=== PATIENT | male | born 1935 | race Caucasian/White ===

== ENCOUNTER 2017-07-29 01:56 | Emergency (ER) | payer MEDICARE, OTHER ==
[2017-07-29] MEDS ORDERED: IPRATROPIUM/ALBUTEROL 3 ML NEB INH STA (02:07)
[2017-07-29] MEDS ORDERED: ALBUTEROL NEB 2.5 MG/3 ML INH STA (02:10)
[2017-07-29] MEDS ORDERED: IPRATROPIUM/ALBUTEROL 3 ML NEB INH ONE (02:21)
--- NOTE | 2017-07-29 02:44 | ED Physician Documentation ---
PD HPI DYSPNEA - Stated complaint Stated Complaint: DIFFICULTY BREATHING - Chief complaint Chief Complaint: Resp - History obtained from History obtained from: Patient - History of Present Illness Timing - onset: How many days ago (3-4 days) Timing - duration: Days Timing - details: Gradual onset, Waxing and waning Pain level now: 0 Improved by: Rest Worsened by: Laying flat Associated symptoms: Fever, Cough. No: Chest pain / discomfort Recently seen: Clinic - Additional information Additional information: 3 days of cough and cold symptoms, dyspnea. saw PMD 2 days ago. rx prednisone and zithromax, was told to start the zithromax if worsening. took first dose of zithromax this evening Review of Systems Constitutional: reports: Fever, Chills, Sweats Cardiac: reports: Reviewed and negative Respiratory: reports: Dyspnea, Cough GI: reports: Reviewed and negative : denies: Dysuria, Frequency Skin: denies: Rash PD PAST MEDICAL HISTORY - Past Medical History Past Medical History: Yes Cardiovascular: High cholesterol, Coronary artery disease Respiratory: COPD Neuro: None Endocrine/Autoimmune: None HEENT: Glaucoma Derm: None - Past Surgical History Past Surgical History: Yes General: Appendectomy, Hiatal hernia repair Ortho: Arthroscopic surgery Cardiovascular: CABG HEENT: Cataracts, Tonsil/Adenoidectomy - Present Medications Home Medications: Ambulatory Orders Medication Instructions Recorded Confirmed Advair 1 mg INH DAILY 07/29/17 Albuterol 1 mcg INH DAILY 07/29/17 Monolukast 1 mg PO DAILY 07/29/17 Oxybutynin 1 mg PO DAILY 07/29/17 Plavix 1 mg PO DAILY 07/29/17 Prednisone 1 mg PO DAILY 07/29/17 Ranitadine 1 mg pe PO DAILY 07/29/17 Tamulosin 1 mg PO DAILY 07/29/17 Zithromax 1 mg PO DAILY 07/29/17 - Allergies Allergies/Adverse Reactions: Allergies Allergy/AdvReac Type Severity Reaction Status Date / Time aspirin Allergy Respiratory Verified 07/29/17 02:08 - Social History Does the pt smoke?: No Smoking Status: Never smoker Does the pt drink ETOH?: Yes Does the pt have substance abuse?: No - Immunizations Immunizations are current?: Yes - POLST Patient has POLST: No PD ED PE NORMAL - Vitals Vital signs reviewed: Yes - General General: Alert and oriented X 3, No acute distress, Well developed/nourished - HEENT HEENT: Moist mucous membranes - Neck Neck: Supple, no meningeal sign - Cardiac Cardiac: RRR, Other (2/6 DERECK base) - Respiratory Respiratory: No respiratory distress - Abdomen Abdomen: Soft, Non tender - Extremities Extremities: No edema PD ED PE EXPANDED - Respiratory Respiratory: Wheezing, Decreased breath sounds Results - Vitals Vitals: Vital Signs - 24 hr 07/29/17 07/29/17 07/29/17 02:05 02:15 03:31 Temperature 38.3 C H Heart Rate 95 84 111 H Respiratory 24 20 22 Rate Blood Pressure 152/83 H O2 Saturation 88 L 07/29/17 07/29/17 07/29/17 03:41 04:12 04:21 Temperature Heart Rate 95 96 87 Respiratory 24 20 20 Rate Blood Pressure 151/69 H 149/74 H 137/70 H O2 Saturation 96 94 94 07/29/17 07/29/17 04:43 05:20 Temperature 38.1 C H Heart Rate 78 Respiratory 20 Rate Blood Pressure O2 Saturation 94 Oxygen O2 Source Nasal cannula Oxygen Flow Rate 2 - EKG (time done) No standard instances Rate: Rate (enter#) (88) Rhythm: NSR [place]: Normal Intervals: Normal [place], RBBB QRS: Normal Ischemia: Normal ST segments - Labs Labs: Laboratory Tests 07/29/17 07/29/17 07/29/17 02:54 02:54 02:54 WBC 14.7 H RBC 4.18 L Hgb 13.4 L Hct 40.0 L MCV 95.7 H MCH 32.1 H MCHC 33.6 RDW 14.0 Plt Count 182 MPV 9.0 Neut # 12.6 H Lymph # 1.4 L [place] # 0.6 Eos # 0.0 Baso # 0.1 Absolute Nucleated RBC 0.00 Nucleated RBC % 0.0 Sodium 138 Potassium 4.0 Chloride 109 Carbon Dioxide 24 Anion Gap 5.0 L BUN 27 H Creatinine 1.2 Estimated GFR (MDRD) 58 L Glucose 165 H Lactic Acid 3.0 H* Calcium 8.8 Urine Color Urine Clarity Urine pH Ur Specific [place] Urine Protein Urine Glucose (UA) Urine Ketones Urine Occult Blood Urine Nitrite Urine Bilirubin Urine Urobilinogen Ur Leukocyte Esterase Ur Microscopic Review Urine Culture Comments Influenza A (Rapid) Influenza B (Rapid) Influenza Types A,B Ag 07/29/17 07/29/17 02:54 04:05 WBC RBC Hgb Hct MCV MCH MCHC RDW Plt Count MPV Neut # Lymph # [place] # Eos # Baso # Absolute Nucleated RBC Nucleated RBC % Sodium Potassium Chloride Carbon Dioxide Anion Gap BUN Creatinine Estimated GFR (MDRD) Glucose Lactic Acid Calcium Urine Color YELLOW Urine Clarity CLEAR Urine pH 5.5 Ur Specific [place] >=1.030 H Urine Protein NEGATIVE Urine Glucose (UA) NEGATIVE Urine Ketones NEGATIVE Urine Occult Blood NEGATIVE Urine Nitrite NEGATIVE Urine Bilirubin NEGATIVE Urine Urobilinogen 0.2 (NORMAL) Ur Leukocyte Esterase NEGATIVE Ur Microscopic Review NOT INDICATED Urine Culture Comments NOT INDICATED Influenza A (Rapid) Negative Influenza B (Rapid) Negative Influenza Types A,B Ag - - Rads (name of study) chest xray Radiology: Prelim report reviewed, See rad report PD MEDICAL DECISION MAKING - ED course Complexity details: reviewed results, re-evaluated patient, considered differential, d/w patient Departure - Departure Disposition: 01 Home, Self Care Clinical Impression: Pneumonia Qualifiers: Pneumonia type: due to unspecified organism Laterality: bilateral Lung location : lower lobe of lung Qualified Code(s): J18.9 - Pneumonia, unspecified organism Condition: Good Instructions: ED Pneumonia Adult Discharge Date/Time: 07/29/17 05:27
[2017-07-29] MEDS ORDERED: ALBUTEROL NEB 2.5 MG/3 ML INH ONE (02:52)
[2017-07-29 03:32] LABS: CALCIUM 8.8 mg/dL (8.5-10.3); CREATININE 1.2 mg/dL (0.6-1.2)
[2017-07-29] MEDS ORDERED: ACETAMINOPHEN 325 MG TABLET PO STA (03:34)
[2017-07-29] MEDS ORDERED: ACETAMINOPHEN 325 MG TABLET PO ONE (03:41)
[2017-07-29 03:44] LABS: BASOPHILS # (AUTO) 0.1 10^3/uL (0.0-0.1); BASOPHILS % (AUTO) 0.4 %; EOSINOPHILS % (AUTO) 0.1 %; HGB - HEMOGLOBIN 13.4 g/dL (14.0-18.0); LYMPHOCYTES # (AUTO) 1.4 10^3/uL (1.5-3.5); LYMPHOCYTES % (AUTO) 9.3 %; MEAN CORPUSCULAR HEMOGLOBIN 32.1 pg (27.0-31.0); MEAN CORPUSCULAR HGB CONC 33.6 g/dL (32.0-36.0); MEAN CORPUSCULAR VOLUME 95.7 fL (80.0-94.0); MONOCYTES # (AUTO) 0.6 10^3/uL (0.0-1.0); MONOCYTES % (AUTO) 3.8 %; NEUTROPHILS # (AUTO) 12.6 10^3/uL (1.5-6.6); NEUTROPHILS % (AUTO) 86.4 %; RED BLOOD COUNT 4.18 10^6/uL (4.70-6.10); UNCORRECTED WHITE BLOOD COUNT 14.7 x10^3/uL; WHITE BLOOD COUNT 14.7 x10^3/uL (4.8-10.8)
--- NOTE | 2017-07-29 03:53 | XRAY Preliminary Report ---
Exam: XR CHEST 2 VIEW PA/LAT IMPRESSION: 1. Mild bibasilar opacities could reflect pneumonia. Post treatment two-view chest suggested to ensur e clearance. 2. Mild cardiomegaly without overt heart failure. [facility] SITE ID: [id number]
--- NOTE | 2017-07-29 03:59 | XRAY Report ---
EXAM: CHEST RADIOGRAPHY EXAM DATE: 07/29/2017 03:32 AM. CLINICAL HISTORY: Dyspnea, cough. COMPARISON: 05/27/2016. TECHNIQUE: 2 views. FINDINGS: Lungs/Pleura: Mild bibasilar airspace opacities. No pneumothorax or large effusion. Cannot exclude tr nick effusions. Mediastinum: Mild cardiomegaly is stable. No mediastinal shift. Other: Post CABG. IMPRESSION: 1. Mild bibasilar opacities could reflect pneumonia. Post treatment to the chest suggested to ensure clearance. 2. Mild cardiomegaly without overt heart failure. [facility] Referring Provider Line: [phone] SITE ID: [id number]
[2017-07-29 04:18] LABS: BILIRUBIN,URINE NEGATIVE (NEGATIVE); PH,URINE 5.5 PH (5.0-7.5)
[2017-07-29 04:21] VITALS: BP 137/70
[2017-07-29 04:30] LABS: UA CHARGE (STRIP ONLY) YES; UR CULTURE IF IND NOT INDICATED
[2017-07-29] MEDS ORDERED: cefTRIAXone 1 GM in SODIUM CHLORIDE 0.9% MINIBAG 100 ML IV STA (04:36)
[2017-07-29] MEDS ORDERED: cefTRIAXone 1 GM VIAL ONE (04:42)
== END 2017-07-29 05:27 | disposition home or self-care (01) ==
LOC: ED 01:56
DX: J18.9 Pneumonia, unspecified organism (principal); I48.91 Unspecified atrial fibrillation; I45.10 Unspecified right bundle-branch block; E78.00 Pure hypercholesterolemia, unspecified; I25.10 Atherosclerotic heart disease of native coronary artery without angina pectoris; Z79.01 Long term (current) use of anticoagulants; Z95.1 Presence of aortocoronary bypass graft
CPT/HCPCS: 36415; 71020; 80048; 81003; 83605; 85025; 87275; 87276; 93005; 94640; 96365; 99283; 99284; A9270; J7613; 81001; 87086

== ENCOUNTER 2018-07-08 09:47 | Emergency (ER) | payer MEDICARE, OTHER ==
--- NOTE | 2018-07-08 10:56 | ED Physician Documentation ---
History of Present Illness - Stated complaint Stated Complaint: SHAKES/CHILLS - Chief complaint Chief Complaint: Resp - Additonal information Additional information: hx from pt 82 male to ED with cough and shaking chills cough started last night, productive white sputum, some SOA better with a neb which he uses for asthma no RAMON no [employer] no CP no AP no NVD no urinary sx no abrasions or rash etc no travel no sick contacts Review of Systems Constitutional: reports: Chills. denies: Fever Ears: denies: Ear pain Throat: denies: Sore throat Respiratory: reports: Dyspnea, Cough GI: denies: Abdominal Pain, Nausea, Vomiting, Diarrhea : denies: Dysuria Skin: denies: Rash, Lesions Endocrine: denies: Easy bruising / bleeding Immunocompromised: denies: Immunocompromised PD PAST MEDICAL HISTORY - Past Medical History Cardiovascular: High cholesterol, Coronary artery disease Respiratory: Asthma, COPD Endocrine/Autoimmune: None HEENT: Glaucoma Derm: None - Past Surgical History Past Surgical History: Yes General: Appendectomy, Hiatal hernia repair Ortho: Arthroscopic surgery Cardiovascular: CABG HEENT: Cataracts, Tonsil/Adenoidectomy - Present Medications Home Medications: Ambulatory Orders Medication Instructions Recorded Confirmed Advair 1 mg INH DAILY 07/29/17 Albuterol 1 mcg INH DAILY 07/29/17 Monolukast 1 mg PO DAILY 07/29/17 Oxybutynin 1 mg PO DAILY 07/29/17 Plavix 1 mg PO DAILY 07/29/17 Prednisone 1 mg PO DAILY 07/29/17 Ranitadine 1 mg pe PO DAILY 07/29/17 Tamulosin 1 mg PO DAILY 07/29/17 Azithromycin [Zithromax] 250 mg PO DAILY #4 tablet 07/08/18 Furosemide 07/08/18 Potassium Bicarbonate/Cit AC 07/08/18 07/08/18 [Potassium 25 Meq Tablet Eff] predniSONE [Deltasone] 60 mg PO DAILY 5 Days tablet 07/08/18 - Allergies Allergies/Adverse Reactions: Allergies Allergy/AdvReac Type Severity Reaction Status Date / Time aspirin Allergy Respiratory Verified 07/08/18 09:58 - Social History Does the pt smoke?: No Smoking Status: Never smoker Does the pt drink ETOH?: Yes Does the pt have substance abuse?: No - Immunizations Immunizations are current?: Yes - POLST Patient has POLST: No PD ED PE NORMAL - Vitals Vital signs reviewed: Yes - General General: Alert and oriented X 3 - HEENT HEENT: PERRL - Neck Neck: Supple, no meningeal sign - Cardiac Cardiac: RRR - Respiratory Respiratory: No respiratory distress, Clear bilaterally - Abdomen Abdomen: Soft, Non tender - Derm Derm: Normal color, Other (small abrasion R FA healing s infection) - Extremities Extremities: No tenderness to palpate, Normal ROM s pain, No edema, No calf tenderness / cord - Neuro Neuro: Alert and oriented X 3 Results - Vitals Vitals: Vital Signs - 24 hr 07/08/18 07/08/18 07/08/18 09:54 12:33 13:22 Temperature 36.8 C 36.7 C 36.7 C Heart Rate 85 70 72 Respiratory 20 20 18 Rate Blood Pressure 122/57 L 129/79 135/84 H O2 Saturation 95 97 97 Oxygen O2 Source Room air - Labs Labs: Laboratory Tests 07/08/18 11:15 Urine Color YELLOW Urine Clarity CLEAR Urine pH 6.0 Ur Specific [place] >=1.030 H Urine Protein >=300 Urine Glucose (UA) NEGATIVE Urine Ketones NEGATIVE Urine Occult Blood SMALL H Urine Nitrite NEGATIVE Urine Bilirubin NEGATIVE Urine Urobilinogen 0.2 (NORMAL) Ur Leukocyte Esterase NEGATIVE Urine RBC 0-5 Urine WBC 0-3 Ur Squamous Epith Cells NONE SEEN Urine Bacteria Rare Ur Microscopic Review INDICATED Urine Culture Comments NOT INDICATED PD MEDICAL DECISION MAKING - Sepsis Event Vital Signs: Vital Signs - 24 hr 07/08/18 07/08/18 07/08/18 09:54 12:33 13:22 Temperature 36.8 C 36.7 C 36.7 C Heart Rate 85 70 72 Respiratory 20 20 18 Rate Blood Pressure 122/57 L 129/79 135/84 H O2 Saturation 95 97 97 Oxygen O2 Source Room air Departure - Departure Disposition: Home, Self Care Clinical Impression: Pneumonia Qualifiers: Pneumonia type: due to unspecified organism Laterality: left Lung location: lower lobe of lung Qualified Code(s): J18.1 - Lobar pneumonia, unspecified organism Condition: Good Instructions: ED Pneumonia Adult Follow-Up: Jose Ames MD [Provider Admit Priv/Credential] - (call to see if accepting new patients and to establish care) Lois Grace MD [Provider Admit Priv/Credential] - (call to see if accepting new patients and to establish care) Prescriptions: Azithromycin [Zithromax] 250 mg PO DAILY #4 tablet predniSONE [Deltasone] 60 mg PO DAILY 5 Days tablet Comments: You do not have a urine infection but you do have a good sized left lung pneumonia Pneumonia can be a very serious infection especially at age 82 with other medical problems. But right now you vital signs are all fine and I think it is reasonable to try treating you at home with oral antibiotics and steroids and breathing treatments Please use albuterol in your nebulizer every 4 hr for the next three days and then as needed Take the prednisone for 5 more days But please, I would like you to see your PMD tomorrow (ir when you get home to [facility]) for a recheck and oxygen level to be sure you are doing all right And if you get worse at any time come straight back to the ER It is important that you get a repeat chest xray in 6 weeks to be sure this pneumonia has completely cleared - if it does not then you might need further testing such as bronchoscopy or a CT scan
[2018-07-08 11:24] LABS: BILIRUBIN,URINE NEGATIVE (NEGATIVE); CLARITY,URINE CLEAR (CLEAR); GLUCOSE, URINE (UA) NEGATIVE (NEGATIVE); KETONES,URINE (UA) NEGATIVE (NEGATIVE); LEUKOCYTE ESTERASE, URINE NEGATIVE (NEGATIVE); NITRITE,URINE NEGATIVE (NEGATIVE); OCCULT BLOOD,URINE SMALL (NEGATIVE); PROTEIN,URINE >=300 mg/dL (NEGATIVE); UROBILINOGEN,URINE 0.2 (NORMAL) E.U./dL (NORMAL)
--- NOTE | 2018-07-08 11:30 | XRAY Report ---
Reason: SOA Procedure Date: 07/08/2018 Accession Number: [id number] / [id number] Procedure: XR - Chest 2 View X-Ray CPT Code: 23578 FULL RESULT: EXAM: CHEST RADIOGRAPHY EXAM DATE: 07/08/2018 11:18 AM. CLINICAL HISTORY: Shortness of breath with productive cough. COMPARISON: Previous exam of 07/29/2017. TECHNIQUE: 2 views. FINDINGS: Lungs/Pleura: There is ill-defined left basilar infiltrate present. Right lung is grossly clear. Mediastinum: Heart and mediastinal contours are unremarkable. Poststernotomy changes noted. Other: None. IMPRESSION: Newly developed ill-defined left basilar infiltrate from previous exam of 07/29/2017. [facility]
[2018-07-08 11:41] LABS: BACTERIA,URINE Rare /HPF (None Seen); RBC,URINE 0-5 /HPF (0-5); SQUAMOUS EPITHELIAL CELL,UR NONE SEEN (<= Few)
[2018-07-08] MEDS ORDERED: AZITHROMYCIN 250 MG TABLET PO STA (13:05)
[2018-07-08 13:23] VITALS: BP 135/84
[2018-07-08] MEDS ORDERED: predniSONE 20 MG TABLET PO STA (14:00)
== END 2018-07-08 14:09 | disposition home or self-care (01) ==
LOC: ED 09:47
DX: J18.1 Lobar pneumonia, unspecified organism (principal); I25.10 Atherosclerotic heart disease of native coronary artery without angina pectoris; E78.00 Pure hypercholesterolemia, unspecified; Z95.1 Presence of aortocoronary bypass graft
CPT/HCPCS: 71046; 81001; 99283; A9270; J7512; 81003; 87086

== ENCOUNTER 2020-06-20 10:05 | Emergency (ER) | payer MEDICARE, OTHER ==
--- NOTE | 2020-06-20 11:07 | ED Physician Documentation ---
PD HPI LOWER EXT INJURY - Stated complaint Stated Complaint: R LEG PX - Chief complaint Chief Complaint: Ext Problem - History obtained from History obtained from: Patient - History of Present Illness PD HPI LOW EXT INJURY LOCATION: Right, Knee Type of injury: Other (has had ongoing pain right knee due to arthritis, worse the past few weeks with now some swelling of the knee and spasms of thigh at times when rested.). No: Fall, Twist Where injury occurred: Home Timing - onset: How many weeks ago (few) Timing - details: Gradual onset, Still present, Waxing and waning Improved by: Rest. No: Meds (not by Tylenol) Worsened by: Moving, Other (walking and standing too long, Using walker to help with the knee.). No: Palpating Associated symptoms: Swelling. No: Weakness, Numbness, Discolored Similar symptoms before: Has not had sx before Recently seen: Not recently seen (has appt with Dr. Espinoza 07/08 for initial exam.) Review of Systems Constitutional: denies: Fever, Chills Cardiac: denies: Chest pain / pressure (he has muscle spasm chest muscle when he took his shirt off today. Otherwise no chest pain.) Respiratory: denies: Dyspnea, Cough GI: denies: Abdominal Pain, Nausea, Vomiting, Diarrhea Skin: denies: Rash, Lesions Neurologic: denies: Focal weakness, Numbness PD PAST MEDICAL HISTORY - Past Medical History Cardiovascular: High cholesterol, Coronary artery disease Respiratory: Asthma, COPD Endocrine/Autoimmune: None HEENT: Glaucoma Derm: None - Past Surgical History Past Surgical History: Yes General: Appendectomy, Hiatal hernia repair Ortho: Arthroscopic surgery Cardiovascular: CABG HEENT: Cataracts, Tonsil/Adenoidectomy - Present Medications Home Medications: Ambulatory Orders Medication Instructions Recorded Confirmed Advair 1 mg INH DAILY 07/29/17 Albuterol 1 mcg INH DAILY 07/29/17 Monolukast 1 mg PO DAILY 07/29/17 Oxybutynin 1 mg PO DAILY 07/29/17 Plavix 1 mg PO DAILY 07/29/17 Prednisone 1 mg PO DAILY 07/29/17 Ranitadine 1 mg pe PO DAILY 07/29/17 Tamulosin 1 mg PO DAILY 07/29/17 Azithromycin [Zithromax] 250 mg PO DAILY #4 tablet 07/08/18 Furosemide 07/08/18 Potassium Bicarbonate/Cit AC 07/08/18 07/08/18 [Potassium 25 Meq Tablet Eff] predniSONE [Deltasone] 60 mg PO DAILY 5 Days tablet 07/08/18 Hydrocodone/Acetaminophen [[place] 1 each PO BID PRN #20 tablet 06/20/20 5-325 Tablet] Tizanidine HCl 4 mg PO TID PRN #25 capsule 06/20/20 dexAMETHasone [Decadron] 4 mg PO DAILY #5 tablet 06/20/20 - Allergies Allergies/Adverse Reactions: Allergies Allergy/AdvReac Type Severity Reaction Status Date / Time aspirin Allergy Respiratory Verified 07/08/18 09:58 - Social History Does the pt smoke?: No Smoking Status: Never smoker Does the pt drink ETOH?: Yes Does the pt have substance abuse?: No - Immunizations Immunizations are current?: Yes - POLST Patient has POLST: No PD ED PE NORMAL - Vitals Vital signs reviewed: Yes - General General: Alert and oriented X 3, No acute distress, Well developed/nourished - Cardiac Cardiac: RRR, No murmur - Respiratory Respiratory: Clear bilaterally - Abdomen Abdomen: Soft, Non tender - Derm Derm: Normal color, Warm and dry - Extremities Extremities: No edema, No calf tenderness / cord, Other (right knee with mild effusion. No redness nor warmth. Ligament testing without pain nor laxity. ) - Neuro Neuro: No motor deficit, No sensory deficit Results - Vitals Vitals: Vital Signs - 24 hr 06/20/20 06/20/20 10:36 12:49 Temperature 36.2 C L 36.5 C Heart Rate 60 53 L Respiratory 20 15 Rate Blood Pressure 159/86 H 156/120 H O2 Saturation 98 99 Oxygen O2 Source Room air - Labs Labs: Laboratory Tests 06/20/20 06/20/20 11:03 11:03 WBC 6.8 RBC 4.27 L Hgb 13.7 L Hct 41.9 L MCV 98.1 H MCH 32.1 H MCHC 32.7 RDW 13.1 Plt Count 170 MPV 11.2 Neut # (Auto) 4.8 Lymph # (Auto) 1.0 L [place] # (Auto) 0.7 Eos # (Auto) 0.3 Baso # (Auto) 0.1 Absolute Nucleated RBC 0.00 Nucleated RBC % 0.0 Sodium 139 Potassium 4.4 Chloride 104 Carbon Dioxide 24 Anion Gap 11.0 BUN 23 H Creatinine 1.3 H Estimated GFR (MDRD) 53 L Glucose 105 H Calcium 9.3 Magnesium 2.3 Total Bilirubin 0.7 AST 16 ALT 16 Alkaline Phosphatase 53 Total Protein 6.4 L Albumin 3.6 Globulin 2.8 Albumin/Globulin Ratio 1.3 Lipase 57 H - Rads (name of study) right knee Radiology: Prelim report reviewed (arthritic changes. ), See rad report PD MEDICAL DECISION MAKING - ED course Complexity details: reviewed results, considered differential (knee pain secondary to arthritis with mild effusion and some thigh muscle spasms. ), d/w patient Departure - Departure Disposition: Home, Self Care Clinical Impression: Muscle spasm of right leg Knee pain Qualifiers: Chronicity: acute Laterality: right Qualified Code(s): M25.561 - Pain in right knee Condition: Stable Record reviewed to determine appropriate education?: Yes Instructions: ED Degenerative Joint Disease Follow-Up: Rinku Nguyễn MD [Primary Care Provider] - Anastacio Espinoza DO [Physician No Access] - Prescriptions: dexAMETHasone [Decadron] 4 mg PO DAILY #5 tablet Hydrocodone/Acetaminophen [[place] 5-325 Tablet] 1 each PO BID PRN #20 tablet PRN Reason: Pain Tizanidine HCl 4 mg PO TID PRN #25 capsule PRN Reason: Spasms Comments: Your x-ray does show Arthritis of the knee and some calcification of the cartilage. Try the knee supporter when up and around to see if it helps reduce some of the discomfort and provide support for the joint. This will still allow range of motion so it does not stiffen up. Use your walker as needed for support. Short-term use Decadron anti-inflammatory to see if there is some improvement in the knee pain. Tizanidine muscle relaxant for spasms. Add Tylenol 500 mg 3 or 4 times a day regularly and to that add hydrocodone if needed for worse pain twice daily. Particularly use this at night before bed. Your electrolytes are good on your blood test. I presume your leg spasms are from the muscle fatigue from use of it to support the knee joint. Follow up with Dr. Espinoza as planned. Discharge Date/Time: 06/20/20 13:00
[2020-06-20] MEDS ORDERED: HYDROcod/ACETAM 5/325 MG TABLET PO STA (11:32)
[2020-06-20] MEDS ORDERED: CHERRY SYRUP 10 ML UDC PO ONE (11:32)
[2020-06-20] MEDS ORDERED: DEXAMETHASONE 10 MG/ML VIAL PO STA (11:32)
[2020-06-20] MEDS ORDERED: methocarbamoL 500 MG TABLET PO STA (11:32)
[2020-06-20] MEDS ORDERED: NAPROXEN 250 MG TABLET PO STA (11:33)
[2020-06-20 11:37] LABS: BASOPHILS # (AUTO) 0.1 10^3/uL (0.0-0.1); BASOPHILS % (AUTO) 0.9 %; EOSINOPHILS # (AUTO) 0.3 10^3/uL (0.0-0.7); EOSINOPHILS % (AUTO) 3.7 %; HGB - HEMOGLOBIN 13.7 g/dL (14.0-18.0); LYMPHOCYTES % (AUTO) 14.7 %; MEAN CORPUSCULAR HEMOGLOBIN 32.1 pg (27.0-31.0); MEAN CORPUSCULAR HGB CONC 32.7 g/dL (32.0-36.0); MEAN CORPUSCULAR VOLUME 98.1 fL (80.0-94.0); MEAN PLATELET VOLUME 11.2 fL (7.4-11.4); MONOCYTES # (AUTO) 0.7 10^3/uL (0.0-1.0); MONOCYTES % (AUTO) 9.8 %; NEUTROPHILS # (AUTO) 4.8 10^3/uL (1.5-6.6); NEUTROPHILS % (AUTO) 70.6 %; PLT - PLATELET COUNT 170 10^3/uL (130-450); RED BLOOD COUNT 4.27 10^6/uL (4.70-6.10); RED CELL DISTRIBUTION WIDTH 13.1 % (12.0-15.0); WHITE BLOOD COUNT 6.8 x10^3/uL (4.8-10.8)
--- NOTE | 2020-06-20 12:00 | XRAY Report ---
PROCEDURE: Knee 4 View RT INDICATIONS: knee pain worsening the past week TECHNIQUE: 4 views of the right knee(s) were acquired. COMPARISON: None. FINDINGS: Bones: No fractures or dislocations. No suspicious bony lesions. There is mild medial femorotibial joint space narrowing, with associated degenerative change with sub chondral sclerosis and osteophyte formation. An enthesophyte can be seen along the superior aspect of the patella. Soft tissues: There is a small joint effusion. Relatively prominent calcification can be seen along t he joint line. Atherosclerotic calcification is seen. IMPRESSION: Degenerative changes with medial joint space narrowing and likely meniscal calcification , without an acute abnormality identified by plain film. If there is strong clinical concern for internal arrangement of the knee, please consider a dedicated knee MRI for further evaluation (assuming that there is no contraindication). Reviewed by: Colin Pryor MD on 06/20/2020 10:59 AM ERICA Approved by: Colin Pryor MD on 06/20/2020 10:59 AM ERICA Station ID: [id number]
[2020-06-20 12:07] LABS: ALBUMIN 3.6 g/dL (3.2-5.5); ALBUMIN/GLOBULIN RATIO 1.3 (1.0-2.2); BILIRUBIN,TOTAL 0.7 mg/dL (0.2-1.0); CALCIUM 9.3 mg/dL (8.5-10.3); CREATININE 1.3 mg/dL (0.6-1.2); MAGNESIUM 2.3 mg/dL (1.7-2.8); TOTAL PROTEIN 6.4 g/dL (6.7-8.2)
[2020-06-20 12:50] VITALS: BP 156/120
== END 2020-06-20 13:00 | disposition home or self-care (01) ==
LOC: ED 10:05
DX: M62.838 Other muscle spasm (principal); M25.561 Pain in right knee
CPT/HCPCS: 36415; 73564; 80053; 83690; 83735; 85025; 93005; 99284; A9270

== ENCOUNTER 2020-08-20 08:00 | Outpatient (CLI) | payer MEDICARE, OTHER ==
[2020-08-20 19:19] LABS: FREE T3 2.51 pg/mL (2.5-3.9)
[2020-08-20 19:20] LABS: THYROID STIMULATING HORMONE 3.55 uIU/mL (0.34-5.60)
[2020-08-20 19:21] LABS: FREE T4 (FREE THYROXINE) 0.91 ng/dL (0.58-1.64)
== END 2020-08-20 23:59 | disposition home or self-care (01) ==
LOC: LAB.WCP 08:00
PROVIDERS: ATTEND Family Medicine
DX: M62.81 Muscle weakness (generalized) (principal)
CPT/HCPCS: 36415; 84439; 84443; 84481

== ENCOUNTER 2020-10-30 10:58 | Outpatient (CLI) | payer MEDICARE, OTHER ==
[2020-10-30 12:19] VITALS: BP 133/70
--- NOTE | 2020-10-30 12:19 | SLEEP CARE CONSULTATION ---
Information from patient questionnaire entered by Cristela Cesar. I have reviewed and concur with the information entered by Cristela Cesar. This document represents the service I personally performed and the decisions made by me, Lisa Fishman ARNP. History of Present Illness Service Date and Time: 10/30/2020 1058 Reason for Visit: New patient, Previously diagnosed sleep apnea (Severe - AHI - 42.7), sleep apnea on CPAP therapy, Other Chief Complaint: reports: Other (need new machine) Date of Onset: had machine 7 years Usual bedtime: 9-10 pm Time it takes to fall asleep: 20 minutes or less Snores at night: Yes (when not using machine) Observed to quit breathing while asleep: Yes Sleeps alone due to snoring: No Number of times waking at night: 2 Reasons for waking at night: reports: Bathroom. denies: Choking, Snoring, Gasping for air Toss, Turn, or Twitch while sleeping: Yes Recalls having dreams: Yes Usually gets out of bed at: 9 am Feels refreshed in the morning: Yes Morning headache: No Sleepy or fatigued during the day: Yes Ever fallen asleep while driving: No Takes day naps: Yes Dreams during day naps: No Prior sleep studies: Yes Year and Where: 2012 [facility] in [place], [place] Additional HPI information: KASHMIR CHAMBERS was diagnosed to have severe, AHI 42.7, obstructive sleep apnea- hypopnea syndrome and comes into the office today to establish care for CPAP therapy and is accompanied by his spouse. - Parasomnia Symptoms Ever been unable to move upon waking from sleep: No Walks in sleep: No Talks in sleep: Yes (once in a while) Ever acted out dreams in sleep: No Ever felt weak in the knees when startled or emotional: No Bothered by creepy, crawly, restless sensations in legs: Yes Problems with memory or concentration: Yes CPAP Compliance Data - Data Reviewed with Patient Average duration of nightly device use: 6 hr 11 min Compliance rate %: 75.6 (180 days) Current pressure setting (cmH2O): 8 Humidity settin Average residual AHI: 3.1 Average large leak: 3 min 59 sec Compliance data discussion: He is using a nasal Wisp type mask. He tries to change it out every 2 weeks. He gets his supplies from [facility] in [place] ([facility]), used to come automatically but since move he has not received any more. Subjective Patient concerns: reports: air blowing in eyes (when losening up after changing position in bed), mask leak noise. denies: aerophagia, mask discomfort, condensation in mask/hose, nasal congestion, dry mouth, nose, throat, epistaxis, other Observed to snore while using device: No (but his states she hear "gurgling sounds") Current pressure setting perceived as: comfortable On therapy, patient: reports: sleeping better, awakening more refreshed, being more awake and alert during the day, more rested overall, drowsiness while driving (during long distance driving) Initial [place] Sleepiness Scale score: 11 (in 2019) Past Medical History Past Medical History: reports: Arthritis, Asthma, Emphysema (COPD), GERD, Other (heart valve replacement). denies: Hypertension, Diabetes, Arrythmia, Anxiety, Depression Social History The patient's occupation is a Retired. Patient is and lives in [place]. Have you smoked in the past 12 months: No Years of smokin Quit date: 1966 Alcohol use: Yes Alcohol amount and frequency: 1 drink 5 times a week Caffeine use: No Family History Family history of sleep disordered breathing: Yes (son - sleep apnea treated) Allergies and Home Medications Drug allergies reviewed: Yes (aspirin) Home medication list reviewed: Yes (see scanned list) Review of Systems Cardiovascular: denies: high blood pressure Respiratory: reports: shortness of breath, wheeze, sputum production, chronic cough Gastrointestinal: reports: heartburn Urinary: reports: frequency, urgency, impotence Neurological: reports: gait or balance problems. denies: headaches Ear/Nose/Throat: reports: nasal congestion, sinus problems, tonsillectomy, wisdom teeth removed Endocrine: reports: increased urination. denies: thyroid disease Musculoskeletal: reports: mobility problems Immunologic: reports: sneezing, allergies to food or environment Physical Exam Blood Pressure: 133/70 Cuff size: long Heart Rate: 54 O2 Saturation: 92 Height: 6 ft 0.5 in Weight: 245 lb Body Mass Index: 32.8 BMI Classification: Obese Nostrils: patent to airflow Turbinates: normal Mouth and throat: narrow oropharynx Soft palate: long Uvula visualization: 25% Mallampati Class III Tongue: normal in size Tonsils: absent bilaterally Heart: regular rate and rhythm (bovine valvue) Lungs: clear bilaterally Impression and Plan 1. Obstructive Sleep Apnea-Hypopnea Syndrome, severe, with good treatment compliance and good apnea control. On CPAP therapy, the patient has better sleep quality and is more rested overall. He has a machine that is 7 years old and one of the buttons is broken off of it. They had someone look at it and told them the pressure may not be working well on the machine. He would like to update his machine. The patients CPAP is over 5 years old and of reasonable use with some broken components. Thus, the CPAP will be updated. A DWO prescription will be made. Compliance guidelines for new device and follow up discussed. Patient's apnea severity and rationale for treatment to reduce apnea, improve sleep quality and reduce cardiovascular and cerebrovascular events was reviewed. I also reviewed the benefit of consistent device use of CPAP for hypertension, cardiac disease, gastric reflux, depression/anxiety, and COPD. * Continue auto CPAP pressure at 8 cmH2O * Update machine * Notify me if snoring with mask or feeling that the pressure is too much or too little * Attempt to lose weight * Call this office if any problems using CPAP * Return for follow up in 1 months after obtaining new machine, or sooner if concerns arise Counseling Topics: Spare mask, Weight loss health impact Visit Type: In Office Time Spent with Patient (minutes): 37 Provider Statement: I spent 100% of the Face to Face Visit with the patient with greater than 50% spent counseling the patient and coordination of care.
== END 2020-10-30 10:59 | disposition home or self-care (01) ==
LOC: SC 10:58
PROVIDERS: ATTEND Nurse Practitioner Family
DX: G47.33 Obstructive sleep apnea (adult) (pediatric) (principal); J43.9 Emphysema, unspecified; E66.9 Obesity, unspecified; Z68.32 Body mass index [BMI] 32.0-32.9, adult; Z95.2 Presence of prosthetic heart valve
CPT/HCPCS: 99203; G0463; 99212

== ENCOUNTER 2020-12-22 11:27 | Outpatient (CLI) | payer MEDICARE, OTHER ==
--- NOTE | 2020-12-22 11:51 | SLEEP CARE CONSULTATION ---
Information from patient questionnaire entered by Cristela Cesar. I have reviewed and concur with the information entered by Cristela Cesar. This document represents the service I personally performed and the decisions made by , Lisa Fishman ARNP. History of Present Illness Service Date and Time: 12/22/2020 1127 Previous diagnosis: Severe, Obstructive Sleep Apnea-Hypopnea Syndrome AHI: 42.7 (in 2012) Reason for follow up: first compliance after device update Equipment type: CPAP Equipment obtained from: [email or web address] (getting supplies as needed) Mask style: Nasal (over the nose) Backup mask available: No (will keep old mask once replaced) Last cushion change: 1 month Prior sleep studies: Yes Year and Where: [address] [place] [address] in [facility] additional information: KASHMIR CHAMBERS was diagnosed to have severe, AHI 42.7, obstructive sleep apnea- hypopnea syndrome and returned today with spouse for CPAP therapy first compliance after updating device follow-up. CPAP Compliance Data - Data Reviewed with Patient Average duration of nightly device use: 7 hr 50 min Compliance rate %: 100 Current pressure setting (cmH2O): 8 Humidity settin Average residual AHI: 2.4 Central apnea: 1.4 Obstructive apnea: 0.5 Subjective Patient concerns: reports: condensation in mask/hose (occasional in mask, may be from overfill on tank), dry mouth, nose, throat. denies: aerophagia, mask discomfort, air blowing in eyes, mask leak noise, nasal congestion, epistaxis, other Observed to snore while using device: No (occasional gurgle) Current pressure setting perceived as: comfortable On therapy, patient: reports: sleeping better, awakening more refreshed, being more awake and alert during the day, more rested overall. denies: drowsiness while driving Initial [place] Sleepiness Scale score: 11 (in 2019) Current [place] Sleepiness Scale score: 10 Allergies and Home Medications Home medication list reviewed: Yes (no changes) Review of Systems Review of systems same as previous: Yes (no changes) Physical Exam Heart Rate: 62 O2 Saturation: 98 Height: 6 ft 0.5 in Weight: 247 lb Body Mass Index: 33.0 BMI Classification: Obese Impression and Plan 1. Obstructive Sleep Apnea-Hypopnea Syndrome, severe, with excellent treatment compliance and good apnea control. On CPAP therapy, the patient has better sleep quality and is more rested overall. He really likes the new machine. He has noted occasional (not very often) condensation in the mask. He thinks it after filling the water chamber too much. I advised him to make sure to not overfill. He has also had some mouth dryness. Oral dryness can be reduced by adjusting humidity setting higher or heated hose lower or by adjusting both settings. Verbal instructions given on how to change humidity and heated hose settings with rationale explaining why to change. Patient's apnea severity and rationale for treatment to reduce apnea, improve sleep quality and reduce cardiovascular and cerebrovascular events was reviewed. I also reviewed the benefit of consistent device use of CPAP for cardiac disease, COPD and gastric reflux. * Continue auto CPAP pressure at 8 cmH2O * Notify me if snoring with mask or feeling that the pressure is too much or too little * Attempt to lose weight * Call this office if any problems using CPAP * Return for follow up in 1 year, or sooner if concerns arise Counseling Topics: Spare mask, Weight loss health impact Visit Type: In Office Other Participants: Spouse/Significant Other Time Spent with Patient (minutes): 20 Provider Statement: I spent 100% of the Face to Face Visit with the patient with greater than 50% spent counseling the patient and coordination of care.
== END 2020-12-22 11:28 | disposition home or self-care (01) ==
LOC: SC 11:27
PROVIDERS: ATTEND Nurse Practitioner Family
DX: G47.33 Obstructive sleep apnea (adult) (pediatric) (principal); E66.9 Obesity, unspecified; Z68.33 Body mass index [BMI] 33.0-33.9, adult
CPT/HCPCS: 99213; G0463; 99212

== ENCOUNTER 2021-03-10 09:22 | Outpatient (CLI) | payer MEDICARE, OTHER ==
--- NOTE | 2021-03-10 10:02 | CT Report ---
PROCEDURE: HEAD WO INDICATIONS: MEMORY LOSS TECHNIQUE: Noncontrast 4.5 mm thick angled axial sections acquired from the foramen magnum to the vertex. For r adiation dose reduction, the following was used: automated exposure control, adjustment of mA and/or kV according to patient size. COMPARISON: None. FINDINGS: Image quality: Excellent. CSF spaces: Basal cisterns are patent. No extra-axial fluid collections. Ventricles are normal in size and shape. Brain: No midline shift. No intracranial masses or hemorrhage. Galarza-white matter interface is norm al. Skull and face: Calvarium and visualized facial bones are intact, without suspicious lesions. Sinuses: Visualized sinuses and mastoids demonstrate no significant abnormal fluid. IMPRESSION: Intracranial study within normal limits for age, with note made of brain parenchymal volume loss and chronic small vessel ischemic change. Reviewed by: Colin Pryor MD on 03/10/2021 9:01 AM ERICA Approved by: Colin Pryor MD on 03/10/2021 9:01 AM ERICA Station ID: [id number]
--- NOTE | 2021-03-10 13:41 | XRAY Report ---
PROCEDURE: Chest 2 View X-Ray INDICATIONS: DYSPNEA, AORTIC VALVE REPLACEMENT TECHNIQUE: 2 view(s) of the chest. COMPARISON: Chest x-ray 07/08/2018 FINDINGS: Surgical changes and devices: Sternal wires. Lungs and pleura: Slight appearance of left basilar/retrocardiac opacity with blunting of the left co stophrenic angle. Mediastinum: Mediastinal contours are normal. Heart size is normal. Bones and chest wall: No suspicious bony abnormalities. Soft tissues appear unremarkable. IMPRESSION: Hazy left basilar/retrocardiac opacity with blunting of the costophrenic angle suggestiv e of airspace disease such as pneumonia with minimal to mild effusion. Reviewed by: Kenia Perdue MD on 03/10/2021 1:40 PM PDT Approved by: Kenia Perdue MD on 03/10/2021 1:40 PM PDT Station ID: [id number]
== END 2021-03-10 09:23 | disposition home or self-care (01) ==
LOC: DI 09:22
PROVIDERS: ATTEND Family Medicine
DX: E66.3 Overweight (principal); G47.33 Obstructive sleep apnea (adult) (pediatric); R41.3 Other amnesia; Z95.2 Presence of prosthetic heart valve; R91.8 Other nonspecific abnormal finding of lung field; R06.09 Other forms of dyspnea; M62.81 Muscle weakness (generalized); J44.9 Chronic obstructive pulmonary disease, unspecified; I25.10 Atherosclerotic heart disease of native coronary artery without angina pectoris; R73.9 Hyperglycemia, unspecified
CPT/HCPCS: 36415; 80053; 80061; 83036; 83721; 84439; 84443; 84481; 85025

== ENCOUNTER 2021-03-10 09:35 | Outpatient (CLI) | payer MEDICARE, OTHER ==
[2021-03-10 09:58] LABS: BASOPHILS # (AUTO) 0.1 10^3/uL (0.0-0.1); BASOPHILS % (AUTO) 0.8 %; EOSINOPHILS # (AUTO) 0.2 10^3/uL (0.0-0.7); EOSINOPHILS % (AUTO) 2.8 %; HCT - HEMATOCRIT 43.7 % (42.0-52.0); HGB - HEMOGLOBIN 14.4 g/dL (14.0-18.0); LYMPHOCYTES # (AUTO) 1.2 10^3/uL (1.5-3.5); LYMPHOCYTES % (AUTO) 15.4 %; MEAN CORPUSCULAR HEMOGLOBIN 32.4 pg (27.0-31.0); MEAN CORPUSCULAR VOLUME 98.2 fL (80.0-94.0); MEAN PLATELET VOLUME 10.5 fL (7.4-11.4); MONOCYTES # (AUTO) 0.7 10^3/uL (0.0-1.0); NEUTROPHILS # (AUTO) 5.4 10^3/uL (1.5-6.6); NEUTROPHILS % (AUTO) 71.6 %; PLT - PLATELET COUNT 183 10^3/uL (130-450); RED BLOOD COUNT 4.45 10^6/uL (4.70-6.10); RED CELL DISTRIBUTION WIDTH 13.5 % (12.0-15.0); WHITE BLOOD COUNT 7.5 x10^3/uL (4.8-10.8)
[2021-03-10 10:30] LABS: ALBUMIN 4.1 g/dL (3.2-5.5); ALBUMIN/GLOBULIN RATIO 1.4 (1.0-2.2); ALKALINE PHOSPHATASE 50 IU/L (42-121); ALT ALANINE AMINOTRANSFERASE 19 IU/L (10-60); AST ASPARTATE AMINOTRANSFERASE 19 IU/L (10-42); BILIRUBIN,TOTAL 0.6 mg/dL (0.2-1.0); BUN - BLOOD UREA NITROGEN 21 mg/dL (6-20); CALCIUM 9.3 mg/dL (8.5-10.3); CARBON DIOXIDE - CO2 28 mmol/L (21-32); CHLORIDE 103 mmol/L (101-111); CHOL/HDL RATIO 4.3 (<5.0); CHOLESTEROL 180 mg/dL; CREATININE 1.3 mg/dL (0.6-1.2); GFR - MDRD 53 (>89); GLUCOSE 86 mg/dL (70-100); HDL CHOLESTEROL 42 mg/dL; LDL CHOLESTEROL,CALCULATED 95 mg/dL; LDL/HDL RATIO 2.3 (<3.6); POTASSIUM 4.2 mmol/L (3.5-5.0); SODIUM 139 mmol/L (135-145); TRIGLYCERIDES 215 mg/dL; VLDL CHOLESTEROL 43 mg/dL
[2021-03-10 10:31] LABS: THYROID STIMULATING HORMONE 2.92 uIU/mL (0.34-5.60)
[2021-03-10 10:32] LABS: FREE T3 3.41 pg/mL (2.5-3.9)
[2021-03-10 10:33] LABS: FREE T4 (FREE THYROXINE) 0.89 ng/dL (0.58-1.64)
[2021-03-10 12:38] LABS: ESTIMATED AVERAGE GLUCOSE 117 mg/dL (70-100); HEMOGLOBIN A1c% 5.7 % (4.27-6.07)
== END 2021-03-10 09:36 | disposition home or self-care (01) ==
LOC: LAB 09:35
PROVIDERS: ATTEND Family Medicine
DX: R06.09 Other forms of dyspnea (principal); G47.33 Obstructive sleep apnea (adult) (pediatric); M62.81 Muscle weakness (generalized); Z95.2 Presence of prosthetic heart valve; J44.9 Chronic obstructive pulmonary disease, unspecified; R41.3 Other amnesia; I25.10 Atherosclerotic heart disease of native coronary artery without angina pectoris; R73.9 Hyperglycemia, unspecified
CPT/HCPCS: 36415; 80053; 80061; 83036; 83721; 84439; 84443; 84481; 85025

== ENCOUNTER 2021-04-13 09:19 | Outpatient (CLI) | payer MEDICARE, OTHER | END 2021-04-13 09:20 | disposition critical access hospital (66) | LOC: EMS 09:19 | DX: R47.81 Slurred speech (principal) | CPT/HCPCS: A0425; A0429 ==

== ENCOUNTER 2021-04-13 09:23 | Observation (INO) | payer MEDICARE, OTHER ==
--- NOTE | 2021-04-13 09:37 | ED Physician Documentation ---
History of Present Illness - Stated complaint Stated Complaint: CODE STROKE - History obtained from History obtained from: Patient, EMS - Additonal information Additional information: 85-year-old man with past medical history of coronary disease status post CABG, asthma, presents as a code stroke brought in by EMS after sudden onset slurred speech this morning at 9 AM. Fingerstick in the field WNL. Upon arrival to the emergency department patient's symptoms appear to have completely resolved. He was brought to CT expeditiously given the TOO. LSN 8:45am. Further initial history limited by patient acuity. Review of Systems Unable to obtain: Other (Review of systems limited by patient acuity) PD PAST MEDICAL HISTORY - Past Medical History Cardiovascular: High cholesterol, Coronary artery disease Respiratory: Asthma, COPD Endocrine/Autoimmune: None HEENT: Glaucoma Derm: None - Past Surgical History Past Surgical History: Yes General: Appendectomy, Hiatal hernia repair Ortho: Arthroscopic surgery Cardiovascular: CABG HEENT: Cataracts, Tonsil/Adenoidectomy - Present Medications Home Medications: Ambulatory Orders Medication Instructions Recorded Confirmed Clopidogrel [Plavix] 75 mg PO DAILY 07/29/17 04/13/21 Fluticasone/Salmeterol [Advair 1 mg INH DAILY 07/29/17 04/13/21 500-50 Diskus] Montelukast [Singulair] 10 mg PO QPM 07/29/17 04/13/21 Acetaminophen [Tylenol] 650 mg PO Q6H PRN 04/13/21 04/13/21 Albuterol Sulf [Ventolin Hfa 1 - 2 puffs INH Q4HR PRN 04/13/21 04/13/21 Inhaler] Ascorbic Acid [Vitamin C] 1,000 mg PO DAILY 04/13/21 04/13/21 Cholecalciferol [Vitamin D3] 25 mcg PO DAILY 04/13/21 04/13/21 Dorzolamide 2% Ophth Drops 1 drops OP TID 04/13/21 04/13/21 [Trusopt 2% Ophth Drops] Fexofenadine HCl 180 mg PO DAILY PM 04/13/21 04/13/21 Ipratropium/Albuterol [Duoneb] 3 ml INH BID 04/13/21 04/13/21 Latanoprost/Pf [Latanoprost 0.005% 1 drops OP DAILY PM 04/13/21 04/13/21 Eye Drop] Magnesium Oxide [Mag Ox] 400 mg PO DAILY 04/13/21 04/13/21 Mometasone Furoate [Nasonex] 17 gm NS BID 04/13/21 04/13/21 Multivitamin 1 tab ORAL DAILY 04/13/21 04/13/21 Oxybutynin [Ditropan] 5 mg PO DAILY PM 04/13/21 04/13/21 Pantoprazole Sodium 20 mg PO DAILY 04/13/21 04/13/21 Tamsulosin HCl [Flomax] 0.4 mg ORAL DAILY PM 04/13/21 04/13/21 Triamcinolone 0.1% Cream [Kenalog 1 applic TOP BID PRN 04/13/21 04/13/21 0.1% Cream] Ubidecarenone [Co Q-10] 2 tab ORAL DAILY 04/13/21 04/13/21 Vitamin E 400 unit PO DAILY 04/13/21 04/13/21 predniSONE [Deltasone] 20 mg PO DAILY PRN 04/13/21 04/13/21 - Allergies Allergies/Adverse Reactions: Allergies Allergy/AdvReac Type Severity Reaction Status Date / Time aspirin Allergy Respiratory Verified 04/13/21 09:39 - Social History Does the pt smoke?: No Smoking Status: Never smoker Does the pt drink ETOH?: Yes Does the pt have substance abuse?: No - Immunizations Immunizations are current?: Yes - POLST Patient has POLST: No PD ED PE NORMAL - Vitals Vital signs reviewed: Yes - General General: Alert and oriented X 3, No acute distress, Well developed/nourished - HEENT HEENT: Atraumatic, PERRL, EOMI, Moist mucous membranes - Neck Neck: Supple, no meningeal sign - Cardiac Cardiac: RRR - Respiratory Respiratory: No respiratory distress, Clear bilaterally - Abdomen Abdomen: Non tender, Non distended - Derm Derm: Normal color, Warm and dry - Extremities Extremities: No deformity - Neuro Neuro: Alert and oriented X 3, ice guard inspector 2-12 intact, No motor deficit, No sensory deficit, Normal speech, Other (NIHSS 0) Eye Opening: Spontaneous Motor: Obeys Commands Verbal: Oriented GCS Score: 15 - Psych Psych: Normal mood, Normal affect Results - Vitals Vitals: Vital Signs - 24 hr 04/13/21 04/13/2121 09:39 10:10 10:38 Temperature 37.1 C Heart Rate 67 61 58 L Respiratory 22 18 18 Rate Blood Pressure 158/84 H 145/73 H 161/73 H O2 Saturation 94 93 98 Oxygen O2 Source Room air - EKG (time done) 0948 Rate: Rate (enter#) (63) Rhythm: NSR Intervals: Other (NV 206. QRS 112. QT/QTC 421/431. incomplete RBBB. ) - Labs Labs: Laboratory Tests 04/13/21 04/13/21 09:51 09:51 WBC 7.1 RBC 4.16 L Hgb 13.4 L Hct 40.9 L MCV 98.3 H MCH 32.2 H MCHC 32.8 RDW 13.4 Plt Count 162 MPV 10.6 Neut # (Auto) 4.8 Lymph # (Auto) 1.3 L Taliaferro # (Auto) 0.7 Eos # (Auto) 0.3 Baso # (Auto) 0.1 Absolute Nucleated RBC 0.00 Nucleated RBC % 0.0 Sodium 140 Potassium 4.0 Chloride 107 Carbon Dioxide 26 Anion Gap 7.0 BUN 19 Creatinine 1.6 H Estimated GFR (MDRD) 41 L Glucose 114 H Calcium 9.0 Total Bilirubin 0.7 AST 16 ALT 20 Alkaline Phosphatase 41 L Total Protein 6.4 L Albumin 3.8 Globulin 2.6 Albumin/Globulin Ratio 1.5 Lipase 51 PD MEDICAL DECISION MAKING - ED course ED course: On arrival the patient has NIHSS of 0. No slurring of speech noted. He was taken directly to CT and a Noncon confirmed no intracranial bleeding. Discussed with Dr. Majano, telestroke and since he appears to have had resolution of symptoms he is not a candidate for TPA. Recommends TIA work-up. 9:35 am - reviewed CT with radiologist - no acute findings. d/w who states the patient is now at baseline. She does state he had an acute episode of weakness about a week ago and was having trouble getting out of bed and it resolved on its own. Per her report, Patient was behaving normally when he woke up this morning around 5 AM. They had breakfast and he then went upstairs to brush his teeth and to take a nap, which is his usual routine. She then heard him calling for her and upon entering the room she was unable to understand his speech. She could tell that he was trying to get help to get out of bed because he gestured for her. Normally he is able to get in and out of bed himself but she was having trouble getting him up and so she called EMS. He may have had a mild L facial droop at that time as well. His speech normally is completely discernible, but she said that she could not understand any words he was saying at the time. Departure - Departure Disposition: ED Place in Observation Clinical Impression: TIA (transient ischemic attack) Condition: Good
--- NOTE | 2021-04-13 09:47 | CT Report ---
PROCEDURE: Head W/O Stroke Protocol INDICATIONS: slurred speech 9am TECHNIQUE: Noncontrast 4.5 mm thick angled axial sections acquired from the foramen magnum to the vertex, with c oronal reformats. For radiation dose reduction, the following was used: automated exposure control, adjustment of mA and/or kV according to patient size. COMPARISON: FINDINGS: Image quality: Excellent. The ventricular system and cortical sulci demonstrate atrophy, consistent for patient's stated age. There are areas of hypodensity in the periventricular and subcortical white matter. There is no acut e intra or extra-axial fluid collection. No acute hemorrhage, mass lesion or midline shift. Brainst em is unremarkable. Globes are symmetrical. Sinuses are aerated. Osseous structures are intact. . IMPRESSION: 1. No acute intracranial process. 2. Mild atrophy and chronic microvascular ischemic changes. The above findings were discussed with Dr. Juju Aviles on 04/13/2021 at 9:40 AM. This study fulfills neurological imaging criteria for inclusion or exclusion of acute stroke therapie s based on available published neurological imaging guidelines. Reviewed by: Kenia Perdue MD on 04/13/2021 9:46 AM PDT Approved by: Kenia Perdue MD on 04/13/2021 9:46 AM PDT Station ID: [id number]
[2021-04-13 09:58] LABS: BASOPHILS # (AUTO) 0.1 10^3/uL (0.0-0.1); BASOPHILS % (AUTO) 0.8 %; EOSINOPHILS # (AUTO) 0.3 10^3/uL (0.0-0.7); EOSINOPHILS % (AUTO) 4.3 %; HCT - HEMATOCRIT 40.9 % (42.0-52.0); HGB - HEMOGLOBIN 13.4 g/dL (14.0-18.0); LYMPHOCYTES # (AUTO) 1.3 10^3/uL (1.5-3.5); LYMPHOCYTES % (AUTO) 17.7 %; MEAN CORPUSCULAR HEMOGLOBIN 32.2 pg (27.0-31.0); MEAN CORPUSCULAR HGB CONC 32.8 g/dL (32.0-36.0); MEAN CORPUSCULAR VOLUME 98.3 fL (80.0-94.0); MEAN PLATELET VOLUME 10.6 fL (7.4-11.4); MONOCYTES # (AUTO) 0.7 10^3/uL (0.0-1.0); MONOCYTES % (AUTO) 10.1 %; NEUTROPHILS # (AUTO) 4.8 10^3/uL (1.5-6.6); NEUTROPHILS % (AUTO) 66.8 %; PLT - PLATELET COUNT 162 10^3/uL (130-450); RED BLOOD COUNT 4.16 10^6/uL (4.70-6.10); RED CELL DISTRIBUTION WIDTH 13.4 % (12.0-15.0); WHITE BLOOD COUNT 7.1 x10^3/uL (4.8-10.8)
[2021-04-13 10:12] LABS: ALBUMIN 3.8 g/dL (3.2-5.5); ALBUMIN/GLOBULIN RATIO 1.5 (1.0-2.2); BILIRUBIN,TOTAL 0.7 mg/dL (0.2-1.0); CREATININE 1.6 mg/dL (0.6-1.2); TOTAL PROTEIN 6.4 g/dL (6.7-8.2)
[2021-04-13] MEDS ORDERED: IOVERSOL 320 100 ML VIAL IVP ONE (10:42)
--- NOTE | 2021-04-13 11:22 | CT Report ---
PROCEDURE: ANGIO HEAD W/WO INDICATIONS: slurred speech CONTRAST: IV CONTRAST: Optiray 320 ml: 80 PO CONTRAST: *NO PO CONTRAST TECHNIQUE: Precontrast 4.5 mm thick angled axial sections acquired from the foramen magnum to the vertex. Afte r the administration of intravenous contrast, 1 mm thick sections acquired through the [place] of [place] is. Postcontrast 4.5 mm thick sections then re-acquired from the foramen magnum to the vertex. 3-di mensional [id number]-[id number]-vxymcjnphb (MIP) and/or volume rendering reformats were acquired of the c entral intracranial vasculature. For radiation dose reduction, the following was used: automated ex posure control, adjustment of mA and/or kV according to patient size. COMPARISON: CT head dated 04/13/2021, CT head dated 04/10/2021, CTA neck dated 04/13/ FINDINGS: Image quality: Excellent. Anterior circulation: Intracranial internal carotid arteries are normal in size and flow. The flow within the paired anterior cerebral arteries is normal and symmetric. The flow within the middle cer ebral arteries is normal and symmetric. The anterior communicating artery is seen. No aneurysms are seen. Posterior circulation: Diffusely diminutive right vertebral artery with apparent occlusion of unknown capacity just before the basilar artery. The right vertebral artery does not in the PICA. Dominant l eft vertebral artery gives rise to a normal-appearing basilar artery. Flow within the posterior cereb ral arteries is normal and symmetric. No aneurysms are seen. CSF spaces: Ventricles are normal in size and shape. Basal cisterns are patent. No extra-axial flu id collections. Age-related volume loss and small vessel ischemic change. Brain: No midline shift. No intracranial bleeds or masses. Galarza-white matter interface appears int act. Skull and face: Calvarium and facial bones appear intact, without suspicious lesions. Sinuses: Extensive paranasal sinus surgery with bilateral medial nasal antral windows and turbinate r esection probably on the right. Left maxillary sinus mucosal thickening. IMPRESSION: 1. Age related volume loss and small vessel ischemic change. 2. No evidence acute stroke, hemorrhage, or mass. 3. 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 Above discussed with LOEVLY CHAHAL at the time of dictation on 04/13/2021 at 1013 hours [place] Da ylight Time. Reviewed by: Shola Malik MD on 04/13/2021 10:20 AM ERICA Approved by: Shola Malik MD on 04/13/2021 10:20 AM ERICA Station ID: [id number]
--- NOTE | 2021-04-13 11:22 | CT Report ---
PROCEDURE: ANGIO NECK W INDICATIONS: slurred speech CONTRAST: IV CONTRAST: Optiray 320 ml: 80 PO CONTRAST: *NO PO CONTRAST TECHNIQUE: After the administration of intravenous contrast, 1.5 mm axial sections acquired from the aortic arch to the [place]. Coronal 3-D maximum intensity projection (MIP) and/or volume rendering ref ormats were then performed. For radiation dose reduction, the following was used: automated exposur e control, adjustment of mA and/or kV according to patient size. COMPARISON: CTA Head performed at the same time. FINDINGS: Image quality: Excellent. Carotid system: The great vessels demonstrate a bovine arch anatomy as they arise from the aortic ar ch. The origins of the common carotid arteries appear patent. The common carotid arteries demonstra te normal calibers and courses. There is a moderate calcified stenosis of the right carotid bifurcati on, approximately 50%. There is mild proximal left internal carotid artery stenotic disease, nonflow limiting. Posterior circulation: The right vertebral artery is diffusely diminutive, and appears to occlude at its most distal aspect, distal to PICA, of uncertain chronicity. The left vertebral artery is dominan t and gives rise to a normal basilar artery. Soft tissues: Visualized neck soft tissues demonstrate no suspicious abnormalities. The thyroid is normal in size and there are no incidental findings. Bones: No suspicious bony lesions. Severe cervical spondylitic change. Findings include a partially calcified chronic right posterior disc protrusion at C3-C4 with stenosis of the right side of the can al and severe right lateral recess and foraminal stenosis. There is multilevel bony foraminal narrowi ng. IMPRESSION: 1. There is a moderate calcified stenosis, approximately 50%, of the right carotid bifurcation. 2. There is a mild left internal carotid artery nonflow-limiting stenosis. 3. Diffusely diminutive right vertebral artery, apparently occluding at its most distal aspect, of un certain chronicity. 4. Severe cervical spondylosis. Above discussed with LOVELY CHAAHL at the time of dictation on 04/13/2021 at 1013 hours [place] Da ylight Time. The estimate of stenosis included in the report of the imaging study was calculated using the NASCET method CLINICAL RECOMMENDATION STATEMENTS: In patients <35 years with an ITN detected on CT, MRI, or extrathyroidal ultrasound, the Committee re commends further evaluation with dedicated thyroid ultrasound if the nodule is ?1 cm and has no suspi cious imaging features, and if the patient has normal life expectancy. In patients ?35 years with an ITN detected on CT, MRI, or extrathyroidal ultrasound, the Committee re commends further evaluation with dedicated thyroid ultrasound if the nodule is ?1.5 cm and has no tl picious imaging features, and if the patient has normal life expectancy. (ACR, 2014) Reviewed by: Shola Malik MD on 04/13/2021 10:20 AM ERICA Approved by: Shola Malik MD on 04/13/2021 10:20 AM ERICA Station ID: [id number]
[2021-04-13] MEDS ORDERED: ACETAMINOPHEN 325 MG TABLET PO PRN (12:43)
[2021-04-13] MEDS ORDERED: ONDANSETRON 4 MG/2 ML VIAL IVP PRN (12:43)
[2021-04-13] MEDS ORDERED: SODIUM CHLORIDE FLUSH 0.9% 10 ML SYRINGE IVP PRN (12:43)
[2021-04-13] MEDS ORDERED: predniSONE 20 MG TABLET PO PRN (12:47)
[2021-04-13] MEDS ORDERED: TRIAMCINOLONE 0.1% CREAM 15 GM TUBE TOP PRN (12:47)
[2021-04-13] MEDS ORDERED: ALBUTEROL NEB 2.5 MG/3 ML INH PRN (12:49)
--- NOTE | 2021-04-13 12:55 | HISTORY & PHYSICAL EXAMINATION ---
Chief Complaint - Chief Complaint Chief Complaint: TIA History of Present Illness - Admitted From Admitted From:: ER - History Obtained From Records Reviewed: [facility] History obtained from: pt Exam Limitations: no - History of Present Illness HPI Comment/Other: This is a 85-years old very pleasant male with A past medical history significant noted for CAD, CABG, asthma, glaucoma, COPD, hyperlipidemia,Complaint suddenly slurring speech on today morning. pt report he had sudden onset of slurred speach, onset at approx 9am. pt reports that he had a normal breakfast. then at 9am he notice slurred speech. Upon arrival to the emergency department patient's symptoms appear to have completely resolved. Patient denies any other focal neuro deficits. Patient denies headache or neck pain. CT of the head was unremarkable for acute finding. CTA of the neck And head reveals Diffusely diminutive right vertebral artery, apparently occluding at its most distal aspect, Uncertain chronicity. Dr. Aviles, ER provider did call neurosurgeon and neurosurgeon recommend no procedure can be done for pt, recommend either Aspirin or Plavix for pt. Unfortunately pt is allergy to Aspirin, pt had Plavix at home, we resume pt's home Plavix. Discussed the care goal with the patient, patient request DNR History - Past Medical History Cardiovascular: reports: High cholesterol, Coronary artery disease Respiratory: reports: Asthma, COPD Neuro: reports: Tremors, Other Endocrine/Autoimmune: reports: None GI: reports: None : reports: Incontinence HEENT: reports: Glaucoma Psych: reports: None Musculoskeletal: reports: Osteoarthritis Derm: reports: None MRSA Hx?: No Other Past Medical History: mild cognitive impairment - Past Surgical History General: reports: Appendectomy, Hiatal hernia repair Ortho: reports: Arthroscopic surgery Cardiovascular: reports: CABG HEENT: reports: Cataracts, Tonsil/Adenoidectomy - Family & Social History Family History: Mother: , Father: Family History Comment/Other: Patient report his father has medical history of asthma, he from heart attack at age 84. His mother Was a heavy cigarette smoker, she from heart attack at age 95 Social History Notes: He denies Cigarette smoking or alcohol or drug issue - POLST Patient has POLST: No Meds/Allgy - Home Medications Home Medications: Ambulatory Orders Medication Instructions Recorded Confirmed Clopidogrel [Plavix] 75 mg PO DAILY 07/29/17 04/13/21 Fluticasone/Salmeterol [Advair 1 mg INH DAILY 07/29/17 04/13/21 500-50 Diskus] Montelukast [Singulair] 10 mg PO QPM 07/29/17 04/13/21 Acetaminophen [Tylenol] 650 mg PO Q6H PRN 04/13/21 04/13/21 Albuterol Sulf [Ventolin Hfa 1 - 2 puffs INH Q4HR PRN 04/13/21 04/13/21 Inhaler] Ascorbic Acid [Vitamin C] 1,000 mg PO DAILY 04/13/21 04/13/21 Cholecalciferol [Vitamin D3] 25 mcg PO DAILY 04/13/21 04/13/21 Dorzolamide 2% Ophth Drops 1 drops OP TID 04/13/21 04/13/21 [Trusopt 2% Ophth Drops] Fexofenadine HCl 180 mg PO DAILY PM 04/13/21 04/13/21 Ipratropium/Albuterol [Duoneb] 3 ml INH BID 04/13/21 04/13/21 Latanoprost/Pf [Latanoprost 0.005% 1 drops OP DAILY PM 04/13/21 04/13/21 Eye Drop] Magnesium Oxide [Mag Ox] 400 mg PO DAILY 04/13/21 04/13/21 Mometasone Furoate [Nasonex] 17 gm NS BID 04/13/21 04/13/21 Multivitamin 1 tab ORAL DAILY 04/13/21 04/13/21 Oxybutynin [Ditropan] 5 mg PO DAILY PM 04/13/21 04/13/21 Pantoprazole Sodium 20 mg PO DAILY 04/13/21 04/13/21 Tamsulosin HCl [Flomax] 0.4 mg ORAL DAILY PM 04/13/21 04/13/21 Triamcinolone 0.1% Cream [Kenalog 1 applic TOP BID PRN 04/13/21 04/13/21 0.1% Cream] Ubidecarenone [Co Q-10] 2 tab ORAL DAILY 04/13/21 04/13/21 Vitamin E 400 unit PO DAILY 04/13/21 04/13/21 predniSONE [Deltasone] 20 mg PO DAILY PRN 04/13/21 04/13/21 - Allergies Allergies/Adverse Reactions: Allergies Allergy/AdvReac Type Severity Reaction Status Date / Time aspirin Allergy Respiratory Verified 04/13/21 09:39 Review of Systems - Constitutional Constitutional: denies: Fatigue, Fever, Chills, Poor appetite, Diaphoresis - Eyes Eyes: denies: Pain, Blurred vision, Field loss, Vision loss, Dipolpia - Ears, Nose & Throat Ears, Nose & Throat: denies: Ear pain, Nosebleeds, Bleeding gums - Cardiovascular Cariovascular: denies: Irregular heart rate, Palpitations, Chest pain, Edema, Lightheadedness, Syncope, Exertional dyspnea - Respiratory Respiratory: reports: Cough. denies: Sputum production, Wheezing, Hemoptysis, SOB at rest, SOB with exertion - Gastrointestinal Gastrointestinal: denies: Abdominal pain, Constipation, Diarrhea, Black stools, Bloody stools, Nausea, Vomiting - Genitourinary Genitourinary: denies: Dysuria, Urgency, Incontinence - Musculoskeletal Musculoskeletal: denies: Muscle pain, Muscle aches, Limited range of motion - Integumentary Integumentary: denies: Rash, Lesions, Lumps - Neurological Neurological: reports: Slurred speech. denies: General weakness, Focal weakness, Headache, Dizziness, Numbness, Memory problems, Abnormal gait, Seizures, Incoordination - Psychiatric Psychiatric: denies: Depression, Anxiety - Endocrine Endocrine: denies: Polyuria, Polyphagia - Hematologic/Lymphatic Hematologic/Lymphatic: denies: Anemia, Blood clots Exam - Vital Signs Vital Signs: Vital Signs x48h Temp Pulse Resp BP Pulse Ox 04/13/21 12:30 36.6 C 54 L 16 161/86 H 98 04/13/21 12:00 56 L 16 163/78 H 97 04/13/21 11:14 36.9 C 55 L 16 152/79 H 95 04/13/21 10:38 58 L 18 161/73 H 98 04/13/21 10:10 61 18 145/73 H 93 04/13/21 09:39 37.1 C 67 22 158/84 H 94 - Physical Exam General Appearance: positive: No acute distress, Alert. negative: Lethargic Eyes Bilateral: positive: Normal inspection, PERRL, No lid inflammation ENT: positive: ENT inspection nml, No signs of dehydration. negative: Purulent nasal drainage Neck: positive: Nml inspection, Trachea midline. negative: Thyromegaly, Tracheal deviation Respiratory: positive: Chest non-tender, No respiratory distress. negative: Wheezes, Rales Cardiovascular: positive: Regular rate & rhythm, No murmur. negative: Tachycardia, Bradycardia, Systolic murmur, Diastolic murmur Peripheral Pulses: positive: 2+ Abdomen: positive: Non-tender, Nml bowel sounds. negative: Tenderness, Guarding Back: positive: Nml inspection Skin: positive: Color nml, Warm, Dry. negative: Cyanosis Extremities: positive: Non-tender, Full ROM, Nml appearance. negative: Calf tenderness Neurologic/Psychiatric: positive: Oriented x3, Motor nml, Sensation nml, Mood/affect nml. negative: Weakness, Sensory loss, Facial droop, Slurred/abnml speech, Depressed mood/affect Conclusion/Plan - Problem List (1) TIA (transient ischemic attack) Conclusion/Plan: Patient's Slammed speech which is resolved, patient has no other focal neuro deficit, MRI of the brain is pending. We will finish ECHO study for patient, we will resume patient home Plavix. Unfortunately patient allergy to the aspirin. We will order Lipitor for pt. We will check lipid panel study. We will continue to have physical therapist and occupational therapist for patient. (2) Asthma Conclusion/Plan: Patient has a history of asthma, we will resume home medication including prednisone 20 mg daily. Pulmicort, albuterol as needed, And singular (3) Hx of coronary artery disease Conclusion/Plan: Patient has a history of CAD, we will have telemetry for patient, we will check echo, we will resume home Plavix. (4) Glaucoma Conclusion/Plan: Patient has a history of glucoma, Patient denies any eye pain, vision stable. 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 Patient has cough but patient has no acute respiratory distress. We will check chest x-ray, we will resume home albuterol, we will order DuoNeb, We will order Pulmicort as well - Lab Results Fish Bones: 04/13/21 09:51 04/13/21 09:51 Core Measures - Anticipated LOS I expect patient to be DC'd or transferred within 96 hours.: Yes - DVT/VTE - Prophylaxis VTE/DVT Device ordered at admit?: Yes VTE/DVT Prophylaxis med ordered at admit?: Yes
--- NOTE | 2021-04-13 13:15 | PHARMACY PROGRESS NOTE ---
- Best Possible Medication History Admit Date and Time: 04/13/21 1243 Processed by: Nursing Medication History completed: Yes As the person ultimately responsible for medication therapy, providers are able to order a medication from an existing home medication list in [facility] via the "Reconcile Routine" prior to Confirmation of that medication by support manager. Such practice is discouraged except when the physician, in their clinical judgment, deems that a medical need exists for a medication without regard to previous use.
--- NOTE | 2021-04-13 14:45 | MRI Report ---
PROCEDURE: Brain W/O INDICATIONS: TIA TECHNIQUE: Noncontrast axial T1 spin echo, axial T2 fast spin echo, sagittal and axial FLAIR, coronal T2 fast sp in echo, axial gradient echo, axial diffusion and ADC through the brain. COMPARISON: CTA head and neck 05/13/2021. FINDINGS: Image quality: Motion is present on multiple sequences, limiting areas of fine detail evaluation. CSF Spaces: Basal cisterns are patent. No extra-axial fluid collections. Ventricles are normal in size and shape. Brain: No intracranial masses or hemorrhage. Galarza/white matter interface is normal. Brainstem appe ars normal. Diffusion-weighted images demonstrate a punctate area of hyperintense signal within the inferior right frontal lobe demonstrating hypointense ADC signal. No superimposed hemorrhage. No floor worker well service allen ischemic insults. Normal intravascular flow voids are present. Skull and face: Calvarium has normal marrow signal. Orbits appear normal. Sinuses: Sinuses demonstrate mild pansinus mucosal thickening. IMPRESSION: 1. Punctate area of restricted diffusion as above most consistent with subacute ischemia. No superimp osed hemorrhage. 2. Moderate atrophy and chronic microvascular ischemic changes. 3. Mild pansinus disease. Reviewed by: Kenia Perdue MD on 04/13/2021 2:44 PM PDT Approved by: Kenia Perdue MD on 04/13/2021 2:44 PM PDT Station ID: [id number]
[2021-04-13] MEDS: CLOPIDOGREL 75 MG TABLET PO SCH (15:06)
[2021-04-13] MEDS: IPRATROPIUM/ALBUTEROL 3 ML NEB INH PRN ×2 (16:00→22:05)
[2021-04-13 16:41] LABS: B. PARAPERTUSSIS- RESP PCR PAN NOT DETECTED; B. PERTUSSIS- RESP PCR PANEL NOT DETECTED; C. PNEUMONIAE- RESP PCR PANEL NOT DETECTED; CORONAVIRUS 229E-RESP PCR NOT DETECTED; CORONAVIRUS HKU1-RESP PCR NOT DETECTED; CORONAVIRUS NL63-RESP PCR NOT DETECTED; CORONAVIRUS OC43-RESP PCR NOT DETECTED; HUMAN METAPNEUMOVIRUS NOT DETECTED; INFLUENZA A- RESP PCR PANEL NOT DETECTED; INFLUENZA B - RESP PCR PANEL NOT DETECTED; M. PNEUMONIAE- RESP PCR PANEL NOT DETECTED; PARAINFLUENZA VIRUS 1 NOT DETECTED; PARAINFLUENZA VIRUS 2 NOT DETECTED; PARAINFLUENZA VIRUS 3 NOT DETECTED; PARAINFLUENZA VIRUS 4 NOT DETECTED; RHINOVIRUS/ENTEROVIRUS NOT DETECTED; RSV- RESP PCR PANEL NOT DETECTED; SARS-CoV-2 -RESP PCR PANEL NOT DETECTED
--- NOTE | 2021-04-13 17:12 | XRAY Report ---
PROCEDURE: Chest 1 View X-Ray INDICATIONS: cough, sob TECHNIQUE: One view of the chest was acquired. COMPARISON: Chest x-ray 03/10/2021 FINDINGS: Surgical changes and devices: Sternal wires. Lungs and pleura: Hazy opacity is present within the left base with blunting of the costophrenic angl e. Mediastinum: Mediastinal contours appear normal. Heart size is normal. Bones and chest wall: No suspicious bony lesions. Overlying soft tissues appear unremarkable. IMPRESSION: Mild left effusion. Underlying areas of developing pneumonia and/or atelectasis cannot be excluded. Reviewed by: Kenia Perdue MD on 04/13/2021 5:11 PM PDT Approved by: Kenia Perdue MD on 04/13/2021 5:11 PM PDT Station ID: [id number]
[2021-04-13] MEDS: SODIUM CHLORIDE 0.9% 1,000 ML IV SCH (17:28)
[2021-04-13] MEDS: DORZOLAMIDE 2% OPHTH DROPS EACHEYE SCH ×2 (17:28→22:56)
[2021-04-13] MEDS: SODIUM CHLORIDE FLUSH 0.9% 10 ML SYRINGE IVP SCH (17:28)
[2021-04-13] MEDS ORDERED: BENZOCAINE/MENTHOL LOZENGE MM PRN (18:00)
[2021-04-13] MEDS ORDERED: LATANOPROST 0.005% OPHTH DROPS EACHEYE SCH (21:00)
[2021-04-13] MEDS ORDERED: TAMSULOSIN 0.4 MG CAPSULE PO SCH (21:00)
[2021-04-13] MEDS ORDERED: MONTELUKAST 10 MG TABLET PO SCH (21:00)
[2021-04-13] MEDS ORDERED: ATORVASTATIN 40 MG TABLET PO SCH ×2 (21:00)
[2021-04-13] MEDS: BUDESONIDE 0.5 MG/2 ML NEB INH SCH (22:04)
[2021-04-13] MEDS: FORMOTEROL FUMARATE NEB 20 MCG/2 ML INH SCH (22:05)
[2021-04-14] MEDS: SODIUM CHLORIDE FLUSH 0.9% 10 ML SYRINGE IVP SCH ×2 (02:34→08:30)
[2021-04-14] MEDS: SODIUM CHLORIDE 0.9% 1,000 ML IV SCH (02:46)
[2021-04-14 05:46] LABS: BASOPHILS # (AUTO) 0.1 10^3/uL (0.0-0.1); EOSINOPHILS # (AUTO) 0.3 10^3/uL (0.0-0.7); EOSINOPHILS % (AUTO) 4.7 %; HCT - HEMATOCRIT 39.8 % (42.0-52.0); HGB - HEMOGLOBIN 13.2 g/dL (14.0-18.0); LYMPHOCYTES % (AUTO) 14.8 %; MEAN CORPUSCULAR HEMOGLOBIN 32.1 pg (27.0-31.0); MEAN CORPUSCULAR HGB CONC 33.2 g/dL (32.0-36.0); MEAN CORPUSCULAR VOLUME 96.8 fL (80.0-94.0); MEAN PLATELET VOLUME 10.7 fL (7.4-11.4); MONOCYTES # (AUTO) 0.6 10^3/uL (0.0-1.0); MONOCYTES % (AUTO) 9.3 %; NEUTROPHILS # (AUTO) 4.8 10^3/uL (1.5-6.6); NEUTROPHILS % (AUTO) 69.9 %; PLT - PLATELET COUNT 159 10^3/uL (130-450); RED BLOOD COUNT 4.11 10^6/uL (4.70-6.10); RED CELL DISTRIBUTION WIDTH 13.1 % (12.0-15.0); WHITE BLOOD COUNT 6.8 x10^3/uL (4.8-10.8)
[2021-04-14 05:53] LABS: CALCIUM 8.7 mg/dL (8.5-10.3); CREATININE 1.1 mg/dL (0.6-1.2); POTASSIUM 4.1 mmol/L (3.5-5.0)
[2021-04-14 06:03] LABS: CHOL/HDL RATIO 4.6 (<5.0); CHOLESTEROL 147 mg/dL; HDL CHOLESTEROL 32 mg/dL; LDL CHOLESTEROL,CALCULATED 83 mg/dL; LDL/HDL RATIO 2.6 (<3.6); TRIGLYCERIDES 161 mg/dL; VLDL CHOLESTEROL 32 mg/dL
[2021-04-14] MEDS: DORZOLAMIDE 2% OPHTH DROPS EACHEYE SCH ×2 (06:45→14:04)
[2021-04-14] MEDS ORDERED: PANTOPRAZOLE 40 MG TABLET PO SCH (07:00)
[2021-04-14] MEDS: BUDESONIDE 0.5 MG/2 ML NEB INH SCH (07:30)
[2021-04-14] MEDS: FORMOTEROL FUMARATE NEB 20 MCG/2 ML INH SCH (07:30)
[2021-04-14] MEDS: IPRATROPIUM/ALBUTEROL 3 ML NEB INH PRN ×2 (07:30→14:15)
[2021-04-14] MEDS: CLOPIDOGREL 75 MG TABLET PO SCH (08:29)
[2021-04-14] MEDS ORDERED: LORATADINE 10 MG TABLET PO SCH (09:00)
[2021-04-14] MEDS ORDERED: ENOXAPARIN 40 MG/0.4 ML SYRINGE SUBQ SCH (09:00)
[2021-04-14] MEDS ORDERED: FLUTICASONE NASAL SPRAY NAS SCH (09:00)
[2021-04-14 11:36] VITALS: BP 153/82
--- NOTE | 2021-04-14 13:41 | Discharge Plan ---
Discharge Plan Problem Reviewed?: Yes Disposition: Home, Self Care Condition: Stable Prescriptions: Atorvastatin [Lipitor] 40 mg PO QPM #30 tablet Diet: Regular Activity Restrictions: Activity as Tolerated Shower Restrictions: No (fall precaution) Instruction Topics: Aphasia, Stroke Ischemic, Eat Healthy, Stroke Taking Meds, Atorvastatin tablets Health Concerns: stroke Plan of Treatment: you are found to have right frontal lobe punctate area subacute stroke. you have no more focal neurological deficits. You are prescribed Lipitor new medication. you may resume your home medications, and followup with neurologist as out-pt. Care Goals: stabilization and improvement of your medical conditions Assessment: discussed the care plan with you, answered your questions, you understood. Additional Instructions or Follow Up instructions: you may followup with your PCP in one week, followup with neurologist as out-pt. Should your symptoms return or worsen, you may present ER or call 911 for help. Follow-Up Care: [facility] - Pulmonary No Smoking: If you smoke, Please STOP! Call for help. Follow-up with: Rinku Nguyễn MD [Primary Care Provider] -
--- NOTE | 2021-04-14 13:51 | DISCHARGE SUMMARY ---
Discharge Summary Admit Date: 04/13/21 Discharge Date: 04/14/21 Discharging Provider: Smith Pollock Primary Care Provider: Rinku Briceño Condition at Discharge: Stable Discharge Disposition: 01 Home, Self Care Discharge Facility Name: home - DIAGNOSES Discharge Diagnoses with Status of Each Condition: (1) TIA (transient ischemic attack) resolved. Patient has no slurring speech, no other focal neurological deficits. MRI of brain show right Inferior frontal lobe punctate area with subacute stroke. 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 continue Plavix, pt is prescribed Lipitor. pt has hx of severe aspirin allergy. Patient also had PT and OT evaluation and treatment in hospital CTA of the neck And head reveals Diffusely diminutive right vertebral artery, apparently occluding at its most distal aspect, Uncertain chronicity. Dr. Aviles, ER provider called neurosurgeon and neurosurgeon recommend no procedure can be done for pt, recommend either Aspirin or Plavix for pt. pt and pt's was informed and discussed CTA result of neck, pt may followup with vascular caldera rgeon as out-pt (2) Asthma stable (3) Hx of coronary artery disease stable (4) Glaucoma stable, resume home meds (5) BPH (benign prostatic hyperplasia) stable (6) Dehydration resolved (7) COPD (chronic obstructive pulmonary disease) stable, pt may have Pulmonary rehab - HPI History of Present Illness: This is a 85-years old very pleasant male with A past medical history significant noted for CAD, CABG, asthma, glaucoma, COPD, hyperlipidemia,Complaint suddenly slurring speech on today morning. pt report he had sudden onset of slurred speach, onset at approx 9am. pt reports that he had a normal breakfast. then at 9am he notice slurred speech. Upon arrival to the emergency department patient's symptoms appear to have completely resolved. Patient denies any other focal neuro deficits. Patient denies headache or neck pain. CT of the head was unremarkable for acute finding. CTA of the neck And head reveals Diffusely diminutive right vertebral artery, apparently occluding at its most distal aspect, Uncertain chronicity. Dr. Aviles, ER provider did call neurosurgeon and neurosurgeon recommend no procedure can be done for pt, recommend either Aspirin or Plavix for pt. Unfortunately pt is allergy to Aspirin, pt had Plavix at home, we resume pt's home Plavix. Discussed the care goal with the patient, patient request DNR - HOSPITAL COURSE Hospital Course: Patient was admitted for TIA, Suddenly slurring speech. Patient's TIA symptoms was totally resolved in hospital. MRI of brain show right Inferior frontal lobe punctate area with subacute stroke. Patient had a PT and OT evaluation and treatment, patient is prescribed new medication Lipitor. Resume patient home medication Plavix. Patient has hx of severe allergy to aspirin. Patient was discharged with hemodynamic stable condition - ALLERGIES Allergies/Adverse Reactions: Allergies Allergy/AdvReac Type Severity Reaction Status Date / Time aspirin Allergy Respiratory Verified 04/13/21 09:39 - MEDICATIONS Home Medications: Ambulatory Orders Medication Instructions Recorded Confirmed Clopidogrel [Plavix] 75 mg PO DAILY 07/29/17 04/13/21 Fluticasone/Salmeterol [Advair 1 mg INH DAILY 07/29/17 04/13/21 500-50 Diskus] Montelukast [Singulair] 10 mg PO QPM 07/29/17 04/13/21 Acetaminophen [Tylenol] 650 mg PO Q6H PRN 04/13/21 04/13/21 Albuterol Sulf [Ventolin Hfa 1 - 2 puffs INH Q4HR PRN 04/13/21 04/13/21 Inhaler] Ascorbic Acid [Vitamin C] 1,000 mg PO DAILY 04/13/21 04/13/21 Cholecalciferol [Vitamin D3] 25 mcg PO DAILY 04/13/21 04/13/21 Dorzolamide 2% Ophth Drops 1 drops OP TID 04/13/21 04/13/21 [Trusopt 2% Ophth Drops] Fexofenadine HCl 180 mg PO DAILY PM 04/13/21 04/13/21 Ipratropium/Albuterol [Duoneb] 3 ml INH BID 04/13/21 04/13/21 Latanoprost/Pf [Latanoprost 0.005% 1 drops OP DAILY PM 04/13/21 04/13/21 Eye Drop] Magnesium Oxide [Mag Ox] 400 mg PO DAILY 04/13/21 04/13/21 Mometasone Furoate [Nasonex] 17 gm NS BID 04/13/21 04/13/21 Multivitamin 1 tab ORAL DAILY 04/13/21 04/13/21 Oxybutynin [Ditropan] 5 mg PO DAILY PM 04/13/21 04/13/21 Pantoprazole Sodium 20 mg PO DAILY 04/13/21 04/13/21 Tamsulosin HCl [Flomax] 0.4 mg ORAL DAILY PM 04/13/21 04/13/21 Triamcinolone 0.1% Cream [Kenalog 1 applic TOP BID PRN 04/13/21 04/13/21 0.1% Cream] Ubidecarenone [Co Q-10] 2 tab ORAL DAILY 04/13/21 04/13/21 Vitamin E 400 unit PO DAILY 04/13/21 04/13/21 predniSONE [Deltasone] 20 mg PO DAILY PRN 04/13/21 04/13/21 Atorvastatin [Lipitor] 40 mg PO QPM #30 tablet 04/14/21 - PHYSICAL EXAM AT DISCHARGE General Appearance: positive: No acute distress, Alert. negative: Lethargic Eyes Bilateral: positive: Normal inspection, PERRL, No lid inflammation ENT: positive: ENT inspection nml, No signs of dehydration. negative: Purulent nasal drainage Neck: positive: Nml inspection, Trachea midline. negative: Thyromegaly, Tracheal deviation Respiratory: positive: Chest non-tender, No respiratory distress. negative: Wheezes Cardiovascular: positive: Regular rate & rhythm. negative: Tachycardia, Bradycardia, Systolic murmur Peripheral Pulses: positive: 2+ Abdomen: positive: Non-tender, Nml bowel sounds, No distention. negative: Tenderness Back: positive: Nml inspection Skin: positive: Color nml, Warm, Dry. negative: Cyanosis Extremities: positive: Non-tender, Full ROM, Nml appearance. negative: Calf tenderness Neurologic/Psychiatric: positive: Oriented x3, Motor nml, Sensation nml, Mood/affect nml. negative: Weakness, Sensory loss, Facial droop, Slurred/abnml speech, Depressed mood/affect - LABS Result Diagrams: 04/14/21 05:27 04/14/21 05:27 - FOLLOW UP Follow Up: you are found to have right frontal lobe punctate area subacute stroke. you have no more focal neurological deficits. You are prescribed Lipitor new medication. you may resume your home medications, and followup with neurologist as out-pt. you may followup with your PCP in one week, followup with neurologist as out-pt. Should your symptoms return or worsen, you may present ER or call 911 for help. - TIME SPENT Time Spent in Discharge (Minutes): 30
== END 2021-04-14 15:39 | disposition home or self-care (01) ==
LOC: EDUNIT# → ED 09:23 → MS2 12:43
PROVIDERS: ADMIT Nurse Practitioner Gerontology; ATTEND Nurse Practitioner Gerontology
DX: I67.82 Cerebral ischemia (principal); R47.81 Slurred speech; I65.01 Occlusion and stenosis of right vertebral artery; I65.21 Occlusion and stenosis of right carotid artery; E86.0 Dehydration; E78.5 Hyperlipidemia, unspecified; I25.10 Atherosclerotic heart disease of native coronary artery without angina pectoris; J44.9 Chronic obstructive pulmonary disease, unspecified; N40.1 Benign prostatic hyperplasia with lower urinary tract symptoms; H40.9 Unspecified glaucoma; R32 Unspecified urinary incontinence; G31.84 Mild cognitive impairment of uncertain or unknown etiology; Z20.822 Contact with and (suspected) exposure to COVID-19; Z79.51 Long term (current) use of inhaled steroids; Z79.02 Long term (current) use of antithrombotics/antiplatelets; Z95.1 Presence of aortocoronary bypass graft; Z95.3 Presence of xenogenic heart valve
CPT/HCPCS: 36415; 70450; 70496; 70498; 70551; 71045; 80048; 80053; 80061; 83690; 85025; 87631; 93005; 93306; 94640; 96372; 97161; 99285; A9270; G0378; J1650; J7626; Q9967; 0202U; 83721

== ENCOUNTER 2021-04-22 23:37 | Outpatient (CLI) | payer MEDICARE, OTHER | END 2021-04-22 23:38 | disposition critical access hospital (66) | LOC: EMS 23:37 | DX: R29.898 Other symptoms and signs involving the musculoskeletal system (principal) | CPT/HCPCS: A0425; A0427 ==

== ENCOUNTER 2021-04-22 23:43 | Emergency (ER) | payer MEDICARE, OTHER ==
--- NOTE | 2021-04-22 23:47 | ED Physician Documentation ---
History of Present Illness - Stated complaint Stated Complaint: BILAT LEG WEAKNESS - History obtained from History obtained from: Patient, Family (spouse (in ED at bedside)) - History of Present Illness Pain level max: 0 Pain level now: 0 Improved by: no ameliorating factors Worsened by: no apparent inciting nor exacerbating factors - Additonal information Additional information: BIBA. Patient was admitted to [facility] 04/13 and discharged 04/14 with diagnosis of TIA; his neurologic symptoms had resolved prior to ED arrival, although he was found to have "punctate area of restricted diffusion most consistent with subacute ischemia" per radiologist interpretation of MRI performed 04/13 (this was in the inferior right frontal lobe). Patient's says that tonight he went to stand to use the bathroom but was unable to stand up; she says this was due to BLE weakness although she did not see evidence of weakness, just that he was unable to stand up. She says that earlier today (in the morning), he was ambulating at baseline (using a walker) and thus being unable to stand is not normal for him. She thus called 911 and EMS noted patient was confused on their assessment, disoriented to place and time. Patient's is unable to provide specific time of onset of symptoms, as she did not note the confusion and can only say that he seemed to have baseline level of strength and coordination during the morning hours of 04/22/21. Review of Systems Constitutional: reports: Reviewed and negative Eyes: reports: Reviewed and negative Ears: reports: Foreign body Nose: reports: Reviewed and negative Throat: reports: Reviewed and negative Cardiac: reports: Reviewed and negative Respiratory: reports: Cough ( says patient was coughing this evening while on his bipap). denies: Dyspnea GI: reports: Reviewed and negative : denies: Dysuria, Frequency Musculoskeletal: reports: Reviewed and negative Neurologic: reports: Generalized weakness, Confused. denies: Headache, Head injury, LOC PD PAST MEDICAL HISTORY - Past Medical History Cardiovascular: High cholesterol, Coronary artery disease Respiratory: Asthma, COPD Neuro: Tremors, Other Endocrine/Autoimmune: None GI: None : Incontinence HEENT: Glaucoma Psych: None Musculoskeletal: Osteoarthritis Derm: None - Past Surgical History Past Surgical History: Yes General: Appendectomy, Hiatal hernia repair Ortho: Arthroscopic surgery Cardiovascular: CABG HEENT: Cataracts, Tonsil/Adenoidectomy - Present Medications Home Medications: Ambulatory Orders Medication Instructions Recorded Confirmed Clopidogrel [Plavix] 75 mg PO DAILY 07/29/17 04/23/21 Fluticasone/Salmeterol [Advair 1 mg INH DAILY 07/29/17 04/23/21 500-50 Diskus] Montelukast [Singulair] 10 mg PO QPM 07/29/17 04/23/21 Acetaminophen [Tylenol] 650 mg PO Q6H PRN 04/13/21 04/23/21 Albuterol Sulf [Ventolin Hfa 1 - 2 puffs INH Q4HR PRN 04/13/21 04/23/21 Inhaler] Ascorbic Acid [Vitamin C] 1,000 mg PO DAILY 04/13/21 04/23/21 Cholecalciferol [Vitamin D3] 25 mcg PO DAILY 04/13/21 04/23/21 Dorzolamide 2% Ophth Drops 1 drops OP TID 04/13/21 04/23/21 [Trusopt 2% Ophth Drops] Fexofenadine HCl 180 mg PO DAILY PM 04/13/21 04/23/21 Ipratropium/Albuterol [Duoneb] 3 ml INH BID 04/13/21 04/23/21 Latanoprost/Pf [Latanoprost 0.005% 1 drops OP DAILY PM 04/13/21 04/23/21 Eye Drop] Magnesium Oxide [Mag Ox] 400 mg PO DAILY 04/13/21 04/23/21 Mometasone Furoate [Nasonex] 17 gm NS BID 04/13/21 04/23/21 Multivitamin 1 tab ORAL DAILY 04/13/21 04/23/21 Oxybutynin [Ditropan] 5 mg PO DAILY PM 04/13/21 04/23/21 Pantoprazole Sodium 20 mg PO DAILY 04/13/21 04/23/21 Tamsulosin HCl [Flomax] 0.4 mg ORAL DAILY PM 04/13/21 04/23/21 Triamcinolone 0.1% Cream [Kenalog 1 applic TOP BID PRN 04/13/21 04/23/21 0.1% Cream] Ubidecarenone [Co Q-10] 2 tab ORAL DAILY 04/13/21 04/23/21 Vitamin E 400 unit PO DAILY 04/13/21 04/23/21 predniSONE [Deltasone] 20 mg PO DAILY PRN 04/13/21 04/23/21 Atorvastatin [Lipitor] 40 mg PO QPM #30 tablet 04/14/21 04/23/21 - Allergies Allergies/Adverse Reactions: Allergies Allergy/AdvReac Type Severity Reaction Status Date / Time aspirin Allergy Respiratory Verified 04/22/21 23:49 - Social History Does the pt smoke?: No Smoking Status: Former smoker Does the pt drink ETOH?: Yes Does the pt have substance abuse?: No - Immunizations Immunizations are current?: Yes - POLST Patient has POLST: No PD ED PE NORMAL - Vitals Vital signs reviewed: Yes - General General: No acute distress, Well developed/nourished, Other (awake, alert, oriented x 1; knows he is in [place], but unable to identify that he is in a hospital. When I ask again what this place is, such as a movie theater, he answers "yes, movie theater". asked the month, he provides his birthday. Asked the year, he again provides his birthday) - HEENT HEENT: PERRL, EOMI - Neck Neck: Supple, no meningeal sign - Cardiac Cardiac: RRR - Respiratory Respiratory: No respiratory distress, Clear bilaterally - Abdomen Abdomen: Soft, Non tender - Derm Derm: Normal color, Warm and dry - Extremities Extremities: No edema - Neuro Neuro: obstetrics gyn 2-12 intact, No motor deficit, No sensory deficit, Normal speech Eye Opening: Spontaneous Motor: Obeys Commands Verbal: Confused GCS Score: 14 PD ED PE EXPANDED - Cardiac Cardiac: Murmur Present (2/6 DERECK cardiac base), Other (s2 click) Results - Vitals Vitals: Vital Signs - 24 hr 04/22/21 04/22/21 04/23/21 23:49 23:53 00:35 Temperature 36.9 C 36.9 C Heart Rate 92 92 86 Respiratory 16 16 16 Rate Blood Pressure 159/78 H 159/78 H 154/69 H O2 Saturation 93 93 95 04/23/21 04/23/21 04/23/21 01:25 02:46 03:03 Temperature 37.3 C Heart Rate 82 85 80 Respiratory 16 18 Rate Blood Pressure 155/83 H 121/63 124/65 O2 Saturation 93 94 94 04/23/21 04/23/21 04/23/21 03:52 04:24 05:06 Temperature 36.8 C 37.3 C Heart Rate 83 79 80 Respiratory 18 24 28 H Rate Blood Pressure 116/65 107/63 113/57 L O2 Saturation 94 94 95 04/23/21 04/23/21 05:36 06:32 Temperature 36.8 C Heart Rate 79 80 Respiratory 28 H 23 Rate Blood Pressure 116/59 L 125/81 H O2 Saturation 94 95 Oxygen O2 Source Nasal cannula - Labs Labs: Laboratory Tests 04/23/21 04/23/21 04/23/21 00:45 00:45 00:45 WBC 16.8 H RBC 4.50 L Hgb 14.7 Hct 44.0 MCV 97.8 H MCH 32.7 H MCHC 33.4 RDW 13.2 Plt Count 172 MPV 11.4 Neut # (Auto) 15.7 H Lymph # (Auto) 0.5 L [place] # (Auto) 0.5 Eos # (Auto) 0.1 Baso # (Auto) 0.1 Absolute Nucleated RBC 0.00 Nucleated RBC % 0.0 PT 13.7 H INR 1.2 APTT 28.1 Sodium 137 Potassium 4.4 Chloride 103 Carbon Dioxide 25 Anion Gap 9.0 BUN 27 H Creatinine 1.3 H Estimated GFR (MDRD) 53 L Glucose 126 H Calcium 9.1 Total Bilirubin 1.0 AST 24 ALT 29 Alkaline Phosphatase 49 Ammonia Total Protein 6.9 Albumin 4.1 Globulin 2.8 Albumin/Globulin Ratio 1.5 Lipase 40 Urine Color Urine Clarity Urine pH Ur Specific [place] Urine Protein Urine Glucose (UA) Urine Ketones Urine Occult Blood Urine Nitrite Urine Bilirubin Urine Urobilinogen Ur Leukocyte Esterase Ur Microscopic Review Urine Culture Comments Nasal Adenovirus (PCR) Nasal B. parapertussis DNA (PCR) Nasal Coronavir 229E PCR Nasal Coronavir HKU1 PCR Nasal Coronavir NL63 PCR Nasal Coronavir OC43 PCR Nasal Enterovir/Rhinovir PCR Nasal Influenza B PCR Nasal Influenza A PCR Nasal Parainfluen 1 PCR Nasal Parainfluen 2 PCR Nasal Parainfluen 3 PCR Nasal Parainfluen 4 PCR Nasal RSV (PCR) Nasal B.pertussis DNA PCR Nasal C.pneumoniae (PCR) Serjio Human Metapneumo PCR Nasal M.pneumoniae (PCR) Nasal SARS-CoV-2 (PCR) 04/23/21 04/23/21 04/23/21 00:45 03:00 07:29 WBC RBC Hgb Hct MCV MCH MCHC RDW Plt Count MPV Neut # (Auto) Lymph # (Auto) [place] # (Auto) Eos # (Auto) Baso # (Auto) Absolute Nucleated RBC Nucleated RBC % PT INR APTT Sodium Potassium Chloride Carbon Dioxide Anion Gap BUN Creatinine Estimated GFR (MDRD) Glucose Calcium Total Bilirubin AST ALT Alkaline Phosphatase Ammonia < 10.0 Total Protein Albumin Globulin Albumin/Globulin Ratio Lipase Urine Color DARK YELLOW Urine Clarity CLEAR Urine pH 5.0 Ur Specific [place] 1.010 Urine Protein NEGATIVE Urine Glucose (UA) NEGATIVE Urine Ketones NEGATIVE Urine Occult Blood NEGATIVE Urine Nitrite NEGATIVE Urine Bilirubin NEGATIVE Urine Urobilinogen 0.2 (NORMAL) Ur Leukocyte Esterase NEGATIVE Ur Microscopic Review NOT INDICATED Urine Culture Comments NOT INDICATED Nasal Adenovirus (PCR) NOT DETECTED Nasal B. parapertussis DNA (PCR) NOT DETECTED Nasal Coronavir 229E PCR NOT DETECTED Nasal Coronavir HKU1 PCR NOT DETECTED Nasal Coronavir NL63 PCR NOT DETECTED Nasal Coronavir OC43 PCR NOT DETECTED Nasal Enterovir/Rhinovir PCR NOT DETECTED Nasal Influenza B PCR NOT DETECTED Nasal Influenza A PCR NOT DETECTED Nasal Parainfluen 1 PCR NOT DETECTED Nasal Parainfluen 2 PCR NOT DETECTED Nasal Parainfluen 3 PCR NOT DETECTED Nasal Parainfluen 4 PCR NOT DETECTED Nasal RSV (PCR) NOT DETECTED Nasal B.pertussis DNA PCR NOT DETECTED Nasal C.pneumoniae (PCR) NOT DETECTED Serjio Human Metapneumo PCR NOT DETECTED Nasal M.pneumoniae (PCR) NOT DETECTED Nasal SARS-CoV-2 (PCR) NOT DETECTED - Rads (name of study) CTH Radiology: Prelim report reviewed, See rad report CT angio head Radiology: Prelim report reviewed, See rad report CT angio neck Radiology: Prelim report reviewed, See rad report PD MEDICAL DECISION MAKING - ED course Complexity details: reviewed old records, reviewed results, re-evaluated patient, considered differential, d/w patient, d/w family, d/w rehab consultant ED course: D/W neurology telecommunications facility examiner for telestroke, recommendation is CTH without followed by CTA head and neck. She recommends NO thrombolytics due to no clear time of onset as well as no clear last known normal (best that spouse can say is morning of 7/8, which would be no less than 11 hours [employer]). As per our discussion, I recontacted the telestroke neurologist after these tests were resulted and she recommends inpatient for MRI brain, as well as consideration of EEG. MRI is not available at [facility] until Thursday 04/26 and thus patient needs to be transferred to appropriate facility. There are no beds available at [facility]. I discussed the case with the neurologist telecommunications facility examiner at [facility] [place] (to be transferred to [facility], but Dr. Perdomo is accepting physician). On reevaluation prior to transfer, patient is AAOx3, able to tell me place and date. - TPA CVA checklist Inclusion crititeria: positive: Sig neuro deficit, CT no bleed. negative: Onset know < 4.5 hr Relative contraindications: positive: Advanced age Absolute contraindications if 3-4.5 hr: positive: Age > 80 Departure - Departure Disposition: 02 Transfer Acute Care Hosp Clinical Impression: TIA (transient ischemic attack) Condition: Stable NIHSS - Time Time: 23:55 - Level of Consciousness Level of consciousness: (0) Alert, Keenly responsive LOC Questions: (2) Answers neither correct (age: says he is 45, month: provides his date of (both of these answers were the same when asked a second time)) LOC Commands: (0) Performs both correctly - Gaze Best Gaze: (0) Normal - Visual Visual: (0) No loss (eventually gives correct answer regarding number of fingers within visual hsu, but initially answers "fingers") - Facial Palsy Facial Palsy: (0) Normal, symmetrical movement - Motor Arms (both separate) Motor Arm (right): (0) No drift Motor Arm (left): (0) No drift - Motor Legs (both separate) Motor Leg (right): (0) No drift Motor Leg (left): (0) No drift - Limb Ataxia Limb Ataxia: (2) Present in 2 limbs (BUE ([id number])) - Sensory Sensory: (0) Normal - Best Language Best Language: (0) No aphasia - Dysarthria Dysarthria: (0) Normal - Extinction and Inattention (formally neg Extinction and inattention: (0) No abnormality - Total Score/Results Total Score/Result: 4
[2021-04-23] MEDS ORDERED: IOVERSOL 320 100 ML VIAL IVP ONE ×2 (00:41→01:30)
[2021-04-23 00:56] LABS: INR 1.2 (0.8-1.2); PT - PROTHROMBIN TIME 13.7 secs (9.9-12.6)
[2021-04-23 01:04] LABS: PARTIAL THROMBOPLASTIN TIME 28.1 secs (24.9-33.3)
[2021-04-23 01:07] LABS: ALBUMIN 4.1 g/dL (3.2-5.5); ALBUMIN/GLOBULIN RATIO 1.5 (1.0-2.2); CALCIUM 9.1 mg/dL (8.5-10.3); CREATININE 1.3 mg/dL (0.6-1.2); POTASSIUM 4.4 mmol/L (3.5-5.0); TOTAL PROTEIN 6.9 g/dL (6.7-8.2)
[2021-04-23 01:17] LABS: BASOPHILS # (AUTO) 0.1 10^3/uL (0.0-0.1); BASOPHILS % (AUTO) 0.4 %; EOSINOPHILS # (AUTO) 0.1 10^3/uL (0.0-0.7); EOSINOPHILS % (AUTO) 0.3 %; HGB - HEMOGLOBIN 14.7 g/dL (14.0-18.0); LYMPHOCYTES # (AUTO) 0.5 10^3/uL (1.5-3.5); LYMPHOCYTES % (AUTO) 2.7 %; MEAN CORPUSCULAR HEMOGLOBIN 32.7 pg (27.0-31.0); MEAN CORPUSCULAR HGB CONC 33.4 g/dL (32.0-36.0); MEAN CORPUSCULAR VOLUME 97.8 fL (80.0-94.0); MEAN PLATELET VOLUME 11.4 fL (7.4-11.4); MONOCYTES # (AUTO) 0.5 10^3/uL (0.0-1.0); MONOCYTES % (AUTO) 2.8 %; NEUTROPHILS # (AUTO) 15.7 10^3/uL (1.5-6.6); NEUTROPHILS % (AUTO) 93.3 %; PLT - PLATELET COUNT 172 10^3/uL (130-450); RED CELL DISTRIBUTION WIDTH 13.2 % (12.0-15.0); WHITE BLOOD COUNT 16.8 x10^3/uL (4.8-10.8)
[2021-04-23 03:55] LABS: B. PARAPERTUSSIS- RESP PCR PAN NOT DETECTED; B. PERTUSSIS- RESP PCR PANEL NOT DETECTED; C. PNEUMONIAE- RESP PCR PANEL NOT DETECTED; CORONAVIRUS 229E-RESP PCR NOT DETECTED; CORONAVIRUS HKU1-RESP PCR NOT DETECTED; CORONAVIRUS NL63-RESP PCR NOT DETECTED; CORONAVIRUS OC43-RESP PCR NOT DETECTED; HUMAN METAPNEUMOVIRUS NOT DETECTED; INFLUENZA A- RESP PCR PANEL NOT DETECTED; INFLUENZA B - RESP PCR PANEL NOT DETECTED; M. PNEUMONIAE- RESP PCR PANEL NOT DETECTED; PARAINFLUENZA VIRUS 1 NOT DETECTED; PARAINFLUENZA VIRUS 2 NOT DETECTED; PARAINFLUENZA VIRUS 3 NOT DETECTED; PARAINFLUENZA VIRUS 4 NOT DETECTED; RHINOVIRUS/ENTEROVIRUS NOT DETECTED; RSV- RESP PCR PANEL NOT DETECTED; SARS-CoV-2 -RESP PCR PANEL NOT DETECTED
[2021-04-23 07:58] LABS: BILIRUBIN,URINE NEGATIVE (NEGATIVE); GLUCOSE, URINE (UA) NEGATIVE (NEGATIVE); KETONES,URINE (UA) NEGATIVE (NEGATIVE); LEUKOCYTE ESTERASE, URINE NEGATIVE (NEGATIVE); NITRITE,URINE NEGATIVE (NEGATIVE); OCCULT BLOOD,URINE NEGATIVE (NEGATIVE); PROTEIN,URINE NEGATIVE (NEGATIVE); UROBILINOGEN,URINE 0.2 (NORMAL) E.U./dL (NORMAL)
[2021-04-23 07:59] LABS: CLARITY,URINE CLEAR (CLEAR)
--- NOTE | 2021-04-23 08:26 | CT Report ---
PROCEDURE: Head W/O Stroke Protocol INDICATIONS: confused, weakness TECHNIQUE: Noncontrast 4.5 mm thick angled axial sections acquired from the foramen magnum to the vertex, with c oronal reformats. For radiation dose reduction, the following was used: automated exposure control, adjustment of mA and/or kV according to patient size. COMPARISON: MRI brain 04/13/2021, CTA head/neck FINDINGS: Image quality: Motion is present multiple sequences, limiting areas of fine detail evaluation. This i s particularly notable to skull base. The ventricular system and cortical sulci demonstrate atrophy, consistent for patient's stated age. There are areas of hypodensity in the periventricular and subcortical white matter. There is no acut e intra or extra-axial fluid collection. No acute hemorrhage, mass lesion or midline shift. Brainst em is unremarkable. Globes are symmetrical. Sinuses are aerated. Osseous structures are intact. IMPRESSION: 1. No acute intracranial process. Prominent motion is present as above limiting evaluation. 2. Mild atrophy and chronic microvascular ischemic changes. This study fulfills neurological imaging criteria for inclusion or exclusion of acute stroke therapie s based on available published neurological imaging guidelines. Reviewed by: Kenia Perdue MD on 04/23/2021 8:25 AM PDT Approved by: Kenia Predue MD on 04/23/2021 8:25 AM PDT Station ID: [id number]
[2021-04-23 08:58] VITALS: BP 111/54
--- NOTE | 2021-04-23 12:09 | CT Report ---
PROCEDURE: ANGIO HEAD W/WO INDICATIONS: confused, weakness CONTRAST: IV CONTRAST: Optiray 320 ml: 80 PO CONTRAST: *NO PO CONTRAST TECHNIQUE: Precontrast 4.5 mm thick angled axial sections acquired from the foramen magnum to the vertex. Afte r the administration of intravenous contrast, 1 mm thick sections acquired through the [place] of [place] is. Postcontrast 4.5 mm thick sections then re-acquired from the foramen magnum to the vertex. 3-di mensional bepvwfu-etxsjcqcs-rseylhwhpy (MIP) and/or volume rendering reformats were acquired of the c entral intracranial vasculature. For radiation dose reduction, the following was used: automated ex posure control, adjustment of mA and/or kV according to patient size. COMPARISON: CT head, CTA neck 04/23/2021 FINDINGS: Image quality: Excellent. Anterior circulation: Intracranial internal carotid arteries are normal in size and flow. The flow within the paired anterior cerebral arteries is normal and symmetric. The flow within the middle cer ebral arteries is normal and symmetric. The anterior communicating artery is seen. No aneurysms are seen. Posterior circulation: Visualized portions of the vertebral arteries demonstrate normal caliber, and join to form a normal appearing basilar artery. Flow within the posterior cerebral arteries is norm al and symmetric. No aneurysms are seen. There is a left vertebral artery dominance. The V4 segment of the right vertebral artery becomes diminutive without visualized definitive flow at its distalmos t aspect, possibly ending in PICA. The ventricular system and cortical sulci demonstrate atrophy, consistent for patient's stated age. There are areas of hypodensity in the periventricular and subcortical white matter. There is no acut e intra or extra-axial fluid collection. No acute hemorrhage, mass lesion or midline shift. Brainst em is unremarkable. Globes are symmetrical. Sinuses demonstrate ethmoid mucosal thickening. Osseous structures are intact . IMPRESSION: 1. No acute intracranial process. 2. Moderate atrophy and chronic microvascular ischemic changes. 3. No large vessel occlusion. The above findings are concordant with preliminary report. Reviewed by: Kenia Perdue MD on 04/23/2021 12:07 PM PDT Approved by: Kenia Perdue MD on 04/23/2021 12:07 PM PDT Station ID: [id number]
--- NOTE | 2021-04-23 12:44 | CT Report ---
PROCEDURE: ANGIO NECK W INDICATIONS: confused, weakness CONTRAST: IV CONTRAST: Optiray 320 ml: 80 PO CONTRAST: *NO PO CONTRAST TECHNIQUE: After the administration of intravenous contrast, 1.5 mm axial sections acquired from the aortic arch to the [place] of [place]. Coronal 3-D maximum intensity projection (MIP) and/or volume rendering ref ormats were then performed. For radiation dose reduction, the following was used: automated exposur e control, adjustment of mA and/or kV according to patient size. COMPARISON: CT head, CTA head 04/23/2021. FINDINGS: Image quality: Excellent. The origins of the left and right common, internal and external carotid arteries demonstrate no areas of hemodynamically significant stenosis, vascular occlusion or aneurysmal dilation. There is approxi mate 50-60% stenosis at the common carotid bifurcations, right greater than left with calcification. Origin of the left vertebral artery and right vertebral artery demonstrate no areas of hemodynamicall y significant stenosis, vascular occlusion or aneurysmal dilation. The V4 segment of the right verteb ral artery becomes diminutive and appears to end in PICA. Bovine arch is present consistent with richar enital variation. Limited, visualized portions of the subclavian vasculature are unremarkable. Incomp letely visualized patchy opacity is noted within the left lung. IMPRESSION: There are no areas of hemodynamically significant stenosis, vascular occlusion or aneurysmal dilation within the neck vasculature. Partially visualized opacity within left lung as above. Recommend further evaluation with CT chest as indicated and interval follow-up to document resolution of infectious or inflammatory etiology or id entification of potential mass lesion of more aggressive etiology such as malignancy. The estimate of stenosis included in the report of the imaging study was calculated using the NASCET method Reviewed by: Kenia Perdue MD on 04/23/2021 12:42 PM PDT Approved by: Kenia Perdue MD on 04/23/2021 12:42 PM PDT Station ID: [id number]
== END 2021-04-23 08:58 | disposition short-term general hospital (02) ==
LOC: EDUNIT# → EDBD → ED 23:43
DX: G45.9 Transient cerebral ischemic attack, unspecified (principal)
CPT/HCPCS: 36415; 70450; 70496; 70498; 80053; 81003; 82140; 83690; 85025; 85610; 85730; 87631; 99284; 99285; Q9967; 0202U; 81001; 87086

== ENCOUNTER 2021-04-23 09:00 | Outpatient (CLI) | payer MEDICARE, OTHER | END 2021-04-23 09:01 | disposition short-term general hospital (02) | LOC: EMS 09:00 | PROVIDERS: ATTEND Emergency Medicine | DX: R47.81 Slurred speech (principal); R29.898 Other symptoms and signs involving the musculoskeletal system | CPT/HCPCS: A0425; A0428 ==

== ENCOUNTER 2021-05-11 08:00 | Outpatient (CLI) | payer MEDICARE, OTHER ==
[2021-05-11 11:38] LABS: BASOPHILS # (AUTO) 0.1 10^3/uL (0.0-0.1); BASOPHILS % (AUTO) 0.6 %; EOSINOPHILS # (AUTO) 0.3 10^3/uL (0.0-0.7); EOSINOPHILS % (AUTO) 3.8 %; HCT - HEMATOCRIT 43.1 % (42.0-52.0); HGB - HEMOGLOBIN 13.7 g/dL (14.0-18.0); LYMPHOCYTES # (AUTO) 1.8 10^3/uL (1.5-3.5); LYMPHOCYTES % (AUTO) 22.6 %; MEAN CORPUSCULAR HEMOGLOBIN 31.6 pg (27.0-31.0); MEAN CORPUSCULAR HGB CONC 31.8 g/dL (32.0-36.0); MEAN CORPUSCULAR VOLUME 99.5 fL (80.0-94.0); MEAN PLATELET VOLUME 11.4 fL (7.4-11.4); MONOCYTES # (AUTO) 0.7 10^3/uL (0.0-1.0); MONOCYTES % (AUTO) 8.5 %; NEUTROPHILS # (AUTO) 5.1 10^3/uL (1.5-6.6); NEUTROPHILS % (AUTO) 64.2 %; PLT - PLATELET COUNT 220 10^3/uL (130-450); RED BLOOD COUNT 4.33 10^6/uL (4.70-6.10); RED CELL DISTRIBUTION WIDTH 13.2 % (12.0-15.0); WHITE BLOOD COUNT 7.9 x10^3/uL (4.8-10.8)
[2021-05-11 12:03] LABS: THYROID STIMULATING HORMONE 3.32 uIU/mL (0.34-5.60)
[2021-05-11 12:11] LABS: ALBUMIN 3.8 g/dL (3.2-5.5); ALBUMIN/GLOBULIN RATIO 1.3 (1.0-2.2); BILIRUBIN,TOTAL 0.6 mg/dL (0.2-1.0); CALCIUM 9.5 mg/dL (8.5-10.3); CREATININE 1.3 mg/dL (0.6-1.2); POTASSIUM 4.5 mmol/L (3.5-5.0); TOTAL PROTEIN 6.7 g/dL (6.7-8.2)
== END 2021-05-11 23:59 | disposition home or self-care (01) ==
LOC: LAB.WCP 08:00
PROVIDERS: ATTEND Family Medicine
DX: J44.9 Chronic obstructive pulmonary disease, unspecified (principal); G45.9 Transient cerebral ischemic attack, unspecified; G47.9 Sleep disorder, unspecified
CPT/HCPCS: 36415; 80053; 84443; 85025

== ENCOUNTER 2021-08-27 08:00 | Outpatient (CLI) | payer MEDICARE, OTHER ==
[2021-08-27 12:46] LABS: BASOPHILS # (AUTO) 0.1 10^3/uL (0.0-0.1); BASOPHILS % (AUTO) 0.9 %; EOSINOPHILS # (AUTO) 0.3 10^3/uL (0.0-0.7); EOSINOPHILS % (AUTO) 4.5 %; HCT - HEMATOCRIT 42.2 % (42.0-52.0); HGB - HEMOGLOBIN 13.7 g/dL (14.0-18.0); LYMPHOCYTES # (AUTO) 1.3 10^3/uL (1.5-3.5); LYMPHOCYTES % (AUTO) 17.9 %; MEAN CORPUSCULAR HEMOGLOBIN 31.5 pg (27.0-31.0); MEAN CORPUSCULAR HGB CONC 32.5 g/dL (32.0-36.0); MEAN PLATELET VOLUME 11.7 fL (7.4-11.4); MONOCYTES # (AUTO) 0.7 10^3/uL (0.0-1.0); MONOCYTES % (AUTO) 9.9 %; NEUTROPHILS # (AUTO) 4.7 10^3/uL (1.5-6.6); NEUTROPHILS % (AUTO) 66.5 %; PLT - PLATELET COUNT 174 10^3/uL (130-450); RED BLOOD COUNT 4.35 10^6/uL (4.70-6.10); RED CELL DISTRIBUTION WIDTH 13.5 % (12.0-15.0); WHITE BLOOD COUNT 7.1 x10^3/uL (4.8-10.8)
[2021-08-27 13:22] LABS: ALBUMIN/GLOBULIN RATIO 1.4 (1.0-2.2); CALCIUM 9.8 mg/dL (8.5-10.3); CREATININE 1.3 mg/dL (0.6-1.2); POTASSIUM 4.9 mmol/L (3.5-5.0); TOTAL PROTEIN 6.8 g/dL (6.7-8.2)
[2021-08-27 15:32] LABS: ESTIMATED AVERAGE GLUCOSE 123 mg/dL (70-100); HEMOGLOBIN A1c% 5.9 % (4.27-6.07)
== END 2021-08-27 23:59 | disposition home or self-care (01) ==
LOC: LAB.WCP 08:00
PROVIDERS: ATTEND Family Medicine
DX: M12.811 Other specific arthropathies, not elsewhere classified, right shoulder (principal); R73.9 Hyperglycemia, unspecified; Z95.2 Presence of prosthetic heart valve
CPT/HCPCS: 36415; 80053; 83036; 85025

== ENCOUNTER 2022-04-22 13:45 | Outpatient (CLI) | payer MEDICARE, OTHER ==
[2022-04-22 13:59] LABS: BASOPHILS # (AUTO) 0.1 10^3/uL (0.0-0.1); BASOPHILS % (AUTO) 0.7 %; EOSINOPHILS # (AUTO) 0.2 10^3/uL (0.0-0.7); EOSINOPHILS % (AUTO) 2.5 %; HCT - HEMATOCRIT 41.7 % (42.0-52.0); HGB - HEMOGLOBIN 13.8 g/dL (14.0-18.0); LYMPHOCYTES # (AUTO) 1.5 10^3/uL (1.5-3.5); LYMPHOCYTES % (AUTO) 18.8 %; MEAN CORPUSCULAR HEMOGLOBIN 32.2 pg (27.0-31.0); MEAN CORPUSCULAR HGB CONC 33.1 g/dL (32.0-36.0); MEAN CORPUSCULAR VOLUME 97.2 fL (80.0-94.0); MEAN PLATELET VOLUME 10.5 fL (7.4-11.4); MONOCYTES # (AUTO) 0.8 10^3/uL (0.0-1.0); MONOCYTES % (AUTO) 9.6 %; NEUTROPHILS # (AUTO) 5.6 10^3/uL (1.5-6.6); NEUTROPHILS % (AUTO) 68.2 %; PLT - PLATELET COUNT 184 10^3/uL (130-450); RED BLOOD COUNT 4.29 10^6/uL (4.70-6.10); RED CELL DISTRIBUTION WIDTH 13.8 % (12.0-15.0); WHITE BLOOD COUNT 8.2 x10^3/uL (4.8-10.8)
== END 2022-04-22 13:46 | disposition home or self-care (01) ==
LOC: LAB 13:45
PROVIDERS: ATTEND Internal Medicine Cardiovascular Disease
DX: R58 Hemorrhage, not elsewhere classified (principal)
CPT/HCPCS: 36415; 85025

== ENCOUNTER 2022-06-22 13:43 | Outpatient (CLI) | payer MEDICARE, OTHER ==
--- NOTE | 2022-06-22 23:12 | Ultrasound Report ---
PROCEDURE: Testicle INDICATIONS: LEFT TESTICLE PAIN TECHNIQUE: Real-time scanning was performed of the scrotum and testicles, with image documentation. Color and p ulse Doppler interrogation was performed of both testicles. COMPARISON: None. FINDINGS: Right: Testicle is normal in size at 3.6 x 2.1 x 2.9 cm, and heterogenous in echotexture. There is a simple cyst of the testicle measuring 6 x 6 x 6 mm. A small hydrocele is present with debris. There are varicoceles with reflux. Overlying scrotal skin is normal in thickness. Left: Testicle is normal in size at 3.3 x 1.6 x 2.9 cm, and homogenous in echotexture. There are 2 s imple cysts of the testicle measuring 3 x 3 x 3 mm and 2 x 2 x 3 mm. A small hydrocele is present. T here are varicoceles with reflux. Overlying scrotal skin is normal in thickness. Doppler: Color and pulse Doppler demonstrate normal and symmetric arterial flow in both testicles. IMPRESSION: 1. The left epididymal body appears enlarged with increased vascularity consistent with epididymitis. 2. Bilateral varicoceles with reflux. 3. Simple cysts of the testicles. Reviewed by: Frank David on 06/22/2022 11:11 PM PDT Approved by: Frank David on 06/22/2022 11:11 PM PDT Station ID: [id number]
== END 2022-06-22 13:44 | disposition home or self-care (01) ==
LOC: DI 13:43
PROVIDERS: ATTEND Urology
DX: N50.812 Left testicular pain (principal); I86.1 Scrotal varices; N44.2 Benign cyst of testis

== ENCOUNTER 2022-10-18 13:15 | Outpatient (CLI) | payer MEDICARE, OTHER ==
--- NOTE | 2022-10-18 19:46 | XRAY Report ---
PROCEDURE: Chest 2 View X-Ray INDICATIONS: CARDIAC DULLNESS TECHNIQUE: 2 views of the chest were acquired. COMPARISON: Chest x-ray 04/29/2022 FINDINGS: Surgical changes and devices: Sternal wires and partially visualized right shoulder arthroplasty are present. Lungs and pleura: No pleural effusions or pneumothorax. Lungs are clear. Mediastinum: Mediastinal contours are normal. Heart size is mildly prominent. Bones and chest wall: No suspicious bony abnormalities. Soft tissues appear unremarkable. IMPRESSION: No acute pulmonary process. Reviewed by: Kenia Perdue MD on 10/18/2022 7:44 PM PST Approved by: Kenia Perdue MD on 10/18/2022 7:44 PM PST Station ID: [id number]
== END 2022-10-18 13:16 | disposition home or self-care (01) ==
LOC: DI 13:15
PROVIDERS: ATTEND Family Medicine
DX: R01.2 Other cardiac sounds (principal); J44.9 Chronic obstructive pulmonary disease, unspecified; Z95.2 Presence of prosthetic heart valve

== ENCOUNTER 2022-11-10 16:00 | Emergency (ER) | payer MEDICARE, OTHER ==
[2022-11-10 16:10] VITALS: BP 140/68
--- NOTE | 2022-11-10 16:49 | ED Physician Documentation ---
PD HPI LOWER EXT INJURY - Stated complaint Stated Complaint: FALL,R ANKLE/HIP PX - Chief complaint Chief Complaint: Trauma Ext - History obtained from History obtained from: Patient - Additional information Additional information: 87-year-old gentleman took his truck to [place] to get serviced today. He will he was with his daughter and usually gets in on the ems driver side of the truck but today was getting in the passenger side. His right leg gave out as he was getting in the truck and twisted in the wheel well and he has foot and ankle pain. Mild hip pain as well. He is able to walk and bear weight with a walker. No other injuries. Review of Systems Constitutional: denies: Fever, Chills Cardiac: denies: Chest pain / pressure, Palpitations Respiratory: denies: Dyspnea, Cough PD PAST MEDICAL HISTORY - Past Medical History Past Medical History: Yes Cardiovascular: High cholesterol, Coronary artery disease Respiratory: Asthma, COPD Neuro: Tremors, Other Endocrine/Autoimmune: None GI: None : Incontinence HEENT: Glaucoma Psych: None Musculoskeletal: Osteoarthritis Derm: None - Past Surgical History Past Surgical History: Yes General: Appendectomy, Hiatal hernia repair Ortho: Arthroscopic surgery Cardiovascular: CABG HEENT: Cataracts, Tonsil/Adenoidectomy - Present Medications Home Medications: Ambulatory Orders Medication Instructions Recorded Confirmed Clopidogrel [Plavix] 75 mg PO DAILY 07/29/17 04/23/21 Fluticasone/Salmeterol [Advair 1 mg INH DAILY 07/29/17 04/23/21 500-50 Diskus] Montelukast [Singulair] 10 mg PO QPM 07/29/17 04/23/21 Acetaminophen [Tylenol] 650 mg PO Q6H PRN 04/13/21 04/23/21 Albuterol Sulf [Ventolin Hfa 1 - 2 puffs INH Q4HR PRN 04/13/21 04/23/21 Inhaler] Ascorbic Acid [Vitamin C] 1,000 mg PO DAILY 04/13/21 04/23/21 Cholecalciferol [Vitamin D3] 25 mcg PO DAILY 04/13/21 04/23/21 Dorzolamide 2% Ophth Drops 1 drops OP TID 04/13/21 04/23/21 [Trusopt 2% Ophth Drops] Fexofenadine HCl 180 mg PO DAILY PM 04/13/21 04/23/21 Ipratropium/Albuterol [Duoneb] 3 ml INH BID 04/13/21 04/23/21 Latanoprost/Pf [Latanoprost 0.005% 1 drops OP DAILY PM 04/13/21 04/23/21 Eye Drop] Magnesium Oxide [Mag Ox] 400 mg PO DAILY 04/13/21 04/23/21 Mometasone Furoate [Nasonex] 17 gm NS BID 04/13/21 04/23/21 Multivitamin 1 tab ORAL DAILY 04/13/21 04/23/21 Pantoprazole Sodium 20 mg PO DAILY 04/13/21 04/23/21 Tamsulosin HCl [Flomax] 0.4 mg ORAL DAILY PM 04/13/21 04/23/21 Triamcinolone 0.1% Cream [Kenalog 1 applic TOP BID PRN 04/13/21 04/23/21 0.1% Cream] Ubidecarenone [Co Q-10] 2 tab ORAL DAILY 04/13/21 04/23/21 Vitamin E 400 unit PO DAILY 04/13/21 04/23/21 predniSONE [Deltasone] 20 mg PO DAILY PRN 04/13/21 04/23/21 Atorvastatin [Lipitor] 40 mg PO QPM #30 tablet 04/14/21 04/23/21 amLODIPine [Norvasc] 2.5 mg PO DAILY 20 Days #10 tablet 04/29/22 Apixaban [Eliquis] 2.5 mg PO BID 11/10/22 11/10/22 Finasteride [Proscar] 5 mg PO DAILY 11/10/22 11/10/22 Trospium Chloride [Trospium 60 mg PO DAILY 11/10/22 11/10/22 Chloride ER] - Allergies Allergies/Adverse Reactions: Allergies Allergy/AdvReac Type Severity Reaction Status Date / Time aspirin Allergy Respiratory Verified 11/10/22 16:06 - Social History Does the pt smoke?: No Smoking Status: Never smoker Does the pt drink ETOH?: Yes Does the pt have substance abuse?: No - Immunizations Immunizations are current?: Yes - POLST Patient has POLST: No PD ED PE NORMAL - Vitals Vital signs reviewed: Yes - General General: Alert and oriented X 3, No acute distress - HEENT HEENT: PERRL, EOMI - Neck Neck: Supple, no meningeal sign, No bony TTP - Extremities Extremities: Other (I am not able to elicit any tenderness of the right hip. Painless internal and external rotation of the right hip. He is quite tender over the lateral malleolus of the right ankle. No proximal fibular tenderness, no medial malleolar tenderness, no foot tenderness.) - Neuro Neuro: Alert and oriented X 3, Normal speech Results - Vitals Vitals: Vital Signs - 24 hr 11/10/22 16:06 Temperature 36.5 C Heart Rate 72 Respiratory 16 Rate Blood Pressure 140/68 H O2 Saturation 97 Oxygen O2 Source Room air - Rads (name of study) X-rays of the right hip and ankle show a minimally displaced oblique fracture of the distal fibula, peripheral vascular disease, no hip fracture Radiology: Final report received, EMP read indepedently PD Medical Decision Making - ED course ED course: 87-year-old gentleman with a lateral fibula fracture. I discussed case by phone with Dr. Davon Clayton who agrees that given his age would probably be better to have him partial weightbearing in a boot as opposed up on crutches with complete nonweightbearing. He clinically does not have a hip fracture with No pain with forced rotation or palpation. Departure - Departure Disposition: 01 Home, Self Care Clinical Impression: Fracture of distal end of fibula Qualifiers: Encounter type: initial encounter Fracture type: closed Fracture morphology: other fracture Laterality: right Qualified Code(s): S82.831A - Other fracture of upper and lower end of right fibula, initial encounter for closed fracture Contusion of right hip Qualifiers: Encounter type: initial encounter Qualified Code(s): S70.01XA - Contusion of right hip, initial encounter Condition: Good Record reviewed to determine appropriate education?: Yes Instructions: ED Fx Ankle Lateral Malleolus Comments: You were seen today for hip and ankle injuries after a fall. There is no clinical evidence of a hip fracture and the x-ray is negative there. The x-ray of the ankle does show a fracture of the distal fibula on the outside of the ankle. I have discussed this case by phone with our orthopedist who feels that the fracture is mild enough that you can walk on it with a walker. You should try to keep most of the weight on your upper body when your Right foot is planted. Obviously you can bear full weight on the left side. Tylenol as needed for pain, you should follow-up with the orthopedist within the week, call his office for an appointment tomorrow or Monday. Return for new or worsening symptoms. Important to elevate the leg is much as possible to keep swelling to a minimum. Wear the boot when up and around, you do not need to wear it religiously when sleeping or bathing.
--- NOTE | 2022-11-10 17:08 | XRAY Report ---
PROCEDURE: Ankle 3 View RT INDICATIONS: Fall, hip and ankle injury TECHNIQUE: 3 views of the ankle were acquired. COMPARISON: None FINDINGS: Bones: Minimally displaced comminuted oblique fracture of the distal fibula extending to the articula r surface. Ankle mortise is normally aligned. No suspicious bony lesions. Soft tissues: No tibiotalar joint effusion. Achilles tendon appears normal. Extensive small vessel calcifications. IMPRESSION: 1. Minimally displaced comminuted oblique fracture of the distal fibula extending to the articular caldera rface. 2. Extensive small vessel calcifications, typically seen in diabetes, consistent with advanced periph eral vascular disease. Reviewed by: Shola Malik MD on 11/10/2022 5:07 PM PST Approved by: Shola Malik MD on 11/10/2022 5:07 PM PST Station ID: [id number]
--- NOTE | 2022-11-10 17:09 | XRAY Report ---
PROCEDURE: Hip w/Pelvis 2-3V RT INDICATIONS: Fall, hip and ankle injury TECHNIQUE: AP pelvis with lateral view(s) of the AP and frog-leg lateral views of the right hip(s). COMPARISON: None. FINDINGS: Bones: No fractures or dislocations. Pelvic ring appears intact. No suspicious bony lesions. Bila teral hip degenerative arthritis. Soft tissues: The visualized bowel gas pattern is normal. No suspicious soft tissue calcifications. IMPRESSION: Bilateral hip degenerative arthritis. No evidence acute bony abnormality of the pelvis a nd right hip. If clinical suspicion and/or symptoms persist, further assessment with repeat plain films or advanced imaging (e.g., CT, MRI, or bone scan) may be helpful for further assessment. Reviewed by: Shola Malik MD on 11/10/2022 5:08 PM PST Approved by: Shola Malik MD on 11/10/2022 5:08 PM PST Station ID: [id number]
== END 2022-11-10 17:53 | disposition home or self-care (01) ==
LOC: ED 16:00
DX: S82.831A Other fracture of upper and lower end of right fibula, initial encounter for closed fracture (principal); X50.1XXA Overexertion from prolonged static or awkward postures, initial encounter; Y93.89 Activity, other specified; Y92.812 Truck as the place of occurrence of the external cause
CPT/HCPCS: 99283; 99284

== ENCOUNTER 2022-11-22 15:08 | Outpatient (CLI) | payer MEDICARE, OTHER ==
--- NOTE | 2022-11-22 15:52 | XRAY Report ---
PROCEDURE: Hip 2 View RT INDICATIONS: RIGHT HIP PAIN TECHNIQUE: 2 views of the hip were acquired. COMPARISON: None FINDINGS: Bones: No fractures or dislocations. No suspicious bony lesions. The visualized pelvic ring appear s intact. Mild joint space narrowing and articular osteophyte formation at the bilateral hip joints. Soft tissues: No suspicious soft tissue calcifications or masses. IMPRESSION: Bilateral hip osteoarthritis. No acute fracture. No osseous lesion. If symptoms and/or clinical suspi cion for pathology continue, further assessment with repeat plain films, or advanced imaging (e.g., C T, MRI, or bone scan) is recommended for further assessment. Reviewed by: Jaqueline Diaz MD on 11/22/2022 3:51 PM PST Approved by: Jaqueline Diaz MD on 11/22/2022 3:51 PM PST Station ID: [id number]
--- NOTE | 2022-11-23 08:30 | XRAY Report ---
PROCEDURE: Ankle 3 View RT INDICATIONS: RIGHT ANKLE FRACTURE TECHNIQUE: 3 views of the ankle were acquired. COMPARISON: X-ray right ankle, 11/10/2022 FINDINGS: Bones: There is mildly displaced spiral fracture in the distal fibula involving the ankle mortise. Th ere is slight widening of the fracture lucency. Ankle mortise is normally aligned. No suspicious oralia ny lesions. Calcaneal spurring. Soft tissues: Small tibiotalar joint effusion. Achilles tendon appears normal. Severe atherosclerot ic calcifications. IMPRESSION: 1. Mildly displaced spiral fracture of the distal fibula. There is slight wedging of fracture lucency 1 compared to last exam. Reviewed by: Raphael Barrera MD on 11/23/2022 8:28 AM PST Approved by: Raphael Barrera MD on 11/23/2022 8:28 AM PST Station ID: [id number]
== END 2022-11-22 15:09 | disposition home or self-care (01) ==
LOC: DI.WOS 15:08
PROVIDERS: ATTEND Orthopaedic Surgery
DX: M16.0 Bilateral primary osteoarthritis of hip (principal); S82.441A Displaced spiral fracture of shaft of right fibula, initial encounter for closed fracture

== ENCOUNTER 2022-12-27 14:05 | Outpatient (CLI) | payer MEDICARE, OTHER ==
--- NOTE | 2022-12-27 13:21 | XRAY Report ---
PROCEDURE: Ankle 3 View RT INDICATIONS: RIGHT ANKLE FRACTURE TECHNIQUE: 3 views of the ankle were acquired. COMPARISON: 11/22/2022 FINDINGS: Bones: Spiral fracture of the distal fibula with interval callus formation with mild displacement. An kle mortise is normally aligned. No suspicious bony lesions. Soft tissues: No tibiotalar joint effusion. Achilles tendon appears normal. Vascular calcification s. IMPRESSION: Healing right distal fibular fracture with mild displacement Reviewed by: Frank David on 12/27/2022 1:20 PM PDT Approved by: Frank David on 12/27/2022 1:20 PM PDT Station ID: [id number]
== END 2022-12-27 14:07 | disposition home or self-care (01) ==
LOC: DI.WOS 14:05
PROVIDERS: ATTEND Orthopaedic Surgery
DX: S82.441D Displaced spiral fracture of shaft of right fibula, subsequent encounter for closed fracture with routine healing (principal)

== ENCOUNTER 2023-01-24 14:26 | Outpatient (CLI) | payer MEDICARE, OTHER ==
--- NOTE | 2023-01-24 11:35 | XRAY Report ---
PROCEDURE: Ankle 3 View RT INDICATIONS: RIGHT ANKLE FRACTURE TECHNIQUE: 3 views of the ankle were acquired. COMPARISON: Right ankle radiographs 12/27/2022. FINDINGS: Bones: Progressive healing changes are seen involving the distal fibular fracture with periosteal ne w bone formation. Overall alignment is unchanged. No new osseous abnormality. Posterior and plantar c alcaneal enthesophytes. Soft tissues: Soft tissue edema is seen surrounding the ankle. IMPRESSION: Progressive healing changes involving the distal fibular fracture with unchanged alignment. Reviewed by: Son Jauregui MD on 01/24/2023 11:34 AM PDT Approved by: Son Jauregui MD on 01/24/2023 11:34 AM PDT Station ID: [id number]
== END 2023-01-24 14:27 | disposition home or self-care (01) ==
LOC: DI.WOS 14:26
PROVIDERS: ATTEND Orthopaedic Surgery
DX: S82.64XD Nondisplaced fracture of lateral malleolus of right fibula, subsequent encounter for closed fracture with routine healing (principal)

== ENCOUNTER 2023-05-24 11:12 | Outpatient (CLI) | payer MEDICARE, OTHER ==
[2023-05-24 12:04] VITALS: BP 118/62; O2SAT 96
--- NOTE | 2023-05-24 12:32 | SLEEP CARE CONSULTATION ---
Information from patient questionnaire entered by Montserrat Cortes. I have reviewed and concur with the information entered by Montserrat Cortes. This document represents the service I personally performed and the decisions made by me, Lisa Fishman ARNP. History of Present Illness Service Date and Time: 05/24/2023 1112 Previous diagnosis: Severe, Obstructive Sleep Apnea-Hypopnea Syndrome AHI: 42.7 (in 2012) Reason for follow up: annual Accompanied by: Spouse (Saritha) Equipment type: CPAP (Airsense 10, s/u 2020; NOT USING CPAP) Equipment obtained from: [id number] (getting supplies as needed) Mask style: Nasal (Wisp) Mask brand: Respironics Backup mask available: No (not now) Prior sleep studies: Yes Year and Where: 2012 - [facility] in [facility] additional information: KASHMIR CHAMBERS was diagnosed to have severe, AHI 42.7, obstructive sleep apnea- hypopnea syndrome and returned today for CPAP therapy annual follow-up. Sleep Study - Results Prior sleep studies: Yes Year and Where: 2012 - [facility] in [place], [place] CPAP Compliance Data - Data Reviewed with Patient Average duration of nightly device use: 7 hours 36 minutes Compliance rate %: 61 (07/22/2022-01/17/2023) Average residual AHI: 1.7 Subjective Missed days of use due to: reports: illness (cough/pulmonary issues; having reflux), other (ineffective and uncomfortable treatement) Patient concerns: reports: mask leak noise Observed to snore while using device: Yes Current pressure setting perceived as: comfortable Initial Delta Sleepiness Scale score: 11 (in 2019) Current Delta Sleepiness Scale score: 18 (05/24/23) Allergies and Home Medications Known drug allergies: Yes (aspirin) Drug allergies reviewed: Yes Home medication list reviewed: Yes (trospium? new; stopped amlodipine) Allergy and home medication list: Allergies aspirin Allergy (Verified 05/22/23 10:45) Respiratory Review of Systems Review of systems same as previous: No (CT scan; PET scan for lungs - no results yet) Physical Exam Vital signs obtained and entered by: MONTSERRAT España MA Blood Pressure: 118/62 (LEFT ARM) Cuff size: regular Heart Rate: 60 O2 Saturation: 96 Height: 6 ft 1.5 in Weight: 247 lb 12.8 oz Body Mass Index: 32.2 BMI Classification: Obese Impression and Plan 1. Obstructive Sleep Apnea-Hypopnea Syndrome, severe, with poor treatment compliance and good apnea control when he uses his CPAP. Krish states he is not us ing his CPAP because he is sleeping well and deeper without it. He states he is not snoring and his states the snoring is much relay man. He states when using the CPAP he was getting mask leaking around the mask and leaking noises. He states he was snoring more when using his CPAP. He did not feel the pressure was too much or too little. He has been having some health concerns in last few months and just stopped wanting to fight with it. He broke his ankle in the end of October and was sleeping in the recliner with his "boot". He did not want to move the CPAP to use into the livingroom. He then started having some respiratory issues, coughing constantly through the night and day. He is seeing a new cargo trimmer who is checking a finding on his lungs CT scan. He tried to start using the CPAP in January but just can not tolerate the mask discomfort and the coughing. He wants to stop using the CPAP. I reviewed with patient that he does have severe obstructive sleep apnea and I do recommend that he continue using his CPAP. I also offered to have him do a another sleep study since it has been since 2013 that he had a study at all. There may have been changes in his condition. He states he would like to have a sleep study but does not want to go through that right now. He is going to think about it and I will have him followup in 3 months. Patient's apnea severity and rationale for treatment to reduce apnea, improve sleep quality and reduce cardiovascular and cerebrovascular events was reviewed. I also reviewed the benefit of consistent device use of CPAP for cardiac disease, gastric reflux and COPD. 2. Obesity, unspecified. Currently patients BMI is 32.2. Obesity increases the risk of apnea, CPAP pressure requirements and overall health risks especially cardiovascular and diabetes. Thus patient is advised to lose weight. * Continue CPAP pressure at 8 cmH2O * Notify me if snoring with mask or feeling that the pressure is too much or too little * Attempt to lose weight * Call this office if any problems using CPAP * Return for follow up in 3 months, or sooner if concerns arise Counseling Topics: Weight loss health impact Visit Type: In Office Time Spent with Patient (minutes): 29 Provider Statement: I spent 100% of the Face to Face Visit with the patient with greater than 50% spent counseling the patient and coordination of care.
== END 2023-05-24 11:13 | disposition home or self-care (01) ==
LOC: SC 11:12
PROVIDERS: ATTEND Nurse Practitioner Family
DX: G47.33 Obstructive sleep apnea (adult) (pediatric) (principal); E66.9 Obesity, unspecified; Z68.32 Body mass index [BMI] 32.0-32.9, adult
CPT/HCPCS: 99213; G0463; 99212

== ENCOUNTER 2023-08-28 10:58 | Outpatient (CLI) | payer MEDICARE, OTHER ==
[2023-08-28 11:29] LABS: BASOPHILS % (AUTO) 0.5 %; EOSINOPHILS # (AUTO) 0.2 10^3/uL (0.0-0.7); EOSINOPHILS % (AUTO) 2.9 %; HCT - HEMATOCRIT 41.8 % (42.0-52.0); HGB - HEMOGLOBIN 13.3 g/dL (14.0-18.0); LYMPHOCYTES # (AUTO) 1.3 10^3/uL (1.5-3.5); LYMPHOCYTES % (AUTO) 16.4 %; MEAN CORPUSCULAR HEMOGLOBIN 30.9 pg (27.0-31.0); MEAN CORPUSCULAR HGB CONC 31.8 g/dL (32.0-36.0); MEAN PLATELET VOLUME 10.1 fL (7.4-11.4); MONOCYTES # (AUTO) 0.7 10^3/uL (0.0-1.0); MONOCYTES % (AUTO) 8.2 %; NEUTROPHILS # (AUTO) 5.7 10^3/uL (1.5-6.6); NEUTROPHILS % (AUTO) 71.6 %; PLT - PLATELET COUNT 159 10^3/uL (130-450); RED BLOOD COUNT 4.31 10^6/uL (4.70-6.10); RED CELL DISTRIBUTION WIDTH 13.8 % (12.0-15.0); WHITE BLOOD COUNT 7.9 x10^3/uL (4.8-10.8)
[2023-08-28 11:46] LABS: ALBUMIN 3.8 g/dL (3.2-5.5); ALBUMIN/GLOBULIN RATIO 1.7 (1.0-2.2); ALKALINE PHOSPHATASE 61 IU/L (42-121); ALT ALANINE AMINOTRANSFERASE 16 IU/L (10-60); AST ASPARTATE AMINOTRANSFERASE 15 IU/L (10-42); BILIRUBIN,TOTAL 0.6 mg/dL (0.2-1.0); BUN - BLOOD UREA NITROGEN 18 mg/dL (6-20); CALCIUM 9.5 mg/dL (8.5-10.3); CARBON DIOXIDE - CO2 30 mmol/L (21-32); CHLORIDE 106 mmol/L (101-111); CHOLESTEROL 86 mg/dL; CREATININE 1.3 mg/dL (0.6-1.3); GFR - MDRD 52 (>89); GLUCOSE 116 mg/dL (74-104); HDL CHOLESTEROL 44 mg/dL; LDL CHOLESTEROL,CALCULATED 21 mg/dL; LDL/HDL RATIO 0.5 (<3.6); POTASSIUM 4.4 mmol/L (3.5-4.5); SODIUM 140 mmol/L (135-145); TRIGLYCERIDES 106 mg/dL (48-352); VLDL CHOLESTEROL 21 mg/dL
[2023-08-28 12:07] LABS: THYROID STIMULATING HORMONE 3.28 uIU/mL (0.34-5.60)
[2023-08-28 13:13] LABS: ESTIMATED AVERAGE GLUCOSE 128 mg/dL (70-100); HEMOGLOBIN A1c% 6.1 % (4.27-6.07)
== END 2023-08-28 10:59 | disposition home or self-care (01) ==
LOC: LAB 10:58
PROVIDERS: ATTEND Family Medicine
DX: N40.0 Benign prostatic hyperplasia without lower urinary tract symptoms (principal); R27.9 Unspecified lack of coordination; I48.0 Paroxysmal atrial fibrillation; R73.9 Hyperglycemia, unspecified; I25.10 Atherosclerotic heart disease of native coronary artery without angina pectoris; Z95.2 Presence of prosthetic heart valve; J44.9 Chronic obstructive pulmonary disease, unspecified
CPT/HCPCS: 36415; 80053; 80061; 83036; 83721; 84443; 85025

== ENCOUNTER 2023-09-29 16:07 | Emergency (ER) | payer MEDICARE, OTHER ==
--- NOTE | 2023-09-29 16:10 | ED Physician Documentation ---
PD HPI UPPER EXT INJURY - Stated complaint Stated Complaint: FALL/ELBOW LAC - History obtained from History obtained from: Patient - History of Present Illness Location: Left, Elbow Type of injury: Fall (he states he slipped and fell onto left elbow. Did not strike torso, head neck. elbow lac/peeled skin. Good ROM of the joint. No other pains.) Timing - onset: How many hours ago (2), Today Timing - details: Abrupt onset, Still present (he struck elbow with peeled flap of skin adn ongoing bleeding, so bandage at home with nick wrap then directly here.) Worsened by: Palpating Associated symptoms: No: Weakness, Numbness Contributing factors: Anticoagulated Similar symptoms before: Has not had sx before Recently seen: Not recently seen Review of Systems Neurologic: denies: Focal weakness, Numbness, Headache, Head injury PD PAST MEDICAL HISTORY - Past Medical History Cardiovascular: High cholesterol, Coronary artery disease Respiratory: Asthma, COPD Neuro: Tremors, Other Endocrine/Autoimmune: None GI: None : Incontinence HEENT: Glaucoma Psych: None Musculoskeletal: Osteoarthritis Derm: None - Past Surgical History Past Surgical History: Yes General: Appendectomy, Hiatal hernia repair Ortho: Arthroscopic surgery Cardiovascular: CABG HEENT: Cataracts, Tonsil/Adenoidectomy - Present Medications Home Medications: Ambulatory Orders Medication Instructions Recorded Confirmed Clopidogrel [Plavix] 75 mg PO DAILY 07/29/17 05/24/23 Fluticasone/Salmeterol [Advair 1 mg INH DAILY 07/29/17 05/24/23 500-50 Diskus] Montelukast [Singulair] 10 mg PO QPM 07/29/17 05/24/23 Acetaminophen [Tylenol] 650 mg PO Q6H PRN 04/13/21 05/24/23 Albuterol Sulf [Ventolin Hfa 1 - 2 puffs INH Q4HR PRN 04/13/21 05/24/23 Inhaler] Ascorbic Acid [Vitamin C] 1,000 mg PO DAILY 04/13/21 05/24/23 Cholecalciferol [Vitamin D3] 25 mcg PO DAILY 04/13/21 05/24/23 Dorzolamide 2% Ophth Drops 1 drops OP TID 04/13/21 05/24/23 [Trusopt 2% Ophth Drops] Fexofenadine HCl 180 mg PO DAILY PM 04/13/21 05/24/23 Ipratropium/Albuterol [Duoneb] 3 ml INH BID 04/13/21 05/24/23 Latanoprost/Pf [Latanoprost 0.005% 1 drops OP DAILY PM 04/13/21 05/24/23 Eye Drop] Magnesium Oxide [Mag Ox] 400 mg PO DAILY 04/13/21 05/24/23 Mometasone Furoate [Nasonex] 17 gm NS BID 04/13/21 05/24/23 Multivitamin 1 tab ORAL DAILY 04/13/21 05/24/23 Pantoprazole Sodium 20 mg PO DAILY 04/13/21 05/24/23 Tamsulosin HCl [Flomax] 0.4 mg ORAL DAILY PM 04/13/21 05/24/23 Triamcinolone 0.1% Cream [Kenalog 1 applic TOP BID PRN 04/13/21 05/24/23 0.1% Cream] Ubidecarenone [Co Q-10] 2 tab ORAL DAILY 04/13/21 05/24/23 Vitamin E 400 unit PO DAILY 04/13/21 05/24/23 predniSONE [Deltasone] 20 mg PO DAILY PRN 04/13/21 05/24/23 Atorvastatin [Lipitor] 40 mg PO QPM #30 tablet 04/14/21 05/24/23 Apixaban [Eliquis] 2.5 mg PO BID 11/10/22 05/24/23 Finasteride [Proscar] 5 mg PO DAILY 11/10/22 05/24/23 Trospium Chloride [Trospium 60 mg PO DAILY 11/10/22 05/24/23 Chloride ER] - Allergies Allergies/Adverse Reactions: Allergies Allergy/AdvReac Type Severity Reaction Status Date / Time aspirin Allergy Respiratory Verified 09/29/23 16:19 - Social History Does the pt smoke?: No Smoking Status: Never smoker Does the pt drink ETOH?: Yes Does the pt have substance abuse?: No - Immunizations Immunizations are current?: Yes - POLST Patient has POLST: No PD ED PE NORMAL - Vitals Vital signs reviewed: Yes - General General: Alert and oriented X 3, No acute distress, Well developed/nourished - HEENT HEENT: Atraumatic - Neck Neck: Supple, no meningeal sign, No bony TTP - Respiratory Respiratory: No respiratory distress, Clear bilaterally, Other (no chestwall tenderness) - Abdomen Abdomen: Normal bowel sounds, Non tender, Non distended - Derm Derm: Normal color, Warm and dry - Extremities Extremities: Other (left elbow laterally with thin partial thickness skin tear/lac 4 cm in length, with capillary oozing bleeding and no FB. ) - Neuro Neuro: Alert and oriented X 3, No motor deficit, No sensory deficit, Normal speech Results - Vitals Vitals: Vital Signs - 24 hr 09/29/23 09/29/23 16:16 17:47 Temperature 36.9 C Heart Rate 77 60 Respiratory 20 16 Rate Blood Pressure 124/108 H 154/87 H O2 Saturation 99 97 Oxygen O2 Source Room air PD Medical Decision Making - ED course Complexity details: considered differential (full ROM of the elbow without bony pain. Has skin flap tear that is very thin, but I placed it down in position as it helps as s cover for the underlying deeper skin layer for discomfort and does stop bleeding once tacked down with steri strips. discussed with pt that the flap itself is nonviable. ), d/w patient ED course: the patient fell onto elbow without injury to trunk/head/etc. He is on blood thinner but triage nurse and myself felt not an impactful fall. No treated as a trauma per se but isolated extremity injury. Departure - Departure Disposition: 01 Home, Self Care Clinical Impression: Fall from slip, trip, or stumble, Elbow injury, Skin tear of elbow without complication Condition: Stable Record reviewed to determine appropriate education?: Yes Follow-Up: Rinku Nguyễn MD [Primary Care Provider] - Comments: The peeled skin of this is really very thin and unlikely to heal back in place but it does do fairly well right now as a cover to hide the nerve endings so it is not quite as sore and also the capillary ending so it does not bleed is much. We did give you a tetanus booster as well so you are good for 10 more years. The initial Steri-Strips and dressing on their is best left with minimal intervention. The pad and wrap over it would want to be changed once or twice daily depending upon how much bleeding or so. Minimal manipulation of the area will allow the skin to settle down and adhere to some degree. That said, it is fairly unlikely that it will actually heal in place but after a while, when it is starting to heal underneath and the Steri-Strips fall off, then the skin can be trimmed off (the portion that /loose and not healing). If you do develop signs of infection to the area, check back. Otherwise the area will heal and new skin over the next 2 or 3 weeks. It is a somewhat slow process to reepithelialize over the torn skin. Forms: PCP List Discharge Date/Time: 09/29/23 17:47
[2023-09-29] MEDS ORDERED: LIDOCAINE-EPINEPH-TETRACAINE 3 ML SYRINGE TOP STA (16:32)
[2023-09-29] MEDS ORDERED: ACETAMINOPHEN 325 MG TABLET PO STA (16:32)
[2023-09-29] MEDS ORDERED: TETANUS/DIPHTHERIA/PERTUSSIS 0.5 ML SYRINGE IM ONE (17:14)
[2023-09-29 17:57] VITALS: BP 154/87; O2SAT 97
== END 2023-09-29 17:47 | disposition home or self-care (01) ==
LOC: ED 16:07
DX: S51.012A Laceration without foreign body of left elbow, initial encounter (principal); W19.XXXA Unspecified fall, initial encounter
CPT/HCPCS: 90471; 90715; 99283; A9270

== ENCOUNTER 2023-10-12 11:11 | Emergency (ER) | payer MEDICARE, OTHER ==
[2023-10-12 12:07] LABS: RAPID STREP SCREEN Negative (Negative)
--- NOTE | 2023-10-12 12:09 | XRAY Report ---
PROCEDURE: Chest 1V INDICATIONS: cough TECHNIQUE: One view of the chest was acquired. COMPARISON: 10/18/2022. FINDINGS: Surgical changes and devices: Remote CABG, right shoulder arthroplasty Lungs and pleura: No pleural effusions or pneumothorax. Patchy bibasilar atelectasis, increased comp ared to the previous study. Mediastinum: Mediastinal contours appear normal. Heart size is normal. Bones and chest wall: No suspicious bony lesions. Overlying soft tissues appear unremarkable. IMPRESSION: Patchy bibasilar atelectasis. Reviewed by: Shola Malik MD on 10/12/2023 12:07 PM PST Approved by: Shola Malik MD on 10/12/2023 12:07 PM PST Station ID: [id number]
[2023-10-12 12:45] LABS: B. PARAPERTUSSIS- RESP PCR PAN NOT DETECTED; B. PERTUSSIS- RESP PCR PANEL NOT DETECTED; C. PNEUMONIAE- RESP PCR PANEL NOT DETECTED; CORONAVIRUS 229E-RESP PCR NOT DETECTED; CORONAVIRUS HKU1-RESP PCR NOT DETECTED; CORONAVIRUS NL63-RESP PCR NOT DETECTED; CORONAVIRUS OC43-RESP PCR NOT DETECTED; HUMAN METAPNEUMOVIRUS NOT DETECTED; INFLUENZA A- RESP PCR PANEL NOT DETECTED; INFLUENZA B - RESP PCR PANEL NOT DETECTED; M. PNEUMONIAE- RESP PCR PANEL NOT DETECTED; PARAINFLUENZA VIRUS 1 NOT DETECTED; PARAINFLUENZA VIRUS 2 NOT DETECTED; PARAINFLUENZA VIRUS 3 NOT DETECTED; PARAINFLUENZA VIRUS 4 NOT DETECTED; RHINOVIRUS/ENTEROVIRUS NOT DETECTED; RSV- RESP PCR PANEL NOT DETECTED; SARS-CoV-2 -RESP PCR PANEL NOT DETECTED
--- NOTE | 2023-10-12 15:38 | ED Physician Documentation ---
PD HPI URI - Stated complaint Stated Complaint: COUGH/SOA/HARD TIME WALK - Chief complaint Chief Complaint: Resp - History obtained from History obtained from: Patient - History of Present Illness Timing - onset: How many days ago (5) Timing duration: Days (5) Timing details: Gradual onset, Still present Associated symptoms: Fever, Chills, Nasal congestion, Dry cough, Dyspnea, Other (general weakness with sluggish/difficulty getting around walking. Has walker at home.). No: NVD, Bilateral edema Contributing factors: COPD / asthma. No: Sick contact, Immunocompromised Improves by: Rest. No: MDI/nebulizer (using Albuterol MDI without much improvement.) Worsened by: Activity Similar symptoms before: Has not had sx before Recently seen: Not recently seen Review of Systems Constitutional: reports: Fever (range of 100.6 at home.), Chills, Myalgias Nose: reports: Rhinorrhea / runny nose, Congestion Throat: denies: Sore throat Cardiac: denies: Chest pain / pressure, Palpitations, Pedal edema Respiratory: reports: Dyspnea, Cough, Wheezing GI: reports: Nausea. denies: Vomiting, Diarrhea Neurologic: reports: Generalized weakness (without falling but has come close few times.). denies: Focal weakness PD PAST MEDICAL HISTORY - Past Medical History Past Medical History: Yes Cardiovascular: High cholesterol, Coronary artery disease Respiratory: Asthma, COPD Neuro: Tremors, Other Endocrine/Autoimmune: None GI: None : Incontinence HEENT: Glaucoma Psych: None Musculoskeletal: Osteoarthritis Derm: None - Past Surgical History Past Surgical History: Yes General: Appendectomy, Hiatal hernia repair Ortho: Arthroscopic surgery Cardiovascular: CABG HEENT: Cataracts, Tonsil/Adenoidectomy - Present Medications Home Medications: Ambulatory Orders Medication Instructions Recorded Confirmed Clopidogrel [Plavix] 75 mg PO DAILY 07/29/17 05/24/23 Fluticasone/Salmeterol [Advair 1 mg INH DAILY 07/29/17 05/24/23 500-50 Diskus] Montelukast [Singulair] 10 mg PO QPM 07/29/17 05/24/23 Acetaminophen [Tylenol] 650 mg PO Q6H PRN 04/13/21 05/24/23 Albuterol Sulf [Ventolin Hfa 1 - 2 puffs INH Q4HR PRN 04/13/21 05/24/23 Inhaler] Ascorbic Acid [Vitamin C] 1,000 mg PO DAILY 04/13/21 05/24/23 Cholecalciferol [Vitamin D3] 25 mcg PO DAILY 04/13/21 05/24/23 Dorzolamide 2% Ophth Drops 1 drops OP TID 04/13/21 05/24/23 [Trusopt 2% Ophth Drops] Fexofenadine HCl 180 mg PO DAILY PM 04/13/21 05/24/23 Ipratropium/Albuterol [Duoneb] 3 ml INH BID 04/13/21 05/24/23 Latanoprost/Pf [Latanoprost 0.005% 1 drops OP DAILY PM 04/13/21 05/24/23 Eye Drop] Magnesium Oxide [Mag Ox] 400 mg PO DAILY 04/13/21 05/24/23 Mometasone Furoate [Nasonex] 17 gm NS BID 04/13/21 05/24/23 Multivitamin 1 tab ORAL DAILY 04/13/21 05/24/23 Pantoprazole Sodium 20 mg PO DAILY 04/13/21 05/24/23 Tamsulosin HCl [Flomax] 0.4 mg ORAL DAILY PM 04/13/21 05/24/23 Triamcinolone 0.1% Cream [Kenalog 1 applic TOP BID PRN 04/13/21 05/24/23 0.1% Cream] Ubidecarenone [Co Q-10] 2 tab ORAL DAILY 04/13/21 05/24/23 Vitamin E 400 unit PO DAILY 04/13/21 05/24/23 predniSONE [Deltasone] 20 mg PO DAILY PRN 04/13/21 05/24/23 Atorvastatin [Lipitor] 40 mg PO QPM #30 tablet 04/14/21 05/24/23 Apixaban [Eliquis] 2.5 mg PO BID 11/10/22 05/24/23 Finasteride [Proscar] 5 mg PO DAILY 11/10/22 05/24/23 Trospium Chloride [Trospium 60 mg PO DAILY 11/10/22 05/24/23 Chloride ER] Amox/Clav 875/125 [Augmentin] 1 each PO Q12H #10 tablet 10/12/23 Benzonatate [Tessalon] 100 mg PO TID PRN #15 cap 10/12/23 Ipratropium [Atrovent] 0.5 mg INH QID 10 Days #100 ml 10/12/23 dexAMETHasone [Decadron] 4 mg PO DAILY #5 tablet 10/12/23 - Allergies Allergies/Adverse Reactions: Allergies Allergy/AdvReac Type Severity Reaction Status Date / Time aspirin Allergy Respiratory Verified 10/12/23 11:34 - Social History Does the pt smoke?: No Smoking Status: Never smoker Does the pt drink ETOH?: Yes Does the pt have substance abuse?: No - Immunizations Immunizations are current?: Yes - POLST Patient has POLST: No PD ED PE NORMAL - Vitals Vital signs reviewed: Yes - General General: Alert and oriented X 3, No acute distress, Well developed/nourished - HEENT HEENT: Moist mucous membranes, Pharynx benign - Neck Neck: Supple, no meningeal sign, No adenopathy - Cardiac Cardiac: RRR, No murmur - Respiratory Respiratory: No: Clear bilaterally (diffuse exp wheezing. Some congestion right side. ) - Abdomen Abdomen: Normal bowel sounds, Soft, Non distended Results - Vitals Vitals: Oxygen O2 Source Room air - Labs Labs: Microbiology 10/12/23 11:40 Group A Strep Throat Culture - Final Throat MIXED OROPHARYNGEAL CHIDI PRESENT. NO BETA STREP PRESENT IN CULTURE. Laboratory Tests 10/12/23 10/12/23 11:40 11:40 Nasal Adenovirus (PCR) NOT DETECTED Nasal B. parapertussis DNA (PCR) NOT DETECTED Nasal Coronavir 229E PCR NOT DETECTED Nasal Coronavir HKU1 PCR NOT DETECTED Nasal Coronavir NL63 PCR NOT DETECTED Nasal Coronavir OC43 PCR NOT DETECTED Nasal Enterovir/Rhinovir PCR NOT DETECTED Nasal Influenza B PCR NOT DETECTED Nasal Influenza A PCR NOT DETECTED Nasal Parainfluen 1 PCR NOT DETECTED Nasal Parainfluen 2 PCR NOT DETECTED Nasal Parainfluen 3 PCR NOT DETECTED Nasal Parainfluen 4 PCR NOT DETECTED Nasal RSV (PCR) NOT DETECTED Nasal B.pertussis DNA PCR NOT DETECTED Nasal C.pneumoniae (PCR) NOT DETECTED Serjio Human Metapneumo PCR NOT DETECTED Nasal M.pneumoniae (PCR) NOT DETECTED Nasal SARS-CoV-2 (PCR) NOT DETECTED Group A Strep Rapid Negative - Rads (name of study) chest xray Relevant Findings:: Prelim report reviewed (patchy bibasilar atelectasis vs infiltrates. ), EMP independent interpretation of test PD Medical Decision Making - ED course Complexity details: re-evaluated patient (does not meet admission criteria but is concerned about his weakness and ability for walking. He does reasonable here. I anticiapte improvement with meds over next day or two. They are comfortable heading home. ), considered differential (has URI symptoms, sounding RSV or rhinovirus, but tests negative here. CXR showing mild infiltrates vs atelectasis. History of COPD and improved better with duoneb here, so can add Atrovent to his home albuterol. Add steroids and abx due to concern for pneumonia. Does not meed admission criteria.), d/w patient, d/w family (spouse) Departure - Departure Disposition: 01 Home, Self Care Clinical Impression: Upper respiratory infection, General weakness, Acute exacerbation of COPD with asthma Condition: Stable Record reviewed to determine appropriate education?: Yes Prescriptions: Ipratropium [Atrovent] 0.5 mg INH QID 10 Days #100 ml Amox/Clav 875/125 [Augmentin] 1 each PO Q12H #10 tablet dexAMETHasone [Decadron] 4 mg PO DAILY #5 tablet Benzonatate [Tessalon] 100 mg PO TID PRN #15 cap PRN Reason: Cough Comments: Your chest x-ray shows some small patchiness in the lower bases that is similar to prior x-rays. This could represent just not really good deep breaths versus mild pneumonia. Your symptoms do sound likely to be some bronchial type infection. Your respiratory viral panel is negative for the major viruses. I would treat you as having a possible bacterial bronchitis/early pneumonia as well as flaring up the COPD with a combination of Augmentin antibiotic and Decadron steroid for 5 more days. Additionally continue with your usual medicines and albuterol nebulizer 4 times daily. To add add the ipratropium/Atrovent into the nebulizer to have both medications together 4 times daily regularly for the next week. If you seem to have any problems with that then just discontinue the ipratropium and use the albuterol only. Use benzonatate/Tessalon if needed for cough. I am assuming the weakness will improve as your infection does. Recheck if not improved well over the next few days. Follow-up with the director learning on the fifth as planned. I sent your prescriptions to the [facility] pharmacy. Forms: PCP List Discharge Date/Time: 10/12/23 16:40
[2023-10-12] MEDS ORDERED: IPRATROPIUM/ALBUTEROL 3 ML NEB INH STA (15:56)
[2023-10-12] MEDS ORDERED: BENZONATATE 100 MG CAPSULE PO STA (15:56)
[2023-10-12] MEDS ORDERED: dexAMETHasone 4 MG TABLET PO STA (15:56)
[2023-10-12] MEDS ORDERED: AMOX/CLAV 875 MG/125 MG TABLET PO STA (15:56)
[2023-10-12 16:43] VITALS: BP 135/77; O2SAT 96
== END 2023-10-12 16:40 | disposition home or self-care (01) ==
LOC: ED 11:11
DX: J06.9 Acute upper respiratory infection, unspecified (principal); J44.1 Chronic obstructive pulmonary disease with (acute) exacerbation; R53.1 Weakness; E78.00 Pure hypercholesterolemia, unspecified; I25.10 Atherosclerotic heart disease of native coronary artery without angina pectoris; Z79.02 Long term (current) use of antithrombotics/antiplatelets; Z79.51 Long term (current) use of inhaled steroids; Z79.899 Other long term (current) drug therapy; Z79.01 Long term (current) use of anticoagulants
CPT/HCPCS: 71045; 87070; 87430; 87633; 94640; 99284; A9270; J8540

== ENCOUNTER 2023-10-17 16:39 | Emergency (ER) | payer MEDICARE, OTHER ==
--- NOTE | 2023-10-17 17:17 | ED Physician Documentation ---
PD HPI URI - Stated complaint Stated Complaint: COUGH,WEAKNESS - Chief complaint Chief Complaint: Resp - History obtained from History obtained from: Patient - History of Present Illness Timing - onset: How many weeks ago (has had URI symptoms then to more cough and dyspne afor couple of weeks. Seen previously and Rx albuterol, steroids and Amox. Not improved per pt, and is about done abx and steroid.) Timing duration: Weeks (2) Timing details: Gradual onset, Still present Associated symptoms: Chills, Nasal congestion, Productive cough, Dyspnea. No: NVD, Bilateral edema Contributing factors: Sick contact, COPD / asthma Recently seen: Clinic PD PAST MEDICAL HISTORY - Past Medical History Past Medical History: Yes Cardiovascular: High cholesterol, Coronary artery disease Respiratory: Asthma, COPD Neuro: Tremors, Other Endocrine/Autoimmune: None GI: None : Incontinence HEENT: Glaucoma Psych: None Musculoskeletal: Osteoarthritis Derm: None - Past Surgical History Past Surgical History: Yes General: Appendectomy, Hiatal hernia repair Ortho: Arthroscopic surgery Cardiovascular: CABG HEENT: Cataracts, Tonsil/Adenoidectomy - Present Medications Home Medications: Ambulatory Orders Medication Instructions Recorded Confirmed Clopidogrel [Plavix] 75 mg PO DAILY 07/29/17 05/24/23 Fluticasone/Salmeterol [Advair 1 mg INH DAILY 07/29/17 05/24/23 500-50 Diskus] Montelukast [Singulair] 10 mg PO QPM 07/29/17 05/24/23 Acetaminophen [Tylenol] 650 mg PO Q6H PRN 04/13/21 05/24/23 Albuterol Sulf [Ventolin Hfa 1 - 2 puffs INH Q4HR PRN 04/13/21 05/24/23 Inhaler] Ascorbic Acid [Vitamin C] 1,000 mg PO DAILY 04/13/21 05/24/23 Cholecalciferol [Vitamin D3] 25 mcg PO DAILY 04/13/21 05/24/23 Dorzolamide 2% Ophth Drops 1 drops OP TID 04/13/21 05/24/23 [Trusopt 2% Ophth Drops] Fexofenadine HCl 180 mg PO DAILY PM 04/13/21 05/24/23 Ipratropium/Albuterol [Duoneb] 3 ml INH BID 04/13/21 05/24/23 Latanoprost/Pf [Latanoprost 0.005% 1 drops OP DAILY PM 04/13/21 05/24/23 Eye Drop] Magnesium Oxide [Mag Ox] 400 mg PO DAILY 04/13/21 05/24/23 Mometasone Furoate [Nasonex] 17 gm NS BID 04/13/21 05/24/23 Multivitamin 1 tab ORAL DAILY 04/13/21 05/24/23 Pantoprazole Sodium 20 mg PO DAILY 04/13/21 05/24/23 Tamsulosin HCl [Flomax] 0.4 mg ORAL DAILY PM 04/13/21 05/24/23 Triamcinolone 0.1% Cream [Kenalog 1 applic TOP BID PRN 04/13/21 05/24/23 0.1% Cream] Ubidecarenone [Co Q-10] 2 tab ORAL DAILY 04/13/21 05/24/23 Vitamin E 400 unit PO DAILY 04/13/21 05/24/23 predniSONE [Deltasone] 20 mg PO DAILY PRN 04/13/21 05/24/23 Atorvastatin [Lipitor] 40 mg PO QPM #30 tablet 04/14/21 05/24/23 Apixaban [Eliquis] 2.5 mg PO BID 11/10/22 05/24/23 Finasteride [Proscar] 5 mg PO DAILY 11/10/22 05/24/23 Trospium Chloride [Trospium 60 mg PO DAILY 11/10/22 05/24/23 Chloride ER] Amox/Clav 875/125 [Augmentin] 1 each PO Q12H #10 tablet 10/12/23 Benzonatate [Tessalon] 100 mg PO TID PRN #15 cap 10/12/23 Ipratropium [Atrovent] 0.5 mg INH QID 10 Days #100 ml 10/12/23 dexAMETHasone [Decadron] 4 mg PO DAILY #5 tablet 10/12/23 Doxycycline Hyclate 100 mg PO BID 7 Days #14 cap 10/17/23 dexAMETHasone [Decadron] 4 mg PO DAILY #5 tablet 10/17/23 guaiFENesin [Mucinex] 600 mg PO BID #20 tablet 10/17/23 - Allergies Allergies/Adverse Reactions: Allergies Allergy/AdvReac Type Severity Reaction Status Date / Time aspirin Allergy Respiratory Verified 10/17/23 16:50 - Social History Does the pt smoke?: No Smoking Status: Never smoker Does the pt drink ETOH?: Yes Does the pt have substance abuse?: No - Immunizations Immunizations are current?: Yes - POLST Patient has POLST: No PD ED PE NORMAL - Vitals Vital signs reviewed: Yes (sats low at 92% but not hypoxic per se. ) - General General: Alert and oriented X 3, No acute distress, Well developed/nourished - Cardiac Cardiac: RRR, No murmur - Respiratory Respiratory: No respiratory distress. No: Clear bilaterally (wheezing noted and some congested sounds perihilar and both sides centrally. ) - Abdomen Abdomen: Soft, Non tender Results - Vitals Vitals: Oxygen O2 Source Room air - Rads (name of study) chest xray Relevant Findings:: Prelim report reviewed, EMP independent interpretation of test (persistent mild infitrate c/w atelectasis vs pneumonia. ) PD Medical Decision Making - ED course Complexity details: reviewed results (still with some infiltrate on CXR. ), considered differential (persisstent productive cough and dyspnea. No improvement with recent amox. CXR showing still infiltrate. Can change to doxycycline, but to re script steroids and use MDI. ), d/w patient Departure - Departure Disposition: 01 Home, Self Care Clinical Impression: Acute exacerbation of COPD with asthma, Pneumonia Condition: Stable Record reviewed to determine appropriate education?: Yes Follow-Up: Rinku Nguyễn MD [Primary Care Provider] - Prescriptions: dexAMETHasone [Decadron] 4 mg PO DAILY #5 tablet Doxycycline Hyclate 100 mg PO BID 7 Days #14 cap guaiFENesin [Mucinex] 600 mg PO BID #20 tablet Comments: Your checks x-ray is similar to previous with a small patch that could be some atelectasis (not good full breaths and mucous plugging) versus pneumonia. As you have not had improvement with the Augmentin, we can change it to doxycycline in combination with re The dexamethasone steroid. Continue with your nebulizer at home but I would increase it to 4 times daily for the next several days to week to improve airflow and sputum production. Also add guaifenesin to help with some of the sputum production to take to help clear out a little better. I sent your prescriptions to your preferred pharmacy. Follow-up with your primary care later this week, call for an appointment. Return if needed. Forms: PCP List Discharge Date/Time: 10/17/23 18:45
[2023-10-17] MEDS ORDERED: IPRATROPIUM/ALBUTEROL 3 ML NEB INH STA (17:31)
[2023-10-17] MEDS ORDERED: guaiFENesin 100 MG/5 ML UDC PO STA (17:32)
[2023-10-17] MEDS ORDERED: dexAMETHasone 4 MG TABLET PO STA (17:33)
[2023-10-17] MEDS ORDERED: DOXYCYCLINE 100 MG TABLET PO STA (17:33)
--- NOTE | 2023-10-17 17:35 | XRAY Report ---
PROCEDURE: Chest 2V INDICATIONS: Previous diagnosis of PNA, no improvement TECHNIQUE: 2 views of the chest were acquired. COMPARISON: 10/12/2023 FINDINGS: Surgical changes and devices: Right shoulder arthroplasty. Multiple median sternotomy wires. Lungs and pleura: Mild diffuse interstitial prominence. Hazy opacities of the bilateral costophrenic angles suggestive of pleural effusions. This is more pronounced compared to the prior study. Increas ed consolidation involving the right lower lung zone which projects over the cardiac silhouette on th e lateral view. This likely represents a right middle lobe process. No pneumothorax. Mediastinum: Mediastinal contours appear normal. Heart size is stable . Bones and chest wall: No suspicious bony lesions. Overlying soft tissues appear unremarkable. IMPRESSION: Right middle lobe consolidation with diffuse interstitial prominence. Suspected small bilateral pleur al effusions. Findings likely represent pneumonia. Concurrent pulmonary edema/CHF not excluded if cli nically appropriate. Reviewed by: Leland Bonilla MD on 10/17/2023 5:34 PM PST Approved by: Leland Bonilla MD on 10/17/2023 5:34 PM PST Station ID: [id number]
[2023-10-17 18:51] VITALS: BP 168/104; O2SAT 97
== END 2023-10-17 18:45 | disposition home or self-care (01) ==
LOC: ED 16:39
DX: J18.9 Pneumonia, unspecified organism (principal); J44.1 Chronic obstructive pulmonary disease with (acute) exacerbation
CPT/HCPCS: 71046; 94640; 99283; 99284; A9270; J8540

== ENCOUNTER 2023-10-31 11:52 | Outpatient (CLI) | payer MEDICARE, OTHER | END 2023-10-31 11:53 | disposition EMS.NT | LOC: EMS 11:52 | DX: R53.1 Weakness (principal) ==

== ENCOUNTER 2023-10-31 16:27 | Outpatient (CLI) | payer MEDICARE, OTHER | END 2023-10-31 16:28 | disposition critical access hospital (66) | LOC: EMS 16:27 | DX: R53.1 Weakness (principal); R06.02 Shortness of breath | CPT/HCPCS: A0425; A0429 ==

== ENCOUNTER 2023-10-31 17:01 | Inpatient (IN) | payer MEDICARE, OTHER ==
--- NOTE | 2023-10-31 17:21 | ED Physician Documentation ---
History of Present Illness - Stated complaint Stated Complaint: GLF - Chief complaint Chief Complaint: General - History obtained from History obtained from: Patient, Family - Additonal information Additional information: 88-year-old gentleman with history of COPD, not on home oxygen, possible A-fib on both Eliquis and Pradaxa, history of bovine valve replacement has had a rough month and a half with progressive weakness and cough. He has been seen here couple of times with a right middle lobe infiltrate on the second of this month and was on both Augmentin and doxycycline as well as dexamethasone. He has completed the antibiotics but continues to have a cough with purulent sputum and shortness of breath but more worrisome to the is progressive generalized weakness such that he fell twice today without injury. Has been using a walker since this all started a month and a half ago. He denies pain. No fevers. He started wearing a diaper but feeling like he is not incontinent because he is incontinent, just that he did lacks the strength and it is too hard to get to the bathroom. PD PAST MEDICAL HISTORY - Past Medical History Past Medical History: Yes Cardiovascular: High cholesterol, Coronary artery disease Respiratory: Asthma, COPD Neuro: Tremors, Other Endocrine/Autoimmune: None GI: None : Incontinence HEENT: Glaucoma Psych: None Musculoskeletal: Osteoarthritis Derm: None - Past Surgical History Past Surgical History: Yes General: Appendectomy, Hiatal hernia repair Ortho: Arthroscopic surgery Cardiovascular: CABG HEENT: Cataracts, Tonsil/Adenoidectomy - Present Medications Home Medications: Ambulatory Orders Medication Instructions Recorded Confirmed Clopidogrel [Plavix] 75 mg PO DAILY 07/29/17 05/24/23 Fluticasone/Salmeterol [Advair 1 mg INH DAILY 07/29/17 05/24/23 500-50 Diskus] Montelukast [Singulair] 10 mg PO QPM 07/29/17 05/24/23 Acetaminophen [Tylenol] 650 mg PO Q6H PRN 04/13/21 05/24/23 Albuterol Sulf [Ventolin Hfa 1 - 2 puffs INH Q4HR PRN 04/13/21 05/24/23 Inhaler] Ascorbic Acid [Vitamin C] 1,000 mg PO DAILY 04/13/21 05/24/23 Cholecalciferol [Vitamin D3] 25 mcg PO DAILY 04/13/21 05/24/23 Dorzolamide 2% Ophth Drops 1 drops OP TID 04/13/21 05/24/23 [Trusopt 2% Ophth Drops] Fexofenadine HCl 180 mg PO DAILY PM 04/13/21 05/24/23 Ipratropium/Albuterol [Duoneb] 3 ml INH BID 04/13/21 05/24/23 Latanoprost/Pf [Latanoprost 0.005% 1 drops OP DAILY PM 04/13/21 05/24/23 Eye Drop] Magnesium Oxide [Mag Ox] 400 mg PO DAILY 04/13/21 05/24/23 Mometasone Furoate [Nasonex] 17 gm NS BID 04/13/21 05/24/23 Multivitamin 1 tab ORAL DAILY 04/13/21 05/24/23 Pantoprazole Sodium 20 mg PO DAILY 04/13/21 05/24/23 Tamsulosin HCl [Flomax] 0.4 mg ORAL DAILY PM 04/13/21 05/24/23 Triamcinolone 0.1% Cream [Kenalog 1 applic TOP BID PRN 04/13/21 05/24/23 0.1% Cream] Ubidecarenone [Co Q-10] 2 tab ORAL DAILY 04/13/21 05/24/23 Vitamin E 400 unit PO DAILY 04/13/21 05/24/23 predniSONE [Deltasone] 20 mg PO DAILY PRN 04/13/21 05/24/23 Atorvastatin [Lipitor] 40 mg PO QPM #30 tablet 04/14/21 05/24/23 Apixaban [Eliquis] 2.5 mg PO BID 11/10/22 05/24/23 Finasteride [Proscar] 5 mg PO DAILY 11/10/22 05/24/23 Trospium Chloride [Trospium 60 mg PO DAILY 11/10/22 05/24/23 Chloride ER] Amox/Clav 875/125 [Augmentin] 1 each PO Q12H #10 tablet 10/12/23 Benzonatate [Tessalon] 100 mg PO TID PRN #15 cap 10/12/23 Ipratropium [Atrovent] 0.5 mg INH QID 10 Days #100 ml 10/12/23 dexAMETHasone [Decadron] 4 mg PO DAILY #5 tablet 10/12/23 Doxycycline Hyclate 100 mg PO BID 7 Days #14 cap 10/17/23 dexAMETHasone [Decadron] 4 mg PO DAILY #5 tablet 10/17/23 guaiFENesin [Mucinex] 600 mg PO BID #20 tablet 10/17/23 - Allergies Allergies/Adverse Reactions: Allergies Allergy/AdvReac Type Severity Reaction Status Date / Time aspirin Allergy Respiratory Verified 10/31/23 17:07 - Social History Does the pt smoke?: No Smoking Status: Never smoker Does the pt drink ETOH?: Yes Does the pt have substance abuse?: No - Immunizations Immunizations are current?: Yes - POLST Patient has POLST: No PD ED PE NORMAL - Vitals Vital signs reviewed: Yes - General General: Alert and oriented X 3, Other (He is somewhat tachypneic with audible rhonchorous breath sounds at the bedside) - HEENT HEENT: PERRL, EOMI - Cardiac Cardiac: RRR, Other (Systolic murmur) - Respiratory Respiratory: Other (Tachypneic but speaking in full sentences, diminished throughout) - Abdomen Abdomen: Non tender - Neuro Neuro: Alert and oriented X 3, supervisor mixing 2-12 intact, No motor deficit, No sensory deficit, Normal speech, Other (No pronator drift of arm or leg with NIH stroke scale testing, he has mild dysmetria bilaterally which could be age-related.) Eye Opening: Spontaneous Motor: Obeys Commands Verbal: Oriented GCS Score: 15 - Psych Psych: Normal mood, Normal affect Results - Vitals Vitals: Vital Signs - 24 hr 10/31/23 10/31/23 10/31/23 17:03 17:07 17:30 Temperature 37.1 C Heart Rate 96 90 90 Respiratory 27 H 25 H 20 Rate Blood Pressure 133/81 H 129/67 133/81 H O2 Saturation 93 92 Oxygen O2 Source Room air - EKG (time done) 4419 EKG releavant findings:: EKG personally interpreted by author of this note. Relevant findings are: Rate: Rate (enter#) (86) Rhythm: NSR Clyman: Normal Intervals: RBBB QRS: Normal Ischemia: Normal ST segments - Labs Labs: Laboratory Tests 10/31/23 10/31/23 10/31/23 17:42 17:42 17:42 WBC 21.1 H RBC 3.96 L Hgb 12.2 L Hct 38.1 L MCV 96.2 H MCH 30.8 MCHC 32.0 RDW 14.0 Plt Count 147 MPV 10.6 Neut # (Auto) Not Reportable Lymph # (Auto) Not Reportable Pleasants # (Auto) Not Reportable Eos # (Auto) Not Reportable Baso # (Auto) Not Reportable Absolute Nucleated RBC Not Reportable Total Counted 100 Band Neuts % (Manual) 10 Reactive Lymphs % (Man) 1 Abnorm Lymph % (Manual) 0 Nucleated RBC % Not Reportable Neutrophils # (Manual) 19.8 H Lymphocytes # (Manual) 0.4 L Monocytes # (Manual) 0.8 Eosinophils # (Manual) 0.0 Basophils # (Manual) 0.0 Differential Comment MANUAL DIFFERENTIAL Platelet Estimate NORMAL (130-450,000) Platelet Morphology NORMAL APPEARANCE RBC Morph Micro Appear NORMAL APPEARANCE VBG pH 7.448 H VBG pCO2 37.0 L VBG pO2 29.5 VBG HCO3 25.0 VBG Total CO2 26.2 VBG O2 Saturation 60.5 VBG Base Excess 1.2 Sodium 135 Potassium 4.4 Chloride 105 Carbon Dioxide 26 Anion Gap 4.0 L BUN 19 Creatinine 1.6 H Estimated GFR (MDRD) 41 L Glucose 133 H Lactic Acid Calcium 9.1 Magnesium 1.6 L Total Bilirubin 1.2 H AST 11 ALT 17 Alkaline Phosphatase 56 Total Creatine Kinase 51 Total Protein 5.8 L Albumin 3.2 Globulin 2.6 Albumin/Globulin Ratio 1.2 10/31/23 18:46 WBC RBC Hgb Hct MCV MCH MCHC RDW Plt Count MPV Neut # (Auto) Lymph # (Auto) Pleasants # (Auto) Eos # (Auto) Baso # (Auto) Absolute Nucleated RBC Total Counted Band Neuts % (Manual) Reactive Lymphs % (Man) Abnorm Lymph % (Manual) Nucleated RBC % Neutrophils # (Manual) Lymphocytes # (Manual) Monocytes # (Manual) Eosinophils # (Manual) Basophils # (Manual) Differential Comment Platelet Estimate Platelet Morphology RBC Morph Micro Appear VBG pH VBG pCO2 VBG pO2 VBG HCO3 VBG Total CO2 VBG O2 Saturation VBG Base Excess Sodium Potassium Chloride Carbon Dioxide Anion Gap BUN Creatinine Estimated GFR (MDRD) Glucose Lactic Acid 0.9 Calcium Magnesium Total Bilirubin AST ALT Alkaline Phosphatase Total Creatine Kinase Total Protein Albumin Globulin Albumin/Globulin Ratio - Rads (name of study) Single view chest x-ray showing low lung volumes with prominent interstitial markings Relevant Findings:: Final report received, EMP independent interpretation of test CT of the head showing some motion artifact but no clear acute abnormality. Relevant Findings:: Final report received, EMP independent interpretation of test PD Medical Decision Making - ED course ED course: 88-year-old gentleman COPD and recent pneumonia now presents with generalized weakness. He is tachypneic here. Neuromuscular cause of weakness was considered and a negative inspiratory function was done and normal being able to pull greater than -40. Workup demonstrates an improved chest x-ray and basically negative head CT. He has a significant leukocytosis. I doubt this is from recent steroids as they stopped the steroids early and he has not taken any in about a week his estimates. Subsequently blood cultures and a lactate were added on. The lactate was negative. His creatinine is elevated up to 1.6, he usually runs more like 1.3. Given the above seems reasonable to place him in observation for septic rule out on IV antibiotics. Ordered Rocephin and Zithromax IV given recent pulmonary source, urine pending on admit, telehealth consultation placed at 7:38 PM. Departure - Departure Disposition: ED Place in Observation Clinical Impression: General weakness Fall from slip, trip, or stumble Qualifiers: Encounter type: initial encounter Qualified Code(s): W01.0XXA - Fall on same level from slipping, tripping and stumbling without subsequent striking against object, initial encounter Leukocytosis Qualifiers: Leukocytosis type: unspecified Qualified Code(s): D72.829 - Elevated white blood cell count, unspecified Condition: Serious Forms: PCP List
--- NOTE | 2023-10-31 17:42 | XRAY Report ---
PROCEDURE: Chest 1V INDICATIONS: cough TECHNIQUE: One view of the chest was acquired. COMPARISON: None. FINDINGS: Surgical changes and devices: Sternotomy wires. Lungs and pleura: No pleural effusions or pneumothorax. Low lung volumes with prominent interstitial markings. Mediastinum: Mediastinal contours appear normal. Heart size is normal. Bones and chest wall: No suspicious bony lesions. Overlying soft tissues appear unremarkable. IMPRESSION: Low lung volumes with prominent interstitial markings may represent mild pulmonary edema versus bronchovascular crowding. Reviewed by: Nano Jackson MD on 10/31/2023 5:41 PM PST Approved by: Nano Jackson MD on 10/31/2023 5:41 PM PST Station ID: [id number]
[2023-10-31 17:46] LABS: BASOPHILS % (AUTO) 0.2 %; HCT - HEMATOCRIT 38.1 % (42.0-52.0); HGB - HEMOGLOBIN 12.2 g/dL (14.0-18.0); LYMPHOCYTES % (AUTO) 4.6 %; MEAN CORPUSCULAR HEMOGLOBIN 30.8 pg (27.0-31.0); MEAN CORPUSCULAR VOLUME 96.2 fL (80.0-94.0); MEAN PLATELET VOLUME 10.6 fL (7.4-11.4); MONOCYTES % (AUTO) 7.8 %; NEUTROPHILS % (AUTO) 86.6 %; PLT - PLATELET COUNT 147 10^3/uL (130-450); RED BLOOD COUNT 3.96 10^6/uL (4.70-6.10); WHITE BLOOD COUNT 21.1 x10^3/uL (4.8-10.8)
[2023-10-31 17:48] LABS: VBG PH 7.448 (7.31-7.41)
[2023-10-31 17:49] LABS: VBG BASE EXCESS 1.2 mmol/L (-2 - +2); VBG OXYGEN SATURATION 60.5 % (60-80); VBG PO2 29.5 mmHg (25-47); VBG TOTAL CO2 26.2 mmol/L (24-29)
[2023-10-31 17:55] LABS: ABNORMAL LYMPHS % (MANUAL) 0 %
[2023-10-31 18:06] LABS: ALBUMIN 3.2 g/dL (3.2-5.5); ALBUMIN/GLOBULIN RATIO 1.2 (1.0-2.2); BILIRUBIN,TOTAL 1.2 mg/dL (0.2-1.0); CALCIUM 9.1 mg/dL (8.5-10.3); CREATININE 1.6 mg/dL (0.6-1.3); MAGNESIUM 1.6 mg/dL (1.7-2.3); POTASSIUM 4.4 mmol/L (3.5-4.5); TOTAL PROTEIN 5.8 g/dL (6.4-8.9)
[2023-10-31 18:11] LABS: BAND NEUTROPHILS % (MANUAL) 10 %; LYMPHOCYTES # (MANUAL) 0.4 10^3/uL (1.5-3.5); LYMPHOCYTES % (MANUAL) 1 %; MONOCYTES # (MANUAL) 0.8 10^3/uL (0.0-1.0); NEUTROPHILS # (MANUAL) 19.8 10^3/uL (1.5-6.6); REACTIVE LYMPHS % (MANUAL) 1 %
[2023-10-31 18:12] LABS: DIFFERENTIAL COMMENT MANUAL DIFFERENTIAL; PLATELET ESTIMATE, MANUAL NORMAL (130-450,000) (NORMAL); PLATELET MORPHOLOGY NORMAL APPEARANCE (NORMAL); RBC MORPHOLOGY (MULTIPLE) NORMAL APPEARANCE (NORMAL)
--- NOTE | 2023-10-31 18:49 | CT Report ---
PROCEDURE: Head WO INDICATIONS: weakness TECHNIQUE: Noncontrast 4.5 mm thick angled axial sections acquired from the foramen magnum to the vertex. For r adiation dose reduction, the following was used: automated exposure control, adjustment of mA and/or kV according to patient size. COMPARISON: 05/04/2021, 04/13/2021 FINDINGS: Image quality: Significant motion artifact can be seen, particularly involving the inferior aspect of this study. CSF spaces: Basal cisterns are patent. No extra-axial fluid collections. Ventricles a re normal in size and shape. Brain: No midline shift. No intracranial masses or hemorrhage. Galarza-white matter interface is norm al. Skull and face: Calvarium and visualized facial bones are intact, without suspicious lesions. Sinuses: Visualized sinuses and mastoids are clear. IMPRESSION: Significant motion artifact, without an acute abnormality identified. If there is strong clinical concern for a stroke, please consider a dedicated brain MRI for further e valuation (assuming that there is no contraindication to MRI). Reviewed by: Colin Pryor MD on 10/31/2023 5:47 PM [place] Approved by: Colin Pryor MD on 10/31/2023 5:47 PM [facility] Station ID: [id number]
[2023-10-31] MEDS ORDERED: SODIUM CHLORIDE 0.9% 1,000 ML IV STA (19:29)
[2023-10-31] MEDS ORDERED: ACETAMINOPHEN 325 MG TABLET PO PRN (19:54)
[2023-10-31] MEDS ORDERED: NON FORMULARY MED (Fexofenadine Hcl [Fexofenadine Hcl] 180 MG Tablet) PO SCH (20:00)
[2023-10-31] MEDS ORDERED: LATANOPROST OP SCH (20:00)
[2023-10-31] MEDS ORDERED: ONDANSETRON 4 MG/2 ML VIAL IVP PRN (20:04)
[2023-10-31] MEDS ORDERED: SODIUM CHLORIDE FLUSH 0.9% 10 ML SYRINGE IVP PRN (20:04)
[2023-10-31] MEDS ORDERED: MAGNESIUM SULFATE 2 GRAM 2 GM/50 ML BAG IV ONE (20:09)
[2023-10-31 20:16] LABS: BILIRUBIN,URINE NEGATIVE (NEGATIVE); GLUCOSE, URINE (UA) NEGATIVE (NEGATIVE); KETONES,URINE (UA) TRACE mg/dL (NEGATIVE); LEUKOCYTE ESTERASE, URINE MODERATE (NEGATIVE); NITRITE,URINE POSITIVE (NEGATIVE); OCCULT BLOOD,URINE LARGE (NEGATIVE); PH,URINE 6.5 PH (5.0-7.5); PROTEIN,URINE 100 mg/dL (NEGATIVE); UROBILINOGEN,URINE 0.2 (NORMAL) E.U./dL (NORMAL)
--- NOTE | 2023-10-31 20:18 | HISTORY & PHYSICAL EXAMINATION ---
Chief Complaint - Chief Complaint Chief Complaint: generalized weakness and falls History of Present Illness - Admitted From Admitted From:: ED - History Obtained From Records Reviewed: EMR History obtained from: ED, EMR, and Exam Limitations: Telemedicine - History of Present Illness HPI Comment/Other: 88YOM c atrial fibrillation on Eliquis, CAD, COPD who presented to the ED with report of generalized weakness and falling at home. Patient had two falls today and was subsequently brought into the ED with . provided majority of the information. Patient last month was dx with PNA. He was started on two course of abx and steroids. Patient last abx was 10/25. Last steroids was multiple weeks ago. reported period of improvement after abx. This past couple of day however patient suddenly had difficulty walking with his walker. He lost balance multiple times and has fallen at home. Besides the abx and prednisone, no other new medications. No travel. No sick contacts. Patient has not complained of fever. He has no new URI sxs. He has no nausea, vomiting, or diarrhea. mentioned x 1 episode of blood with stool reported but not daily. No dysuria. No rash. Here in the ED, patient is vitally stable on room air. He is noted for elevated WBC and worsening renal function on labs. CXR does not cite acute infiltrate but prominent interstitial lung markings. 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 His mother Was a heavy cigarette smoker, she from heart attack at age 95 Social History Notes: He denies Cigarette smoking or alcohol or drug issue - POLST Patient has POLST: No Meds/Allgy - Home Medications Home Medications: Ambulatory Orders Medication Instructions Recorded Confirmed Clopidogrel [Plavix] 75 mg PO DAILY 07/29/17 05/24/23 Fluticasone/Salmeterol [Advair 1 mg INH DAILY 07/29/17 05/24/23 500-50 Diskus] Montelukast [Singulair] 10 mg PO QPM 07/29/17 05/24/23 Acetaminophen [Tylenol] 650 mg PO Q6H PRN 04/13/21 05/24/23 Albuterol Sulf [Ventolin Hfa 1 - 2 puffs INH Q4HR PRN 04/13/21 05/24/23 Inhaler] Ascorbic Acid [Vitamin C] 1,000 mg PO DAILY 04/13/21 05/24/23 Cholecalciferol [Vitamin D3] 25 mcg PO DAILY 04/13/21 05/24/23 Dorzolamide 2% Ophth Drops 1 drops OP TID 04/13/21 05/24/23 [Trusopt 2% Ophth Drops] Fexofenadine HCl 180 mg PO DAILY PM 04/13/21 05/24/23 Ipratropium/Albuterol [Duoneb] 3 ml INH BID 04/13/21 05/24/23 Latanoprost/Pf [Latanoprost 0.005% 1 drops OP DAILY PM 04/13/21 05/24/23 Eye Drop] Magnesium Oxide [Mag Ox] 400 mg PO DAILY 04/13/21 05/24/23 Mometasone Furoate [Nasonex] 17 gm NS BID 04/13/21 05/24/23 Multivitamin 1 tab ORAL DAILY 04/13/21 05/24/23 Pantoprazole Sodium 20 mg PO DAILY 04/13/21 05/24/23 Tamsulosin HCl [Flomax] 0.4 mg ORAL DAILY PM 04/13/21 05/24/23 Triamcinolone 0.1% Cream [Kenalog 1 applic TOP BID PRN 04/13/21 05/24/23 0.1% Cream] Ubidecarenone [Co Q-10] 2 tab ORAL DAILY 04/13/21 05/24/23 Vitamin E 400 unit PO DAILY 04/13/21 05/24/23 predniSONE [Deltasone] 20 mg PO DAILY PRN 04/13/21 05/24/23 Atorvastatin [Lipitor] 40 mg PO QPM #30 tablet 04/14/21 05/24/23 Apixaban [Eliquis] 2.5 mg PO BID 11/10/22 05/24/23 Finasteride [Proscar] 5 mg PO DAILY 11/10/22 05/24/23 Trospium Chloride [Trospium 60 mg PO DAILY 11/10/22 05/24/23 Chloride ER] Amox/Clav 875/125 [Augmentin] 1 each PO Q12H #10 tablet 10/12/23 Benzonatate [Tessalon] 100 mg PO TID PRN #15 cap 10/12/23 Ipratropium [Atrovent] 0.5 mg INH QID 10 Days #100 ml 10/12/23 dexAMETHasone [Decadron] 4 mg PO DAILY #5 tablet 10/12/23 Doxycycline Hyclate 100 mg PO BID 7 Days #14 cap 10/17/23 dexAMETHasone [Decadron] 4 mg PO DAILY #5 tablet 10/17/23 guaiFENesin [Mucinex] 600 mg PO BID #20 tablet 10/17/23 - Allergies Allergies/Adverse Reactions: Allergies Allergy/AdvReac Type Severity Reaction Status Date / Time aspirin Allergy Respiratory Verified 10/31/23 17:07 Review of Systems - Constitutional Constitutional: reports: Weakness. denies: Fever - Respiratory Respiratory: reports: Cough - Gastrointestinal Gastrointestinal: denies: Abdominal pain - Genitourinary Genitourinary: denies: Dysuria - Musculoskeletal Musculoskeletal: denies: Muscle pain - Integumentary Integumentary: denies: Rash - Neurological Neurological: reports: General weakness Exam - Vital Signs Reviewed Vital Signs: Yes Vital Signs: Vital Signs x48h Temp Pulse Resp BP Pulse Ox 10/31/23 17:30 90 20 133/81 H 10/31/23 17:07 90 25 H 129/67 92 10/31/23 17:03 37.1 C 96 27 H 133/81 H 93 - Physical Exam General Appearance: positive: No acute distress, Alert Eyes Bilateral: positive: Normal inspection ENT: positive: ENT inspection nml Neck: positive: Nml inspection Respiratory: positive: Wheezes (expiratory) Cardiovascular: positive: Regular rate & rhythm Abdomen: positive: Nml bowel sounds, No distention, Tenderness Skin: positive: Color nml Extremities: positive: Nml appearance Neurologic/Psychiatric: positive: CN's nml (2-12) Conclusion/Plan - Problem List (1) SIRS (systemic inflammatory response syndrome) Conclusion/Plan: unclear significance but SIRS - tachypnea and leukocytosis. will workup for infection. followup procalcitonin and cultures. followup ct chest/abd/pelvis. empiric abx ceftriaxone started. stop if negative infectious workup. (2) Acute renal failure Conclusion/Plan: noted worsening renal function compared to baseline. likely pre renal. proceed with gentle hydration. avoid nephrotoxins. monitor renal function with repeat BMP. (3) General weakness Conclusion/Plan: possible 2/2 SIRS/ Sepsis. infectious workup per above. r/o ACS/ CHF. followup troponin and BNP. followup TSH and cortisol and hgba1c and lipid panel for additional insight into patient's generalized weakness. PT eval and case management consult for dispo planning. (4) Atrial fibrillation Conclusion/Plan: paroxysmal. rate/ rhythm controlled. continue tele monitor. anticoagulated on Eliquis. limited x 1 blood with stool. hgb/hct stable compared to prior. no active bleed noted on exam or reported in ED. will continue Eliquis coverage. Qualifiers: Atrial fibrillation type: paroxysmal Qualified Code(s): I48.0 - Paroxysmal atrial fibrillation (5) Hyperlipidemia Conclusion/Plan: managed. continue statin therapy. (6) BPH (benign prostatic hyperplasia) Conclusion/Plan: managed. not acute urinary sxs reported. baseline incontinence. continue tamsulosin (7) COPD (chronic obstructive pulmonary disease) Conclusion/Plan: stable. no acute exacerbation on presentation. stable on room air. no above b aseline cough. CXR without infiltrate. continue home breathing treatment and Duoneb. pulse ox monitor and O2 support as needed. - Lab Results Lab results reviewed: Yes Ford Bones: 10/31/23 17:42 10/31/23 17:42 - Diagnostic Imaging Results Diagnostic Imaging Results: positive: Final report reviewed Core Measures - Anticipated LOS I expect patient to be DC'd or transferred within 96 hours.: No - Issues Hospital Issues and Management Plan: The patient consented to receive this telemedicine service, which I performed via live two-way audiovisual equipment. The patient is at ([facility]) and I am physically in [facility]. A nurse assisted me in the visit. - DVT/VTE - Prophylaxis VTE/DVT Device ordered at admit?: Yes Telemedicine Consult Details - Provider Location & Consult Time Telemedicine consultation conducted via videoconferencing?: Yes List names and roles of persons who participated in consult:: ED, RN, Telemedicine provider location:: [facility] Time Telemedicine consult began:: 19:44 Time Telemedicine consult completed:: 20:49
[2023-10-31 20:19] LABS: CLARITY,URINE CLOUDY (CLEAR)
[2023-10-31 20:27] LABS: BACTERIA,URINE Many /HPF (None Seen); SQUAMOUS EPITHELIAL CELL,UR NONE SEEN (<= Few); WBC,URINE >25 /HPF (0-3)
[2023-10-31] MEDS ORDERED: HEPARIN 5,000 UNIT/ML VIAL SUBQ SCH (21:00)
[2023-10-31] MEDS ORDERED: MOMETASONE FUROATE PUMP NS SCH (21:00)
[2023-10-31 21:29] LABS: PROCALCITONIN 0.6 ng/mL (<0.5); THYROID STIMULATING HORMONE 1.88 uIU/mL (0.34-5.60)
[2023-10-31] MEDS: SODIUM CHLORIDE 0.9% 1,000 ML IV SCH (21:31)
[2023-10-31 21:42] LABS: ESTIMATED AVERAGE GLUCOSE 140 mg/dL (70-100); HEMOGLOBIN A1c% 6.5 % (4.27-6.07)
[2023-10-31] MEDS: APIXABAN 2.5 MG TABLET PO SCH (21:46)
[2023-10-31] MEDS: DORZOLAMIDE 2% OPHTH DROPS EACHEYE SCH (21:47)
[2023-10-31] MEDS: LORATADINE 10 MG TABLET PO SCH (21:47)
[2023-10-31] MEDS: MONTELUKAST 10 MG TABLET PO SCH (21:47)
[2023-10-31] MEDS: TAMSULOSIN 0.4 MG CAPSULE PO SCH (21:47)
[2023-10-31] MEDS: ATORVASTATIN 40 MG TABLET PO SCH (21:47)
[2023-10-31] MEDS: LATANOPROST 0.005% OPHTH DROPS EACHEYE SCH (21:47)
[2023-10-31] MEDS: cefTRIAXone 2 GM in SODIUM CHLORIDE 0.9% MINIBAG 100 ML IV SCH (22:40)
[2023-10-31] MEDS: BENZONATATE 100 MG CAPSULE PO PRN (22:40)
--- NOTE | 2023-11-01 04:07 | PROVIDER PROGRESS NOTE ---
Fork Assembler Note - Fork Assembler Note Fork Assembler Note: RN paged "Pt. in house Obs for weakness, PNA, COPD with dry cough. At 0100 Pt called to RN "not feeling well" Pt. presented with distend abdomen, diaphoretic, SOB, and flush. Pt had large emesis, dark brown to black in color, 500 ml first episode, followed by 200 ml on a second episode. LBM reported by Pt. 10/29/23, no idea of BM prior to that. Pt also had HR spike to 140, temp 37.4. receiving 2L O2 via NC. Please advise." spoke with RN to send down to CT as requested musa. ordered CT chest/and/pelvis.made npo. pain control. Shakila Adams DO Internal Medicine [facility]
[2023-11-01 06:06] LABS: BASOPHILS # (AUTO) 0.1 10^3/uL (0.0-0.1); BASOPHILS % (AUTO) 0.3 %; EOSINOPHILS % (AUTO) 0.2 %; HGB - HEMOGLOBIN 11.5 g/dL (14.0-18.0); LYMPHOCYTES # (AUTO) 0.8 10^3/uL (1.5-3.5); LYMPHOCYTES % (AUTO) 4.3 %; MEAN CORPUSCULAR HEMOGLOBIN 31.1 pg (27.0-31.0); MEAN CORPUSCULAR HGB CONC 31.9 g/dL (32.0-36.0); MEAN CORPUSCULAR VOLUME 97.3 fL (80.0-94.0); MEAN PLATELET VOLUME 11.3 fL (7.4-11.4); MONOCYTES # (AUTO) 1.1 10^3/uL (0.0-1.0); MONOCYTES % (AUTO) 5.8 %; NEUTROPHILS # (AUTO) 17.2 10^3/uL (1.5-6.6); PLT - PLATELET COUNT 143 10^3/uL (130-450); RED CELL DISTRIBUTION WIDTH 14.2 % (12.0-15.0); WHITE BLOOD COUNT 19.5 x10^3/uL (4.8-10.8)
[2023-11-01 06:24] LABS: BUN - BLOOD UREA NITROGEN 20 mg/dL (6-20); CALCIUM 8.9 mg/dL (8.5-10.3); CARBON DIOXIDE - CO2 26 mmol/L (21-32); CHLORIDE 107 mmol/L (101-111); CHOL/HDL RATIO 2.1 (<5.0); CHOLESTEROL 82 mg/dL; CREATININE 1.3 mg/dL (0.6-1.3); GFR - MDRD 52 (>89); GLUCOSE 132 mg/dL (74-104); HDL CHOLESTEROL 40 mg/dL; LDL CHOLESTEROL,CALCULATED 27 mg/dL; LDL/HDL RATIO 0.7 (<3.6); POTASSIUM 4.1 mmol/L (3.5-4.5); SODIUM 138 mmol/L (135-145); TRIGLYCERIDES 76 mg/dL (48-352); VLDL CHOLESTEROL 15 mg/dL
[2023-11-01] MEDS: IPRATROPIUM/ALBUTEROL 3 ML NEB INH SCH ×3 (07:34→19:05)
[2023-11-01] MEDS: FORMOTEROL FUMARATE NEB 20 MCG/2 ML INH SCH ×2 (07:34→19:05)
[2023-11-01] MEDS: BUDESONIDE 0.5 MG/2 ML NEB INH SCH ×2 (07:34→19:05)
--- NOTE | 2023-11-01 08:28 | CT Report ---
PROCEDURE: Chest WO INDICATIONS: infection workup TECHNIQUE: A CT scan of the chest was performed. Intravenous contrast media was not administered. Images were re corded and evaluated at appropriate window settings. Reformats: axial MIP of the chest, coronal and s agittal. For radiation dose reduction, the following was used: automated exposure control, adjustment of mA and/or kV according to patient size. COMPARISON: Same-day chest radiograph FINDINGS: Image quality: Diagnostic Lungs and pleura:There are mild bibasilar opacities and atelectasis. Bronchial wall thickening and mu cous plugging are seen. No pleural effusions. Mild groundglass opacities also seen in the upper lobes . Mediastinum, heart, and esophagus: Small hiatal hernia. Small mild fluid in the distal esophagus. The re are mitral annular, aortic valve, and coronary calcifications. Overall cardiomegaly. These finding s are not well assessed on noncontrast CT. CABG changes. No pathologic lymph nodes by size criteria. No mediastinal fluid collection. Chest wall and thyroid: No actionable thyroid nodule identified. Chest wall is unremarkable. Upper abdomen: Separately dictated Bones: Degenerative changes, no acute or suspicious abnormality. Partially seen right shoulder hardwa re. Sternotomy wires. IMPRESSION: Bibasilar opacities, mucous plugging, bronchial wall thickening, and upper lobe groundglass opacities likely airspace infection and/or aspiration. Superimposed atelectasis. Consider future imaging surve illance to assess for resolution. No pleural effusions. Limited noncontrast CT chest. Abdominal findings are separately dictated. Reviewed by: Aristides Light MD on 11/01/2023 8:27 AM [facility] Approved by: Aristides Light MD on 11/01/2023 8:27 AM PST Station ID: [id number]
--- NOTE | 2023-11-01 08:33 | CT Report ---
PROCEDURE: Abdomen/Pelvis WO INDICATIONS: infection workup TECHNIQUE: A CT scan of the abdomen and pelvis was performed without the use of intravenous contrast. Images we re recorded and evaluated at appropriate window settings. Reformats: coronal and sagittal. For radiat ion dose reduction, the following was used: automated exposure control, adjustment of mA and/or kV ac cording to patient size. COMPARISON: None. FINDINGS: Image quality: Diagnostic Lower chest: Separately dictated Liver: Unremarkable Gallbladder and biliary system: Gallbladder is unremarkable. Biliary system is nondilated. Pancreas: Mild to moderate parenchymal atrophy Spleen: Nonenlarged Adrenals: No nodules Kidneys: No solid mass or hydronephrosis. Solid organ evaluation is limited in the absence of intravenous contrast. Vessels and lymph nodes: No abdominal aortic aneurysm. Atherosclerotic calcifications are present. No pathologic lymph nodes by size criteria. Bowel and peritoneum: No intra-abdominal abscess or pathologic ascites. No bowel obstruction. No high -grade inflammatory changes. There are colonic diverticula. Body wall: Unremarkable Pelvis: Perivesicular fat stranding. Bladder is underdistended and not well evaluated. The prostate i s also not well evaluated. Bones: There are degenerative changes, no acute or suspicious osseous finding. IMPRESSION: On this limited noncontrast study, perivesicular fat stranding is seen, correlate with urinalysis for infection. No other acute abnormality identified. No drainable fluid collection or bowel obstruction . Other findings as above. Chest findings are separately dictated. Reviewed by: Aristides Light MD on 11/01/2023 8:31 AM PST Approved by: Aristides Light MD on 11/01/2023 8:31 AM PST Station ID: [id number]
[2023-11-01] MEDS ORDERED: FLUTICASONE INH SCH (09:00)
[2023-11-01] MEDS ORDERED: SALMETEROL INH SCH (09:00)
[2023-11-01] MEDS ORDERED: NON FORMULARY MED (Multivitamin [Multivitamin] 1 EACH Tablet) ORAL SCH (09:00)
[2023-11-01] MEDS: MULTIVITAMIN TABLET PO SCH (09:02)
[2023-11-01] MEDS: APIXABAN 2.5 MG TABLET PO SCH ×2 (09:02→21:43)
[2023-11-01] MEDS: CHOLECALCIFEROL 25 MCG TABLET PO SCH (09:02)
[2023-11-01] MEDS: FLUTICASONE NASAL SPRAY NAS SCH (09:03)
[2023-11-01] MEDS: LACTOBACILLUS RHAMNOSUS GG CAPSULE PO SCH (09:03)
[2023-11-01] MEDS: CLOPIDOGREL 75 MG TABLET PO SCH (09:03)
[2023-11-01] MEDS: FINASTERIDE 5 MG TABLET PO SCH (09:03)
[2023-11-01] MEDS: SODIUM CHLORIDE FLUSH 0.9% 10 ML SYRINGE IVP SCH ×3 (11:18→16:30)
[2023-11-01] MEDS: DORZOLAMIDE 2% OPHTH DROPS EACHEYE SCH ×3 (11:19→21:44)
--- NOTE | 2023-11-01 16:15 | PROVIDER PROGRESS NOTE ---
Subjective - Prog Note Date Prog Note Date: 11/01/23 Prog Note Time: 16:13 - Subjective Pt reports feeling: Improved Subjective: I seen him twice today. Once was this morning, very early. I woke him up. He was lethargic, slow to respond, confused. Did not quite know where he was. He asked me to please stop asking him questions and just wait for his to get here and she could answer better. Last night, after being admitted to [facility] she had an episode of emesis. CT scan was done and showed him to have some fat stranding around one of his kidneys. UA is positive for UTI and culture is growing gram-negative teresita. This afternoon I had the pleasure of meeting his adamaris . He is much more alert. Laughing at his slowness this morning. I told him I could have some slight considering I woke him up. Advance care planning conversation was held. Please see under separate note. He says that he is feeling better. No flank pain. No rigors. No chest pain, cough, and shortness of breath is the same as always from COPD. Not worse, not better. Denies any current phlegm, cough. No hemoptysis. Current Medications - Current Medications Current Medications: Active Medications Generic Name Dose Route Start Last Admin Trade Name Freq PRN Reason Stop Dose Admin Acetaminophen 650 mg 10/31/23 19:54 Acetaminophen 325 Mg Tablet PO Q6H PRN PRN PAIN &/OR FEVER Albuterol/Ipratropium 3 ml 11/01/23 06:00 11/01/23 13:32 Ipratropium/Albuterol 3 Ml Neb INH 3 ml Q6HR ZARIA Administration Apixaban 2.5 mg 10/31/23 21:00 11/01/23 09:02 Apixaban 2.5 Mg Tablet PO 2.5 mg BID ZARIA Administration Atorvastatin Calcium 40 mg 10/31/23 21:00 10/31/23 21:47 Atorvastatin 40 Mg Tablet PO 40 mg QPM ZARIA Administration Benzonatate 100 mg 10/31/23 19:54 10/31/23 22:40 Benzonatate 100 Mg Capsule PO 100 mg TID PRN Administration Cough Budesonide 0.5 mg 11/01/23 07:00 11/01/23 07:34 Budesonide 0.5 Mg/2 Ml Neb INH 0.5 mg RTBID ZARIA Administration Cholecalciferol 25 mcg 11/01/23 09:00 11/01/23 09:02 Cholecalciferol 25 Mcg Tablet PO 25 mcg DAILY ZARIA Administration Clopidogrel Bisulfate 75 mg 11/01/23 09:00 11/01/23 09:03 Clopidogrel 75 Mg Tablet PO 75 mg DAILY ZARIA Administration Dorzolamide HCl 1 drops 10/31/23 22:00 11/01/23 15:53 Dorzolamide 2% Ophth Drops EACHEYE 1 drops TID ZARIA Administration Finasteride 5 mg 11/01/23 09:00 11/01/23 09:03 Finasteride 5 Mg Tablet PO 5 mg DAILY ZARIA Administration Fluticasone Propionate 2 sprays 11/01/23 09:00 11/01/23 09:03 Fluticasone Nasal [place] LAURA 2 sprays DAILY ZARIA Administration Formoterol Fumarate 20 mcg 11/01/23 07:00 11/01/23 07:34 Formoterol Fumarate Neb 20 Mcg/2 Ml INH 20 mcg RTBID ZARIA Administration Sodium Chloride 1,000 mls @ 40 mls/hr 10/31/23 21:00 11/01/23 11:19 Normal Saline 0.9% IV 40 mls/hr .Q25H ZARIA Infusion Ceftriaxone Sodium 2 gm/ 100 mls @ 200 mls/hr 10/31/23 21:00 11/01/23 11:19 Sodium Chloride IV Infused Q24H ZARIA Infusion Lactobacillus Rhamnosus 1 cap 11/01/23 09:00 11/01/23 09:03 Lactobacillus Rhamnosus Gg Capsule PO 1 cap DAILY ZARIA Administration Latanoprost 1 drops 10/31/23 21:00 10/31/23 21:47 Latanoprost 0.005% Ophth Drops EACHEYE Not Given QPM ZARIA Loratadine 10 mg 10/31/23 21:00 10/31/23 21:47 Loratadine 10 Mg Tablet PO 10 mg QPM ZARIA Administration Montelukast Sodium 10 mg 10/31/23 21:00 10/31/23 21:47 Montelukast 10 Mg Tablet PO 10 mg QPM ZARIA Administration Multivitamins 1 tab 11/01/23 08:00 11/01/23 09:02 Multivitamin Tablet PO 1 tab DAILYWM ZARIA Administration Ondansetron HCl 4 mg 10/31/23 20:04 Ondansetron 4 Mg/2 Ml Vial IVP Q6HR PRN Nausea / Vomiting Pantoprazole Sodium 20 mg 11/02/23 07:00 Pantoprazole 40 Mg Tablet PO QDAC [facility] Sodium Chloride 10 ml 10/31/23 20:04 Sodium Chloride Flush 0.9% 10 Ml Syringe IVP PRN PRN NEEDED PER PROVIDER ORDERS Sodium Chloride 10 ml 11/01/23 01:00 11/01/23 14:51 Sodium Chloride Flush 0.9% 10 Ml Syringe IVP Not Given 0100,0900,1700 [facility] Tamsulosin HCl 0.4 mg 10/31/23 21:00 10/31/23 21:47 Tamsulosin 0.4 Mg Capsule PO 0.4 mg HS [facility] Administration Clopidogrel [Plavix] 75 mg PO DAILY 07/29/17 Fluticasone/Salmeterol [Advair 500-50 Diskus] 1 mg INH DAILY 07/29/17 Montelukast [Singulair] 10 mg PO HS 07/29/17 Acetaminophen [Tylenol] 650 mg PO Q6H PRN 04/13/21 Ascorbic Acid [Vitamin C] 1,000 mg PO DAILY 04/13/21 Cholecalciferol [Vitamin D3] 25 mcg PO DAILY 04/13/21 Dorzolamide 2% Ophth Drops [Trusopt 2% Ophth Drops] 1 drops OP TID 04/13/21 Fexofenadine HCl 180 mg PO DAILY PM 04/13/21 Ipratropium/Albuterol [Duoneb] 3 ml INH BID 04/13/21 Latanoprost/Pf [Latanoprost 0.005% Eye Drop] 1 drops OP HS 04/13/21 Magnesium Oxide [Mag Ox] 400 mg PO DAILY 04/13/21 Mometasone Furoate [Nasonex] 17 gm NS BID 04/13/21 Multivitamin 1 tab ORAL DAILY 04/13/21 Pantoprazole Sodium 20 mg PO DAILY 04/13/21 Tamsulosin HCl [Flomax] 0.4 mg ORAL DAILY PM 04/13/21 Triamcinolone 0.1% Cream [Kenalog 0.1% Cream] 1 applic TOP BID PRN 04/13/21 Ubidecarenone [Co Q-10] 2 tab ORAL DAILY 04/13/21 Vitamin E 400 unit PO DAILY 04/13/21 predniSONE [Deltasone] 20 mg PO DAILY PRN 04/13/21 Apixaban [Eliquis] 2.5 mg PO BID 11/10/22 Finasteride [Proscar] 5 mg PO DAILY 11/10/22 Trospium Chloride [Trospium Chloride ER] 60 mg PO DAILY 11/10/22 Albuterol 3 ml INH QID PRN 11/01/23 Objective - Vital Signs/Intake & Output Reviewed Vital Signs: Yes Vital Signs: Vital Signs x48h Temp Pulse Resp BP Pulse Ox 11/01/23 15:14 37.0 C 85 20 136/67 H 91 L 11/01/23 14:26 82 16 112/58 L 91 L 11/01/23 14:25 86 16 115/51 L 93 11/01/23 14:24 36.7 C 84 16 132/71 H 95 Intake & Output: Intake & Output 10/29/23 10/30/23 10/31/23 11/01/23 23:59 23:59 23:59 23:59 Intake Total 508.138 3159.333 Output Total 100 Balance 463.236 4917.333 - Objective General Appearance: positive: No acute distress, Alert, Other (62 male, 109 kg. Has lost about 20 pounds in the last year. Flushed face, smiling, cheerful and cooperative) Eyes Bilateral: positive: PERRL, EOMI ENT: positive: No signs of dehydration, Dry mucous membranes (With dry lips. Th at was present this morning. This afternoon although that has resolved), Other (Slightly nasal tone of voice) Neck: positive: No JVD. negative: Stiff neck Respiratory: positive: No respiratory distress, Other (Quiet breath sounds. Prolonged end exhalation phase but no wheezing.). negative: Wheezes, Rales, Rhonchi Cardiovascular: positive: Regular rate & rhythm Abdomen: positive: Non-tender, No organomegaly, Nml bowel sounds, No distention Back: negative: CVA tenderness (R), CVA tenderness (L) Skin: positive: Warm, Dry Extremities: positive: Full ROM, No pedal edema Neurologic/Psychiatric: positive: CN's nml (2-12), Motor nml, Disoriented to time (Currently. This morning disoriented to place and time.). negative: Facial droop, Slurred/abnml speech - Lab Results Fish Bones: 11/01/23 05:52 11/01/23 05:52 Other Labs: Lab Results x24hrs 11/01/23 11/01/23 11/01/23 Range/Units 05:52 05:52 05:52 WBC 19.5 H (4.8-10.8) x10^3/uL RBC 3.70 L (4.70-6.10) 10^6/uL Hgb 11.5 L (14.0-18.0) g/dL Hct 36.0 L (42.0-52.0) % MCV 97.3 H (80.0-94.0) fL MCH 31.1 H (27.0-31.0) pg MCHC 31.9 L (32.0-36.0) g/dL RDW 14.2 (12.0-15.0) % Plt Count 143 (130-450) 10^3/uL MPV 11.3 (7.4-11.4) fL Neut # (Auto) 17.2 H Lymph # (Auto) 0.8 L [place] # (Auto) 1.1 H Eos # (Auto) 0.0 Baso # (Auto) 0.1 Absolute Nucleated RBC 0.00 Total Counted Band Neuts % (Manual) (0 - 10) % Reactive Lymphs % (Man) % Abnorm Lymph % (Manual) % Nucleated RBC % 0.0 Neutrophils # (Manual) (1.5-6.6) 10^3/uL Lymphocytes # (Manual) (1.5-3.5) 10^3/uL Monocytes # (Manual) (0.0-1.0) 10^3/uL Eosinophils # (Manual) (0-0.7) 10^3/uL Basophils # (Manual) (0-0.1) 10^3/uL Differential Comment Platelet Estimate (NORMAL) Platelet Morphology (NORMAL) RBC Morph Micro Appear (NORMAL) VBG pH (7.31-7.41) VBG pCO2 (41-51) mmHg VBG pO2 (25-47) mmHg VBG HCO3 (23-28) mmol/L VBG Total CO2 (24-29) mmol/L VBG O2 Saturation (60-80) % VBG Base Excess (-2 - +2) mmol/L Sodium 138 (135-145) mmol/L Potassium 4.1 (3.5-4.5) mmol/L Chloride 107 (101-111) mmol/L Carbon Dioxide 26 (21-32) mmol/L Anion Gap 5.0 L (6-13) BUN 20 (6-20) mg/dL Creatinine 1.3 (0.6-1.3) mg/dL Estimated GFR (MDRD) 52 L (>89) Glucose 132 H (74-104) mg/dL Estimat Average Glucose (70-100) mg/dL Hemoglobin A1c % (4.27-6.07) % Lactic Acid 0.9 (0.5-2.2) mmol/L Calcium 8.9 (8.5-10.3) mg/dL Magnesium (1.7-2.3) mg/dL Total Bilirubin (0.2-1.0) mg/dL AST (10-42) IU/L ALT (10-60) IU/L Alkaline Phosphatase (42-121) IU/L Total Creatine Kinase (30-223) IU/L Troponin I High Sens (2.3-19.7) ng/L B-Natriuretic Peptide (5-100) pg/mL Total Protein (6.4-8.9) g/dL Albumin (3.2-5.5) g/dL Globulin (2.1-4.2) g/dL Albumin/Globulin Ratio (1.0-2.2) Triglycerides 76 (48-352) mg/dL Cholesterol 82 ( - 200) mg/dL LDL Cholesterol, Calc 27 ( - 129) mg/dL VLDL Cholesterol 15 mg/dL HDL Cholesterol 40 L (60 - ) mg/dL LDL/HDL Ratio 0.7 (<3.6) Cholesterol/HDL Ratio 2.1 (<5.0) Procalcitonin Immunoas (<0.5) ng/mL TSH (0.34-5.60) uIU/mL Random Cortisol 16.4 ug/dL Urine Color Urine Clarity (CLEAR) Urine pH (5.0-7.5) PH Ur Specific [place] (1.002-1.030) Urine Protein (NEGATIVE) mg/dL Urine Glucose (UA) (NEGATIVE) mg/dL Urine Ketones (NEGATIVE) mg/dL Urine Occult Blood (NEGATIVE) Urine Nitrite (NEGATIVE) Urine Bilirubin (NEGATIVE) Urine Urobilinogen (NORMAL) E.U./dL Ur Leukocyte Esterase (NEGATIVE) Urine RBC (0-5) /HPF Urine WBC (0-3) /HPF Ur Squamous Epith Cells (<= Few) Urine Bacteria (None Seen) /HPF Urine Culture Comments 10/31/23 10/31/23 10/31/23 Range/Units 22:07 20:27 20:27 WBC (4.8-10.8) x10^3/uL RBC (4.70-6.10) 10^6/uL Hgb (14.0-18.0) g/dL Hct (42.0-52.0) % MCV (80.0-94.0) fL MCH (27.0-31.0) pg MCHC (32.0-36.0) g/dL RDW (12.0-15.0) % Plt Count (130-450) 10^3/uL MPV (7.4-11.4) fL Neut # (Auto) Lymph # (Auto) [place] # (Auto) Eos # (Auto) Baso # (Auto) Absolute Nucleated RBC Total Counted Band Neuts % (Manual) (0 - 10) % Reactive Lymphs % (Man) % Abnorm Lymph % (Manual) % Nucleated RBC % Neutrophils # (Manual) (1.5-6.6) 10^3/uL Lymphocytes # (Manual) (1.5-3.5) 10^3/uL Monocytes # (Manual) (0.0-1.0) 10^3/uL Eosinophils # (Manual) (0-0.7) 10^3/uL Basophils # (Manual) (0-0.1) 10^3/uL Differential Comment Platelet Estimate (NORMAL) Platelet Morphology (NORMAL) RBC Morph Micro Appear (NORMAL) VBG pH (7.31-7.41) VBG pCO2 (41-51) mmHg VBG pO2 (25-47) mmHg VBG HCO3 (23-28) mmol/L VBG Total CO2 (24-29) mmol/L VBG O2 Saturation (60-80) % VBG Base Excess (-2 - +2) mmol/L Sodium (135-145) mmol/L Potassium (3.5-4.5) mmol/L Chloride (101-111) mmol/L Carbon Dioxide (21-32) mmol/L Anion Gap (6-13) BUN (6-20) mg/dL Creatinine (0.6-1.3) mg/dL Estimated GFR (MDRD) (>89) Glucose (74-104) mg/dL Estimat Average Glucose 140 H (70-100) mg/dL Hemoglobin A1c % 6.5 H (4.27-6.07) % Lactic Acid 1.4 (0.5-2.2) mmol/L Calcium (8.5-10.3) mg/dL Magnesium (1.7-2.3) mg/dL Total Bilirubin (0.2-1.0) mg/dL AST (10-42) IU/L ALT (10-60) IU/L Alkaline Phosphatase (42-121) IU/L Total Creatine Kinase (30-223) IU/L Troponin I High Sens (2.3-19.7) ng/L B-Natriuretic Peptide (5-100) pg/mL Total Protein (6.4-8.9) g/dL Albumin (3.2-5.5) g/dL Globulin (2.1-4.2) g/dL Albumin/Globulin Ratio (1.0-2.2) Triglycerides (48-352) mg/dL Cholesterol ( - 200) mg/dL LDL Cholesterol, Calc ( - 129) mg/dL VLDL Cholesterol mg/dL HDL Cholesterol (60 - ) mg/dL LDL/HDL Ratio (<3.6) Cholesterol/HDL Ratio (<5.0) Procalcitonin Immunoas 0.60 (<0.5) ng/mL TSH 1.88 (0.34-5.60) uIU/mL Random Cortisol ug/dL Urine Color Urine Clarity (CLEAR) Urine pH (5.0-7.5) PH Ur Specific [place] (1.002-1.030) Urine Protein (NEGATIVE) mg/dL Urine Glucose (UA) (NEGATIVE) mg/dL Urine Ketones (NEGATIVE) mg/dL Urine Occult Blood (NEGATIVE) Urine Nitrite (NEGATIVE) Urine Bilirubin (NEGATIVE) Urine Urobilinogen (NORMAL) E.U./dL Ur Leukocyte Esterase (NEGATIVE) Urine RBC (0-5) /HPF Urine WBC (0-3) /HPF Ur Squamous Epith Cells (<= Few) Urine Bacteria (None Seen) /HPF Urine Culture Comments 10/31/23 10/31/23 10/31/23 Range/Units 20:27 20:27 19:30 WBC (4.8-10.8) x10^3/uL RBC (4.70-6.10) 10^6/uL Hgb (14.0-18.0) g/dL Hct (42.0-52.0) % MCV (80.0-94.0) fL MCH (27.0-31.0) pg MCHC (32.0-36.0) g/dL RDW (12.0-15.0) % Plt Count (130-450) 10^3/uL MPV (7.4-11.4) fL Neut # (Auto) Lymph # (Auto) [place] # (Auto) Eos # (Auto) Baso # (Auto) Absolute Nucleated RBC Total Counted Band Neuts % (Manual) (0 - 10) % Reactive Lymphs % (Man) % Abnorm Lymph % (Manual) % Nucleated RBC % Neutrophils # (Manual) (1.5-6.6) 10^3/uL Lymphocytes # (Manual) (1.5-3.5) 10^3/uL Monocytes # (Manual) (0.0-1.0) 10^3/uL Eosinophils # (Manual) (0-0.7) 10^3/uL Basophils # (Manual) (0-0.1) 10^3/uL Differential Comment Platelet Estimate (NORMAL) Platelet Morphology (NORMAL) RBC Morph Micro Appear (NORMAL) VBG pH (7.31-7.41) VBG pCO2 (41-51) mmHg VBG pO2 (25-47) mmHg VBG HCO3 (23-28) mmol/L VBG Total CO2 (24-29) mmol/L VBG O2 Saturation (60-80) % VBG Base Excess (-2 - +2) mmol/L Sodium (135-145) mmol/L Potassium (3.5-4.5) mmol/L Chloride (101-111) mmol/L Carbon Dioxide (21-32) mmol/L Anion Gap (6-13) BUN (6-20) mg/dL Creatinine (0.6-1.3) mg/dL Estimated GFR (MDRD) (>89) Glucose (74-104) mg/dL Estimat Average Glucose (70-100) mg/dL Hemoglobin A1c % (4.27-6.07) % Lactic Acid (0.5-2.2) mmol/L Calcium (8.5-10.3) mg/dL Magnesium (1.7-2.3) mg/dL Total Bilirubin (0.2-1.0) mg/dL AST (10-42) IU/L ALT (10-60) IU/L Alkaline Phosphatase (42-121) IU/L Total Creatine Kinase (30-223) IU/L Troponin I High Sens 28.7 H* (2.3-19.7) ng/L B-Natriuretic Peptide 477 H (5-100) pg/mL Total Protein (6.4-8.9) g/dL Albumin (3.2-5.5) g/dL Globulin (2.1-4.2) g/dL Albumin/Globulin Ratio (1.0-2.2) Triglycerides (48-352) mg/dL Cholesterol ( - 200) mg/dL LDL Cholesterol, Calc ( - 129) mg/dL VLDL Cholesterol mg/dL HDL Cholesterol (60 - ) mg/dL LDL/HDL Ratio (<3.6) Cholesterol/HDL Ratio (<5.0) Procalcitonin Immunoas (<0.5) ng/mL TSH (0.34-5.60) uIU/mL Random Cortisol ug/dL Urine Color YELLOW Urine Clarity CLOUDY (CLEAR) Urine pH 6.5 (5.0-7.5) PH Ur Specific [place] 1.015 (1.002-1.030) Urine Protein 100 H (NEGATIVE) mg/dL Urine Glucose (UA) NEGATIVE (NEGATIVE) mg/dL Urine Ketones TRACE (NEGATIVE) mg/dL Urine Occult Blood LARGE H (NEGATIVE) Urine Nitrite POSITIVE H (NEGATIVE) Urine Bilirubin NEGATIVE (NEGATIVE) Urine Urobilinogen 0.2 (NORMAL) (NORMAL) E.U./dL Ur Leukocyte Esterase MODERATE H (NEGATIVE) Urine RBC 11-25 H (0-5) /HPF Urine WBC >25 H (0-3) /HPF Ur Squamous Epith Cells NONE SEEN (<= Few) Urine Bacteria Many H (None Seen) /HPF Urine Culture Comments INDICATED 10/31/23 10/31/23 10/31/23 Range/Units 18:46 17:42 17:42 WBC (4.8-10.8) x10^3/uL RBC (4.70-6.10) 10^6/uL Hgb (14.0-18.0) g/dL Hct (42.0-52.0) % MCV (80.0-94.0) fL MCH (27.0-31.0) pg MCHC (32.0-36.0) g/dL RDW (12.0-15.0) % Plt Count (130-450) 10^3/uL MPV (7.4-11.4) fL Neut # (Auto) Lymph # (Auto) [place] # (Auto) Eos # (Auto) Baso # (Auto) Absolute Nucleated RBC Total Counted Band Neuts % (Manual) (0 - 10) % Reactive Lymphs % (Man) % Abnorm Lymph % (Manual) % Nucleated RBC % Neutrophils # (Manual) (1.5-6.6) 10^3/uL Lymphocytes # (Manual) (1.5-3.5) 10^3/uL Monocytes # (Manual) (0.0-1.0) 10^3/uL Eosinophils # (Manual) (0-0.7) 10^3/uL Basophils # (Manual) (0-0.1) 10^3/uL Differential Comment Platelet Estimate (NORMAL) Platelet Morphology (NORMAL) RBC Morph Micro Appear (NORMAL) VBG pH 7.448 H (7.31-7.41) VBG pCO2 37.0 L (41-51) mmHg VBG pO2 29.5 (25-47) mmHg VBG HCO3 25.0 (23-28) mmol/L VBG Total CO2 26.2 (24-29) mmol/L VBG O2 Saturation 60.5 (60-80) % VBG Base Excess 1.2 (-2 - +2) mmol/L Sodium 135 (135-145) mmol/L Potassium 4.4 (3.5-4.5) mmol/L Chloride 105 (101-111) mmol/L Carbon Dioxide 26 (21-32) mmol/L Anion Gap 4.0 L (6-13) BUN 19 (6-20) mg/dL Creatinine 1.6 H (0.6-1.3) mg/dL Estimated GFR (MDRD) 41 L (>89) Glucose 133 H (74-104) mg/dL Estimat Average Glucose (70-100) mg/dL Hemoglobin A1c % (4.27-6.07) % Lactic Acid 0.9 (0.5-2.2) mmol/L Calcium 9.1 (8.5-10.3) mg/dL Magnesium 1.6 L (1.7-2.3) mg/dL Total Bilirubin 1.2 H (0.2-1.0) mg/dL AST 11 (10-42) IU/L ALT 17 (10-60) IU/L Alkaline Phosphatase 56 (42-121) IU/L Total Creatine Kinase 51 (30-223) IU/L Troponin I High Sens (2.3-19.7) ng/L B-Natriuretic Peptide (5-100) pg/mL Total Protein 5.8 L (6.4-8.9) g/dL Albumin 3.2 (3.2-5.5) g/dL Globulin 2.6 (2.1-4.2) g/dL Albumin/Globulin Ratio 1.2 (1.0-2.2) Triglycerides (48-352) mg/dL Cholesterol ( - 200) mg/dL LDL Cholesterol, Calc ( - 129) mg/dL VLDL Cholesterol mg/dL HDL Cholesterol (60 - ) mg/dL LDL/HDL Ratio (<3.6) Cholesterol/HDL Ratio (<5.0) Procalcitonin Immunoas (<0.5) ng/mL TSH (0.34-5.60) uIU/mL Random Cortisol ug/dL Urine Color Urine Clarity (CLEAR) Urine pH (5.0-7.5) PH Ur Specific [place] (1.002-1.030) Urine Protein (NEGATIVE) mg/dL Urine Glucose (UA) (NEGATIVE) mg/dL Urine Ketones (NEGATIVE) mg/dL Urine Occult Blood (NEGATIVE) Urine Nitrite (NEGATIVE) Urine Bilirubin (NEGATIVE) Urine Urobilinogen (NORMAL) E.U./dL Ur Leukocyte Esterase (NEGATIVE) Urine RBC (0-5) /HPF Urine WBC (0-3) /HPF Ur Squamous Epith Cells (<= Few) Urine Bacteria (None Seen) /HPF Urine Culture Comments 10/31/23 Range/Units 17:42 WBC 21.1 H (4.8-10.8) x10^3/uL RBC 3.96 L (4.70-6.10) 10^6/uL Hgb 12.2 L (14.0-18.0) g/dL Hct 38.1 L (42.0-52.0) % MCV 96.2 H (80.0-94.0) fL MCH 30.8 (27.0-31.0) pg MCHC 32.0 (32.0-36.0) g/dL RDW 14.0 (12.0-15.0) % Plt Count 147 (130-450) 10^3/uL MPV 10.6 (7.4-11.4) fL Neut # (Auto) Not Reportable Lymph # (Auto) Not Reportable [place] # (Auto) Not Reportable Eos # (Auto) Not Reportable Baso # (Auto) Not Reportable Absolute Nucleated RBC Not Reportable Total Counted 100 Band Neuts % (Manual) 10 (0 - 10) % Reactive Lymphs % (Man) 1 % Abnorm Lymph % (Manual) 0 % Nucleated RBC % Not Reportable Neutrophils # (Manual) 19.8 H (1.5-6.6) 10^3/uL Lymphocytes # (Manual) 0.4 L (1.5-3.5) 10^3/uL Monocytes # (Manual) 0.8 (0.0-1.0) 10^3/uL Eosinophils # (Manual) 0.0 (0-0.7) 10^3/uL Basophils # (Manual) 0.0 (0-0.1) 10^3/uL Differential Comment MANUAL DIFFERENTIAL Platelet Estimate NORMAL (130-450,000) (NORMAL) Platelet Morphology NORMAL APPEARANCE (NORMAL) RBC Morph Micro Appear NORMAL APPEARANCE (NORMAL) VBG pH (7.31-7.41) VBG pCO2 (41-51) mmHg VBG pO2 (25-47) mmHg VBG HCO3 (23-28) mmol/L VBG Total CO2 (24-29) mmol/L VBG O2 Saturation (60-80) % VBG Base Excess (-2 - +2) mmol/L Sodium (135-145) mmol/L Potassium (3.5-4.5) mmol/L Chloride (101-111) mmol/L Carbon Dioxide (21-32) mmol/L Anion Gap (6-13) BUN (6-20) mg/dL Creatinine (0.6-1.3) mg/dL Estimated GFR (MDRD) (>89) Glucose (74-104) mg/dL Estimat Average Glucose (70-100) mg/dL Hemoglobin A1c % (4.27-6.07) % Lactic Acid (0.5-2.2) mmol/L Calcium (8.5-10.3) mg/dL Magnesium (1.7-2.3) mg/dL Total Bilirubin (0.2-1.0) mg/dL AST (10-42) IU/L ALT (10-60) IU/L Alkaline Phosphatase (42-121) IU/L Total Creatine Kinase (30-223) IU/L Troponin I High Sens (2.3-19.7) ng/L B-Natriuretic Peptide (5-100) pg/mL Total Protein (6.4-8.9) g/dL Albumin (3.2-5.5) g/dL Globulin (2.1-4.2) g/dL Albumin/Globulin Ratio (1.0-2.2) Triglycerides (48-352) mg/dL Cholesterol ( - 200) mg/dL LDL Cholesterol, Calc ( - 129) mg/dL VLDL Cholesterol mg/dL HDL Cholesterol (60 - ) mg/dL LDL/HDL Ratio (<3.6) Cholesterol/HDL Ratio (<5.0) Procalcitonin Immunoas (<0.5) ng/mL TSH (0.34-5.60) uIU/mL Random Cortisol ug/dL Urine Color Urine Clarity (CLEAR) Urine pH (5.0-7.5) PH Ur Specific [place] (1.002-1.030) Urine Protein (NEGATIVE) mg/dL Urine Glucose (UA) (NEGATIVE) mg/dL Urine Ketones (NEGATIVE) mg/dL Urine Occult Blood (NEGATIVE) Urine Nitrite (NEGATIVE) Urine Bilirubin (NEGATIVE) Urine Urobilinogen (NORMAL) E.U./dL Ur Leukocyte Esterase (NEGATIVE) Urine RBC (0-5) /HPF Urine WBC (0-3) /HPF Ur Squamous Epith Cells (<= Few) Urine Bacteria (None Seen) /HPF Urine Culture Comments ABX Reporting Has patient been on IV antibiotics over the past 48 hours?: Yes Sepsis Event Note (H) - Evaluation Current Stage of Sepsis: Sepsis Possible source of Sepsis: positive: Genitourinary - Sepsis Criteria Sepsis Criteria: Recorded Temperature greater than 38.3C or Less than 36C, Recorded Heart Rate greater than 90 bpm, Recorded Respiratory Rate greater than 20, WBC count greater than 10% bands, WBC count greater than 12,000 or less than 4000, [employer]: altered consciousness (unrelated to primary neuro pathology) Assessment/Plan - Problem List (1) Sepsis Impression: Most likely from problem #2 is identified with urinalysis and CT of the abdomen and pelvis. He presented as falls and the day prior to coming to the ER. He had already had a right middle lobe infiltrate on October 17 and was on Augmentin and doxycycline. He completed the antibiotics but had cough, phlegm, shortness of breath. Cough and shortness of breath are chronic for him. But he was not recovering. He seemed to have progressive weakness. He had been using a cane the last few months and gone to using a walker the last month. Becoming more in continent of urine. In the ER he was tachypneic with rhonchi, and quite alert in the ER and able to follow commands. Temperature was 37.1. White cell count 21,000. Lactic acid normal. CT of head negative. Chest x-ray with prominent interstitial markings but no pneumonia. Urinalysis was positive for UTI. Urine culture is now growing gram-negative teresita on the preliminary result With antibiotics last night, white cell count has gone to 19.5. Lactic acid was 1.4 last night and is 0.9 this morning. No fever. This morning he was quite lethargic but this afternoon very appropriate. Oriented to person, place, time this afternoon. Plan: Currently observation status. Will change this patient to inpatient status since he will require further IV antibiotic therapy. We need to have ident ification of the bacteria followed by sensitivities and I will adjust antibiotics on the basis of that. In the meantime we will follow white cell count, any recurrence of fever, and alertness. Qualifiers: Sepsis type: sepsis due to unspecified organism Sepsis acute organ dysfunction status: without acute organ dysfunction Qualified Code(s): A41.9 - Sepsis, unspecified organism (2) UTI (urinary tract infection) Impression: Minimal pyelonephritis identified of CT abdomen and pelvis. Urinalysis growing gram-negative teresita. By history he describes prostatism. And his says he does have a history of BPH. Currently the patient is on ceftriaxone. Plan: Await identification and sensitivities. I will most likely change him to a quinolone. He is on Flomax I will resume that for him while here Qualifiers: Urinary tract infection type: acute pyelonephritis Qualified Code(s): N10 - Acute pyelonephritis (3) Metabolic encephalopathy Impression: Although the patient has a cognitive deficit and is slightly more forgetful over the last 4 months, he is usually oriented to place, time and situation. He is also a very vivacious speaker according to the . So he is muted affect, slow psychomotor response, and falls i are due to his infection. She says that he is much improved this afternoon in comparison to even this morning. Will continue to follow his physical exam and mental status exam. (4) Acute renal failure Impression: Resolved His baseline BUN is 19 or 18. On admission he was 19. His baseline creatinine is 1.3 or 1.2. On admission he was 1.6. With today's creatinine he is down to 1.3 again and he is back to his baseline. Qualifiers: Acute renal failure type: unspecified Qualified Code(s): N17.9 - Acute kidney failure, unspecified (5) Atrial fibrillation Impression: Rate is controlled. Pulse in the 80s. Patient is on Eliquis for anticoagulation and his home medication list does not include any rate lowering agents. Plan: Eliquis will be continued while here Qualifiers: Atrial fibrillation type: paroxysmal Qualified Code(s): I48.0 - Paroxysmal atrial fibrillation (6) COPD without exacerbation Impression: He had rhonchi on admission. On my exam he does have prolonged and exhalation phase but no outright wheezing or rhonchi. Tachypnea seems to resolve between yesterday and today. He is oxygen saturation by pulse oximeter is 91 to 95% on room air. Plan: At home he is on fluticasone with salmeterol, albuterol, and Deltasone 20 mg. Admission hospitalist ordered Perforomist, budesonide, and as needed albuterol. I will continue those. (7) Radha infection of mouth Impression: He has a bottle of nystatin swish and spit that he shows me. On my examination I am not seeing any white patches, erosions. But he says that he developed Radha from his inhalers and has been using this to treat his disease. He asked if I could please order that for him. I will do so (8) Dementia Impression: The patient is usually a very active gentleman. 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 notes that he is more forgetful but not severe. He is still able to take care of himself. He started using a cane a few months ago because of balance issues. And in the last month has been using a walker more and more. A few falls have happened the last few weeks. 1 was in the shower. 1 was trying to get onto the toilet. He just sort of leaned forward and keeled forward onto the floor. Both times she needed a lot of help to get him off the floor. He has become very sedentary over the last few months. She is worried about taking him home. I explained to her that once he has recovered from the infection. We will have PT and OT evaluate him if he is unable to get out of bed. From there we can plan for the future. Qualifiers: Dementia type: Alzheimer's
[2023-11-01] MEDS ORDERED: MAGIC MOUTHWASH (NYSTATIN) 120 ML BOTTLE PO PRN (16:36)
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
[2023-11-01] MEDS: MONTELUKAST 10 MG TABLET PO SCH (21:42)
[2023-11-01] MEDS: LATANOPROST 0.005% OPHTH DROPS EACHEYE SCH (21:43)
[2023-11-01] MEDS: cefTRIAXone 2 GM in SODIUM CHLORIDE 0.9% MINIBAG 100 ML IV SCH (21:43)
[2023-11-01] MEDS: TAMSULOSIN 0.4 MG CAPSULE PO SCH (21:43)
[2023-11-01] MEDS: ATORVASTATIN 40 MG TABLET PO SCH (21:43)
[2023-11-01] MEDS: LORATADINE 10 MG TABLET PO SCH (21:43)
[2023-11-02] MEDS: SODIUM CHLORIDE FLUSH 0.9% 10 ML SYRINGE IVP SCH ×3 (00:14→17:11)
[2023-11-02] MEDS: BENZONATATE 100 MG CAPSULE PO PRN ×2 (00:39→19:24)
[2023-11-02] MEDS: IPRATROPIUM/ALBUTEROL 3 ML NEB INH SCH ×4 (01:03→17:40)
[2023-11-02] MEDS: SODIUM CHLORIDE 0.9% 1,000 ML IV SCH (01:53)
[2023-11-02] MEDS: FORMOTEROL FUMARATE NEB 20 MCG/2 ML INH SCH ×2 (06:00→17:40)
[2023-11-02] MEDS: BUDESONIDE 0.5 MG/2 ML NEB INH SCH ×2 (06:00→17:40)
[2023-11-02] MEDS: DORZOLAMIDE 2% OPHTH DROPS EACHEYE SCH ×3 (06:53→21:20)
[2023-11-02] MEDS ORDERED: PANTOPRAZOLE 40 MG TABLET PO SCH (07:00)
[2023-11-02] MEDS: MULTIVITAMIN TABLET PO SCH (08:49)
[2023-11-02] MEDS: CLOPIDOGREL 75 MG TABLET PO SCH (08:49)
[2023-11-02] MEDS: LACTOBACILLUS RHAMNOSUS GG CAPSULE PO SCH (08:49)
[2023-11-02] MEDS: FINASTERIDE 5 MG TABLET PO SCH (08:49)
[2023-11-02] MEDS: CHOLECALCIFEROL 25 MCG TABLET PO SCH (08:49)
[2023-11-02] MEDS: APIXABAN 2.5 MG TABLET PO SCH ×2 (08:49→21:19)
[2023-11-02] MEDS: FLUTICASONE NASAL SPRAY NAS SCH (08:51)
--- NOTE | 2023-11-02 11:41 | PHARMACY PROGRESS NOTE ---
- Best Possible Medication History Admit Date and Time: 11/01/23 1628 Processed by: Pharmacy Medication History completed: Yes Patient Interview: Completed Secondary Source(s): Spouse/Significant other, Pharmacy records, Insurance records As the person ultimately responsible for medication therapy, providers are able to order a medication from an existing home medication list in [facility] via the "Reconcile Routine" prior to Confirmation of that medication by program support clerk. Such practice is discouraged except when the physician, in their clinical judgment, deems that a medical need exists for a medication without regard to previous use.
--- NOTE | 2023-11-02 16:42 | PROVIDER PROGRESS NOTE ---
Subjective - Prog Note Date Prog Note Date: 11/02/23 Prog Note Time: 16:50 - Subjective Pt reports feeling: Improved Subjective: Much more alert this morning. Symptoms structure better. Joking. Reaching out his hand to shake my hand. Says he is not hurting anywhere. Just feels very very tired. Denies cough, shortness of breath at rest. Denies any abdominal pain. Current Medications - Current Medications Current Medications: Active Medications Acetaminophen (Acetaminophen 325 Mg Tablet) 650 mg PO Q6H PRN PRN Reason: PRN PAIN &/OR FEVER Albuterol/Ipratropium (Ipratropium/Albuterol 3 Ml Neb) 3 ml INH Q6HR [facility] Last Admin: 11/02/23 11:33 Dose: 3 ml Apixaban (Apixaban 2.5 Mg Tablet) 2.5 mg PO BID [facility] Last Admin: 11/02/23 08:49 Dose: 2.5 mg Atorvastatin Calcium (Atorvastatin 40 Mg Tablet) 40 mg PO QPM [facility] Last Admin: 11/01/23 21:43 Dose: 40 mg Benzonatate (Benzonatate 100 Mg Capsule) 100 mg PO TID PRN PRN Reason: Cough Last Admin: 11/02/23 00:39 Dose: 100 mg Budesonide (Budesonide 0.5 Mg/2 Ml Neb) 0.5 mg INH RTBID [facility] Last Admin: 11/02/23 06:00 Dose: 0.5 mg Cholecalciferol (Cholecalciferol 25 Mcg Tablet) 25 mcg PO DAILY [facility] Last Admin: 11/02/23 08:49 Dose: 25 mcg Clopidogrel Bisulfate (Clopidogrel 75 Mg Tablet) 75 mg PO DAILY [facility] Last Admin: 11/02/23 08:49 Dose: 75 mg Dorzolamide HCl (Dorzolamide 2% Ophth Drops) 1 drops EACHEYE TID [facility] Last Admin: 11/02/23 14:07 Dose: 1 drops Finasteride (Finasteride 5 Mg Tablet) 5 mg PO DAILY [facility] Last Admin: 11/02/23 08:49 Dose: 5 mg Fluticasone Propionate (Fluticasone Nasal [place]) 2 sprays LAURA DAILY [facility] Last Admin: 11/02/23 08:51 Dose: 2 sprays Formoterol Fumarate (Formoterol Fumarate Neb 20 Mcg/2 Ml) 20 mcg INH RTBID [facility] Last Admin: 11/02/23 06:00 Dose: 20 mcg Sodium Chloride (Normal Saline 0.9%) 1,000 mls @ 40 mls/hr IV .Q25H [facility] Last Admin: 11/02/23 01:53 Dose: 40 mls/hr Ceftriaxone Sodium 2 gm/ (Sodium Chloride) 100 mls @ 200 mls/hr IV Q24H [facility] Last Infusion: 11/01/23 22:34 Dose: Infused Lactobacillus Rhamnosus (Lactobacillus Rhamnosus Gg Capsule) 1 cap PO DAILY [facility] Last Admin: 11/02/23 08:49 Dose: 1 cap Latanoprost (Latanoprost 0.005% Ophth Drops) 1 drops EACHEYE QPM [facility] Last Admin: 11/01/23 21:43 Dose: 1 drops Loratadine (Loratadine 10 Mg Tablet) 10 mg PO QPM [facility] Last Admin: 11/01/23 21:43 Dose: 10 mg Montelukast Sodium (Montelukast 10 Mg Tablet) 10 mg PO QPM [facility] Last Admin: 11/01/23 21:42 Dose: 10 mg Multi-Ingredient Mouthwash/Gargle (Magic Mouthwash (Nystatin) 120 Ml Bottle) 30 ml PO Q4H PRN PRN Reason: Mouth Sore Pain Multi-Ingredient Ointment (Zinc Oxide 20% Oint 30 Gm Tube) 1 applic TOP PRN PRN PRN Reason: Skin Care Multivitamins (Multivitamin Tablet) 1 tab PO DAILYWM [facility] Last Admin: 11/02/23 08:49 Dose: 1 tab Ondansetron HCl (Ondansetron 4 Mg/2 Ml Vial) 4 mg IVP Q6HR PRN PRN Reason: Nausea / Vomiting Pantoprazole Sodium (Pantoprazole 40 Mg Tablet) 40 mg PO QDAC [facility] Sodium Chloride (Sodium Chloride Flush 0.9% 10 Ml Syringe) 10 ml IVP PRN PRN PRN Reason: NEEDED PER PROVIDER ORDERS Sodium Chloride (Sodium Chloride Flush 0.9% 10 Ml Syringe) 10 ml IVP 0100,0900,1700 [facility] Last Admin: 11/02/23 08:49 Dose: Not Given Tamsulosin HCl (Tamsulosin 0.4 Mg Capsule) 0.4 mg PO HS [facility] Last Admin: 11/01/23 21:43 Dose: 0.4 mg Clopidogrel [Plavix] 75 mg PO DAILY 07/29/17 Montelukast [Singulair] 10 mg PO HS 07/29/17 Acetaminophen [Tylenol] 650 mg PO Q6H PRN 04/13/21 Cholecalciferol [Vitamin D3] 25 mcg PO DAILY 04/13/21 Dorzolamide 2% Ophth Drops [Trusopt 2% Ophth Drops] 1 drops EACHEYE BID 04/13/21 Fexofenadine HCl 180 mg PO DAILY PM 04/13/21 Ipratropium/Albuterol [Duoneb] 3 ml INH BID 04/13/21 Latanoprost/Pf [Latanoprost 0.005% Eye Drop] 1 drops OP HS 04/13/21 Magnesium Oxide [Mag Ox] 400 mg PO DAILY 04/13/21 Multivitamin 1 tab ORAL DAILY 04/13/21 Tamsulosin HCl [Flomax] 0.4 mg ORAL DAILY PM 04/13/21 Ubidecarenone [Co Q-10] 2 tab ORAL DAILY 04/13/21 Vitamin E 400 unit PO DAILY 04/13/21 Apixaban [Eliquis] 2.5 mg PO BID 11/10/22 Finasteride [Proscar] 5 mg PO DAILY 11/10/22 Trospium Chloride [Trospium Chloride ER] 60 mg PO DAILY 11/10/22 Calcium Carbonate [Tums (Calcium Carbonate 500mg)] 500 mg PO Q4H PRN 11/02/23 Carboxymethylcellulose Sodium [Refresh Tears] 1 drops EACHEYE Q4H PRN 11/02/23 Nystatin [Mycostatin] 5 ml PO QID 11/02/23 Objective - Vital Signs/Intake & Output Reviewed Vital Signs: Yes Vital Signs: Vital Signs x48h Temp Pulse Pulse Pulse Pulse Pulse Resp 11/02/23 16:00 37.1 C 75 24 11/02/23 11:50 89 89 84 11/02/23 11:47 89 89 84 11/02/23 11:33 112 H 20 BP BP BP BP Pulse Ox 11/02/23 16:00 140/73 H 94 11/02/23 11:50 128/108 H 88/53 L 126/81 H 11/02/23 11:47 128/108 H 88/53 L 126/81 H 01/18/24 11:33 Intake & Output: Intake & Output 10/30/23 10/31/23 11/01/23 11/02/23 23:59 23:59 23:59 23:59 Intake Total 936.430 6176.333 0 Output Total 100 Balance 259.105 7475.333 1919 - Objective General Appearance: positive: No acute distress, Alert, Other (Continues to have a slight red flushed face, chest, and arms. This may his baseline skin color. Comfortable and speaking to me.) Eyes Bilateral: positive: PERRL, EOMI ENT: positive: No signs of dehydration Neck: positive: No JVD. negative: Stiff neck Respiratory: positive: No respiratory distress. negative: Wheezes, Rales, Rhonchi Cardiovascular: positive: Regular rate & rhythm Abdomen: positive: Non-tender, No organomegaly, Nml bowel sounds, No distention Skin: positive: Warm, Dry Extremities: positive: Full ROM, No pedal edema Neurologic/Psychiatric: positive: Oriented x3 (But forgetful. I checked on the second time this afternoon and could not quite remember why he was here), CN's nml (2-12), Motor nml - Lab Results Fish Bones: 11/01/23 05:52 11/01/23 05:52 ABX Reporting Has patient been on IV antibiotics over the past 48 hours?: Yes Sepsis Event Note (H) - Evaluation Current Stage of Sepsis: Resolved Possible source of Sepsis: positive: Genitourinary - Sepsis Criteria Sepsis Criteria: Recorded Temperature greater than 38.3C or Less than 36C, Recorded Heart Rate greater than 90 bpm, Recorded Respiratory Rate greater than 20, WBC count greater than 10% bands, WBC count greater than 12,000 or less than 4000, [employer]: altered consciousness (unrelated to primary neuro pathology) Assessment/Plan - Problem List (1) E. coli UTI Impression: He presented as sepsis into the emergency room with weakness, lethargy, altered mental status from an encephalopathy. Urinalysis identified the infection. And CT of the abdomen and pelvis identified the scant pyelonephritis. His sepsis criteria have all resolved. Between yesterday and today, he was still encephalopathic in the morning. Maybe he was just sleepy when I woke him up. And as the day progressed yesterday he was much more alert and interactive. This morning he is completely appropriate. He smiles, shakes my hand, and tells me that he remembers me from yesterday. Since admission he has not had any fever. Tachycardic only once this morning as he transition from bed to the chair. Yesterday his white cell count came down to 19.5 from the admission 21. No CBC done today. Urine culture is identified as E. coli. Today is day #3 of ceftriaxone. The E. coli is resistant to ampicillin and sulbactam. Sensitive to the Rocephin and sensitive to quinolones. Blood cultures are negative after 1 day. Plan: Initial status was observation status on the . Changed to inpatient status on the 17. Today is day #2 of inpatient status and tonight will be a second midnight. Continue to treat with IV antibiotics until tomorrow. Then switch to quinolone p.o. Observe for 1 more day to make sure there is no rebound elevated white cell count or fever. From there he can be discharged. I will also continue his Flomax for history of BPH. Qualifiers: Urinary tract infection type: acute pyelonephritis Qualified Code(s): N10 - Acute pyelonephritis (3) Metabolic encephalopathy resolved Impression: Although the patient has a cognitive deficit and is slightly more forgetful over the last 4 months, he is usually oriented to place, time and situation. He is also a very vivacious speaker according to the . On the , in the morning, he still has a muted affect, slow psychomotor response. His was describing frequent falls the day before. I attribute all of this to an acute infection superimposed on the patient already has cognitive deficits and gradually diminishing mobility. By yesterday afternoon he was much improved. And this morning I feel like he is at baseline. He is alert and oriented to person, place, just not time. Forgets that he is here for pyelonephritis. But his speech is more fluent, better sentence structure, and joking. (4) Acute renal failure resolved Impression: Resolved His baseline BUN is 19 or 18. On admission he was 19. His baseline creatinine is 1.3 or 1.2. On admission he was 1.6. By his first morning of admission on the his creatinine was back to baseline.Will follow-up with a BMP tomorrow. Qualifiers: Acute renal failure type: unspecified Qualified Code(s): N17.9 - Acute kidney failure, unspecified (5) Atrial fibrillation Impression: Rate is controlled. Pulse in the 80s. Patient is on Eliquis for anticoagulation and his home medication list does not include any rate lowering agents.He had 1 episode of mild tachycardia in the low 100s when he was getting out of bed to a chair this morning. That quickly resolved. Plan: Eliquis will be continued while here. I am not adding metoprolol or diltiazem at this time Qualifiers: Atrial fibrillation type: paroxysmal Qualified Code(s): I48.0 - Paroxysmal atrial fibrillation (6) COPD without exacerbation Impression: He had rhonchi on admission. Has not had any further lung findings other than prolonged and exhalation. No tachypnea no dyspnea. Plan: At home he is on fluticasone with salmeterol, albuterol, and Deltasone 20 mg. Admission hospitalist ordered Perforomist, budesonide, and as needed albuterol. I will continue those. (7) Radha infection of mouth Impression: He shared with me that that was an admitting diagnosis. Had it even before he was seen in the ER. It is due to his inhaler. I resumed his nystatin swish and spit. (8) Dementia Impression: The patient is usually a very active gentleman. 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 notes that he is more forgetful but not severe. He is still able to take care of himself. He started using a cane a few months ago because of balance issues. And in the last month has been using a walker more and more. A few falls have happened the last few weeks. 1 was in the shower. 1 was trying to get onto the toilet. He just sort of leaned forward and keeled forward onto the floor. Both times she needed a lot of help to get him off the floor. He has become very sedentary over the last few months. She is worried about taking him home.He has been using the walker more more in the last month. Then he had several falls the day before admission. Since he is much more alert today, I am having PT and OT evaluate him. If he is significantly below baseline, he cannot return to home. He will need short- term rehab. Qualifiers: Dementia type: Alzheimer's
[2023-11-02] MEDS: ATORVASTATIN 40 MG TABLET PO SCH (21:19)
[2023-11-02] MEDS: MONTELUKAST 10 MG TABLET PO SCH (21:19)
[2023-11-02] MEDS: cefTRIAXone 2 GM in SODIUM CHLORIDE 0.9% MINIBAG 100 ML IV SCH (21:19)
[2023-11-02] MEDS: LATANOPROST 0.005% OPHTH DROPS EACHEYE SCH (21:20)
[2023-11-02] MEDS: TAMSULOSIN 0.4 MG CAPSULE PO SCH (21:20)
[2023-11-02] MEDS: LORATADINE 10 MG TABLET PO SCH (21:20)
[2023-11-03] MEDS: SODIUM CHLORIDE FLUSH 0.9% 10 ML SYRINGE IVP SCH ×3 (01:30→21:47)
[2023-11-03] MEDS: IPRATROPIUM/ALBUTEROL 3 ML NEB INH SCH ×4 (02:21→20:48)
[2023-11-03 05:38] LABS: BASOPHILS % (AUTO) 0.5 %; EOSINOPHILS # (AUTO) 0.3 10^3/uL (0.0-0.7); EOSINOPHILS % (AUTO) 4.5 %; HCT - HEMATOCRIT 31.3 % (42.0-52.0); HGB - HEMOGLOBIN 10.3 g/dL (14.0-18.0); LYMPHOCYTES # (AUTO) 0.8 10^3/uL (1.5-3.5); LYMPHOCYTES % (AUTO) 13.7 %; MEAN CORPUSCULAR HEMOGLOBIN 31.6 pg (27.0-31.0); MEAN CORPUSCULAR HGB CONC 32.9 g/dL (32.0-36.0); MEAN PLATELET VOLUME 11.2 fL (7.4-11.4); MONOCYTES # (AUTO) 0.6 10^3/uL (0.0-1.0); MONOCYTES % (AUTO) 10.3 %; NEUTROPHILS # (AUTO) 3.9 10^3/uL (1.5-6.6); NEUTROPHILS % (AUTO) 70.6 %; PLT - PLATELET COUNT 127 10^3/uL (130-450); RED BLOOD COUNT 3.26 10^6/uL (4.70-6.10); RED CELL DISTRIBUTION WIDTH 13.9 % (12.0-15.0); WHITE BLOOD COUNT 5.5 x10^3/uL (4.8-10.8)
[2023-11-03 05:53] LABS: CALCIUM 8.3 mg/dL (8.5-10.3); CREATININE 1.1 mg/dL (0.6-1.3); POTASSIUM 3.8 mmol/L (3.5-4.5)
[2023-11-03] MEDS: SODIUM CHLORIDE 0.9% 1,000 ML IV SCH (06:02)
[2023-11-03] MEDS: DORZOLAMIDE 2% OPHTH DROPS EACHEYE SCH ×3 (06:06→21:43)
[2023-11-03] MEDS: PANTOPRAZOLE 40 MG TABLET PO SCH (06:10)
[2023-11-03] MEDS: BUDESONIDE 0.5 MG/2 ML NEB INH SCH ×2 (07:22→20:48)
[2023-11-03] MEDS: FORMOTEROL FUMARATE NEB 20 MCG/2 ML INH SCH ×2 (07:22→20:48)
[2023-11-03] MEDS: MULTIVITAMIN TABLET PO SCH (09:37)
[2023-11-03] MEDS: levoFLOXacin 250 MG TABLET PO SCH (09:37)
[2023-11-03] MEDS: CHOLECALCIFEROL 25 MCG TABLET PO SCH (09:37)
[2023-11-03] MEDS: CLOPIDOGREL 75 MG TABLET PO SCH (09:37)
[2023-11-03] MEDS: LACTOBACILLUS RHAMNOSUS GG CAPSULE PO SCH (09:37)
[2023-11-03] MEDS: APIXABAN 2.5 MG TABLET PO SCH ×2 (09:37→21:43)
[2023-11-03] MEDS: FINASTERIDE 5 MG TABLET PO SCH (09:37)
[2023-11-03] MEDS: FLUTICASONE NASAL SPRAY NAS SCH (09:39)
--- NOTE | 2023-11-03 17:26 | PROVIDER PROGRESS NOTE ---
Subjective - Prog Note Date Prog Note Date: 11/03/23 Prog Note Time: 17:24 - Subjective Pt reports feeling: Improved Subjective: 88 YOM c atrial fibrillation on Eliquis, CAD, COPD who presented to the ED with report of generalized weakness and falling at home. Patient had two falls today and was subsequently brought into the ED with . provided majority of the information. Patient last month was dx with PNA. He was started on two course of abx and steroids. Patient last abx was 10/25. Last steroids was multiple weeks ago. reported period of improvement after abx. This past couple of day however patient suddenly had difficulty walking with his walker. He lost balance multiple times and has fallen at home. Besides the abx and prednisone, no other new medications. No travel. No sick contacts. Patient has not complained of fever. He has no new URI sxs. He has no nausea, vomiting, or diarrhea. mentioned x 1 episode of blood with stool reported but not daily. No dysuria. No rash. 10/30: After being admitted to [facility], he had an episode of emesis. CT scan was done and showed him to have some fat stranding around one of his kidneys. UA is positive for UTI and culture is growing gram-negative teresita. He was started on Iv ceftriaxone. Currently, patient is feeling much better. He is alert and oriented x 3. His grandson is at bedside and patient is telling stories. Denies any shortness of breath, chest pain, or cough. Denies any fevers, chills, pain, or weakness. He did work with PT today and had orthostatic hypotension with reported dizziness. Objective - Vital Signs/Intake & Output Vital Signs: Vital Signs x48h Temp Pulse Pulse Resp BP Pulse Ox 11/03/23 15:51 37.0 C 76 18 157/98 H 94 11/03/23 10:45 79 14 Intake & Output: Intake & Output 10/31/23 11/01/23 11/02/23 11/03/23 23:59 23:59 23:59 23:59 Intake Total 311.467 9468.333 2140 1595.333 Output Total 100 Balance 585.102 1886.333 2140 1595.333 - Objective General Appearance: positive: No acute distress, Alert Eyes Bilateral: positive: Normal inspection, PERRL, EOMI ENT: positive: No signs of dehydration Neck: positive: No JVD, Trachea midline Respiratory: positive: Chest non-tender, No respiratory distress, Breath sounds nml Cardiovascular: positive: Regular rate & rhythm, No murmur, No gallop Abdomen: positive: Non-tender, Nml bowel sounds, No distention Back: positive: Nml inspection Skin: positive: Color nml, No rash, Warm, Dry Extremities: positive: Non-tender, Full ROM, Nml appearance Neurologic/Psychiatric: positive: Oriented x3 - Lab Results Fish Bones: 11/03/23 04:49 11/03/23 04:49 Other Labs: Lab Results x24hrs 11/03/23 11/03/23 Range/Units 04:49 04:49 WBC 5.5 (4.8-10.8) x10^3/uL RBC 3.26 L (4.70-6.10) 10^6/uL Hgb 10.3 L (14.0-18.0) g/dL Hct 31.3 L (42.0-52.0) % MCV 96.0 H (80.0-94.0) fL MCH 31.6 H (27.0-31.0) pg MCHC 32.9 (32.0-36.0) g/dL RDW 13.9 (12.0-15.0) % Plt Count 127 L (130-450) 10^3/uL MPV 11.2 (7.4-11.4) fL Neut # (Auto) 3.9 (1.5-6.6) 10^3/uL Lymph # (Auto) 0.8 L (1.5-3.5) 10^3/uL [place] # (Auto) 0.6 (0.0-1.0) 10^3/uL Eos # (Auto) 0.3 (0.0-0.7) 10^3/uL Baso # (Auto) 0.0 (0.0-0.1) 10^3/uL Absolute Nucleated RBC 0.00 x10^3/uL Nucleated RBC % 0.0 /100WBC Sodium 138 (135-145) mmol/L Potassium 3.8 (3.5-4.5) mmol/L Chloride 108 (101-111) mmol/L Carbon Dioxide 24 (21-32) mmol/L Anion Gap 6.0 (6-13) BUN 18 (6-20) mg/dL Creatinine 1.1 (0.6-1.3) mg/dL Estimated GFR (MDRD) 63 L (>89) Glucose 102 (74-104) mg/dL Calcium 8.3 L (8.5-10.3) mg/dL Sepsis Event Note (H) - Evaluation Current Stage of Sepsis: Resolved Possible source of Sepsis: positive: Genitourinary Assessment/Plan - Problem List (1) E. coli UTI Impression: Patient presented to the ER as septic with weakness, lethargy, altered mental status from an encephalopathy. Urinalysis identified the infection. And CT of the abdomen and pelvis identified the scant pyelonephritis. His sepsis criteria have all resolved. His encephalopathy seems to have resolved. Patient was alert and oriented x 3 today. Since admission he has not had any fevers. His white cell count dropped from 19.5 to 5.5. Urine culture is identified as E. coli. He completed 3 days of IV ceftriaxone. The E. coli is resistant to ampicillin and sulbactam. Sensitive to the Rocephin and sensitive to quinolones. He will start on oral quinolones and we will recheck his labs tomorrow to ensure no rebound elevation of WBC or fever. If his labs are stable, he can be medically cleared to go home. Final clearance will depend on PT. - Continue on oral antibiotics - Continue on Flomax for BPH - Continue working with PT/OT to determine discharge date (2) Metabolic encephalopathy Impression: RESOLVED. Although the patient has a cognitive deficit and is slightly more forgetful over the last 4 months, he is usually oriented to place, time and situation. He is also a very vivacious speaker according to the . On the , in the morning, he still has a muted affect, slow psychomotor response. His was describing frequent falls the day before. I attribute all of this to an acute infection superimposed on the patient already has cognitive deficits and gradually diminishing mobility. By yesterday afternoon he was much improv ed. And this morning I feel like he is at baseline. He is alert and oriented to person, place, just not time. Forgets that he is here for pyelonephritis. But his speech is more fluent, better sentence structure, and joking. (3) Acute renal failure Impression: RESOLVED. His baseline BUN is 19 or 18 and currently he is at 18. His baseline creatinine is 1.3 or 1.2. On admission he was 1.6 and today, he is at 1.1. There is no need to continue trending BMP any further. (4) Atrial fibrillation Impression: Rate is controlled. Pulse in the 80s. Patient is on Eliquis for anticoagulation and his home medication list does not include any rate lowering agents. There is no need for metoprolol or diltiazem at this time. - Continue on Eliquis (5) COPD without exacerbation Impression: He had rhonchi on admission. Has not had any further lung findings other than prolonged and exhalation. No tachypnea no dyspnea. - Continue on home regimen of: fluticasone, salmeterol, albuterol, and Deltasone 20 mg - Can continue on Perforomist, budesonide, and as needed albuterol while admitted (6) Radha infection of mouth Impression: He shared with me that that was an admitting diagnosis. Had it even before he was seen in the ER. It is due to his inhaler. - Continue nystatin swish and spit (7) Dementia Impression: The patient is usually a very active gentleman. 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 notes that he is more forgetful but not severe. He is still able to take care of himself. He started using a cane a few months ago because of balance issues. And in the last month has been using a walker more and more. A few falls have happened the last few weeks. 1 was in the shower. 1 was trying to get onto the toilet. He just sort of leaned forward and keeled forward onto the floor. Both times she needed a lot of help to get him off the floor. He has become very sedentary over the last few months. She is worried about taking him home.He has been using the walker more more in the last month. Then he had several falls the day before admission. Since he is much more alert today, patient worked with PT and PT. He was able to stand up but felt dizzy after a few steps. Orthostatic vitals were done. Given his orthostatic hypotension, PT is recommending that he go to a SNF. Will talk to the family to discuss what they + the patient would prefer. attempt #1: lying down: 141/81, pulse 77 sitting up: 151/75, pulse 80 standing up: 105/61, pulse 85 no symptoms reported attempt #2 sitting up: 146/90, pulse 81 standing up: 128/67, pulse 83 reported dizziness
[2023-11-03] MEDS: TAMSULOSIN 0.4 MG CAPSULE PO SCH (21:43)
[2023-11-03] MEDS: LORATADINE 10 MG TABLET PO SCH (21:43)
[2023-11-03] MEDS: MONTELUKAST 10 MG TABLET PO SCH (21:43)
[2023-11-03] MEDS: ATORVASTATIN 40 MG TABLET PO SCH (21:43)
[2023-11-03] MEDS: LATANOPROST 0.005% OPHTH DROPS EACHEYE SCH (21:44)
[2023-11-03] MEDS: ZINC OXIDE 20% OINT 30 GM TUBE TOP PRN (21:50)
[2023-11-03] MEDS: BENZONATATE 100 MG CAPSULE PO PRN (21:55)
[2023-11-04] MEDS: SODIUM CHLORIDE FLUSH 0.9% 10 ML SYRINGE IVP SCH ×3 (00:42→17:54)
[2023-11-04] MEDS: ZINC OXIDE 20% OINT 30 GM TUBE TOP PRN ×4 (03:06→18:08)
[2023-11-04 06:05] LABS: BASOPHILS % (AUTO) 0.6 %; EOSINOPHILS # (AUTO) 0.3 10^3/uL (0.0-0.7); EOSINOPHILS % (AUTO) 6.7 %; HCT - HEMATOCRIT 33.1 % (42.0-52.0); HGB - HEMOGLOBIN 10.8 g/dL (14.0-18.0); LYMPHOCYTES # (AUTO) 0.9 10^3/uL (1.5-3.5); MEAN CORPUSCULAR HEMOGLOBIN 31.2 pg (27.0-31.0); MEAN CORPUSCULAR HGB CONC 32.6 g/dL (32.0-36.0); MEAN CORPUSCULAR VOLUME 95.7 fL (80.0-94.0); MEAN PLATELET VOLUME 11.2 fL (7.4-11.4); MONOCYTES # (AUTO) 0.6 10^3/uL (0.0-1.0); NEUTROPHILS # (AUTO) 2.8 10^3/uL (1.5-6.6); NEUTROPHILS % (AUTO) 60.3 %; PLT - PLATELET COUNT 140 10^3/uL (130-450); RED BLOOD COUNT 3.46 10^6/uL (4.70-6.10); RED CELL DISTRIBUTION WIDTH 13.3 % (12.0-15.0); WHITE BLOOD COUNT 4.6 x10^3/uL (4.8-10.8)
[2023-11-04] MEDS: PANTOPRAZOLE 40 MG TABLET PO SCH (06:07)
[2023-11-04] MEDS: DORZOLAMIDE 2% OPHTH DROPS EACHEYE SCH ×2 (06:07→20:54)
[2023-11-04 06:16] LABS: CALCIUM 8.5 mg/dL (8.5-10.3); POTASSIUM 3.7 mmol/L (3.5-4.5)
[2023-11-04] MEDS: IPRATROPIUM/ALBUTEROL 3 ML NEB INH SCH ×3 (07:24→20:20)
[2023-11-04] MEDS: FORMOTEROL FUMARATE NEB 20 MCG/2 ML INH SCH ×2 (07:25→20:20)
[2023-11-04] MEDS: BUDESONIDE 0.5 MG/2 ML NEB INH SCH ×2 (07:25→20:20)
[2023-11-04] MEDS: CHOLECALCIFEROL 25 MCG TABLET PO SCH (08:01)
[2023-11-04] MEDS: FLUTICASONE NASAL SPRAY NAS SCH (08:01)
[2023-11-04] MEDS: levoFLOXacin 250 MG TABLET PO SCH (08:01)
[2023-11-04] MEDS: APIXABAN 2.5 MG TABLET PO SCH ×2 (08:02→20:53)
[2023-11-04] MEDS: MULTIVITAMIN TABLET PO SCH (08:02)
[2023-11-04] MEDS: FINASTERIDE 5 MG TABLET PO SCH (08:02)
[2023-11-04] MEDS: LACTOBACILLUS RHAMNOSUS GG CAPSULE PO SCH (08:02)
[2023-11-04] MEDS: CLOPIDOGREL 75 MG TABLET PO SCH (08:02)
[2023-11-04] MEDS: polyethylene glycoL 3350 17 GM PACKET PO SCH (11:23)
[2023-11-04] MEDS: NYSTATIN 500000 UNITS/5 ML UDC PO SCH ×4 (11:23→20:58)
--- NOTE | 2023-11-04 11:43 | PROVIDER PROGRESS NOTE ---
Subjective - Prog Note Date Prog Note Date: 11/04/23 Prog Note Time: 11:41 - Subjective Pt reports feeling: No change Subjective: 88 YOM c atrial fibrillation on Eliquis, CAD, COPD who presented to the ED with report of generalized weakness and falling at home. Patient had two falls today and was subsequently brought into the ED with . provided majority of the information. Patient last month was dx with PNA. He was started on two course of abx and steroids. Patient last abx was 10/25. Last steroids was multiple weeks ago. reported period of improvement after abx. This past couple of day however patient suddenly had difficulty walking with his walker. He lost balance multiple times and has fallen at home. Besides the abx and prednisone, no other new medications. No travel. No sick contacts. Patient has not complained of fever. He has no new URI sxs. He has no nausea, vomiting, or diarrhea. mentioned x 1 episode of blood with stool reported but not daily. No dysuria. No rash. 10/30: After being admitted to [facility], he had an episode of emesis. CT scan was done and showed him to have some fat stranding around one of his kidneys. UA is positive for UTI and culture is growing gram-negative teresita. He was started on Iv ceftriaxone. 11/03: Patient met with PT/OT to determine mobility status and was found to have orthostatic hypotension. They recommended he be discharged to a SNF for fall risk. Currently, patient is stable and doing well. Has no complaints and is aware he will be going to a SNF post discharge. Denies any shortness of breath, chest pain, or cough. Denies any fevers, chills, pain, or weakness. Objective - Vital Signs/Intake & Output Vital Signs: Vital Signs x48h Temp Pulse Pulse Resp BP Pulse Ox 11/04/23 07:55 36.6 C 84 18 115/70 93 11/04/23 07:26 70 20 Intake & Output: Intake & Output 11/01/23 11/02/23 11/03/23 11/04/23 23:59 23:59 23:59 23:59 Intake Total 2191.333 2140 1895.333 640 Output Total 100 0 0 Balance 2091.333 2140 1895.333 640 - Objective General Appearance: positive: No acute distress, Alert Eyes Bilateral: positive: Normal inspection, PERRL, EOMI ENT: positive: No signs of dehydration Neck: positive: Nml inspection, No JVD, Trachea midline Respiratory: positive: Chest non-tender, No respiratory distress Cardiovascular: positive: Systolic murmur (Patient has a bovine valve) Abdomen: positive: Non-tender, Nml bowel sounds Skin: positive: Color nml, No rash, Warm, Dry Extremities: positive: Non-tender, Full ROM, Nml appearance Neurologic/Psychiatric: positive: Oriented x3 - Lab Results Fish Bones: 11/04/23 05:36 11/04/23 05:36 Other Labs: Lab Results x24hrs 11/04/23 11/04/23 Range/Units 05:36 05:36 WBC 4.6 L (4.8-10.8) x10^3/uL RBC 3.46 L (4.70-6.10) 10^6/uL Hgb 10.8 L (14.0-18.0) g/dL Hct 33.1 L (42.0-52.0) % MCV 95.7 H (80.0-94.0) fL MCH 31.2 H (27.0-31.0) pg MCHC 32.6 (32.0-36.0) g/dL RDW 13.3 (12.0-15.0) % Plt Count 140 (130-450) 10^3/uL MPV 11.2 (7.4-11.4) fL Neut # (Auto) 2.8 (1.5-6.6) 10^3/uL Lymph # (Auto) 0.9 L (1.5-3.5) 10^3/uL [place] # (Auto) 0.6 (0.0-1.0) 10^3/uL Eos # (Auto) 0.3 (0.0-0.7) 10^3/uL Baso # (Auto) 0.0 (0.0-0.1) 10^3/uL Absolute Nucleated RBC 0.00 x10^3/uL Nucleated RBC % 0.0 /100WBC Sodium 137 (135-145) mmol/L Potassium 3.7 (3.5-4.5) mmol/L Chloride 107 (101-111) mmol/L Carbon Dioxide 24 (21-32) mmol/L Anion Gap 6.0 (6-13) BUN 14 (6-20) mg/dL Creatinine 1.0 (0.6-1.3) mg/dL Estimated GFR (MDRD) 71 L (>89) Glucose 97 (74-104) mg/dL Calcium 8.5 (8.5-10.3) mg/dL ABX Reporting Has patient been on IV antibiotics over the past 48 hours?: No Sepsis Event Note (H) - Evaluation Current Stage of Sepsis: Resolved Possible source of Sepsis: positive: Genitourinary - Sepsis Criteria Sepsis Criteria: SUPPORT REPRESENTATIVE: altered consciousness (unrelated to primary neuro pathology) Assessment/Plan - Problem List (1) E. coli UTI Impression: Patient presented to the ER as septic with weakness, lethargy, altered mental st atus from an encephalopathy. Urinalysis identified the infection. And CT of the abdomen and pelvis identified the scant pyelonephritis. His sepsis criteria have all resolved. His encephalopathy seems to have resolved. Patient was alert and oriented x 3 today. Since admission he has not had any fevers. His white cell count dropped from 19.5 to 5.5. Urine culture is identified as E. coli. He completed 3 days of IV ceftriaxone. The E. coli is resistant to ampicillin and sulbactam. Sensitive to the Rocephin and sensitive to quinolones. He will start on oral quinolones and we will recheck his labs tomorrow to ensure no rebound elevation of WBC or fever. He is medically cleared to go home. Final clearance will depend on PT and placement at a SNF. - Continue on oral antibiotics (started 11/03) - Continue on Flomax for BPH - Continue working with PT/OT to determine discharge date (2) Metabolic encephalopathy Impression: RESOLVED. Although the patient has a cognitive deficit and is slightly more forgetful over the last 4 months, he is usually oriented to place, time and situation. He is also a very vivacious speaker according to the . On the , in the morning, he still has a muted affect, slow psychomotor response. His was describing frequent falls the day before. I attribute all of this to an acute infection superimposed on the patient already has cognitive deficits and gradually diminishing mobility. By yesterday afternoon he was much improved. And this morning I feel like he is at baseline. He is alert and oriented to person, place, just not time. Forgets that he is here for pyelonep hritis. But his speech is more fluent, better sentence structure, and joking. (3) Acute renal failure Impression: RESOLVED. His baseline BUN is 19 or 18 and on 11/03 he is at 18. His baseline creatinine is 1.3 or 1.2. On admission he was 1.6 and as of 11/03, he is at 1.1. There is no need to continue trending BMP any further. (4) Atrial fibrillation Impression: Rate is controlled. Pulse in the 80s. Patient is on Eliquis for anticoagulation and his home medication list does not include any rate lowering agents. There is no need for metoprolol or diltiazem at this time. - Continue on Eliquis (5) COPD without exacerbation Impression: He had rhonchi on admission. Has not had any further lung findings other than prolonged and exhalation. No tachypnea no dyspnea. - Continue on home regimen of: fluticasone, salmeterol, albuterol, and Deltasone 20 mg - Can continue on Perforomist, budesonide, and as needed albuterol while admitted (6) Radha infection of mouth Impression: He shared with me that that was an admitting diagnosis. Had it even before he was seen in the ER. It is due to his inhaler. - Continue nystatin swish and spit (7) Dementia Impression: The patient is usually a very active gentleman. 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 notes that he is more forgetful but not severe. He is still able to take care of himself. He started using a cane a few months ago because of balance issues. And in the last month has been using a walker more and more. A few falls have happened the last few weeks. 1 was in the shower. 1 was trying to get onto the toilet. He just sort of leaned forward and keeled forward onto the floor. Both times she needed a lot of help to get him off the floor. He has become very sedentary ove r the last few months. She is worried about taking him home.He has been using the walker more more in the last month. Then he had several falls the day before admission. Patient worked with PT and OT yesterday (11/03) and found to have orthostatic vitals. It was recommended that he be discharged to a SNF. Patient is alert and oriented x3 and agreed with the recommendation. - waiting for placement at a SNF
[2023-11-04] MEDS: BENZONATATE 100 MG CAPSULE PO PRN (17:54)
[2023-11-04] MEDS: LATANOPROST 0.005% OPHTH DROPS EACHEYE SCH (20:53)
[2023-11-04] MEDS: ATORVASTATIN 40 MG TABLET PO SCH (20:53)
[2023-11-04] MEDS: TAMSULOSIN 0.4 MG CAPSULE PO SCH (20:53)
[2023-11-04] MEDS: MONTELUKAST 10 MG TABLET PO SCH (20:54)
[2023-11-04] MEDS: LORATADINE 10 MG TABLET PO SCH (20:54)
[2023-11-05] MEDS: SODIUM CHLORIDE FLUSH 0.9% 10 ML SYRINGE IVP SCH ×3 (00:12→18:53)
[2023-11-05] MEDS: ZINC OXIDE 20% OINT 30 GM TUBE TOP PRN ×4 (00:12→18:53)
[2023-11-05] MEDS: BENZONATATE 100 MG CAPSULE PO PRN ×3 (04:03→20:51)
[2023-11-05 05:54] LABS: BASOPHILS % (AUTO) 0.4 %; EOSINOPHILS # (AUTO) 0.3 10^3/uL (0.0-0.7); EOSINOPHILS % (AUTO) 5.9 %; HCT - HEMATOCRIT 34.2 % (42.0-52.0); LYMPHOCYTES % (AUTO) 18.8 %; MEAN CORPUSCULAR HEMOGLOBIN 30.5 pg (27.0-31.0); MEAN CORPUSCULAR HGB CONC 32.2 g/dL (32.0-36.0); MEAN CORPUSCULAR VOLUME 94.7 fL (80.0-94.0); MEAN PLATELET VOLUME 10.4 fL (7.4-11.4); MONOCYTES # (AUTO) 0.7 10^3/uL (0.0-1.0); MONOCYTES % (AUTO) 12.3 %; NEUTROPHILS # (AUTO) 3.4 10^3/uL (1.5-6.6); NEUTROPHILS % (AUTO) 62.4 %; PLT - PLATELET COUNT 153 10^3/uL (130-450); RED BLOOD COUNT 3.61 10^6/uL (4.70-6.10); RED CELL DISTRIBUTION WIDTH 13.6 % (12.0-15.0); WHITE BLOOD COUNT 5.4 x10^3/uL (4.8-10.8)
[2023-11-05 06:21] LABS: CALCIUM 8.7 mg/dL (8.5-10.3); CREATININE 1.1 mg/dL (0.6-1.3); POTASSIUM 3.8 mmol/L (3.5-4.5)
[2023-11-05] MEDS: PANTOPRAZOLE 40 MG TABLET PO SCH (06:31)
[2023-11-05] MEDS: IPRATROPIUM/ALBUTEROL 3 ML NEB INH SCH ×6 (07:38→19:54)
[2023-11-05] MEDS: BUDESONIDE 0.5 MG/2 ML NEB INH SCH ×2 (07:38→19:54)
[2023-11-05] MEDS: FORMOTEROL FUMARATE NEB 20 MCG/2 ML INH SCH ×2 (07:38→19:54)
[2023-11-05] MEDS: polyethylene glycoL 3350 17 GM PACKET PO SCH (08:12)
[2023-11-05] MEDS: DORZOLAMIDE 2% OPHTH DROPS EACHEYE SCH ×2 (08:13→20:39)
[2023-11-05] MEDS: CLOPIDOGREL 75 MG TABLET PO SCH (08:13)
[2023-11-05] MEDS: levoFLOXacin 250 MG TABLET PO SCH (08:13)
[2023-11-05] MEDS: NYSTATIN 500000 UNITS/5 ML UDC PO SCH ×4 (08:13→20:39)
[2023-11-05] MEDS: FINASTERIDE 5 MG TABLET PO SCH (08:13)
[2023-11-05] MEDS: LACTOBACILLUS RHAMNOSUS GG CAPSULE PO SCH (08:13)
[2023-11-05] MEDS: CHOLECALCIFEROL 25 MCG TABLET PO SCH (08:14)
[2023-11-05] MEDS: MULTIVITAMIN TABLET PO SCH (08:14)
[2023-11-05] MEDS: FLUTICASONE NASAL SPRAY NAS SCH (08:14)
[2023-11-05] MEDS: APIXABAN 2.5 MG TABLET PO SCH ×2 (08:15→20:38)
--- NOTE | 2023-11-05 09:17 | PROVIDER PROGRESS NOTE ---
Subjective - Prog Note Date Prog Note Date: 11/05/23 Prog Note Time: 09:17 - Subjective Pt reports feeling: No change Subjective: 88 YOM c atrial fibrillation on Eliquis, CAD, COPD who presented to the ED with report of generalized weakness and falling at home. Patient had two falls today and was subsequently brought into the ED with . provided majority of the information. Patient last month was dx with PNA. He was started on two course of abx and steroids. Patient last abx was 10/25. Last steroids was multiple weeks ago. reported period of improvement after abx. This past couple of day however patient suddenly had difficulty walking with his walker. He lost balance multiple times and has fallen at home. Besides the abx and prednisone, no other new medications. No travel. No sick contacts. Patient has not complained of fever. He has no new URI sxs. He has no nausea, vomiting, or diarrhea. mentioned x 1 episode of blood with stool reported but not daily. No dysuria. No rash. 10/30: After being admitted to [facility], he had an episode of emesis. CT scan was done and showed him to have some fat stranding around one of his kidneys. UA is positive for UTI and culture is growing gram-negative teresita. He was started on Iv ceftriaxone. 11/03: Patient met with PT/OT to determine mobility status and was found to have orthostatic hypotension. They recommended he be discharged to a SNF for fall risk. 11/04: Patient is stable and ready for discharge. His is a bit nervous about taking him home if he cannot stand, pivot, and transfer. Patient has come to terms with possibly being discharged to a SNF. Currently, patient is stable and doing well. He is in a cheerful mood and states "today is the clearest my head has ever been." Denies any shortness of breath, chest pain, or cough. Denies any fevers, chills, pain, or weakness. Objective - Vital Signs/Intake & Output Vital Signs: Vital Signs x48h Pulse Resp 11/05/23 07:40 70 22 Intake & Output: Intake & Output 11/02/23 11/03/23 11/04/23 11/05/23 23:59 23:59 23:59 23:59 Intake Total 2140 9064.730 5744 550 Output Total 0 0 Balance 2140 7597.929 2967 550 - Objective General Appearance: positive: No acute distress, Alert Eyes Bilateral: positive: Normal inspection, PERRL, EOMI ENT: positive: No signs of dehydration Neck: positive: No JVD, Trachea midline Respiratory: positive: Chest non-tender, No respiratory distress, Breath sounds nml Cardiovascular: positive: Regular rate & rhythm, No murmur, No gallop, Systolic murmur (patient has a bovine valve) Abdomen: positive: Non-tender, Nml bowel sounds, No distention Skin: positive: Color nml, No rash, Warm, Dry Extremities: positive: Non-tender, Full ROM, Nml appearance Neurologic/Psychiatric: positive: Oriented x3 - Lab Results Fish Bones: 11/05/23 05:33 11/05/23 05:33 Other Labs: Lab Results x24hrs 11/05/23 11/05/23 Range/Units 05:33 05:33 WBC 5.4 (4.8-10.8) x10^3/uL RBC 3.61 L (4.70-6.10) 10^6/uL Hgb 11.0 L (14.0-18.0) g/dL Hct 34.2 L (42.0-52.0) % MCV 94.7 H (80.0-94.0) fL MCH 30.5 (27.0-31.0) pg MCHC 32.2 (32.0-36.0) g/dL RDW 13.6 (12.0-15.0) % Plt Count 153 (130-450) 10^3/uL MPV 10.4 (7.4-11.4) fL Neut # (Auto) 3.4 (1.5-6.6) 10^3/uL Lymph # (Auto) 1.0 L (1.5-3.5) 10^3/uL [place] # (Auto) 0.7 (0.0-1.0) 10^3/uL Eos # (Auto) 0.3 (0.0-0.7) 10^3/uL Baso # (Auto) 0.0 (0.0-0.1) 10^3/uL Absolute Nucleated RBC 0.00 x10^3/uL Nucleated RBC % 0.0 /100WBC Sodium 139 (135-145) mmol/L Potassium 3.8 (3.5-4.5) mmol/L Chloride 108 (101-111) mmol/L Carbon Dioxide 25 (21-32) mmol/L Anion Gap 6.0 (6-13) BUN 13 (6-20) mg/dL Creatinine 1.1 (0.6-1.3) mg/dL Estimated GFR (MDRD) 63 L (>89) Glucose 103 (74-104) mg/dL Calcium 8.7 (8.5-10.3) mg/dL ABX Reporting Has patient been on IV antibiotics over the past 48 hours?: No Sepsis Event Note (H) - Evaluation Current Stage of Sepsis: Resolved Possible source of Sepsis: positive: Genitourinary - Sepsis Criteria Sepsis Criteria: REPORT WRITER: altered consciousness (unrelated to primary neuro pathology) Assessment/Plan - Problem List (1) E. coli UTI Impression: Patient presented to the ER as septic with weakness, lethargy, altered mental status from an encephalopathy. Urinalysis identified the infection. And CT of the abdomen and pelvis identified the scant pyelonephritis. His sepsis criteria have all resolved. His encephalopathy seems to have resolved. Patient was alert and oriented x 3 today. Since admission he has not had any fevers. Urine culture is identified as E. coli. He completed 3 days of IV ceftriaxone. The E. coli is resistant to ampicillin and sulbactam. Sensitive to the Rocephin and sensitive to quinolones. Started on oral quinolones and WBC is within normal limits. He is medically cleared to go home. Final clearance will depend on PT and placement at a SNF. - Continue on oral antibiotics (started 11/03) for 2 weeks - Continue on Flomax for BPH - Continue working with PT/OT to determine discharge date (2) Metabolic encephalopathy Impression: RESOLVED. Although the patient has a cognitive deficit and is slightly more forgetful over the last 4 months, he is usually oriented to place, time and situation. He is also a very vivacious speaker according to the . On the , in the morning, he still has a muted affect, slow psychomotor response. His was describing frequent falls the day before. I attribute all of this to an acute infection superimposed on the patient already has cognitive deficits and gradually diminishing mobility. By yesterday afternoon he was much improved. And this morning I feel like he is at baseline. He is alert and oriented to person, place, just not time. Forgets that he is here for pyelonephritis. But his speech is more fluent, better sentence structure, and joking. (3) Acute renal failure Impression: RESOLVED. His baseline BUN is 19 or 18 and on 11/03 he is at 18. His baseline creatinine is 1.3 or 1.2. On admission he was 1.6 and as of 11/03, he is at 1.1. There is no need to continue trending BMP any further. (4) Atrial fibrillation Impression: Rate is controlled. Pulse in the 80s. Patient is on Eliquis for anticoagulation and his home medication list does not include any rate lowering agents. There is no need for metoprolol or diltiazem at this time. - Continue on Eliquis (5) COPD without exacerbation Impression: He had rhonchi on admission. Has not had any further lung findings other than prolonged and exhalation. No tachypnea no dyspnea. - Continue on home regimen of: fluticasone, salmeterol, albuterol, and Deltasone 20 mg - Can continue on Perforomist, budesonide, and as needed albuterol while admitted (6) Radha infection of mouth Impression: He shared with me that that was an admitting diagnosis. Had it even before he was seen in the ER. It is due to his inhaler. - Continue nystatin swish and spit (7) Dementia Impression: The patient is usually a very active gentleman. 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 notes that he is more forgetful but not severe. He is still able to take care of himself. He started using a cane a few months ago because of balance issues. And in the last month has been using a walker more and more. A few falls have happened the last few weeks. 1 was in the shower. 1 was trying to get onto the toilet. He just sort of leaned forward and keeled forward onto the floor. Both times she needed a lot of help to get him off the floor. He has become very sedentary over the last few months. She is worried about taking him home.He has been using the walker more more in the last month. Then he had several falls the day before admission. Patient worked with PT and OT on 11/03 and found to have orthostatic vitals. It was recommended that he be discharged to a SNF. Patient is alert and oriented x3 and agreed with the recommendation. - waiting for placement at a SNF
[2023-11-05] MEDS: SENNA 8.6 MG TABLET PO SCH ×2 (17:05→20:52)
[2023-11-05] MEDS: DOCUSATE SODIUM 250 MG CAPSULE PO SCH (17:05)
[2023-11-05] MEDS: LATANOPROST 0.005% OPHTH DROPS EACHEYE SCH (20:37)
[2023-11-05] MEDS: LORATADINE 10 MG TABLET PO SCH (20:38)
[2023-11-05] MEDS: MONTELUKAST 10 MG TABLET PO SCH (20:38)
[2023-11-05] MEDS: TAMSULOSIN 0.4 MG CAPSULE PO SCH (20:38)
[2023-11-05] MEDS: ATORVASTATIN 40 MG TABLET PO SCH (20:38)
[2023-11-06] MEDS: IPRATROPIUM/ALBUTEROL 3 ML NEB INH SCH ×4 (01:17→20:34)
[2023-11-06 05:49] LABS: BASOPHILS % (AUTO) 0.6 %; EOSINOPHILS # (AUTO) 0.4 10^3/uL (0.0-0.7); EOSINOPHILS % (AUTO) 6.3 %; HGB - HEMOGLOBIN 11.2 g/dL (14.0-18.0); LYMPHOCYTES # (AUTO) 1.2 10^3/uL (1.5-3.5); LYMPHOCYTES % (AUTO) 18.3 %; MEAN CORPUSCULAR HGB CONC 32.9 g/dL (32.0-36.0); MEAN CORPUSCULAR VOLUME 94.2 fL (80.0-94.0); MEAN PLATELET VOLUME 10.1 fL (7.4-11.4); MONOCYTES # (AUTO) 0.6 10^3/uL (0.0-1.0); NEUTROPHILS # (AUTO) 4.1 10^3/uL (1.5-6.6); NEUTROPHILS % (AUTO) 64.2 %; PLT - PLATELET COUNT 183 10^3/uL (130-450); RED BLOOD COUNT 3.61 10^6/uL (4.70-6.10); RED CELL DISTRIBUTION WIDTH 13.7 % (12.0-15.0); WHITE BLOOD COUNT 6.4 x10^3/uL (4.8-10.8)
[2023-11-06 06:02] LABS: CALCIUM 8.7 mg/dL (8.5-10.3); CREATININE 1.1 mg/dL (0.6-1.3); POTASSIUM 3.6 mmol/L (3.5-4.5)
[2023-11-06] MEDS: SENNA 8.6 MG TABLET PO SCH ×2 (06:30→10:34)
[2023-11-06] MEDS: SODIUM CHLORIDE FLUSH 0.9% 10 ML SYRINGE IVP SCH ×3 (06:37→16:13)
[2023-11-06] MEDS: PANTOPRAZOLE 40 MG TABLET PO SCH (06:37)
[2023-11-06] MEDS: BENZONATATE 100 MG CAPSULE PO PRN (06:43)
[2023-11-06] MEDS: FORMOTEROL FUMARATE NEB 20 MCG/2 ML INH SCH ×2 (07:19→20:34)
[2023-11-06] MEDS: BUDESONIDE 0.5 MG/2 ML NEB INH SCH ×2 (07:19→20:34)
--- NOTE | 2023-11-06 08:19 | PROVIDER PROGRESS NOTE ---
Subjective - Prog Note Date Prog Note Date: 11/06/23 Prog Note Time: 08:18 - Subjective Pt reports feeling: Worse Subjective: 88 YOM c atrial fibrillation on Eliquis, CAD, COPD who presented to the ED with report of generalized weakness and falling at home. Patient had two falls today and was subsequently brought into the ED with . provided majority of the information. Patient last month was dx with PNA. He was started on two course of abx and steroids. Patient last abx was 10/25. Last steroids was multiple weeks ago. reported period of improvement after abx. This past couple of day however patient suddenly had difficulty walking with his walker. He lost balance multiple times and has fallen at home. Besides the abx and prednisone, no other new medications. No travel. No sick contacts. Patient has not complained of fever. He has no new URI sxs. He has no nausea, vomiting, or diarrhea. mentioned x 1 episode of blood with stool reported but not daily. No dysuria. No rash. 10/30: After being admitted to [facility], he had an episode of emesis. CT scan was done and showed him to have some fat stranding around one of his kidneys. UA is positive for UTI and culture is growing gram-negative teresita. He was started on Iv ceftriaxone. 11/03: Patient met with PT/OT to determine mobility status and was found to have orthostatic hypotension. They recommended he be discharged to a SNF for fall risk. 11/04: Patient is stable and ready for discharge. His is a bit nervous about taking him home if he cannot stand, pivot, and transfer. Patient has come to terms with possibly being discharged to a SNF. 11/05: Patient had family visit and are just waiting for placement. Patient reports a new productive cough that began this morning. The phlegm is clear. Denies any chest pain or shortness of breath. Otherwise, he has no complaints and is looking forward to going home. Objective - Vital Signs/Intake & Output Vital Signs: Vital Signs x48h Temp Pulse Pulse Resp BP Pulse Ox 11/06/23 07:45 36.8 C 82 20 120/63 94 11/06/23 07:23 88 22 11/06/23 01:19 82 20 Intake & Output: Intake & Output 11/03/23 11/04/23 11/05/2324 23:59 23:59 23:59 23:59 Intake Total 5223.155 2420 1881 Output Total 0 0 Balance 1137.239 5721 1881 - Objective General Appearance: positive: No acute distress, Alert Eyes Bilateral: positive: Normal inspection, PERRL, EOMI ENT: positive: No signs of dehydration Neck: positive: No JVD, Trachea midline Respiratory: positive: Chest non-tender, Other (new onset productive cough) Cardiovascular: positive: Regular rate & rhythm, Systolic murmur Abdomen: positive: Non-tender, Nml bowel sounds, No distention Back: positive: Nml inspection Skin: positive: Color nml, No rash, Warm, Dry Extremities: positive: Non-tender, Full ROM, Nml appearance Neurologic/Psychiatric: positive: Oriented x3 - Lab Results Fish Bones: 11/06/23 05:33 11/06/23 05:33 Other Labs: Lab Results x24hrs 11/06/23 11/06/23 Range/Units 05:33 05:33 WBC 6.4 (4.8-10.8) x10^3/uL RBC 3.61 L (4.70-6.10) 10^6/uL Hgb 11.2 L (14.0-18.0) g/dL Hct 34.0 L (42.0-52.0) % MCV 94.2 H (80.0-94.0) fL MCH 31.0 (27.0-31.0) pg MCHC 32.9 (32.0-36.0) g/dL RDW 13.7 (12.0-15.0) % Plt Count 183 (130-450) 10^3/uL MPV 10.1 (7.4-11.4) fL Neut # (Auto) 4.1 (1.5-6.6) 10^3/uL Lymph # (Auto) 1.2 L (1.5-3.5) 10^3/uL [place] # (Auto) 0.6 (0.0-1.0) 10^3/uL Eos # (Auto) 0.4 (0.0-0.7) 10^3/uL Baso # (Auto) 0.0 (0.0-0.1) 10^3/uL Absolute Nucleated RBC 0.00 x10^3/uL Nucleated RBC % 0.0 /100WBC Sodium 138 (135-145) mmol/L Potassium 3.6 (3.5-4.5) mmol/L Chloride 109 (101-111) mmol/L Carbon Dioxide 24 (21-32) mmol/L Anion Gap 5.0 L (6-13) BUN 12 (6-20) mg/dL Creatinine 1.1 (0.6-1.3) mg/dL Estimated GFR (MDRD) 63 L (>89) Glucose 109 H (74-104) mg/dL Calcium 8.7 (8.5-10.3) mg/dL ABX Reporting Has patient been on IV antibiotics over the past 48 hours?: No Sepsis Event Note (H) - Evaluation Current Stage of Sepsis: Resolved Possible source of Sepsis: positive: Genitourinary - Sepsis Criteria 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 He was started on a breathing treatment and reports feeling well. Currently, patient has no fever an d WBC is normal. We will provide breathing treatments as needed and continue to monitor for any changes. - Breathing treatment as needed (2) E. coli UTI Impression: Patient presented to the ER as septic with weakness, lethargy, altered mental status from an encephalopathy. Urinalysis identified the infection. And CT of the abdomen and pelvis identified the scant pyelonephritis. His sepsis criteria have all resolved. His encephalopathy seems to have resolved. Patient was alert and oriented x 3 today. Since admission he has not had any fevers. Urine culture is identified as E. coli. He completed 3 days of IV ceftriaxone. The E. coli is resistant to ampicillin and sulbactam. Sensitive to the Rocephin and sensitive to quinolones. Started on oral quinolones and WBC is within normal limits. He is medically cleared to go home. Final clearance will depend on PT and placement at a SNF. - Continue on oral antibiotics (started 11/03) for 2 weeks - Continue on Flomax for BPH - Continue working with PT/OT to determine discharge date (2) Metabolic encephalopathy Impression: RESOLVED. Although the patient has a cognitive deficit and is slightly more forgetful over the last 4 months, he is usually oriented to place, time and situation. He is also a very vivacious speaker according to the . On the , in the morning, he still has a muted affect, slow psychomotor response. His was describing frequent falls the day before. I attribute all of this to an acute infection superimposed on the patient already has cognitive deficits and gradually diminishing mobility. By yesterday afternoon he was much improved. And this morning I feel like he is at baseline. He is alert and oriented to person, place, just not time. Forgets that he is here for pyelonephritis. But his speech is more fluent, better sentence structure, and joking. (3) Acute renal failure Impression: RESOLVED. His baseline BUN is 19 or 18 and on 11/03 he is at 18. His baseline creatinine is 1.3 or 1.2. On admission he was 1.6 and as of 11/03, he is at 1.1. There is no need to continue trending BMP any further. (4) Atrial fibrillation Impression: Rate is controlled. Pulse in the 80s. Patient is on Eliquis for anticoagulation and his home medication list does not include any rate lowering agents. There is no need for metoprolol or diltiazem at this time. - Continue on Eliquis (5) COPD without exacerbation Impression: He had rhonchi on admission. Has not had any further lung findings other than prolonged and exhalation. No tachypnea no dyspnea. - Continue on home regimen of: fluticasone, salmeterol, albuterol, and Deltasone 20 mg - Can continue on Perforomist, budesonide, and as needed albuterol while admitted (6) Radha infection of mouth Impression: He shared with me that that was an admitting diagnosis. Had it even before he was seen in the ER. It is due to his inhaler. - Continue nystatin swish and spit (7) Dementia Impression: The patient is usually a very active gentleman. 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 notes that he is more forgetful but not severe. He is still able to take care of himself. He started using a cane a few months ago because of balance issues. And in the last month has been using a walker more and more. A few falls have happened the last few weeks. 1 was in the shower. 1 was trying to get onto the toilet. He just sort of leaned forward and keeled forward onto the floor. Both times she needed a lot of help to get him off the floor. He has become very sedentary over the last few months. She is worried about taking him home.He has been using the walker more more in the last month. Then he had several falls the day before admission. Patient worked with PT and OT on 11/03 and found to have orthostatic vitals. It was recommended that he be discharged to a SNF. Patient is alert and oriented x3 and agreed with the recommendation. - waiting for placement at a SNF
[2023-11-06] MEDS: CHOLECALCIFEROL 25 MCG TABLET PO SCH (09:04)
[2023-11-06] MEDS: levoFLOXacin 250 MG TABLET PO SCH (09:04)
[2023-11-06] MEDS: APIXABAN 2.5 MG TABLET PO SCH ×2 (09:04→21:21)
[2023-11-06] MEDS: CLOPIDOGREL 75 MG TABLET PO SCH (09:04)
[2023-11-06] MEDS: MULTIVITAMIN TABLET PO SCH (09:04)
[2023-11-06] MEDS: FINASTERIDE 5 MG TABLET PO SCH (09:05)
[2023-11-06] MEDS: polyethylene glycoL 3350 17 GM PACKET PO SCH (09:07)
[2023-11-06] MEDS: DOCUSATE SODIUM 250 MG CAPSULE PO SCH (09:07)
[2023-11-06] MEDS: ZINC OXIDE 20% OINT 30 GM TUBE TOP PRN ×2 (09:07→21:26)
[2023-11-06] MEDS: LACTOBACILLUS RHAMNOSUS GG CAPSULE PO SCH (09:11)
[2023-11-06] MEDS: FLUTICASONE NASAL SPRAY NAS SCH (10:21)
[2023-11-06] MEDS: DORZOLAMIDE 2% OPHTH DROPS EACHEYE SCH ×2 (10:22→21:22)
[2023-11-06] MEDS: NYSTATIN 500000 UNITS/5 ML UDC PO SCH ×4 (10:27→21:22)
--- NOTE | 2023-11-06 10:42 | DISCHARGE SUMMARY ---
"<Tanya Razo - Last Filed: 11/06/23 13:26> Discharge Summary Admit Date: 10/31/23 Discharge Date: 11/06/23 Code Status: Do Not Attempt Resuscitation Condition at Discharge: Fair Discharge Disposition: 03 SNF DC/Xfer - DIAGNOSES Admission Diagnoses: 1. Cough: onset 11/06. productive cough with clear sputum. Denies SOB or chest pain. breathing treatment as needed 2. E coli UTI: resolved. patient completed 3 days IV ceftriaxone and continues on 2 weeks of quinolone (started 11/03). sepsis criteria resolved. Patient is asymptomatic. Stated on Flomax for BPH. 3. Metabolic Encephalopathy: resolved. patient is now alert and oriented x3 and back to baseline. 4. Acute renal failure: Resolved. BUN and creatinine is back to baseline 5. Atrial Fibrilation: Rate is well controlled on Eliquis, HR in the 80's. 6. COPD without exacerbation: Continue on home regimen of fluticasone, sa lmeterol, albuterol, and Deltasone 20 mg. No tachypnea or dyspnea. 7. Oral candidiasis: Due to his inhaler. Continue on nyastin swish and spit. 8. Dementia: Patient has been alert and oriented during his hospitalization. Occasionally forgets why he was initially admitted but otherwise no cognitive deficits. PT advised patient be discharged to a SNF due to orthostatic vitals and general weakness. - HPI History of Present Illness: 88 year old male with a history of COPD, CAD, A fib on Eliquis, and a bovine valve replacement who was admitted after falling twice at home and complaining of a progressive weakness and cough due to pneumonia found last month. He completed a course of Augmentin and doxycycline with dexamethasone but continues to cough with purulent sputum and SOB. He started wearing a diaper due to weakness and being unable to make it to the bathroom in time (not incontinent). - CONSULTS | PROCEDURES Procedures: 11/01 CT Chest: bibasilar opacities, mucous plugging, bronchial wall thickening, and upper lobe ground-glass opacities, likely air space infection/aspiration. superimprosed atelectasis. no pleural effusion 11/01 CT abd/pelvis: pervesicular fat stranding seen, correlates with urinanal ysis for infection. no other acute abnormalities. no drainable fluid collection or bowel obstruction 11/01 UA: positive for UTI, gram neg rods seen - HOSPITAL COURSE Hospital Course: After being admitted to [facility], he had an episode of emesis. CT scan was done and showed him to have some fat stranding around one of his kidneys. UA is positive for UTI and culture is growing gram-negative teresita. He was started on IV ceftriaxone. 11/03: Patent completed 3 days of IV ceftriaxone and was transitioned to oral quinolones. He met with PT/OT who recommended he be discharged to a SNF for fall risk due to symptomatic orthostatic hypotension. We discussed this with his at length. While his would like him to come home, she prefers that he go to a SNF if he cannot stand, pivot, and transfer. Patient is much more alert and oriented. He is energetic and talkative. Patient reports a new productive cough that began this morning (11/06). The phlegm is clear. Denies any chest pain or shortness of breath. Otherwise, he has no complaints and is looking forward to going home. - ALLERGIES Allergies/Adverse Reactions: Allergies Allergy/AdvReac Type Severity Reaction Status Date / Time aspirin Allergy Respiratory Verified 10/31/23 17:07 - MEDICATIONS Home Medications: Ambulatory Orders Medication Instructions Recorded Confirmed Clopidogrel [Plavix] 75 mg PO DAILY 07/29/17 11/01/23 Montelukast [Singulair] 10 mg PO HS 07/29/17 11/01/23 Acetaminophen [Tylenol] 650 mg PO Q6H PRN 04/13/21 11/02/23 Cholecalciferol [Vitamin D3] 25 mcg PO DAILY 04/13/21 11/02/23 Dorzolamide 2% Ophth Drops 1 drops EACHEYE BID 04/13/21 11/02/23 [Trusopt 2% Ophth Drops] Fexofenadine HCl 180 mg PO DAILY PM 04/13/21 11/02/23 Latanoprost/Pf [Latanoprost 0.005% 1 drops OP HS 04/13/21 11/01/23 Eye Drop] Magnesium Oxide [Mag Ox] 400 mg PO DAILY 04/13/21 11/02/23 Multivitamin 1 tab ORAL DAILY 04/13/21 11/02/23 Tamsulosin HCl [Flomax] 0.4 mg ORAL DAILY PM 04/13/21 11/01/23 Ubidecarenone [Co Q-10] 2 tab ORAL DAILY 04/13/21 11/02/23 Vitamin E 400 unit PO DAILY 04/13/21 11/02/23 Atorvastatin [Lipitor] 40 mg PO QPM #30 tablet 04/14/21 11/01/23 Apixaban [Eliquis] 2.5 mg PO BID 11/10/22 11/01/23 Finasteride [Proscar] 5 mg PO DAILY 11/10/22 11/01/23 Trospium Chloride [Trospium 60 mg PO DAILY 11/10/22 11/01/23 Chloride ER] Calcium Carbonate [Tums (Calcium 500 mg PO Q4H PRN 11/02/23 11/02/23 Carbonate 500mg)] Carboxymethylcellulose Sodium 1 drops EACHEYE Q4H PRN 11/02/23 11/02/23 [Refresh Tears] Budesonide [Pulmicort] 0.5 mg INH RTBID PRN #10 ml 11/10/23 Fluticasone [Flonase] 2 sprays LAURA DAILY #1 each 11/10/23 Ipratropium/Albuterol [Duoneb] 3 ml INH Q6H PRN #10 ea 11/10/23 11/02/23 Lactobac 66/Bifido 4/S.thermo 1 each PO DAILY #14 tab 11/10/23 [Probiotic Acidophilus 3B Cell] Loratadine [Claritin] 10 mg PO QPM #30 tab 11/10/23 Midodrine [ProAmatine] 5 mg PO TIDWM #90 tab 11/10/23 Zinc Oxide 20% Oint [Zinc Oxide] 1 applic TOP PRN PRN each 11/10/23 levoFLOXacin [Levofloxacin] 500 mg PO DAILY #14 tablet 11/10/23 - PHYSICAL EXAM AT DISCHARGE General Appearance: positive: No acute distress, Alert Eyes Bilateral: positive: Normal inspection, PERRL, EOMI ENT: positive: No signs of dehydration Neck: positive: No JVD, Trachea midline Respiratory: positive: Chest non-tender, No respiratory distress, Other (productive cough) Cardiovascular: positive: Regular rate & rhythm, Systolic murmur Abdomen: positive: Non-tender, Nml bowel sounds, No distention Back: positive: Nml inspection Skin: positive: Color nml, No rash, Warm, Dry Extremities: positive: Non-tender, Full ROM, Nml appearance Neurologic/Psychiatric: positive: Oriented x3, Motor nml, Sensation nml - LABS Result Diagrams: 11/06/23 05:33 11/06/23 05:33 - DIAGNOSTIC IMAGING Diagnostic Imaging Results: Final report reviewed - SEPSIS Current Stage of Sepsis: Resolved Possible source of Sepsis: Genitourinary 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 - TIME SPENT Time Spent in Discharge (Minutes): 60 <Precious Morse - Last Filed: 11/14/23 08:55> Discharge Summary Discharging Provider: Precious Morse MD - HOSPITAL COURSE Hospital Course: this patient's discharge was delayed to a later day. That dc summary is correct for date of dc and hospital course. - LABS Result Diagrams: 11/07/23 04:54 11/10/23 04:57"
[2023-11-06] MEDS: MONTELUKAST 10 MG TABLET PO SCH (21:21)
[2023-11-06] MEDS: TAMSULOSIN 0.4 MG CAPSULE PO SCH (21:21)
[2023-11-06] MEDS: ATORVASTATIN 40 MG TABLET PO SCH (21:21)
[2023-11-06] MEDS: LORATADINE 10 MG TABLET PO SCH (21:22)
[2023-11-06] MEDS: LATANOPROST 0.005% OPHTH DROPS EACHEYE SCH (21:22)
[2023-11-07] MEDS: ZINC OXIDE 20% OINT 30 GM TUBE TOP PRN (00:32)
[2023-11-07] MEDS: SODIUM CHLORIDE FLUSH 0.9% 10 ML SYRINGE IVP SCH ×3 (00:35→18:29)
[2023-11-07 05:16] LABS: BASOPHILS % (AUTO) 0.5 %; EOSINOPHILS # (AUTO) 0.6 10^3/uL (0.0-0.7); HCT - HEMATOCRIT 33.3 % (42.0-52.0); HGB - HEMOGLOBIN 10.9 g/dL (14.0-18.0); LYMPHOCYTES # (AUTO) 1.3 10^3/uL (1.5-3.5); LYMPHOCYTES % (AUTO) 19.4 %; MEAN CORPUSCULAR HGB CONC 32.7 g/dL (32.0-36.0); MEAN CORPUSCULAR VOLUME 94.6 fL (80.0-94.0); MEAN PLATELET VOLUME 10.2 fL (7.4-11.4); MONOCYTES # (AUTO) 0.7 10^3/uL (0.0-1.0); MONOCYTES % (AUTO) 10.4 %; NEUTROPHILS # (AUTO) 3.9 10^3/uL (1.5-6.6); NEUTROPHILS % (AUTO) 59.9 %; PLT - PLATELET COUNT 217 10^3/uL (130-450); RED BLOOD COUNT 3.52 10^6/uL (4.70-6.10); RED CELL DISTRIBUTION WIDTH 13.9 % (12.0-15.0); WHITE BLOOD COUNT 6.4 x10^3/uL (4.8-10.8)
[2023-11-07 05:33] LABS: CALCIUM 8.9 mg/dL (8.5-10.3); CREATININE 1.2 mg/dL (0.6-1.3); POTASSIUM 3.7 mmol/L (3.5-4.5)
[2023-11-07] MEDS: PANTOPRAZOLE 40 MG TABLET PO SCH (06:26)
[2023-11-07] MEDS: BUDESONIDE 0.5 MG/2 ML NEB INH SCH ×2 (07:27→18:07)
[2023-11-07] MEDS: FORMOTEROL FUMARATE NEB 20 MCG/2 ML INH SCH ×2 (07:27→18:07)
[2023-11-07] MEDS: IPRATROPIUM/ALBUTEROL 3 ML NEB INH SCH ×4 (07:27→18:07)
[2023-11-07] MEDS: levoFLOXacin 250 MG TABLET PO SCH (09:10)
[2023-11-07] MEDS: DOCUSATE SODIUM 250 MG CAPSULE PO SCH (09:10)
[2023-11-07] MEDS: APIXABAN 2.5 MG TABLET PO SCH ×2 (09:10→20:30)
[2023-11-07] MEDS: CLOPIDOGREL 75 MG TABLET PO SCH (09:11)
[2023-11-07] MEDS: LACTOBACILLUS RHAMNOSUS GG CAPSULE PO SCH (09:11)
[2023-11-07] MEDS: FINASTERIDE 5 MG TABLET PO SCH (09:11)
[2023-11-07] MEDS: CHOLECALCIFEROL 25 MCG TABLET PO SCH (09:11)
[2023-11-07] MEDS: DORZOLAMIDE 2% OPHTH DROPS EACHEYE SCH ×2 (09:11→20:30)
[2023-11-07] MEDS: MULTIVITAMIN TABLET PO SCH (09:11)
[2023-11-07] MEDS: NYSTATIN 500000 UNITS/5 ML UDC PO SCH ×3 (09:11→20:30)
[2023-11-07] MEDS: FLUTICASONE NASAL SPRAY NAS SCH (09:11)
[2023-11-07] MEDS: polyethylene glycoL 3350 17 GM PACKET PO SCH (09:12)
--- NOTE | 2023-11-07 10:44 | PROVIDER PROGRESS NOTE ---
Assessment/Plan - Problem List (1) Orthostatic hypotension Assessment/Plan: Today he is severely orthostatic: supine BP 132/76 w/ HR 78, sitting BP 123/73 w/ HR 81 and standing BP 98/52 w/ HR 86. Plan: He is not ready for [facility] today He is not on any BP meds to put hold parameters on, and I do not want him to stop his 3 Urol meds Will give 500 cc saline iv Follow BMP, poss he will need Midodrine or a daily salt tablet (2) E. coli UTI Impression: Patient presented to the ER as septic with weakness, lethargy, altered mental status from an encephalopathy. Urinalysis identified the infection. And CT of the abdomen and pelvis identified pyelonephritis. His sepsis criteria have all resolved. His encephalopathy seems to have resolved. Since admission he has not had any fevers. Urine culturegreww out E. coli. He completed 3 days of IV ceftriaxone. The E. coli is resistant to ampicillin and sulbactam, sensitive to the Rocephin and s ensitive to quinolones. We started him on oral quinolones and WBC is within normal limits. Plan: Continue on oral antibiotics (started 11/03) for 2 weeks minimum, or I favor 21 days. I discussed this with at bedside today Continue on his meds for BPH Continue working with PT/OT (3) Atrial fibrillation Impression: Rate is controlled. Pulse in the 80s. Patient is on Eliquis for anticoagulation for stroke prophylaxis and his home medication list does not include any HR-lowering agents. There is no need for metoprolol or diltiazem at this time. Plan: Continue on Eliquis (4) COPD without exacerbation Impression: He had rhonchi on admission and a cough yesterday. Has not had any further lung findings other than prolonged exhalation. No tachypnea no dyspnea. Plan: Continue on home regimen of: fluticasone, salmeterol, albuterol prn, and Deltasone 20 mg Can continue on Perforomist, budesonide, and as needed albuterol while admitted (5) Radha infection of mouth Impression: He thought that was his admitting diagnosis. Had it even before he was seen in the ER. It is due to his inhaler. Plan: Continue nystatin swish and spit (6) Dementia Impression: The patient is usually a very active gentleman. 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 notes that he is more forgetful but not severe. He is still able to take care of himself. He started using a cane a few months ago because of balance issues. And in the last month has been using a walker more and more. A few falls have happened the last few weeks. 1 was in the shower. 1 was trying to get onto the toilet. He just sort of leaned forward and keeled forward onto the floor. Both times needed a lot of help to get him off the floor. He has become very sedentary over the last few months. She is worried about taking him home. He has been using the walker more more in the last month. Then he had several falls the day before admission. Patient worked with PT and OT and found to have orthostatic vitals as he has today (see #1) Plan: PT recommended that he be discharged to a SNF. Patient and agree with the recommendation. Anticipate Dc soon (7) Metabolic encephalopathy Impression: RESOLVED. Although the patient has a cognitive deficit and is slightly more forgetful over the last 4 months, he is usually oriented to place, time and situation. He is a lso a very vivacious speaker according to the . On the , in the morning, he still has a muted affect, slow psychomotor response. His was describing frequent falls recently. We attributed much of this to an acute infection superimposed on the patient already has cognitive deficits and gradually diminishing mobility. By 11/05 in afternoon he was much improved. He is now alert and oriented to person, place, just not time. Forgets that he is here for pyelonephritis. But his speech is more fluent, better sentence structure, and is joking. (8) Acute renal failure Impression: RESOLVED. His baseline BUN is 18-19 and on 11/03 it was at 18. His baseline creatinine is 1.2-1.3. On admission creat was 1.6 and as of 11/03, creat was at 1.1. T - Current Meds Current Meds: Current Medications Generic Name Dose Route Start Last Admin Trade Name Freq PRN Reason Stop Dose Admin Albuterol/Ipratropium 3 ml 11/01/23 06:00 11/07/23 07:27 Ipratropium/Albuterol 3 Ml Neb INH 3 ml Q6HR ZARIA Administration Apixaban 2.5 mg 10/31/23 21:00 11/07/23 09:10 Apixaban 2.5 Mg Tablet PO 2.5 mg BID ZARIA Administration Atorvastatin Calcium 40 mg 10/31/23 21:00 11/06/23 21:21 Atorvastatin 40 Mg Tablet PO 40 mg QPM ZARIA Administration Benzonatate 100 mg 10/31/23 19:54 11/06/23 06:43 Benzonatate 100 Mg Capsule PO 100 mg TID PRN Administration Cough Budesonide 0.5 mg 11/01/23 07:00 11/07/23 07:27 Budesonide 0.5 Mg/2 Ml Neb INH 0.5 mg RTBID ZARIA Administration Cholecalciferol 25 mcg 11/01/23 09:00 11/07/23 09:11 Cholecalciferol 25 Mcg Tablet PO 25 mcg DAILY ZARIA Administration Clopidogrel Bisulfate 75 mg 11/01/23 09:00 11/07/23 09:11 Clopidogrel 75 Mg Tablet PO 75 mg DAILY ZARIA Administration Docusate Sodium 250 - 500 mg 11/05/23 17:00 11/07/23 09:10 Docusate Sodium 250 Mg Capsule PO 250 mg DAILY ZARIA Administration Dorzolamide HCl 1 drops 11/04/23 21:00 11/07/23 09:11 Dorzolamide 2% Ophth Drops EACHEYE 1 drops BID ZARIA Administration Finasteride 5 mg 11/01/23 09:00 11/07/23 09:11 Finasteride 5 Mg Tablet PO 5 mg DAILY ZARIA Administration Fluticasone Propionate 2 sprays 11/01/23 09:00 11/07/23 09:11 Fluticasone Nasal Etters LAURA 2 sprays DAILY ZARIA Administration Formoterol Fumarate 20 mcg 11/01/23 07:00 11/07/23 07:27 Formoterol Fumarate Neb 20 Mcg/2 Ml INH 20 mcg RTBID ZARIA Administration Lactobacillus Rhamnosus 1 cap 11/06/23 10:00 11/07/23 09:11 Lactobacillus Rhamnosus Gg Capsule PO 1 cap DAILY ZARIA Administration Latanoprost 1 drops 10/31/23 21:00 11/06/23 21:22 Latanoprost 0.005% Ophth Drops EACHEYE 1 drops QPM ZARIA Administration Levofloxacin 500 mg 11/03/23 09:00 11/07/23 09:10 Levofloxacin 250 Mg Tablet PO 500 mg DAILY ZARIA Administration Loratadine 10 mg 10/31/23 21:00 11/06/23 21:22 Loratadine 10 Mg Tablet PO 10 mg QPM ZARIA Administration Montelukast Sodium 10 mg 10/31/23 21:00 11/06/23 21:21 Montelukast 10 Mg Tablet PO 10 mg QPM ZARIA Administration Multi-Ingredient Ointment 1 applic 11/02/23 10:03 11/07/23 00:32 Zinc Oxide 20% Oint 30 Gm Tube TOP 1 applic PRN PRN Administration Skin Care Multivitamins 1 tab 11/01/23 08:00 11/07/23 09:11 Multivitamin Tablet PO 1 tab DAILYWM ZARIA Administration Nystatin 5 ml 11/04/23 11:00 11/07/23 09:11 Nystatin 109368 Units/5 Ml Udc PO 5 ml QID ZARIA Administration Pantoprazole Sodium 40 mg 11/03/23 07:00 11/07/23 06:26 Pantoprazole 40 Mg Tablet PO 40 mg QDAC ZARIA Administration Polyethylene Glycol 17 gm 11/04/23 09:00 11/07/23 09:12 Polyethylene Glycol 3350 17 Gm Packet PO 17 gm DAILY ZARIA Administration Sodium Chloride 10 ml 11/01/23 01:00 11/07/23 09:12 Sodium Chloride Flush 0.9% 10 Ml Syringe IVP 10 ml 0100,0900,1700 ZARIA Administration Tamsulosin HCl 0.4 mg 10/31/23 21:00 11/06/23 21:21 Tamsulosin 0.4 Mg Capsule PO 0.4 mg HS ZARIA Administration - Lab Result Fish Bone Diagrams: 11/07/23 04:54 11/07/23 04:54 Subjective - Subjective Patient Reports: Resting Comfortably Objective Vital Signs: Vital Signs - 24 hr 11/06/23 11/06/23 11/07/23 15:49 20:41 00:34 Temperature 36.8 C 36.8 C Heart Rate 78 Heart Rate [ 78 79 Brachial] Respiratory 20 20 20 Rate Blood Pressure 137/77 H 130/71 [Right Brachial artery] O2 Saturation 94 92 11/07/23 11/07/23 07:30 08:04 Temperature 36.7 C Heart Rate 78 Heart Rate [ Brachial] Respiratory 20 78 H Rate Blood Pressure 132/76 H [Right Brachial artery] O2 Saturation 93 Oxygen O2 Source Room air I&O (Last 24 Hrs): Intake and Output Totals x24h 11/05/23 11/06/23 11/07/23 23:59 23:59 23:59 Intake Total 1882 1290 340 Balance 1882 1290 340 General: Alert, No acute distress HEENT: Mucous membr. moist/pink Neck: Supple, No JVD Neuro: Alert, Other (Poor memory) Cardiovascular: Regular rate, No murmurs Respiratory: No respiratory distress, Breath sounds nml (except scattered poor air mvm) Abdomen: Normal bowel sounds, Soft Extremities: No clubbing, No edema, No tenderness/swelling - Results Results: Laboratory Results WBC 6.4 x10^3/uL (4.8-10.8) 11/07/23 04:54 RBC 3.52 10^6/uL (4.70-6.10) L 11/07/23 04:54 Hgb 10.9 g/dL (14.0-18.0) L 11/07/23 04:54 Hct 33.3 % (42.0-52.0) L 11/07/23 04:54 MCV 94.6 fL (80.0-94.0) H 11/07/23 04:54 MCH 31.0 pg (27.0-31.0) 11/07/23 04:54 MCHC 32.7 g/dL (32.0-36.0) 11/07/23 04:54 RDW 13.9 % (12.0-15.0) 11/07/23 04:54 Plt Count 217 10^3/uL (130-450) 11/07/23 04:54 MPV 10.2 fL (7.4-11.4) 11/07/23 04:54 Neut # (Auto) 3.9 10^3/uL (1.5-6.6) 11/07/23 04:54 Lymph # (Auto) 1.3 10^3/uL (1.5-3.5) L 11/07/23 04:54 [place] # (Auto) 0.7 10^3/uL (0.0-1.0) 11/07/23 04:54 Eos # (Auto) 0.6 10^3/uL (0.0-0.7) 11/07/23 04:54 Baso # (Auto) 0.0 10^3/uL (0.0-0.1) 11/07/23 04:54 Absolute Nucleated RBC 0.00 x10^3/uL 11/07/23 04:54 Total Counted 100 10/31/23 17:42 Band Neuts % (Manual) 10 % (0-10) 10/31/23 17:42 Reactive Lymphs % (Man) 1 % 10/31/23 17:42 Abnorm Lymph % (Manual) 0 % 10/31/23 17:42 Nucleated RBC % 0.0 /100WBC 11/07/23 04:54 Neutrophils # (Manual) 19.8 10^3/uL (1.5-6.6) H 10/31/23 17:42 Lymphocytes # (Manual) 0.4 10^3/uL (1.5-3.5) L 10/31/23 17:42 Monocytes # (Manual) 0.8 10^3/uL (0.0-1.0) 10/31/23 17:42 Eosinophils # (Manual) 0.0 10^3/uL (0-0.7) 10/31/23 17:42 Basophils # (Manual) 0.0 10^3/uL (0-0.1) 10/31/23 17:42 Differential Comment MANUAL DIFFERENTIAL 10/31/23 17:42 Platelet Estimate NORMAL (130-450,000) (NORMAL) 10/31/23 17:42 Platelet Morphology NORMAL APPEARANCE (NORMAL) 10/31/23 17:42 RBC Morph Micro Appear NORMAL APPEARANCE (NORMAL) 10/31/23 17:42 VBG pH 7.448 (7.31-7.41) H 10/31/23 17:42 VBG pCO2 37.0 mmHg (41-51) L 10/31/23 17:42 VBG pO2 29.5 mmHg (25-47) 10/31/23 17:42 VBG HCO3 25.0 mmol/L (23-28) 10/31/23 17:42 VBG Total CO2 26.2 mmol/L (24-29) 10/31/23 17:42 VBG O2 Saturation 60.5 % (60-80) 10/31/23 17:42 VBG Base Excess 1.2 mmol/L (-2 - +2) 10/31/23 17:42 Sodium 139 mmol/L (135-145) 11/07/23 04:54 Potassium 3.7 mmol/L (3.5-4.5) 11/07/23 04:54 Chloride 108 mmol/L (101-111) 11/07/23 04:54 Carbon Dioxide 25 mmol/L (21-32) 11/07/23 04:54 Anion Gap 6.0 (6-13) 11/07/23 04:54 BUN 10 mg/dL (6-20) 11/07/23 04:54 Creatinine 1.2 mg/dL (0.6-1.3) 11/07/23 04:54 Estimated GFR (MDRD) 57 (>89) L 11/07/23 04:54 Glucose 116 mg/dL (74-104) H 11/07/23 04:54 Estimat Average Glucose 140 mg/dL (70-100) H 10/31/23 20:27 Hemoglobin A1c % 6.5 % (4.27-6.07) H 10/31/23 20:27 Lactic Acid 0.9 mmol/L (0.5-2.2) 11/01/23 05:52 Calcium 8.9 mg/dL (8.5-10.3) 11/07/23 04:54 Magnesium 1.6 mg/dL (1.7-2.3) L 10/31/23 17:42 Total Bilirubin 1.2 mg/dL (0.2-1.0) H 10/31/23 17:42 AST 11 IU/L (10-42) 10/31/23 17:42 ALT 17 IU/L (10-60) 10/31/23 17:42 Alkaline Phosphatase 56 IU/L (42-121) 10/31/23 17:42 Total Creatine Kinase 51 IU/L (30-223) 10/31/23 17:42 Troponin I High Sens 28.7 ng/L (2.3-19.7) H* 10/31/23 20:27 B-Natriuretic Peptide 477 pg/mL (5-100) H 10/31/23 20:27 Total Protein 5.8 g/dL (6.4-8.9) L 10/31/23 17:42 Albumin 3.2 g/dL (3.2-5.5) 10/31/23 17:42 Globulin 2.6 g/dL (2.1-4.2) 10/31/23 17:42 Albumin/Globulin Ratio 1.2 (1.0-2.2) 10/31/23 17:42 Triglycerides 76 mg/dL (48-352) 11/01/23 05:52 Cholesterol 82 mg/dL (-200) 11/01/23 05:52 LDL Cholesterol, Calc 27 mg/dL (-129) 11/01/23 05:52 VLDL Cholesterol 15 mg/dL 11/01/23 05:52 HDL Cholesterol 40 mg/dL (60-) L 11/01/23 05:52 LDL/HDL Ratio 0.7 (<3.6) 11/01/23 05:52 Cholesterol/HDL Ratio 2.1 (<5.0) 11/01/23 05:52 Procalcitonin Immunoas 0.60 ng/mL (<0.5) 10/31/23 20:27 TSH 1.88 uIU/mL (0.34-5.60) 10/31/23 20:27 Random Cortisol 16.4 ug/dL 11/01/23 05:52 Urine Color YELLOW 10/31/23 19:30 Urine Clarity CLOUDY (CLEAR) 10/31/23 19:30 Urine pH 6.5 PH (5.0-7.5) 10/31/23 19:30 Ur Specific [place] 1.015 (1.002-1.030) 10/31/23 19:30 Urine Protein 100 mg/dL (NEGATIVE) H 10/31/23 19:30 Urine Glucose (UA) NEGATIVE mg/dL (NEGATIVE) 10/31/23 19:30 Urine Ketones TRACE mg/dL (NEGATIVE) 10/31/23 19:30 Urine Occult Blood LARGE (NEGATIVE) H 10/31/23 19:30 Urine Nitrite POSITIVE (NEGATIVE) H 10/31/23 19: Urine Bilirubin NEGATIVE (NEGATIVE) 10/31/23 19: Urine Urobilinogen 0.2 (NORMAL) E.U./dL (NORMAL) 10/31/23 19:30 Ur Leukocyte Esterase MODERATE (NEGATIVE) H 10/31/23 19:30 Urine RBC 11-25 /HPF (0-5) H 10/31/23 19:30 Urine WBC >25 /HPF (0-3) H 10/31/23 19:30 Ur Squamous Epith Cells NONE SEEN (<= Few) 10/31/23 19:30 Urine Bacteria Many /HPF (None Seen) H 10/31/23 19:30 Urine Culture Comments INDICATED 10/31/23 19:30 Sepsis Event Note (H) - Evaluation Current Stage of Sepsis: Resolved Possible source of Sepsis: positive: Genitourinary - Sepsis Criteria Sepsis Criteria: [employer]: altered consciousness (unrelated to primary neuro pathology)
[2023-11-07] MEDS ORDERED: SODIUM CHLORIDE 0.9% 1,000 ML IV SCH (17:00)
[2023-11-07] MEDS: BENZONATATE 100 MG CAPSULE PO PRN (18:30)
[2023-11-07] MEDS: ATORVASTATIN 40 MG TABLET PO SCH (20:30)
[2023-11-07] MEDS: LORATADINE 10 MG TABLET PO SCH (20:30)
[2023-11-07] MEDS: TAMSULOSIN 0.4 MG CAPSULE PO SCH (20:30)
[2023-11-07] MEDS: LATANOPROST 0.005% OPHTH DROPS EACHEYE SCH (20:30)
[2023-11-07] MEDS: MONTELUKAST 10 MG TABLET PO SCH (20:30)
[2023-11-08] MEDS: PANTOPRAZOLE 40 MG TABLET PO SCH (06:11)
[2023-11-08] MEDS: SODIUM CHLORIDE FLUSH 0.9% 10 ML SYRINGE IVP SCH ×3 (06:12→17:46)
[2023-11-08] MEDS: FORMOTEROL FUMARATE NEB 20 MCG/2 ML INH SCH ×2 (09:52→22:06)
[2023-11-08] MEDS: IPRATROPIUM/ALBUTEROL 3 ML NEB INH SCH ×3 (09:52→22:05)
[2023-11-08] MEDS: BUDESONIDE 0.5 MG/2 ML NEB INH SCH ×2 (09:52→22:06)
--- NOTE | 2023-11-08 10:57 | PROVIDER PROGRESS NOTE ---
Assessment/Plan - Problem List (1) Orthostatic hypotension Assessment/Plan: He was orthostatic yesterday and got a 500 cc saline iv infusion. Today he is still severely orthostatic: supine BP 135/75 w/ HR 79, sitting BP 129/74 w/ HR 74, and standing BP 91/52 w/ HR 95. Plan: He is not ready for DCH today He is not on any BP meds to put hold parameters on, and I do not want him to stop his 3 Urol meds Start Midodrine 2.5 po TID with meals. I updated the at [facility] regarding the meds and plan. Follow orthostatic VS qshift (2) E. coli UTI Impression: Patient presented to the ER as septic with weakness, lethargy, altered mental status from an encephalopathy. Urinalysis identified the infection. And CT of the abdomen and pelvis identified pyelonephritis. His sepsis criteria have all resolved. His encephalopathy seems to have r esolved. Since admission he has not had any fevers. Urine culturegreww out E. coli. He completed 3 days of IV ceftriaxone. The E. coli is resistant to ampicillin and sulbactam, sensitive to the Rocephin and sensitive to quinolones. We started him on oral quinolones and WBC is within normal limits. Plan: Continue on oral antibiotics (started 11/03) for 2 weeks minimum, or I favor 21 days. Continue on his meds for BPH Continue working with PT/OT (3) Atrial fibrillation Impression: Rate is controlled. Pulse in the 80s. Patient is on Eliquis for anticoa gulation for stroke prophylaxis and his home medication list does not include any HR-lowering agents. There is no need for metoprolol or diltiazem at this time. Plan: Continue on Eliquis (4) COPD without exacerbation Impression: He had rhonchi on admission and a cough yesterday. Has not had any further lung findings other than prolonged exhalation. No tachypnea no dyspnea. Plan: Continue on home regimen of: fluticasone, salmeterol, albuterol prn, and Del tasone 20 mg Can continue on Perforomist, budesonide, and as needed albuterol while admitted (5) BPH Impression: Patient is on 3 meds for this. Continue these. (6) Dementia Impression: The patient is usually a very active gentleman. 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 notes that he is more forgetful but not severe. He is still able to take care of himself. He started using a cane a few months ago because of balance issues. And in the last month has been using a walker more and more. A few falls have happened the last few weeks. 1 was in the shower. 1 was trying to get onto the toilet. He just sort of leaned forward and keeled forward onto the floor. Both times needed a lot of help to get him off the floor. He has become very sedentary over the last few months. She is worried about taking him home. He has been using the walker more more in the last month. Then he had several falls the day before admission. Patient worked with PT and OT and found to have orthostatic vitals as he has today (see #1) Plan: PT recommended that he be discharged to a SNF. Patient and agree with the recommendation. Anticipate Dc soon (7) Metabolic encephalopathy Impression: RESOLVED. Although the patient has a cognitive deficit and is slightly more forgetful over the last 4 months, he is usually oriented to place, time and situation. He is also a very vivacious speaker according to the . On the , in the morning, he still has a muted affect, slow psychomotor response. His was describing frequent falls recently. We attributed much of this to an acute infection superimposed on the patient already has cognitive deficits and gradually diminishing mobility. By 11/05 in afternoon he was much improved. He is now alert and oriented to person, place, just not time. Forgets that he is here for pyelonephritis. But his speech is more fluent, better sentence structure, and is joking. (8) Acute renal failure Impression: RESOLVED. His baseline BUN is 18-19 and on 11/03 it was at 18. His baseline creatinine is 1.2-1.3. On admission creat was 1.6 and as of 11/03, creat was at 1.1. T - Current Meds Current Meds: Current Medications Generic Name Dose Route Start Last Admin Trade Name Freq PRN Reason Stop Dose Admin Albuterol/Ipratropium 3 ml 11/01/23 06:00 11/08/23 09:52 Ipratropium/Albuterol 3 Ml Neb INH 3 ml Q6HR ZARIA Administration Apixaban 2.5 mg 10/31/23 21:00 11/07/23 20:30 Apixaban 2.5 Mg Tablet PO 2.5 mg BID ZARIA Administration Atorvastatin Calcium 40 mg 10/31/23 21:00 11/07/23 20:30 Atorvastatin 40 Mg Tablet PO 40 mg QPM ZARIA Administration Benzonatate 100 mg 10/31/23 19:54 11/07/23 18:30 Benzonatate 100 Mg Capsule PO 100 mg TID PRN Administration Cough Budesonide 0.5 mg 11/01/23 07:00 11/08/23 09:52 Budesonide 0.5 Mg/2 Ml Neb INH 0.5 mg RTBID ZARIA Administration Cholecalciferol 25 mcg 11/01/23 09:00 11/07/23 09:11 Cholecalciferol 25 Mcg Tablet PO 25 mcg DAILY ZARIA Administration Clopidogrel Bisulfate 75 mg 11/01/23 09:00 11/07/23 09:11 Clopidogrel 75 Mg Tablet PO 75 mg DAILY ZARIA Administration Docusate Sodium 250 - 500 mg 11/05/23 17:00 11/07/23 09:10 Docusate Sodium 250 Mg Capsule PO 250 mg DAILY ZARIA Administration Dorzolamide HCl 1 drops 11/04/23 21:00 11/07/23 20:30 Dorzolamide 2% Ophth Drops EACHEYE 1 drops BID ZARIA Administration Finasteride 5 mg 11/01/23 09:00 11/07/23 09:11 Finasteride 5 Mg Tablet PO 5 mg DAILY ZARIA Administration Fluticasone Propionate 2 sprays 11/01/23 09:00 11/07/23 09:11 Fluticasone Nasal [place] LAURA 2 sprays DAILY ZARIA Administration Formoterol Fumarate 20 mcg 11/01/23 07:00 11/08/23 09:52 Formoterol Fumarate Neb 20 Mcg/2 Ml INH 20 mcg RTBID ZARIA Administration Lactobacillus Rhamnosus 1 cap 11/06/23 10:00 11/07/23 09:11 Lactobacillus Rhamnosus Gg Capsule PO 1 cap DAILY ZARIA Administration Latanoprost 1 drops 10/31/23 21:00 11/07/23 20:30 Latanoprost 0.005% Ophth Drops EACHEYE 1 drops QPM ZARIA Administration Levofloxacin 500 mg 11/03/23 09:00 11/07/23 09:10 Levofloxacin 250 Mg Tablet PO 500 mg DAILY ZARIA Administration Loratadine 10 mg 10/31/23 21:00 11/07/23 20:30 Loratadine 10 Mg Tablet PO 10 mg QPM ZARIA Administration Montelukast Sodium 10 mg 10/31/23 21:00 11/07/23 20:30 Montelukast 10 Mg Tablet PO 10 mg QPM ZARIA Administration Multi-Ingredient Ointment 1 applic 11/02/23 10:03 11/07/23 00:32 Zinc Oxide 20% Oint 30 Gm Tube TOP 1 applic PRN PRN Administration Skin Care Multivitamins 1 tab 11/01/23 08:00 11/07/23 09:11 Multivitamin Tablet PO 1 tab DAILYWM ZARIA Administration Nystatin 5 ml 11/04/23 11:00 11/07/23 20:30 Nystatin 327750 Units/5 Ml Udc PO 5 ml QID [facility] Administration Pantoprazole Sodium 40 mg 11/03/23 07:00 11/08/23 06:11 Pantoprazole 40 Mg Tablet PO 40 mg QDAC ZARIA Administration Polyethylene Glycol 17 gm 11/04/23 09:00 11/07/23 09:12 Polyethylene Glycol 3350 17 Gm Packet PO 17 gm DAILY ZARIA Administration Sodium Chloride 10 ml 11/01/23 01:00 11/08/23 06:12 Sodium Chloride Flush 0.9% 10 Ml Syringe IVP Not Given 0100,0900,1700 [facility] Tamsulosin HCl 0.4 mg 10/31/23 21:00 11/07/23 20:30 Tamsulosin 0.4 Mg Capsule PO 0.4 mg HS ZARIA Administration - Lab Result Fish Bone Diagrams: 11/07/23 04:54 11/07/23 04:54 - Additional Planning My Orders: My Active Orders 11/08/23 09:30 Saccharomyces Boulardii [Florastor] 250 mg PO BIDWM 11/08/23 12:00 Midodrine [ProAmatine] 2.5 mg PO TIDWM Subjective - Subjective Patient Reports: Resting Comfortably Objective Vital Signs: Vital Signs - 24 hr 11/07/23 11/07/23 11/07/23 11:36 15:18 18:08 Temperature 36.7 C Heart Rate 78 85 Heart Rate [ 78 Brachial] Respiratory 16 20 20 Rate Blood Pressure [Left Brachial artery] Blood Pressure 136/72 H [Right Brachial artery] O2 Saturation 96 11/08/23 11/08/23 11/08/23 00:07 08:00 09:57 Temperature 36.8 C 36.8 C Heart Rate 72 Heart Rate [ 81 79 Brachial] Respiratory 18 20 16 Rate Blood Pressure 138/65 H [Left Brachial artery] Blood Pressure 135/75 H [Right Brachial artery] O2 Saturation 93 93 Oxygen O2 Source Room air I&O (Last 24 Hrs): Intake and Output Totals x24h 11/06/23 11/07/23 11/08/23 23:59 23:59 23:59 Intake Total 1290 970 510 Output Total 150 200 Balance 1290 820 310 General: Alert, No acute distress HEENT: Mucous membr. moist/pink Neck: Supple Neuro: Alert, Non Focal, Other (Poor memory) Cardiovascular: Regular rate, No murmurs Respiratory: No respiratory distress, Breath sounds nml Abdomen: Normal bowel sounds, Soft, Other (Obese) Extremities: No clubbing, No edema, No tenderness/swelling - Results Results: Laboratory Results WBC 6.4 x10^3/uL (4.8-10.8) 11/07/23 04:54 RBC 3.52 10^6/uL (4.70-6.10) L 11/07/23 04:54 Hgb 10.9 g/dL (14.0-18.0) L 11/07/23 04:54 Hct 33.3 % (42.0-52.0) L 11/07/23 04:54 MCV 94.6 fL (80.0-94.0) H 11/07/23 04:54 MCH 31.0 pg (27.0-31.0) 11/07/23 04:54 MCHC 32.7 g/dL (32.0-36.0) 11/07/23 04:54 RDW 13.9 % (12.0-15.0) 11/07/23 04:54 Plt Count 217 10^3/uL (130-450) 11/07/23 04:54 MPV 10.2 fL (7.4-11.4) 11/07/23 04:54 Neut # (Auto) 3.9 10^3/uL (1.5-6.6) 11/07/23 04:54 Lymph # (Auto) 1.3 10^3/uL (1.5-3.5) L 11/07/23 04:54 [place] # (Auto) 0.7 10^3/uL (0.0-1.0) 11/07/23 04:54 Eos # (Auto) 0.6 10^3/uL (0.0-0.7) 11/07/23 04:54 Baso # (Auto) 0.0 10^3/uL (0.0-0.1) 11/07/23 04:54 Absolute Nucleated RBC 0.00 x10^3/uL 11/07/23 04:54 Total Counted 100 10/31/23 17:42 Band Neuts % (Manual) 10 % (0-10) 10/31/23 17:42 Reactive Lymphs % (Man) 1 % 10/31/23 17:42 Abnorm Lymph % (Manual) 0 % 10/31/23 17:42 Nucleated RBC % 0.0 /100WBC 11/07/23 04:54 Neutrophils # (Manual) 19.8 10^3/uL (1.5-6.6) H 10/31/23 17:42 Lymphocytes # (Manual) 0.4 10^3/uL (1.5-3.5) L 10/31/23 17:42 Monocytes # (Manual) 0.8 10^3/uL (0.0-1.0) 10/31/23 17:42 Eosinophils # (Manual) 0.0 10^3/uL (0-0.7) 10/31/23 17:42 Basophils # (Manual) 0.0 10^3/uL (0-0.1) 10/31/23 17:42 Differential Comment MANUAL DIFFERENTIAL 10/31/23 17:42 Platelet Estimate NORMAL (130-450,000) (NORMAL) 10/31/23 17:42 Platelet Morphology NORMAL APPEARANCE (NORMAL) 10/31/23 17:42 RBC Morph Micro Appear NORMAL APPEARANCE (NORMAL) 10/31/23 17:42 VBG pH 7.448 (7.31-7.41) H 10/31/23 17:42 VBG pCO2 37.0 mmHg (41-51) L 10/31/23 17:42 VBG pO2 29.5 mmHg (25-47) 10/31/23 17:42 VBG HCO3 25.0 mmol/L (23-28) 10/31/23 17:42 VBG Total CO2 26.2 mmol/L (24-29) 10/31/23 17:42 VBG O2 Saturation 60.5 % (60-80) 10/31/23 17:42 VBG Base Excess 1.2 mmol/L (-2 - +2) 10/31/23 17:42 Sodium 139 mmol/L (135-145) 11/07/23 04:54 Potassium 3.7 mmol/L (3.5-4.5) 11/07/23 04:54 Chloride 108 mmol/L (101-111) 11/07/23 04:54 Carbon Dioxide 25 mmol/L (21-32) 11/07/23 04:54 Anion Gap 6.0 (6-13) 11/07/23 04:54 BUN 10 mg/dL (6-20) 11/07/23 04:54 Creatinine 1.2 mg/dL (0.6-1.3) 11/07/23 04:54 Estimated GFR (MDRD) 57 (>89) L 11/07/23 04:54 Glucose 116 mg/dL (74-104) H 11/07/23 04:54 Estimat Average Glucose 140 mg/dL (70-100) H 10/31/23 20:27 Hemoglobin A1c % 6.5 % (4.27-6.07) H 10/31/23 20:27 Lactic Acid 0.9 mmol/L (0.5-2.2) 11/01/23 05:52 Calcium 8.9 mg/dL (8.5-10.3) 11/07/23 04:54 Magnesium 1.6 mg/dL (1.7-2.3) L 10/31/23 17:42 Total Bilirubin 1.2 mg/dL (0.2-1.0) H 10/31/23 17:42 AST 11 IU/L (10-42) 10/31/23 17:42 ALT 17 IU/L (10-60) 10/31/23 17:42 Alkaline Phosphatase 56 IU/L (42-121) 10/31/23 17:42 Total Creatine Kinase 51 IU/L (30-223) 10/31/23 17:42 Troponin I High Sens 28.7 ng/L (2.3-19.7) H* 10/31/23 20:27 B-Natriuretic Peptide 477 pg/mL (5-100) H 10/31/23 20:27 Total Protein 5.8 g/dL (6.4-8.9) L 10/31/23 17:42 Albumin 3.2 g/dL (3.2-5.5) 10/31/23 17:42 Globulin 2.6 g/dL (2.1-4.2) 10/31/23 17:42 Albumin/Globulin Ratio 1.2 (1.0-2.2) 10/31/23 17:42 Triglycerides 76 mg/dL (48-352) 11/01/23 05:52 Cholesterol 82 mg/dL (-200) 11/01/23 05:52 LDL Cholesterol, Calc 27 mg/dL (-129) 11/01/23 05:52 VLDL Cholesterol 15 mg/dL 11/01/23 05:52 HDL Cholesterol 40 mg/dL (60-) L 11/01/23 05:52 LDL/HDL Ratio 0.7 (<3.6) 11/01/23 05:52 Cholesterol/HDL Ratio 2.1 (<5.0) 11/01/23 05:52 Procalcitonin Immunoas 0.60 ng/mL (<0.5) 10/31/23 20:27 TSH 1.88 uIU/mL (0.34-5.60) 10/31/23 20:27 Random Cortisol 16.4 ug/dL 11/01/23 05:52 Urine Color YELLOW 10/31/23 19:30 Urine Clarity CLOUDY (CLEAR) 10/31/23 19:30 Urine pH 6.5 PH (5.0-7.5) 10/31/23 19:30 Ur Specific [place] 1.015 (1.002-1.030) 10/31/23 19:30 Urine Protein 100 mg/dL (NEGATIVE) H 10/31/23 19:30 Urine Glucose (UA) NEGATIVE mg/dL (NEGATIVE) 10/31/23 19:30 Urine Ketones TRACE mg/dL (NEGATIVE) 10/31/23 19:30 Urine Occult Blood LARGE (NEGATIVE) H 10/31/23 19:30 Urine Nitrite POSITIVE (NEGATIVE) H 10/31/23 19:30 Urine Bilirubin NEGATIVE (NEGATIVE) 10/31/23 19:30 Urine Urobilinogen 0.2 (NORMAL) E.U./dL (NORMAL) 10/31/23 19:30 Ur Leukocyte Esterase MODERATE (NEGATIVE) H 10/31/23 19:30 Urine RBC 11-25 /HPF (0-5) H 10/31/23 19:30 Urine WBC >25 /HPF (0-3) H 10/31/23 19:30 Ur Squamous Epith Cells NONE SEEN (<= Few) 10/31/23 19:30 Urine Bacteria Many /HPF (None Seen) H 10/31/23 19:30 Urine Culture Comments INDICATED 10/31/23 19:30 Sepsis Event Note (H) - Evaluation Current Stage of Sepsis: Resolved Possible source of Sepsis: positive: Genitourinary - Sepsis Criteria Sepsis Criteria: [employer]: altered consciousness (unrelated to primary neuro pathology)
[2023-11-08] MEDS: DOCUSATE SODIUM 250 MG CAPSULE PO SCH (11:09)
[2023-11-08] MEDS: NYSTATIN 500000 UNITS/5 ML UDC PO SCH ×4 (11:09→20:19)
[2023-11-08] MEDS: CLOPIDOGREL 75 MG TABLET PO SCH (11:09)
[2023-11-08] MEDS: APIXABAN 2.5 MG TABLET PO SCH ×2 (11:10→20:19)
[2023-11-08] MEDS: DORZOLAMIDE 2% OPHTH DROPS EACHEYE SCH ×2 (11:10→20:19)
[2023-11-08] MEDS: LACTOBACILLUS RHAMNOSUS GG CAPSULE PO SCH ×2 (11:10→11:15)
[2023-11-08] MEDS: FLUTICASONE NASAL SPRAY NAS SCH (11:10)
[2023-11-08] MEDS: CHOLECALCIFEROL 25 MCG TABLET PO SCH (11:10)
[2023-11-08] MEDS: levoFLOXacin 250 MG TABLET PO SCH (11:10)
[2023-11-08] MEDS: MULTIVITAMIN TABLET PO SCH (11:10)
[2023-11-08] MEDS: FINASTERIDE 5 MG TABLET PO SCH (11:10)
[2023-11-08] MEDS: polyethylene glycoL 3350 17 GM PACKET PO SCH (11:11)
[2023-11-08] MEDS: MIDODRINE 2.5 MG TABLET PO SCH ×2 (11:18→17:46)
[2023-11-08] MEDS: SACCHAROMYCES BOULARDII 250 MG CAPSULE PO SCH ×2 (11:18→17:46)
[2023-11-08] MEDS: LORATADINE 10 MG TABLET PO SCH (20:19)
[2023-11-08] MEDS: TAMSULOSIN 0.4 MG CAPSULE PO SCH (20:19)
[2023-11-08] MEDS: ATORVASTATIN 40 MG TABLET PO SCH (20:19)
[2023-11-08] MEDS: MONTELUKAST 10 MG TABLET PO SCH (20:19)
[2023-11-08] MEDS: LATANOPROST 0.005% OPHTH DROPS EACHEYE SCH (20:19)
[2023-11-09] MEDS: SODIUM CHLORIDE FLUSH 0.9% 10 ML SYRINGE IVP SCH ×4 (00:31→23:57)
[2023-11-09] MEDS: PANTOPRAZOLE 40 MG TABLET PO SCH (05:32)
[2023-11-09] MEDS: BUDESONIDE 0.5 MG/2 ML NEB INH SCH ×4 (05:57→17:55)
[2023-11-09] MEDS: FORMOTEROL FUMARATE NEB 20 MCG/2 ML INH SCH ×4 (05:57→17:55)
[2023-11-09] MEDS: IPRATROPIUM/ALBUTEROL 3 ML NEB INH SCH ×4 (05:57→17:55)
[2023-11-09] MEDS: FINASTERIDE 5 MG TABLET PO SCH (08:31)
[2023-11-09] MEDS: SACCHAROMYCES BOULARDII 250 MG CAPSULE PO SCH ×2 (08:31→16:48)
[2023-11-09] MEDS: DOCUSATE SODIUM 250 MG CAPSULE PO SCH (08:31)
[2023-11-09] MEDS: CHOLECALCIFEROL 25 MCG TABLET PO SCH (08:31)
[2023-11-09] MEDS: MIDODRINE 2.5 MG TABLET PO SCH ×3 (08:31→16:48)
[2023-11-09] MEDS: levoFLOXacin 250 MG TABLET PO SCH (08:31)
[2023-11-09] MEDS: CLOPIDOGREL 75 MG TABLET PO SCH (08:31)
[2023-11-09] MEDS: MULTIVITAMIN TABLET PO SCH (08:31)
[2023-11-09] MEDS: APIXABAN 2.5 MG TABLET PO SCH ×2 (08:31→20:31)
[2023-11-09] MEDS: DORZOLAMIDE 2% OPHTH DROPS EACHEYE SCH ×2 (08:32→20:31)
[2023-11-09] MEDS: FLUTICASONE NASAL SPRAY NAS SCH (08:32)
[2023-11-09] MEDS: NYSTATIN 500000 UNITS/5 ML UDC PO SCH ×4 (08:33→20:30)
[2023-11-09] MEDS: polyethylene glycoL 3350 17 GM PACKET PO SCH (08:33)
--- NOTE | 2023-11-09 15:52 | PROVIDER PROGRESS NOTE ---
Assessment/Plan - Problem List (1) Orthostatic hypotension Assessment/Plan: He was orthostatic on 11/07 and got a 500 cc saline iv infusion and his disch was cancelled. Yesterday he was orthostatic and received Midodrine 2.5 mg TID w/ meals Today he is still severely orthostatic: supine BP 144/82 w/ HR 77, sitting BP 111/70 w/ HR 78, and standing BP 97/56 w/ HR 87. Plan: He is not ready for D[facility] today He is not on any BP meds to put hold parameters on, and I do not want him to stop his 3 Urol meds Will increase Midodrine up to 5 mg po TID with meals. Follow orthostatic VS qshift (2) E. coli UTI Impression: Patient presented to the ER as septic with weakness, lethargy, altered mental status from an encephalopathy. Urinalysis identified the infection. And CT of the abdomen and pelvis identified pyelonephritis. His sepsis criteria have all resolved. His encephalopathy seems to have resolved. Since admission he has not had any fevers. Urine culturegreww out E. coli. He completed 3 days of IV ceftriaxone. The E. coli is resistant to ampicillin and sulbactam, sensitive to the Rocephin and sensitive to quinolones. We started him on oral quinolones and WBC is within normal limits. Plan: Continue on oral antibiotics (started 11/03) for 2 weeks minimum, or I favor 21 days. Continue on his meds for BPH Continue a probiotic (3) Atrial fibrillation Impression: Rate is controlled. Pulse in the 80s. Patient is on Eliquis for anticoagulation for stroke prophylaxis and his home medication list does not include any HR-lowering agents. There is no need for metoprolol or diltiazem at this time. Plan: Continue on Eliquis (4) COPD without exacerbation Impression: He had rhonchi on admission and a cough yesterday. Has not had any further lung findings other than prolonged exhalation. No tachypnea no dyspnea. Plan: Continue on home regimen of: fluticasone, salmeterol, albuterol prn, and Deltasone 20 mg Can continue on Perforomist, budesonide, and as needed albuterol while admitted (5) BPH Impression: Patient is on 3 meds for this. Continue these. (6) Dementia Impression: The patient is usually a very active gentleman. 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 notes that he is more forgetful but not severe. He is still able to take care of himself. He started using a cane a few months ago because of balance issues. And in the last month has been using a walker more and more. A few falls have happened the last few weeks. 1 was in the shower. 1 was trying to get onto the toilet. He just sort of leaned forward and keeled forward onto the floor. Both times needed a lot of help to get him off the floor. He has become very sedentary over the last few months. She is worried about taking him home. He has been using the walker more more in the last month. Then he had several fal ls the day before admission. Patient worked with PT and OT and found to have orthostatic vitals as he has today (see #1) Plan: PT recommended that he be discharged to a SNF. Patient and agree with the recommendation. Anticipate [facility] soon (7) Metabolic encephalopathy Impression: RESOLVED. Although the patient has a cognitive deficit and is slightly more forgetful over the last 4 months, he is usually oriented to place, time and situation. He is also a very vivacious speaker according to the . On the , in the morning, he still has a muted affect, slow psychomotor response. His was describing frequent falls recently. We attributed much of this to an acute infection superimposed on the patient already has cognitive deficits and gra dually diminishing mobility. By 11/05 in afternoon he was much improved. He is now alert and oriented to person, place, just not time. Forgets that he is here for pyelonephritis. But his speech is more fluent, better sentence structure, and is joking. (8) Acute renal failure Impression: RESOLVED. His baseline BUN is 18-19 and on 11/03 it was at 18. His baseline creatinine is 1.2-1.3. On admission creat was 1.6 and as of 11/03, creat was at 1.1. T - Current Meds Current Meds: Current Medications Generic Name Dose Route Start Last Admin Trade Name Freq PRN Reason Stop Dose Admin Albuterol/Ipratropium 3 ml 11/01/23 06:00 11/09/23 12:26 Ipratropium/Albuterol 3 Ml Neb INH 3 ml Q6HR ZARIA Administration Apixaban 2.5 mg 10/31/23 21:00 11/09/23 08:31 Apixaban 2.5 Mg Tablet PO 2.5 mg BID ZARIA Administration Atorvastatin Calcium 40 mg 10/31/23 21:00 11/08/23 20:19 Atorvastatin 40 Mg Tablet PO 40 mg QPM ZARIA Administration Benzonatate 100 mg 10/31/23 19:54 11/07/23 18:30 Benzonatate 100 Mg Capsule PO 100 mg TID PRN Administration Cough Budesonide 0.5 mg 11/01/23 07:00 11/09/23 07:18 Budesonide 0.5 Mg/2 Ml Neb INH 0.5 mg RTBID ZARIA Administration Cholecalciferol 25 mcg 11/01/23 09:00 11/09/23 08:31 Cholecalciferol 25 Mcg Tablet PO 25 mcg DAILY ZARIA Administration Clopidogrel Bisulfate 75 mg 11/01/23 09:00 11/09/23 08:31 Clopidogrel 75 Mg Tablet PO 75 mg DAILY ZARIA Administration Docusate Sodium 250 - 500 mg 11/05/23 17:00 11/09/23 08:31 Docusate Sodium 250 Mg Capsule PO 250 mg DAILY ZARIA Administration Dorzolamide HCl 1 drops 11/04/23 21:00 11/09/23 08:32 Dorzolamide 2% Ophth Drops EACHEYE 1 drops BID ZARIA Administration Finasteride 5 mg 11/01/23 09:00 11/09/23 08:31 Finasteride 5 Mg Tablet PO 5 mg DAILY ZARIA Administration Fluticasone Propionate 2 sprays 11/01/23 09:00 11/09/23 08:32 Fluticasone Nasal [place] LAURA 2 sprays DAILY ZARIA Administration Formoterol Fumarate 20 mcg 11/01/23 07:00 11/09/23 07:18 Formoterol Fumarate Neb 20 Mcg/2 Ml INH 20 mcg RTBID ZARIA Administration Latanoprost 1 drops 10/31/23 21:00 11/08/23 20:19 Latanoprost 0.005% Ophth Drops EACHEYE 1 drops QPM ZARIA Administration Levofloxacin 500 mg 11/03/23 09:00 11/09/23 08:31 Levofloxacin 250 Mg Tablet PO 500 mg DAILY ZARIA Administration Loratadine 10 mg 10/31/23 21:00 11/08/23 20:19 Loratadine 10 Mg Tablet PO 10 mg QPM ZARIA Administration Midodrine 5 mg 11/09/23 12:00 11/09/23 11:52 Midodrine 2.5 Mg Tablet PO 5 mg TIDWM ZARIA Administration Montelukast Sodium 10 mg 10/31/23 21:00 11/08/23 20:19 Montelukast 10 Mg Tablet PO 10 mg QPM ZARIA Administration Multi-Ingredient Ointment 1 applic 11/02/23 10:03 11/07/23 00:32 Zinc Oxide 20% Oint 30 Gm Tube TOP 1 applic PRN PRN Administration Skin Care Multivitamins 1 tab 11/01/23 08:00 11/09/23 08:31 Multivitamin Tablet PO 1 tab DAILYWM ZARIA Administration Nystatin 5 ml 11/04/23 11:00 11/09/23 13:50 Nystatin 848061 Units/5 Ml Udc PO 5 ml QID ZARIA Administration Pantoprazole Sodium 40 mg 11/03/23 07:00 11/09/23 05:32 Pantoprazole 40 Mg Tablet PO 40 mg QDAC ZARIA Administration Polyethylene Glycol 17 gm 11/04/23 09:00 11/09/23 08:33 Polyethylene Glycol 3350 17 Gm Packet PO 17 gm DAILY ZARIA Administration Saccharomyces Boulardii 250 mg 11/08/23 09:30 11/09/23 08:31 Saccharomyces Boulardii 250 Mg Capsule PO 250 mg BIDWM ZARIA Administration Sodium Chloride 10 ml 11/01/23 01:00 11/09/23 08:33 Sodium Chloride Flush 0.9% 10 Ml Syringe IVP 10 ml 0100,0900,1700 ZARIA Administration Tamsulosin HCl 0.4 mg 10/31/23 21:00 11/08/23 20:19 Tamsulosin 0.4 Mg Capsule PO 0.4 mg HS ZARIA Administration - Lab Result Fish Bone Diagrams: 11/07/23 04:54 11/07/23 04:54 - Additional Planning My Orders: My Active Orders 11/09/23 12:00 Midodrine [ProAmatine] 5 mg PO TIDWM 11/10/23 05:00 BMP - BASIC METABOLIC PANEL [CHEM] DAILYLAB Subjective - Subjective Patient Reports: Resting Comfortably, No Complaints Objective Vital Signs: Vital Signs - 24 hr 11/08/23 11/09/23 11/09/23 23:42 07:20 08:00 Temperature 36.9 C 36.3 C L Heart Rate 80 Heart Rate [ 83 82 Brachial] Respiratory 22 18 18 Rate Blood Pressure 157/79 H 133/82 H [Right Brachial artery] O2 Saturation 94 93 If not protocol 3 : Oxygen Flow, liters/minute Oxygen O2 Source Nasal cannula I&O (Last 24 Hrs): Intake and Output Totals x24h 11/07/23 11/08/23 11/09/23 23:59 23:59 23:59 Intake Total 970 990 600 Output Total 150 650 750 Balance 820 340 -150 General: Alert, No acute distress HEENT: EOMI, Mucous membr. moist/pink Neck: Supple Neuro: Alert, Non Focal, Other (Poor memory) Cardiovascular: Regular rate Respiratory: No respiratory distress Abdomen: Soft Extremities: No clubbing, No edema, No tenderness/swelling - Results Results: Laboratory Results WBC 6.4 x10^3/uL (4.8-10.8) 11/07/23 04:54 RBC 3.52 10^6/uL (4.70-6.10) L 11/07/23 04:54 Hgb 10.9 g/dL (14.0-18.0) L 11/07/23 04:54 Hct 33.3 % (42.0-52.0) L 11/07/23 04:54 MCV 94.6 fL (80.0-94.0) H 11/07/23 04:54 MCH 31.0 pg (27.0-31.0) 11/07/23 04:54 MCHC 32.7 g/dL (32.0-36.0) 11/07/23 04:54 RDW 13.9 % (12.0-15.0) 11/07/23 04:54 Plt Count 217 10^3/uL (130-450) 11/07/23 04:54 MPV 10.2 fL (7.4-11.4) 11/07/23 04:54 Neut # (Auto) 3.9 10^3/uL (1.5-6.6) 11/07/23 04:54 Lymph # (Auto) 1.3 10^3/uL (1.5-3.5) L 11/07/23 04:54 [place] # (Auto) 0.7 10^3/uL (0.0-1.0) 11/07/23 04:54 Eos # (Auto) 0.6 10^3/uL (0.0-0.7) 11/07/23 04:54 Baso # (Auto) 0.0 10^3/uL (0.0-0.1) 11/07/23 04:54 Absolute Nucleated RBC 0.00 x10^3/uL 11/07/23 04:54 Total Counted 100 10/31/23 17:42 Band Neuts % (Manual) 10 % (0-10) 10/31/23 17:42 Reactive Lymphs % (Man) 1 % 10/31/23 17:42 Abnorm Lymph % (Manual) 0 % 10/31/23 17:42 Nucleated RBC % 0.0 /100WBC 11/07/23 04:54 Neutrophils # (Manual) 19.8 10^3/uL (1.5-6.6) H 10/31/23 17:42 Lymphocytes # (Manual) 0.4 10^3/uL (1.5-3.5) L 10/31/23 17:42 Monocytes # (Manual) 0.8 10^3/uL (0.0-1.0) 10/31/23 17:42 Eosinophils # (Manual) 0.0 10^3/uL (0-0.7) 10/31/23 17:42 Basophils # (Manual) 0.0 10^3/uL (0-0.1) 10/31/23 17:42 Differential Comment MANUAL DIFFERENTIAL 10/31/23 17:42 Platelet Estimate NORMAL (130-450,000) (NORMAL) 10/31/23 17:42 Platelet Morphology NORMAL APPEARANCE (NORMAL) 10/31/23 17:42 RBC Morph Micro Appear NORMAL APPEARANCE (NORMAL) 10/31/23 17:42 VBG pH 7.448 (7.31-7.41) H 10/31/23 17:42 VBG pCO2 37.0 mmHg (41-51) L 10/31/23 17:42 VBG pO2 29.5 mmHg (25-47) 10/31/23 17:42 VBG HCO3 25.0 mmol/L (23-28) 10/31/23 17:42 VBG Total CO2 26.2 mmol/L (24-29) 10/31/23 17:42 VBG O2 Saturation 60.5 % (60-80) 10/31/23 17:42 VBG Base Excess 1.2 mmol/L (-2 - +2) 10/31/23 17:42 Sodium 139 mmol/L (135-145) 11/07/23 04:54 Potassium 3.7 mmol/L (3.5-4.5) 11/07/23 04:54 Chloride 108 mmol/L (101-111) 11/07/23 04:54 Carbon Dioxide 25 mmol/L (21-32) 11/07/23 04:54 Anion Gap 6.0 (6-13) 11/07/23 04:54 BUN 10 mg/dL (6-20) 11/07/23 04:54 Creatinine 1.2 mg/dL (0.6-1.3) 11/07/23 04:54 Estimated GFR (MDRD) 57 (>89) L 11/07/23 04:54 Glucose 116 mg/dL (74-104) H 11/07/23 04:54 Estimat Average Glucose 140 mg/dL (70-100) H 10/31/23 20:27 Hemoglobin A1c % 6.5 % (4.27-6.07) H 10/31/23 20:27 Lactic Acid 0.9 mmol/L (0.5-2.2) 11/01/23 05:52 Calcium 8.9 mg/dL (8.5-10.3) 11/07/23 04:54 Magnesium 1.6 mg/dL (1.7-2.3) L 10/31/23 17:42 Total Bilirubin 1.2 mg/dL (0.2-1.0) H 10/31/23 17:42 AST 11 IU/L (10-42) 10/31/23 17:42 ALT 17 IU/L (10-60) 10/31/23 17:42 Alkaline Phosphatase 56 IU/L (42-121) 10/31/23 17:42 Total Creatine Kinase 51 IU/L (30-223) 10/31/23 17:42 Troponin I High Sens 28.7 ng/L (2.3-19.7) H* 10/31/23 20:27 B-Natriuretic Peptide 477 pg/mL (5-100) H 10/31/23 20:27 Total Protein 5.8 g/dL (6.4-8.9) L 10/31/23 17:42 Albumin 3.2 g/dL (3.2-5.5) 10/31/23 17:42 Globulin 2.6 g/dL (2.1-4.2) 10/31/23 17:42 Albumin/Globulin Ratio 1.2 (1.0-2.2) 10/31/23 17:42 Triglycerides 76 mg/dL (48-352) 11/01/23 05:52 Cholesterol 82 mg/dL (-200) 11/01/23 05:52 LDL Cholesterol, Calc 27 mg/dL (-129) 11/01/23 05:52 VLDL Cholesterol 15 mg/dL 11/01/23 05:52 HDL Cholesterol 40 mg/dL (60-) L 11/01/23 05:52 LDL/HDL Ratio 0.7 (<3.6) 11/01/23 05:52 Cholesterol/HDL Ratio 2.1 (<5.0) 11/01/23 05:52 Procalcitonin Immunoas 0.60 ng/mL (<0.5) 10/31/23 20:27 TSH 1.88 uIU/mL (0.34-5.60) 10/31/23 20:27 Random Cortisol 16.4 ug/dL 11/01/23 05:52 Urine Color YELLOW 10/31/23 19:30 Urine Clarity CLOUDY (CLEAR) 10/31/23 19:30 Urine pH 6.5 PH (5.0-7.5) 10/31/23 19:30 Ur Specific [place] 1.015 (1.002-1.030) 10/31/23 19:30 Urine Protein 100 mg/dL (NEGATIVE) H 10/31/23 19:30 Urine Glucose (UA) NEGATIVE mg/dL (NEGATIVE) 10/31/23 19:30 Urine Ketones TRACE mg/dL (NEGATIVE) 10/31/23 19:30 Urine Occult Blood LARGE (NEGATIVE) H 10/31/23 19:30 Urine Nitrite POSITIVE (NEGATIVE) H 10/31/23 19:30 Urine Bilirubin NEGATIVE (NEGATIVE) 10/31/23 19:30 Urine Urobilinogen 0.2 (NORMAL) E.U./dL (NORMAL) 10/31/23 19:30 Ur Leukocyte Esterase MODERATE (NEGATIVE) H 10/31/23 19:30 Urine RBC 11-25 /HPF (0-5) H 10/31/23 19:30 Urine WBC >25 /HPF (0-3) H 10/31/23 19:30 Ur Squamous Epith Cells NONE SEEN (<= Few) 10/31/23 19:30 Urine Bacteria Many /HPF (None Seen) H 10/31/23 19:30 Urine Culture Comments INDICATED 10/31/23 19:30 Sepsis Event Note (H) - Evaluation Current Stage of Sepsis: Resolved Possible source of Sepsis: positive: Genitourinary - Sepsis Criteria Sepsis Criteria: 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
[2023-11-09] MEDS: LATANOPROST 0.005% OPHTH DROPS EACHEYE SCH (20:30)
[2023-11-09] MEDS: TAMSULOSIN 0.4 MG CAPSULE PO SCH (20:31)
[2023-11-09] MEDS: LORATADINE 10 MG TABLET PO SCH (20:31)
[2023-11-09] MEDS: MONTELUKAST 10 MG TABLET PO SCH (20:31)
[2023-11-09] MEDS: ATORVASTATIN 40 MG TABLET PO SCH (20:31)
[2023-11-10 05:57] LABS: CALCIUM 9.1 mg/dL (8.5-10.3); CREATININE 1.3 mg/dL (0.6-1.3)
[2023-11-10] MEDS: PANTOPRAZOLE 40 MG TABLET PO SCH (06:25)
[2023-11-10] MEDS: FORMOTEROL FUMARATE NEB 20 MCG/2 ML INH SCH (07:10)
[2023-11-10] MEDS: BUDESONIDE 0.5 MG/2 ML NEB INH SCH (07:10)
[2023-11-10] MEDS: IPRATROPIUM/ALBUTEROL 3 ML NEB INH SCH ×2 (07:11→14:38)
[2023-11-10] MEDS: MIDODRINE 2.5 MG TABLET PO SCH (08:55)
[2023-11-10] MEDS: levoFLOXacin 250 MG TABLET PO SCH (08:56)
[2023-11-10] MEDS: MULTIVITAMIN TABLET PO SCH (08:56)
[2023-11-10] MEDS: SACCHAROMYCES BOULARDII 250 MG CAPSULE PO SCH (08:56)
[2023-11-10] MEDS: FINASTERIDE 5 MG TABLET PO SCH (08:57)
[2023-11-10] MEDS: DOCUSATE SODIUM 250 MG CAPSULE PO SCH (08:57)
[2023-11-10] MEDS: CLOPIDOGREL 75 MG TABLET PO SCH (08:57)
[2023-11-10] MEDS: APIXABAN 2.5 MG TABLET PO SCH (08:57)
[2023-11-10] MEDS: FLUTICASONE NASAL SPRAY NAS SCH (08:58)
[2023-11-10] MEDS: NYSTATIN 500000 UNITS/5 ML UDC PO SCH (08:58)
[2023-11-10] MEDS: CHOLECALCIFEROL 25 MCG TABLET PO SCH (08:58)
[2023-11-10] MEDS: polyethylene glycoL 3350 17 GM PACKET PO SCH (08:58)
[2023-11-10] MEDS: DORZOLAMIDE 2% OPHTH DROPS EACHEYE SCH (09:06)
--- NOTE | 2023-11-10 11:42 | Discharge Plan ---
Discharge Plan Problem Reviewed?: Yes Disposition: 03 [facility] DC/Xfer Condition: Fair Diet: Regular Activity Restrictions: Activity as Tolerated Shower Restrictions: No Driving Restrictions: Yes Assistance Devices: Walker Weight Bearing: Full Weight Health Concerns: Patient was hospitalized due to falling at home and worsened confusion, which was caused by an infection. He is being treated for urinary tract infection. He has underlying Alzheimer's dementia. His discharge was delayed because of orthostatic hypotension. He is now on Midodrine to help that. He needs physical therapy and Occupational Therapy at SNF. No Smoking: If you smoke, Please STOP! Call for help.
--- NOTE | 2023-11-10 11:44 | Discharge Plan ---
"Discharge Plan for SNF / MICHAEL - Discharge Plan And Transition Orders Problem Reviewed?: Yes Disposition: 03 SNF DC/Xfer Condition: Fair Allergies and Adverse Reactions: Allergies Allergy/AdvReac Type Severity Reaction Status Date / Time aspirin Allergy Respiratory Verified 10/31/23 17:07 Health Concerns: Patient was hospitalized due to repat falling at home and worsened confusion, which we found was caused by an infection. He is being treated for urinary tract infection. He has underlying BPH and Alzheimer's dementia. We found him to have orthostatic hypotension. He is now on Midodrine to help that. He needs Physical Therapy and Occupational Therapy at SNF. Plan of Treatment: Daily PT and OT rehab and continuation of usual medications and management. Care Goals: Improvement in symptoms and stabilization are the goals. Assessment: The patient understands. The is agreeable with the plan - SNF / INTERMEDIATE Transition Orders Admit to (Facility): [facility] Under the care of (Name): Dr. Nguyễn Discharge Diagnosis: (1) Sepsis Resolved with iv fluids and antibiotics (2) E. coli pyelonephritis. Urine culture grew out E. coli. He completed 3 days of IV ceftriaxone, then was transitioned to oral Levaquin plus a probiotic, and a 21 day course is planned. (3) Orthostatic hypotension Improved on new Midodrine TID with meals (4) Atrial fibrillation His heart rate is controlled w/out meds, and he is on Eliquis for stroke prophylaxis. (5) COPD without exacerbation Stable on meds (6) BPH Stable on 3 meds for this. (7) Dementia Stable and with no behavioral disturbances (8) Hx of CAD Stable on meds (9) S/P Bovine valve replacement Stable (10) Glaucoma Stable on meds (11) Acute renal failure Resolved with iv fluids. (12) Metabolic encephalopathy Resolved. We attributed this to his acute infection superimposed on his cognitive deficits. The marked confusion resolved with treatment of the infection. Medicare Certification Statement: I certify that Post Hospital fci care is medically necessary on a continuing basis for any of the conditions for which she/he is receiving care during hospitalization. Notify PCP of admission and forward orders to primary provider for signature. Weight on admission and: Weekly Call PCP immediately if weight increases by: 5 kg Other Notification Orders: Call PCP immediately if patient develops dyspnea, chest pain/tightness or edema. House Bowel Program: Yes Additional Bowel Program Orders: If no BM after 2 days, nurse may give M.O.M. 30ml PO PRN and/or ducolax Supp 1 UT and/or ROSE 250mg P.O., and/or senna 1-2 tabs PO. On day 3 nurse may give repeat above order until residents constipation is resolved. Annual Influenza Vaccine (between Jun 16 and January 13): Yes Two-step PPD per [facility] [phone] or approved exception documents: Yes Treatments & Other Orders: Daily PT and OT Medication Orders: PLEASE REFER TO THE DISCHARGE MEDICATION LIST. Insulin Orders?: No - Medications New Prescriptions: Loratadine [Claritin] 10 mg PO QPM #30 tab Fluticasone [Flonase] 2 sprays LAURA DAILY #1 each levoFLOXacin [Levofloxacin] 500 mg PO DAILY #14 tablet Midodrine [ProAmatine] 5 mg PO TIDWM #90 tab Lactobac 66/Bifido 4/S.thermo [Probiotic Acidophilus 3B Cell] 1 each PO DAILY #14 tab Budesonide [Pulmicort] 0.5 mg INH RTBID PRN #10 ml PRN Reason: Wheezing - Diet Type: Geriatric Texture: Regular Liquids: Thin May have monthly special meal: Yes - Therapies | Activity Therapy: Evaluation | Treat if indicated: PT, OT Rehabilitation Potential: Maximize functional status Activity: Activity as Tolerated Weight Bearing: Full Weight Assistance Devices: Walker Additional Instructions: See PCP after discharge from SNF. Follow Up: See PCP after discharge from SNF."
--- NOTE | 2023-11-10 13:35 | DISCHARGE SUMMARY ---
Discharge Summary Admit Date: 10/31/23 Discharge Date: 11/10/23 Discharging Provider: Dr Tiffanie Sorensen Primary Care Provider: Dr Rinku Nguyễn Condition at Discharge: Fair Discharge Disposition: 03 SNF DC/Xfer - HPI History of Present Illness: 88 y/o M with dementia, atrial fibrillation on Eliquis, CAD, COPD, who presented to the ED with report of generalized weakness and falling at home. Patient had two falls today and was subsequently brought into the ED with . provided majority of the information. Patient last month was dx with PNA. He was started on two course of abx and steroids. Patient last abx was 10/25/23. Last steroids was multiple weeks ago. reported period of improvement after abx. This past couple of day however patient suddenly had difficulty walking with his walker. He lost balance multiple times and has fallen at home. Besides the abx and prednisone, no other new medications. No travel. No sick contacts. Patient has not complained of fever. He has no new URI sxs. He has no nausea, vomiting, or diarrhea. mentioned x 1 episode of blood with stool reported but not daily. No dysuria. No rash. Here in the ED, patient's vital signs are stable on room air. Labs are noted for elevated WBC 19 wth L shift, worsening renal function on labs, and abnormal U/A suggesting a UTI. CXR does not cite acute infiltrate but prominent interstitial lung markings. CT head shows no acute findings, CT abd/pelvis shows perivesicular fat stranding, consistent with infection. He will be admitted for managing AMS, sepsis and urinary tract infection. - HOSPITAL COURSE Hospital Course: (1) Sepsis He met criteria for sepsis. These resolved with iv fluids and antibiotics (2) E. coli pyelonephritis. Urine culture grew out E. coli. He completed 3 days of IV ceftriaxone, then was transitioned to oral Levaquin plus a probiotic, and a 21 day course is planned. (3) Orthostatic hypotension He was quite symptomatic from orthostasis and improved on new Midodrine TID with meals (4) Atrial fibrillation His heart rate was controlled w/out meds, and he remained on Eliquis for stroke prophylaxis. (5) COPD without exacerbation Stable on meds (6) BPH Stable on 3 meds for this. (7) Dementia of Alzheimer's type without behanioral disturbance His AMS improved to his baseline, with a poor memory and he had no behavioral disturbances. His frequent falls were evaluated by PT and OT and he needed rehab at SNF, to where he was discharged in stable condition. (8) Hx of CAD Stable on meds (9) S/P heart valve replacement Bovine valve, per Hx (10) Glaucoma Stable on meds (11) Acute renal failure Resolved with iv fluids. (12) Metabolic encephalopathy Resolved. We attributed this to his acute infection superimposed on his c ognitive deficits. The marked confusion resolved with treatment of the infection. - ALLERGIES Allergies/Adverse Reactions: Allergies Allergy/AdvReac Type Severity Reaction Status Date / Time aspirin Allergy Respiratory Verified 10/31/23 17:07 - MEDICATIONS Home Medications: Ambulatory Orders Medication Instructions Recorded Confirmed Clopidogrel [Plavix] 75 mg PO DAILY 07/29/17 11/01/23 Montelukast [Singulair] 10 mg PO HS 07/29/17 11/01/23 Acetaminophen [Tylenol] 650 mg PO Q6H PRN 04/13/21 11/02/23 Cholecalciferol [Vitamin D3] 25 mcg PO DAILY 04/13/21 11/02/23 Dorzolamide 2% Ophth Drops 1 drops EACHEYE BID 04/13/21 11/02/23 [Trusopt 2% Ophth Drops] Fexofenadine HCl 180 mg PO DAILY PM 04/13/21 11/02/23 Latanoprost/Pf [Latanoprost 0.005% 1 drops OP HS 04/13/21 11/01/23 Eye Drop] Magnesium Oxide [Mag Ox] 400 mg PO DAILY 04/13/21 11/02/23 Multivitamin 1 tab ORAL DAILY 04/13/21 11/02/23 Tamsulosin HCl [Flomax] 0.4 mg ORAL DAILY PM 04/13/21 11/01/23 Ubidecarenone [Co Q-10] 2 tab ORAL DAILY 04/13/21 11/02/23 Vitamin E 400 unit PO DAILY 04/13/21 11/02/23 Atorvastatin [Lipitor] 40 mg PO QPM #30 tablet 04/14/21 11/01/23 Apixaban [Eliquis] 2.5 mg PO BID 11/10/22 11/01/23 Finasteride [Proscar] 5 mg PO DAILY 11/10/22 11/01/23 Trospium Chloride [Trospium 60 mg PO DAILY 11/10/22 11/01/23 Chloride ER] Calcium Carbonate [Tums (Calcium 500 mg PO Q4H PRN 11/02/23 11/02/23 Carbonate 500mg)] Carboxymethylcellulose Sodium 1 drops EACHEYE Q4H PRN 11/02/23 11/02/23 [Refresh Tears] Budesonide [Pulmicort] 0.5 mg INH RTBID PRN #10 ml 11/10/23 Fluticasone [Flonase] 2 sprays LAURA DAILY #1 each 11/10/23 Ipratropium/Albuterol [Duoneb] 3 ml INH Q6H PRN #10 ea 11/10/23 11/02/23 Lactobac 66/Bifido 4/S.thermo 1 each PO DAILY #14 tab 11/10/23 [Probiotic Acidophilus 3B Cell] Loratadine [Claritin] 10 mg PO QPM #30 tab 11/10/23 Midodrine [ProAmatine] 5 mg PO TIDWM #90 tab 11/10/23 Zinc Oxide 20% Oint [Zinc Oxide] 1 applic TOP PRN PRN each 11/10/23 levoFLOXacin [Levofloxacin] 500 mg PO DAILY #14 tablet 11/10/23 - PHYSICAL EXAM AT DISCHARGE General Appearance: positive: No acute distress, Alert Eyes Bilateral: positive: Normal inspection, EOMI ENT: positive: ENT inspection nml, No signs of dehydration Neck: positive: Nml inspection, No JVD Respiratory: positive: No respiratory distress, Breath sounds nml Cardiovascular: positive: No murmur, Irregularly irregular Abdomen: positive: Non-tender, Nml bowel sounds, No distention, Other (Obese) Extremities: positive: Non-tender, No pedal edema Neurologic/Psychiatric: positive: Oriented x3, CN's nml (2-12), Motor nml, Other (Poor memory) - LABS Result Diagrams: 11/07/23 04:54 11/10/23 04:57 - DIAGNOSTIC IMAGING Diagnostic Imaging Results: Final report reviewed - SEPSIS Current Stage of Sepsis: Resolved Possible source of Sepsis: Genitourinary Sepsis Criteria: WBC count greater than 10% bands, WBC count greater than 12,000 or less than 4000, HOSPITAL PLAN ADMINISTRATOR: altered consciousness (unrelated to primary neuro pathology) - FOLLOW UP Follow Up: See PCP after discharge from SNF. - TIME SPENT Time Spent in Discharge (Minutes): 45
[2023-11-10 13:53] VITALS: BP 125/70; O2SAT 95
== END 2023-11-10 14:10 | DRG 871 ==
LOC: EDUNIT# → ED 17:01 → MS2 20:02 → OBSVTOIN 11-01 16:28
PROVIDERS: ADMIT Internal Medicine; ATTEND Internal Medicine
DX: A41.9 Sepsis, unspecified organism (principal); D72.829 Elevated white blood cell count, unspecified; G93.41 Metabolic encephalopathy; R65.10 Systemic inflammatory response syndrome (SIRS) of non-infectious origin without acute organ dysfunction; N12 Tubulo-interstitial nephritis, not specified as acute or chronic; N17.9 Acute kidney failure, unspecified; B37.0 Candidal stomatitis; E78.5 Hyperlipidemia, unspecified; B96.20 Unspecified Escherichia coli [E. coli] as the cause of diseases classified elsewhere; I95.1 Orthostatic hypotension; J44.9 Chronic obstructive pulmonary disease, unspecified; Z95.1 Presence of aortocoronary bypass graft; N40.0 Benign prostatic hyperplasia without lower urinary tract symptoms; G30.9 Alzheimer's disease, unspecified; F02.80 Dementia in other diseases classified elsewhere, unspecified severity, without behavioral disturbance, psychotic disturbance, mood disturbance, and anxiety; I25.10 Atherosclerotic heart disease of native coronary artery without angina pectoris; Z79.01 Long term (current) use of anticoagulants; Z95.2 Presence of prosthetic heart valve; H40.9 Unspecified glaucoma; Z79.02 Long term (current) use of antithrombotics/antiplatelets; Z91.81 History of falling; R26.2 Difficulty in walking, not elsewhere classified; R53.1 Weakness; Z66 Do not resuscitate; R32 Unspecified urinary incontinence; I48.0 Paroxysmal atrial fibrillation; R41.3 Other amnesia; R11.10 Vomiting, unspecified
CPT/HCPCS: 36415; 70450; 71045; 71250; 74176; 80048; 80053; 80061; 81001; 82533; 82550; 82803; 83036; 83605; 83735; 83880; 84145; 84443; 84484; 85025; 87040; 87086; 87181; 93005; 94640; 96365; 96372; 97110; 97116; 97161; 97165; 97530; 97535; 99284; 99285; A9270; G0378; J7626; 82274; 83721

== ENCOUNTER 2023-11-21 08:00 | Outpatient (CLI) | payer MEDICARE, OTHER ==
[2023-11-21 20:21] LABS: FECAL OCCULT BLOOD (FIT) POSITIVE (NEGATIVE)
== END 2023-11-21 23:59 | disposition home or self-care (01) ==
LOC: LAB.R 08:00
DX: R19.5 Other fecal abnormalities (principal)
CPT/HCPCS: 82274

== ENCOUNTER 2023-11-24 13:38 | Outpatient (CLI) | payer MEDICARE, OTHER ==
[2023-11-24 13:52] LABS: BASOPHILS # (AUTO) 0.1 10^3/uL (0.0-0.1); BASOPHILS % (AUTO) 0.8 %; EOSINOPHILS # (AUTO) 0.2 10^3/uL (0.0-0.7); EOSINOPHILS % (AUTO) 2.4 %; HCT - HEMATOCRIT 39.3 % (42.0-52.0); HGB - HEMOGLOBIN 12.5 g/dL (14.0-18.0); LYMPHOCYTES # (AUTO) 1.1 10^3/uL (1.5-3.5); LYMPHOCYTES % (AUTO) 17.7 %; MEAN CORPUSCULAR HEMOGLOBIN 30.9 pg (27.0-31.0); MEAN CORPUSCULAR HGB CONC 31.8 g/dL (32.0-36.0); MEAN CORPUSCULAR VOLUME 97.3 fL (80.0-94.0); MEAN PLATELET VOLUME 11.4 fL (7.4-11.4); MONOCYTES # (AUTO) 0.7 10^3/uL (0.0-1.0); MONOCYTES % (AUTO) 11.9 %; NEUTROPHILS # (AUTO) 4.2 10^3/uL (1.5-6.6); PLT - PLATELET COUNT 157 10^3/uL (130-450); RED BLOOD COUNT 4.04 10^6/uL (4.70-6.10); RED CELL DISTRIBUTION WIDTH 14.6 % (12.0-15.0); WHITE BLOOD COUNT 6.2 x10^3/uL (4.8-10.8)
[2023-11-24 14:07] LABS: ALBUMIN 3.5 g/dL (3.2-5.5); ALBUMIN/GLOBULIN RATIO 1.5 (1.0-2.2); BILIRUBIN,TOTAL 0.6 mg/dL (0.2-1.0); CALCIUM 10.2 mg/dL (8.5-10.3); CREATININE 1.3 mg/dL (0.6-1.3); POTASSIUM 4.1 mmol/L (3.5-4.5); TOTAL PROTEIN 5.9 g/dL (6.4-8.9)
== END 2023-11-24 13:39 | disposition home or self-care (01) ==
LOC: LAB.R 13:38
PROVIDERS: ATTEND Registered Nurse
DX: K92.2 Gastrointestinal hemorrhage, unspecified (principal)
CPT/HCPCS: 80053; 85025

== ENCOUNTER 2024-03-27 12:32 | Outpatient (CLI) | payer MEDICARE, OTHER | END 2024-03-27 23:59 | disposition critical access hospital (66) | LOC: EMS 12:32 | DX: R41.0 Disorientation, unspecified (principal); R61 Generalized hyperhidrosis; R53.1 Weakness; R26.81 Unsteadiness on feet; R32 Unspecified urinary incontinence; R39.89 Other symptoms and signs involving the genitourinary system; R47.81 Slurred speech | CPT/HCPCS: A0425; A0429 ==

== ENCOUNTER 2024-03-27 12:39 | Inpatient (IN) | payer MEDICARE, OTHER ==
--- NOTE | 2024-03-27 13:24 | ED Physician Documentation ---
History of Present Illness - Stated complaint Stated Complaint: CONFUSION/SLURRED SPEECH - Chief complaint Chief Complaint: General - History obtained from History obtained from: Patient, Family, EMS - Additonal information Additional information: Patient is an 88-year-old male with a history of COPD presenting for evaluation of weakness for the past several days. He has also had a cough. This morning reports that he was having a coughing fit and then afterwards seemed very weak and was having trouble with standing. She then called family over as well as EMS. EMS reports that their stroke assessment at the scene was negative.Patient was admitted earlier this year with similar symptoms and had a UTI at that time. He denies fever, chest pain, abdominal pain, vomiting. Has chronic shortness of air related to COPD which she states is unchanged. 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 Patient is on Eliquis. Pt is tapering off prednisone -2.5 mg currently. Review of Systems Constitutional: reports: Chills. denies: Fever Cardiac: denies: Chest pain / pressure Respiratory: reports: Dyspnea, Cough GI: denies: Abdominal Pain, Vomiting : denies: Dysuria Neurologic: reports: Generalized weakness. denies: Syncope PD PAST MEDICAL HISTORY - Past Medical History Past Medical History: Yes Cardiovascular: High cholesterol, Coronary artery disease Respiratory: Asthma, COPD Neuro: Tremors, Other Endocrine/Autoimmune: None GI: None : Incontinence HEENT: Glaucoma Psych: None Musculoskeletal: Osteoarthritis Derm: None - Past Surgical History Past Surgical History: Yes General: Appendectomy, Hiatal hernia repair Ortho: Arthroscopic surgery Cardiovascular: CABG, Valve replacement HEENT: Cataracts, Tonsil/Adenoidectomy - Present Medications Home Medications: Ambulatory Orders Medication Instructions Recorded Confirmed Clopidogrel [Plavix] 75 mg PO DAILY 07/29/17 03/27/24 Montelukast [Singulair] 10 mg PO QPM 07/29/17 03/27/24 Acetaminophen [Tylenol] 650 mg PO DAILY PRN 04/13/21 03/27/24 Cholecalciferol [Vitamin D3] 75 mcg PO DAILY 04/13/21 03/27/24 Dorzolamide 2% Ophth Drops 1 drops EACHEYE BID 04/13/21 03/27/24 [Trusopt 2% Ophth Drops] Latanoprost/Pf [Latanoprost 0.005% 1 drops EACHEYE HS 04/13/21 03/27/24 Eye Drop] Magnesium Oxide [Mag Ox] 400 mg PO DAILY 04/13/21 03/27/24 Multivitamin 1 tab ORAL DAILY 04/13/21 03/27/24 Ubidecarenone [Co Q-10] 2 tab ORAL DAILY 04/13/21 03/27/24 Vitamin E 400 unit PO DAILY 04/13/21 03/27/24 Apixaban [Eliquis] 2.5 mg PO BID 11/10/22 03/27/24 Calcium Carbonate [Tums (Calcium 500 mg PO DAILY PRN 11/02/23 03/27/24 Carbonate 500mg)] Carboxymethylcellulose Sodium 1 drops EACHEYE DAILY 11/02/23 03/27/24 [Refresh Tears] Albuterol Sulfate [Proair 1 puffs INH PRN PRN 03/27/24 03/27/24 Digihaler] Atorvastatin Calcium 40 mg PO HS 03/27/24 03/27/24 Carboxymethylcellulose Sodium 1 drops EACHEYE DAILY PRN 03/27/24 03/27/24 [Refresh Tears] Dutasteride 0.5 mg PO QPM 03/27/24 03/27/24 Famotidine [Pepcid] 20 mg PO QDDINNER 03/27/24 03/27/24 Fluticasone Propion/Salmeterol 1 puffs INH DAILY 03/27/24 03/27/24 [Advair 500-50 Diskus] Fluticasone [Flonase] 1 spray LAURA BID 03/27/24 03/27/24 Ipratropium [Atrovent] 2 puffs INH QID PRN 03/27/24 03/27/24 Ipratropium/Albuterol [Duoneb] 3 - 6 ml INH DAILY 03/27/24 03/27/24 Metoprolol Succinate [Toprol Xl] 12.5 mg PO HS 03/27/24 03/27/24 Midodrine [ProAmatine] 5 mg PO DAILY PRN 03/27/24 03/27/24 Tamsulosin [Flomax] 0.8 mg PO QPM 03/27/24 03/27/24 - Allergies Allergies/Adverse Reactions: Allergies Allergy/AdvReac Type Severity Reaction Status Date / Time aspirin Allergy Respiratory Verified 03/27/24 12:50 - Social History Does the pt smoke?: No Smoking Status: Never smoker Does the pt drink ETOH?: Yes Does the pt have substance abuse?: No - Immunizations Immunizations are current?: Yes - POLST Patient has POLST: No PD ED PE NORMAL - General General: Alert and oriented X 3, No acute distress, Well developed/nourished - HEENT HEENT: Atraumatic - Neck Neck: Supple, no meningeal sign - Cardiac Cardiac: RRR - Respiratory Respiratory: No respiratory distress, Clear bilaterally - Abdomen Abdomen: Normal bowel sounds, Soft, Non distended, Other (Mild generalized ab dominal tenderness) - Derm Derm: Warm and dry - Extremities Extremities: No calf tenderness / cord - Neuro Neuro: Alert and oriented X 3, ethylbenzene oxidizer 2-12 intact, No motor deficit, No sensory deficit, Normal speech Eye Opening: Spontaneous Motor: Obeys Commands Verbal: Oriented GCS Score: 15 Results - Vitals Vitals: Vital Signs - 24 hr 03/27/24 03/27/24 03/27/24 12:45 14:00 16:00 Temperature 37.2 C Heart Rate 75 69 76 Respiratory 20 22 20 Rate Blood Pressure 149/80 H 144/121 H 157/106 H O2 Saturation 95 98 99 Oxygen O2 Source Room air - EKG (time done) 1349 EKG releavant findings:: EKG personally interpreted by author of this note. Relevant findings are: Rate 75, normal sinus rhythm, no STEMI, right bundle branch block, QTc 466 - Labs Labs: Laboratory Tests 03/27/24 03/27/24 03/27/24 13:25 13:30 13:30 WBC 24.2 H RBC 4.32 L Hgb 13.2 L Hct 41.6 L MCV 96.3 H MCH 30.6 MCHC 31.7 L RDW 14.9 Plt Count 166 MPV 10.8 Neut # (Auto) 21.9 H Lymph # (Auto) 1.0 L Franklin # (Auto) 1.0 Eos # (Auto) 0.1 Baso # (Auto) 0.1 Absolute Nucleated RBC 0.00 Nucleated RBC % 0.0 Manual Slide Review Indicated RBC Morph Micro Appear 2+ ANISOCYTOSIS Sodium 139 Potassium 4.4 Chloride 106 Carbon Dioxide 29 Anion Gap 4.0 L BUN 22 H Creatinine 1.3 Estimated GFR (MDRD) 52 L Glucose 115 H Lactic Acid Calcium 9.8 Total Bilirubin 0.9 AST 15 ALT 25 Alkaline Phosphatase 51 Troponin I High Sens B-Natriuretic Peptide Total Protein 6.3 L Albumin 3.8 Globulin 2.5 Albumin/Globulin Ratio 1.5 Lipase 39 Urine Color Urine Clarity Urine pH Ur Specific [place] Urine Protein Urine Glucose (UA) Urine Ketones Urine Occult Blood Urine Nitrite Urine Bilirubin Urine Urobilinogen Ur Leukocyte Esterase Ur Microscopic Review Urine Culture Comments Nasal Adenovirus (PCR) NOT DETECTED Nasal B. parapertussis DNA (PCR) NOT DETECTED Nasal Coronavir 229E PCR NOT DETECTED Nasal Coronavir HKU1 PCR NOT DETECTED Nasal Coronavir NL63 PCR NOT DETECTED Nasal Coronavir OC43 PCR NOT DETECTED Nasal Enterovir/Rhinovir PCR NOT DETECTED Nasal Influenza B PCR NOT DETECTED Nasal Influenza A PCR NOT DETECTED Nasal Parainfluen 1 PCR NOT DETECTED Nasal Parainfluen 2 PCR NOT DETECTED Nasal Parainfluen 3 PCR NOT DETECTED Nasal Parainfluen 4 PCR NOT DETECTED Nasal RSV (PCR) NOT DETECTED Nasal B.pertussis DNA PCR NOT DETECTED Nasal C.pneumoniae (PCR) NOT DETECTED Laura Human Metapneumo PCR NOT DETECTED Nasal M.pneumoniae (PCR) NOT DETECTED Nasal SARS-CoV-2 (PCR) NOT DETECTED 03/27/24 03/27/24 03/27/24 13:30 13:30 13:30 WBC RBC Hgb Hct MCV MCH MCHC RDW Plt Count MPV Neut # (Auto) Lymph # (Auto) Franklin # (Auto) Eos # (Auto) Baso # (Auto) Absolute Nucleated RBC Nucleated RBC % Manual Slide Review RBC Morph Micro Appear Sodium Potassium Chloride Carbon Dioxide Anion Gap BUN Creatinine Estimated GFR (MDRD) Glucose Lactic Acid 1.3 Calcium Total Bilirubin AST ALT Alkaline Phosphatase Troponin I High Sens 26.4 H* B-Natriuretic Peptide 330 H Total Protein Albumin Globulin Albumin/Globulin Ratio Lipase Urine Color Urine Clarity Urine pH Ur Specific [place] Urine Protein Urine Glucose (UA) Urine Ketones Urine Occult Blood Urine Nitrite Urine Bilirubin Urine Urobilinogen Ur Leukocyte Esterase Ur Microscopic Review Urine Culture Comments Nasal Adenovirus (PCR) Nasal B. parapertussis DNA (PCR) Nasal Coronavir 229E PCR Nasal Coronavir HKU1 PCR Nasal Coronavir NL63 PCR Nasal Coronavir OC43 PCR Nasal Enterovir/Rhinovir PCR Nasal Influenza B PCR Nasal Influenza A PCR Nasal Parainfluen 1 PCR Nasal Parainfluen 2 PCR Nasal Parainfluen 3 PCR Nasal Parainfluen 4 PCR Nasal RSV (PCR) Nasal B.pertussis DNA PCR Nasal C.pneumoniae (PCR) Laura Human Metapneumo PCR Nasal M.pneumoniae (PCR) Nasal SARS-CoV-2 (PCR) 03/27/24 14:00 WBC RBC Hgb Hct MCV MCH MCHC RDW Plt Count MPV Neut # (Auto) Lymph # (Auto) Franklin # (Auto) Eos # (Auto) Baso # (Auto) Absolute Nucleated RBC Nucleated RBC % Manual Slide Review RBC Morph Micro Appear Sodium Potassium Chloride Carbon Dioxide Anion Gap BUN Creatinine Estimated GFR (MDRD) Glucose Lactic Acid Calcium Total Bilirubin AST ALT Alkaline Phosphatase Troponin I High Sens B-Natriuretic Peptide Total Protein Albumin Globulin Albumin/Globulin Ratio Lipase Urine Color YELLOW Urine Clarity CLEAR Urine pH 7.5 Ur Specific [place] 1.015 Urine Protein NEGATIVE Urine Glucose (UA) NEGATIVE Urine Ketones NEGATIVE Urine Occult Blood NEGATIVE Urine Nitrite NEGATIVE Urine Bilirubin NEGATIVE Urine Urobilinogen 0.2 (NORMAL) Ur Leukocyte Esterase NEGATIVE Ur Microscopic Review NOT INDICATED Urine Culture Comments NOT INDICATED Nasal Adenovirus (PCR) Nasal B. parapertussis DNA (PCR) Nasal Coronavir 229E PCR Nasal Coronavir HKU1 PCR Nasal Coronavir NL63 PCR Nasal Coronavir OC43 PCR Nasal Enterovir/Rhinovir PCR Nasal Influenza B PCR Nasal Influenza A PCR Nasal Parainfluen 1 PCR Nasal Parainfluen 2 PCR Nasal Parainfluen 3 PCR Nasal Parainfluen 4 PCR Nasal RSV (PCR) Nasal B.pertussis DNA PCR Nasal C.pneumoniae (PCR) Laura Human Metapneumo PCR Nasal M.pneumoniae (PCR) Nasal SARS-CoV-2 (PCR) PD Medical Decision Making - ED course Complexity details: reviewed results, re-evaluated patient, d/w patient, d/w family ED course: Pt presenting for increased weakness and some confusion this morning. No focal deficits. On Eliquis. Has cough and congestion. CT head, chest XR, cbc, chemistries, BNP, troponin, respiratory swab reviewed. WBC 24. On prednisone, but low dose which I do not think account for leukocytosis. Chest XR with signs of CHF but no focal consolidation. Troponin slightly elevated, similiar to prior lab. EKG reviewed. UA negative for infection. Given unclear source for leukocytosis, CT chest and abd/pelvis ordered. Pending at time of shift change and care turned over to Dr. Yao. Departure - Departure Disposition: 66 [facility] DC/Xfer Clinical Impression: Multifocal pneumonia, COPD without exacerbation Condition: Stable Discharge Date/Time: 03/27/24 17:53
[2024-03-27 13:38] LABS: BASOPHILS # (AUTO) 0.1 10^3/uL (0.0-0.1); BASOPHILS % (AUTO) 0.2 %; EOSINOPHILS # (AUTO) 0.1 10^3/uL (0.0-0.7); EOSINOPHILS % (AUTO) 0.3 %; HCT - HEMATOCRIT 41.6 % (42.0-52.0); HGB - HEMOGLOBIN 13.2 g/dL (14.0-18.0); LYMPHOCYTES % (AUTO) 4.2 %; MEAN CORPUSCULAR HEMOGLOBIN 30.6 pg (27.0-31.0); MEAN CORPUSCULAR HGB CONC 31.7 g/dL (32.0-36.0); MEAN CORPUSCULAR VOLUME 96.3 fL (80.0-94.0); MEAN PLATELET VOLUME 10.8 fL (7.4-11.4); MONOCYTES % (AUTO) 3.9 %; NEUTROPHILS # (AUTO) 21.9 10^3/uL (1.5-6.6); NEUTROPHILS % (AUTO) 90.7 %; PLT - PLATELET COUNT 166 10^3/uL (130-450); RED BLOOD COUNT 4.32 10^6/uL (4.70-6.10); RED CELL DISTRIBUTION WIDTH 14.9 % (12.0-15.0); WHITE BLOOD COUNT 24.2 x10^3/uL (4.8-10.8)
[2024-03-27] MEDS: SODIUM CHLORIDE 0.9% 1,000 ML IV STA (13:39)
[2024-03-27 13:47] LABS: SLIDE REVIEW? Indicated
[2024-03-27 13:53] LABS: ALBUMIN 3.8 g/dL (3.2-5.5); ALBUMIN/GLOBULIN RATIO 1.5 (1.0-2.2); BILIRUBIN,TOTAL 0.9 mg/dL (0.2-1.0); CALCIUM 9.8 mg/dL (8.5-10.3); CREATININE 1.3 mg/dL (0.6-1.3); POTASSIUM 4.4 mmol/L (3.5-4.5); TOTAL PROTEIN 6.3 g/dL (6.4-8.9)
[2024-03-27 14:09] LABS: RBC MORPHOLOGY (MULTIPLE) 2+ ANISOCYTOSIS (NORMAL)
--- NOTE | 2024-03-27 14:12 | XRAY Report ---
PROCEDURE: Chest 1V INDICATIONS: cough TECHNIQUE: One view of the chest was acquired. COMPARISON: 10/31/2023. FINDINGS: Surgical changes and devices: Right shoulder arthroplasty. Sternotomy.. Lungs and pleura: No pleural effusions or pneumothorax. Bilateral pulmonary densities likely represe nt mild pulmonary edema. Minimal bibasilar atelectasis.. Mediastinum: Mediastinal contours appear normal. Cardiomegaly.. Bones and chest wall: No suspicious bony lesions. Overlying soft tissues appear unremarkable. IMPRESSION: Probable mild acute congestive heart failure exacerbation Reviewed by: Shola Malik MD on 03/27/2024 2:11 PM PDT Approved by: Shola Malik MD on 03/27/2024 2:11 PM PDT Station ID: [id number]
[2024-03-27 14:25] LABS: BILIRUBIN,URINE NEGATIVE (NEGATIVE); CLARITY,URINE CLEAR (CLEAR); GLUCOSE, URINE (UA) NEGATIVE (NEGATIVE); KETONES,URINE (UA) NEGATIVE (NEGATIVE); LEUKOCYTE ESTERASE, URINE NEGATIVE (NEGATIVE); NITRITE,URINE NEGATIVE (NEGATIVE); OCCULT BLOOD,URINE NEGATIVE (NEGATIVE); PH,URINE 7.5 PH (5.0-7.5); PROTEIN,URINE NEGATIVE (NEGATIVE); UROBILINOGEN,URINE 0.2 (NORMAL) E.U./dL (NORMAL)
--- NOTE | 2024-03-27 14:26 | CT Report ---
PROCEDURE: Head WO INDICATIONS: AMS/weak TECHNIQUE: Noncontrast 4.5 mm thick angled axial sections acquired from the foramen magnum to the vertex. For r adiation dose reduction, the following was used: automated exposure control, adjustment of mA and/or kV according to patient size. COMPARISON: 10/31/2023. FINDINGS: Image quality: Excellent. CSF spaces: Basal cisterns are patent. No extra-axial fluid collections. Ventricles are normal in size and shape. Brain: No midline shift. No intracranial masses or hemorrhage. Galarza-white matter interface is norm al. Intracranial carotid calcifications. Age-related volume loss and age appropriate mild to moderate small vessel ischemic change. Skull and face: Calvarium and visualized facial bones are intact, without suspicious lesions. Sinuses: Visualized sinuses and mastoids are clear. IMPRESSION: No acute intracranial pathology. Reviewed by: Shola Malik MD on 03/27/2024 2:24 PM PDT Approved by: Shola Malik MD on 03/27/2024 2:24 PM PDT Station ID: [id number]
[2024-03-27] MEDS ORDERED: iohexoL-300 100 ML VIAL ONE (14:39)
[2024-03-27 15:14] LABS: B. PARAPERTUSSIS- RESP PCR PAN NOT DETECTED; B. PERTUSSIS- RESP PCR PANEL NOT DETECTED; C. PNEUMONIAE- RESP PCR PANEL NOT DETECTED; CORONAVIRUS 229E-RESP PCR NOT DETECTED; CORONAVIRUS HKU1-RESP PCR NOT DETECTED; CORONAVIRUS NL63-RESP PCR NOT DETECTED; CORONAVIRUS OC43-RESP PCR NOT DETECTED; HUMAN METAPNEUMOVIRUS NOT DETECTED; INFLUENZA A- RESP PCR PANEL NOT DETECTED; INFLUENZA B - RESP PCR PANEL NOT DETECTED; M. PNEUMONIAE- RESP PCR PANEL NOT DETECTED; PARAINFLUENZA VIRUS 1 NOT DETECTED; PARAINFLUENZA VIRUS 2 NOT DETECTED; PARAINFLUENZA VIRUS 3 NOT DETECTED; PARAINFLUENZA VIRUS 4 NOT DETECTED; RHINOVIRUS/ENTEROVIRUS NOT DETECTED; RSV- RESP PCR PANEL NOT DETECTED; SARS-CoV-2 -RESP PCR PANEL NOT DETECTED
[2024-03-27] MEDS: iohexoL-300 100 ML VIAL IVP ONE (15:24)
--- NOTE | 2024-03-27 15:33 | ED Physician Documentation ---
ED Addendum - Addendum Addendum: 03/27/24 15:[address] Pyle at 3 PM shift change. Briefly this is an 88-year-old gentleman whose had several days of weakness, cough. Workup at shift change was that he had a chest x-ray that was possibly consistent with mild CHF, a head CT that was unremarkable, and his white count was 24,000 with mild elevation in troponin and BNP. Urinalysis and COVID test were negative. At signout my direction was that I should follow-up on his CT scans as we are looking for a source for his white count and fever. On my "wet read" of his CT, it does look like he probably has a multifocal pneumonia and Rocephin and Zithromax were ordered pending final reads of his CT scans. 03/27/24 16:31 CTs have been read and confirm multifocal pneumonia with other incidental findings. I spoke with Dr. Best at this time for admission. Disposition: Admitted to the hospital here Condition: Serious Diagnosis: 1. Multifocal pneumonia 2. Significant leukocytosis
[2024-03-27] MEDS: cefTRIAXone 1 GM VIAL IVP STA (15:42)
[2024-03-27] MEDS: AZITHROMYCIN INJ 500 MG in SODIUM CHLORIDE 0.9% 250 ML IV STA (15:51)
--- NOTE | 2024-03-27 16:13 | CT Report ---
PROCEDURE: Abdomen/Pelvis W INDICATIONS: WBC elevated; unclear source CONTRAST: Omni 300 100ml TECHNIQUE: After the administration of intravenous contrast, a CT scan of the abdomen and pelvis was performed. Images were recorded and evaluated at appropriate window settings. Reformats: coronal and sagittal. F or radiation dose reduction, the following was used: automated exposure control, adjustment of mA and /or kV according to patient size. COMPARISON: CT abdomen and pelvis without contrast dated 10/31/2023, CT chest from today FINDINGS: Image quality: Diagnostic. Lower chest: Remote CABG and aortic valve replacement. Right basilar consolidation. Left basilar atel ectasis. Mild left basilar pleural thickening. Liver: No solid mass. Gallbladder: No radiopaque stones or wall thickening. Biliary tree: No intrahepatic or extrahepatic dilation, accounting for age. Spleen: No splenomegaly. Pancreas: No pancreatic ductal dilation. Adrenals: No adrenal nodule. Kidneys and ureters: No hydronephrosis. No renal cystic lesion which requires follow up. No solid mas s. Ureters are somewhat prominent. Stomach, bowel and peritoneum: No gastric or small bowel dilation. No abnormal wall thickening. No pa thologic free fluid. Lymph nodes: No central or retroperitoneal adenopathy. Vessels: No infrarenal aortic aneurysm. Patent portal vein. PELVIS Reproductive organs: Unremarkable. Bladder: No abnormal wall thickening, accounting for underdistention. Pelvic lymph nodes: No pelvic adenopathy by size criteria. Bones: No aggressive osseous abnormality. Other: Fat-containing left inguinal hernia.. IMPRESSION: 1. Patchy right basilar pneumonia. 2. Remote CABG and valve, mild cardiomegaly. 3. No acute process in the abdomen and pelvis. Reviewed by: Shola Malik MD on 03/27/2024 4:12 PM PDT Approved by: Shola Malik MD on 03/27/2024 4:12 PM PDT Station ID: [id number]
--- NOTE | 2024-03-27 16:18 | CT Report ---
PROCEDURE: Chest W INDICATIONS: WBC elevated; unclear source CONTRAST: Omni 300 100ml TECHNIQUE: After the administration of intravenous contrast, a CT scan of the chest was performed. Images were recorded and evaluated at appropriate window settings. Reformats: axial MIP of the chest, coronal and sagittal. For radiation dose reduction, the following was used: automated exposure control, adjustme nt of mA and/or kV according to patient size. COMPARISON: CT chest dated 10/31/2023, CT abdomen and pelvis from today. FINDINGS: Image quality: Diagnostic. Chest wall and lower neck: No thyroid nodule which requires sonographic follow up. No breast mass. No axillary or supraclavicular adenopathy by size. Lungs and pleura: Multifocal patchy airspace consolidation present in the right upper lobe and right middle lobe and right lower lobe, most notably in the superior segment of right lower lobe. Minimal l eft basilar atelectasis and minimal left basilar pleural thickening. No pneumothorax. No suspicious p ulmonary nodules which require follow up. Mediastinum: Remote CABG and aortic valve replacement. Mild cardiomegaly. No pericardial effusion. No large vessel abnormality. No mediastinal adenopathy by size criteria. Bones: No aggressive osseous abnormality. Note is made of multilevel thoracic disc protrusions. There is a disc protrusion at T7-T8 which results in a degree of canal stenosis at this level.. Upper Abdomen: Unremarkable. IMPRESSION: 1. Multifocal pneumonia, right lung. 2. Remote CABG plus aortic valve. Mild cardiomegaly. 3. Note is made of multilevel thoracic disc protrusions including a disc protrusion at T7-T8 which re sults in a degree of canal stenosis. Reviewed by: Shola Malik MD on 03/27/2024 4:16 PM PDT Approved by: Shola Malik MD on 03/27/2024 4:16 PM PDT Station ID: [id number]
[2024-03-27] MEDS ORDERED: ONDANSETRON ODT 4 MG TABLET TL PRN (17:12)
[2024-03-27] MEDS ORDERED: oxyCODONE 5 MG TABLET PO PRN (17:12)
[2024-03-27] MEDS ORDERED: ACETAMINOPHEN 325 MG TABLET PO PRN (17:12)
[2024-03-27] MEDS ORDERED: SODIUM CHLORIDE FLUSH 0.9% 10 ML SYRINGE IVP PRN (17:12)
[2024-03-27] MEDS ORDERED: IPRATROPIUM/ALBUTEROL 3 ML NEB INH PRN (17:21)
--- NOTE | 2024-03-27 17:29 | HISTORY & PHYSICAL EXAMINATION ---
Chief Complaint - Chief Complaint Chief Complaint: Weakness History of Present Illness - Admitted From Admitted From:: Emergency department - History Obtained From Records Reviewed: ED records History obtained from: Patient, , Dr. Hinds, ED attending Exam Limitations: Patient is a mildly limited historian but adequate history provided by his - History of Present Illness HPI Comment/Other: Patient is an 88-year-old man with a PMH of aortic stenosis status post open AV replacement and A-fib on Eliquis, HTN, CAD status post stent in 2015, COPD, asthma, history of multiple pleural effusions status postthoracentesis x 3,obesity who is typically able to ambulate independently at home and with a cane outside of the home who is presenting with 1 week of progressively worsening weakness and cough. His ambulatory dysfunction has progressed to the point where he has difficulty transferring from bed to chair which is not typical for him. He also states that a dry cough has progressively become more purulent over the last few weeks. He denies any fever, nausea, vomiting, chest pain, abdominal pain, diarrhea or other systemic symptoms of illness. In the ED, his evaluation was most remarkable for WBC of 27,000 and a chest x- ray as well as CT scan of the chest both showing right-sided multifocal pneumonia. History - Past Medical History Cardiovascular: reports: High cholesterol, Coronary artery disease Respiratory: reports: Asthma, COPD Neuro: reports: Tremors, Other Endocrine/Autoimmune: reports: None GI: reports: None : reports: Incontinence HEENT: reports: Glaucoma Psych: reports: None Musculoskeletal: reports: Osteoarthritis Derm: reports: None MRSA Hx?: No - Past Surgical History General: reports: Appendectomy, Hiatal hernia repair Ortho: reports: Arthroscopic surgery Cardiovascular: reports: CABG, Valve replacement HEENT: reports: Cataracts, Tonsil/Adenoidectomy - Family & Social History Family History: Mother: , Father: Family History Comment/Other: Patient report his father has medical history of asthma, he from heart attack at age 84. His mother Was a heavy cigarette smoker, she from heart attack at age 95 Living arrangement: At home Living Situation: With spouse/s.o. Social History Notes: He denies Cigarette smoking or alcohol or drug issue - Substance History Use: Uses substance without health or social issues: NONE - POLST Patient has POLST: No Meds/Allgy - Home Medications Home Medications: Ambulatory Orders Medication Instructions Recorded Confirmed Clopidogrel [Plavix] 75 mg PO DAILY 07/29/17 11/01/23 Montelukast [Singulair] 10 mg PO HS 07/29/17 11/01/23 Acetaminophen [Tylenol] 650 mg PO Q6H PRN 04/13/21 11/02/23 Cholecalciferol [Vitamin D3] 25 mcg PO DAILY 04/13/21 11/02/23 Dorzolamide 2% Ophth Drops 1 drops EACHEYE BID 04/13/21 11/02/23 [Trusopt 2% Ophth Drops] Fexofenadine HCl 180 mg PO DAILY PM 04/13/21 11/02/23 Latanoprost/Pf [Latanoprost 0.005% 1 drops OP HS 04/13/21 11/01/23 Eye Drop] Magnesium Oxide [Mag Ox] 400 mg PO DAILY 04/13/21 11/02/23 Multivitamin 1 tab ORAL DAILY 04/13/21 11/02/23 Tamsulosin HCl [Flomax] 0.4 mg ORAL DAILY PM 04/13/21 11/01/23 Ubidecarenone [Co Q-10] 2 tab ORAL DAILY 04/13/21 11/02/23 Vitamin E 400 unit PO DAILY 04/13/21 11/02/23 Atorvastatin [Lipitor] 40 mg PO QPM #30 tablet 04/14/21 11/01/23 Apixaban [Eliquis] 2.5 mg PO BID 11/10/22 11/01/23 Finasteride [Proscar] 5 mg PO DAILY 11/10/22 11/01/23 Trospium Chloride [Trospium 60 mg PO DAILY 11/10/22 11/01/23 Chloride ER] Calcium Carbonate [Tums (Calcium 500 mg PO Q4H PRN 11/02/23 11/02/23 Carbonate 500mg)] Carboxymethylcellulose Sodium 1 drops EACHEYE Q4H PRN 11/02/23 11/02/23 [Refresh Tears] Budesonide [Pulmicort] 0.5 mg INH RTBID PRN #10 ml 11/10/23 Fluticasone [Flonase] 2 sprays LAURA DAILY #1 each 11/10/23 Ipratropium/Albuterol [Duoneb] 3 ml INH Q6H PRN #10 ea 11/10/23 11/02/23 Lactobac 66/Bifido 4/S.thermo 1 each PO DAILY #14 tab 11/10/23 [Probiotic Acidophilus 3B Cell] Loratadine [Claritin] 10 mg PO QPM #30 tab 11/10/23 Midodrine [ProAmatine] 5 mg PO TIDWM #90 tab 11/10/23 Zinc Oxide 20% Oint [Zinc Oxide] 1 applic TOP PRN PRN each 11/10/23 levoFLOXacin [Levofloxacin] 500 mg PO DAILY #14 tablet 11/10/23 - Allergies Allergies/Adverse Reactions: Allergies Allergy/AdvReac Type Severity Reaction Status Date / Time aspirin Allergy Respiratory Verified 03/27/24 12:50 Review of Systems - Constitutional Constitutional: reports: Fatigue, Malaise, Weakness - Cardiovascular Cariovascular: denies: Irregular heart rate, Palpitations, Chest pain - Respiratory Respiratory: reports: Cough, Sputum production. denies: Wheezing - Musculoskeletal Musculoskeletal: reports: Muscle weakness - Neurological Neurological: reports: General weakness. denies: Focal weakness, Numbness Prior Level of Functionality: Ambulates independently at home, with a cane outside of the home Exam - Vital Signs Reviewed Vital Signs: Yes Vital Signs: Vital Signs x48h Temp Pulse Resp BP Pulse Ox 03/27/24 16:00 76 20 157/106 H 99 03/27/24 12:45 37.2 C 75 20 149/80 H 95 - Physical Exam General Appearance: positive: No acute distress, Alert Eyes Bilateral: positive: Normal inspection, EOMI Neck: positive: Nml inspection Respiratory: positive: No respiratory distress, Other (Course crackles in left side upper and lower lung hsu, right-sided clear, no tachypnea, no respiratory distress, saturating well on room air). negative: Chest non-tender, Wheezes Cardiovascular: positive: Regular rate & rhythm, No gallop, Systolic murmur Abdomen: positive: Non-tender, No organomegaly, Nml bowel sounds Extremities: positive: Nml appearance, No pedal edema. negative: Pedal edema Neurologic/Psychiatric: positive: Oriented x3, CN's nml (2-12), Motor nml Conclusion/Plan - Problem List (1) Multifocal pneumonia Conclusion/Plan: Patient is an 88-year-old man with progressive weakness and cough and imaging findings consistent with right-sided multifocal pneumonia. Patient is not hypoxic and demonstrates no evidence of tachypnea or respiratory distress on admission. Given his history of COPD and significant leukocytosis with WBC of 27,000 along with systemic symptoms such as weakness, it is prudent to admit the patient to [facility] for further treatment including IV antibiotics. Will Continue IV Rocephin and azithromycin. (2) Weakness Conclusion/Plan: Secondary to above. Continue treatment for pneumonia as above and obtain PT/OT consult. (3) CAD (coronary artery disease) Conclusion/Plan: Patient is status post stent placement in 2014. No concern for ACS Continue home Plavix. Qualifiers: [place] vs. transplanted heart: [place] heart Associated angina: without johan na (4) Atrial fibrillation Conclusion/Plan: Currently rate controlled Continue home metoprolol Continue home Eliquis Qualifiers: Atrial fibrillation type: persistent (not longstanding) Qualified Code(s): I48.19 - Other persistent atrial fibrillation; I48.1 - Persistent atrial fibrillation (5) Hyperlipidemia Conclusion/Plan: Stable Resume home statin (6) BPH (benign prostatic hyperplasia) Conclusion/Plan: Stable Resume home Flomax (7) COPD (chronic obstructive pulmonary disease) Conclusion/Plan: Stable, no evidence of current exacerbation given lack of wheezing, no hypoxia. 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 Given lack of wheezing and lack of hypoxia at this time I will defer steroids despite his history for COPD Ordered as needed nebulizers - Lab Results Lab results reviewed: Yes Ford Bones: 03/27/24 13:30 03/27/24 13:30 - Diagnostic Imaging Results Diagnostic Imaging Results: positive: Final report reviewed - EKG Results EKG Interpreted Independently: Yes EKG Comparison: No prior EKG Core Measures - Anticipated LOS I expect patient to be DC'd or transferred within 96 hours.: Yes - DVT/VTE - Prophylaxis VTE/DVT Device ordered at admit?: Yes
[2024-03-27] MEDS: TAMSULOSIN 0.4 MG CAPSULE PO SCH (18:15)
--- NOTE | 2024-03-27 18:35 | PHARMACY PROGRESS NOTE ---
- Best Possible Medication History Admit Date and Time: 03/27/24 1712 Processed by: Pharmacy Medications reviewed in ED?: No Medication History completed: Yes Patient Interview: Completed Secondary Source(s): Written medication list, Spouse/Significant other, Insurance records As the person ultimately responsible for medication therapy, providers are able to order a medication from an existing home medication list in [facility] via the "Reconcile Routine" prior to Confirmation of that medication by instructional support assistant. Such practice is discouraged except when the physician, in their clinical judgment, deems that a medical need exists for a medication without regard to previous use.
[2024-03-27] MEDS ORDERED: ZINC OXIDE 12% OINT 57 GM TUBE TOP PRN (20:03)
[2024-03-27] MEDS: DORZOLAMIDE 2% OPHTH DROPS EACHEYE SCH (20:56)
[2024-03-27] MEDS: APIXABAN 2.5 MG TABLET PO SCH (20:58)
[2024-03-27] MEDS: LORATADINE 10 MG TABLET PO SCH (20:58)
[2024-03-27] MEDS: ATORVASTATIN 40 MG TABLET PO SCH (20:58)
[2024-03-27] MEDS: MONTELUKAST 10 MG TABLET PO SCH (20:58)
[2024-03-27] MEDS: LATANOPROST 0.005% OPHTH DROPS EACHEYE SCH (21:02)
[2024-03-27] MEDS: CALCIUM CARBONATE CHEW 500 MG TABLET PO PRN (21:08)
[2024-03-27] MEDS: SODIUM CHLORIDE FLUSH 0.9% 10 ML SYRINGE IVP SCH (23:38)
[2024-03-28 05:17] LABS: HCT - HEMATOCRIT 36.7 % (42.0-52.0); HGB - HEMOGLOBIN 11.9 g/dL (14.0-18.0); MEAN CORPUSCULAR HEMOGLOBIN 31.1 pg (27.0-31.0); MEAN CORPUSCULAR HGB CONC 32.4 g/dL (32.0-36.0); MEAN CORPUSCULAR VOLUME 95.8 fL (80.0-94.0); MEAN PLATELET VOLUME 10.7 fL (7.4-11.4); RED BLOOD COUNT 3.83 10^6/uL (4.70-6.10); RED CELL DISTRIBUTION WIDTH 14.9 % (12.0-15.0); WHITE BLOOD COUNT 13.2 x10^3/uL (4.8-10.8)
[2024-03-28 05:29] LABS: CALCIUM 9.5 mg/dL (8.5-10.3); CREATININE 1.1 mg/dL (0.6-1.3)
[2024-03-28] MEDS: CHOLECALCIFEROL 25 MCG TABLET PO SCH (08:34)
[2024-03-28] MEDS: cefTRIAXone 1 GM in SODIUM CHLORIDE 0.9% MINIBAG 100 ML IV SCH (08:34)
[2024-03-28] MEDS: MAGNESIUM OXIDE 400 MG TABLET PO SCH (08:34)
[2024-03-28] MEDS: FINASTERIDE 5 MG TABLET PO SCH (08:34)
[2024-03-28] MEDS: CLOPIDOGREL 75 MG TABLET PO SCH (08:34)
[2024-03-28] MEDS: MULTIVITAMIN TABLET PO SCH (08:34)
[2024-03-28] MEDS: CARBOXYMETHYLCELLULOSE OPHTH DROPS EACHEYE PRN (08:44)
--- NOTE | 2024-03-28 08:56 | PROVIDER PROGRESS NOTE ---
Assessment/Plan - Problem List (1) Multifocal pneumonia Assessment/Plan: Patient is improved. Saturating well on room air. WBC down to 13,000 from 27,000. Given his complicated past medical history, would favor conservative slow path to discharge. Will have PT evaluate patient, and pending outcome consider discharge home as early as tomorrow if continues to have downtrend of WBC. For now, continue IV antibiotics, consider switching to p.o. tomorrow. (2) Weakness Assessment/Plan: Secondary to pneumonia. As above, await PT evaluation and plan accordingly. (3) CAD (coronary artery disease) Qualifiers: [place] vs. transplanted heart: [place] heart Associated angina: without angina Assessment/Plan: Stable. Resume home medications. (4) Atrial fibrillation Qualifiers: Atrial fibrillation type: persistent (not longstanding) Qualified Code(s): I48.19 - Other persistent atrial fibrillation; I48.1 - Persistent atrial fibrillation Assessment/Plan: Stable, rate controlled. Continue home medications. (5) Hyperlipidemia Assessment/Plan: Stable. Continue home medications. (6) BPH (benign prostatic hyperplasia) Assessment/Plan: Stable. Resume home medications. (7) COPD (chronic obstructive pulmonary disease) Assessment/Plan: Patient does not appear to have current exacerbation given that there is no wheeze, he has no tachypnea and no hypoxia. As needed nebs available, as discussed in H&P, defer prednisone due to lower extremity edema and no clear signs of exacerbation as well as current pneumonia. Risk Does not appear warranted given clinical improvement. - Current Meds Current Meds: Current Medications Generic Name Dose Route Start Last Admin Trade Name Freq PRN Reason Stop Dose Admin Apixaban 2.5 mg 03/27/24 21:00 03/28/24 08:34 Apixaban 2.5 Mg Tablet PO 2.5 mg BID ZARIA Administration Atorvastatin Calcium 40 mg 03/27/24 21:00 03/27/24 20:58 Atorvastatin 40 Mg Tablet PO 40 mg QPM ZARIA Administration Calcium Carbonate/Glycine 500 mg 03/27/24 17:21 03/27/24 21:08 Calcium Carbonate Chew 500 Mg Tablet PO 500 mg Q4H PRN Administration Heartburn Carboxymethylcellulose 1 drops 03/27/24 17:36 03/28/24 08:44 Carboxymethylcellulose Ophth Drops EACHEYE 1 drops Q4H PRN Administration EYE IRRITATION Cholecalciferol 25 mcg 06/13/24 09:00 03/28/24 08:34 Cholecalciferol 25 Mcg Tablet PO 25 mcg DAILY ZARIA Administration Clopidogrel Bisulfate 75 mg 03/28/24 09:00 03/28/24 08:34 Clopidogrel 75 Mg Tablet PO 75 mg DAILY ZARIA Administration Dorzolamide HCl 1 drops 03/27/24 21:00 03/28/24 08:34 Dorzolamide 2% Ophth Drops EACHEYE 1 drops BID ZARIA Administration Finasteride 5 mg 03/28/24 09:00 03/28/24 08:34 Finasteride 5 Mg Tablet PO 5 mg DAILY ZARIA Administration Ceftriaxone Sodium 1 gm/ 100 mls @ 200 mls/hr 03/28/24 09:00 03/28/24 08:34 Sodium Chloride IV 200 mls/hr DAILY ZARIA Administration Latanoprost 1 drops 03/27/24 21:00 03/27/24 21:02 Latanoprost 0.005% Ophth Drops EACHEYE 1 drops HS ZARIA Administration Loratadine 10 mg 03/27/24 21:00 03/27/24 20:58 Loratadine 10 Mg Tablet PO 10 mg QPM ZARIA Administration Magnesium Oxide 400 mg 03/28/24 09:00 03/28/24 08:34 Magnesium Oxide 400 Mg Tablet PO 400 mg DAILY ZARIA Administration Montelukast Sodium 10 mg 03/27/24 21:00 03/27/24 20:58 Montelukast 10 Mg Tablet PO 10 mg HS ZARIA Administration Multivitamins 1 tab 03/28/24 09:00 03/28/24 08:34 Multivitamin Tablet PO 1 tab DAILY ZARIA Administration Sodium Chloride 10 ml 03/28/24 01:00 03/28/24 08:34 Sodium Chloride Flush 0.9% 10 Ml Syringe IVP 10 ml 0100,0900,1700 ZARIA Administration Tamsulosin HCl 0.4 mg 03/27/24 18:00 03/27/24 18:15 Tamsulosin 0.4 Mg Capsule PO 0.4 mg 1800 ZARIA Administration - Lab Result Lab results reviewed: Yes Fish Bone Diagrams: 03/28/24 05:05 03/28/24 05:05 - EKG Results EKG Interpreted Independently: Yes - Additional Planning Condition/Complexity: Improved My Orders: My Active Orders 03/27/24 17:12 Activity Orders [RC] Q2HR IO [RC] IOSHIFT Incentive Spirometry - RT [RC] .TID Initiate Bowel Care Protocol [RC] .protocol Initiate Line Care Protocol [RC] QSHIFT Initiate Personal Care Protoco [RC] .protocol Oxygen Therapy [RC] .PRN Telemetry- [RC] Q4HR Vital Signs [RC] Q4HR Acetaminophen [Tylenol] 650 mg PO Q4HR PRN Ondansetron Odt [Zofran Odt] 4 mg TL Q6HR PRN Sodium Chloride Flush 0.9% [Normal Saline Flush 0.9%] 10 ml IVP PRN PRN oxyCODONE [Roxicodone] 10 mg PO Q4HR PRN Code Status [OTHERS] Routine Condition of Patient [OTHERS] Routine DVT Prophylaxis [OTHERS] Routine 03/27/24 17:19 Evaluate and Treat OT [OT] Routine Evaluate and Treat PT [PT] Routine 03/27/24 17:21 Calcium Carbonate [Tums] 500 mg PO Q4H PRN Ipratropium/Albuterol [Duoneb] 3 ml INH Q6H PRN 03/27/24 17:36 Carboxymethylcellulose 1% Opht [Refresh 1% Ophth Drops] 1 drops EACHEYE Q4H PRN 03/27/24 18:00 Tamsulosin [Flomax] 0.4 mg PO 1800 03/27/24 20:03 Zinc Oxide [Laron Protect] 1 applic TOP PRN PRN 03/27/24 21:00 Apixaban [Eliquis] 2.5 mg PO BID Atorvastatin [Lipitor] 40 mg PO QPM Dorzolamide 2% Ophth Drops [Trusopt 2% Ophth Drops] 1 drops EACHEYE BID Latanoprost 0.005% Ophth Drops [Xalatan Ophth Drops] 1 drops EACHEYE HS Loratadine [Claritin] 10 mg PO QPM Montelukast [Singulair] 10 mg PO HS 03/28/24 01:00 Sodium Chloride Flush 0.9% [Normal Saline Flush 0.9%] 10 ml IVP 0100,0900,1700 03/28/24 Breakfast Cardiac Diet [DIET] 03/28/24 09:00 Cholecalciferol [Vitamin D3] 25 mcg PO DAILY Clopidogrel [Plavix] 75 mg PO DAILY Finasteride [Proscar] 5 mg PO DAILY Magnesium Oxide [Mag Ox] 400 mg PO DAILY Multivitamin [Theragran] 1 tab PO DAILY cefTRIAXone [Rocephin] 1 gm Sodium Chloride 0.9% Minibag [Normal Saline 0.9% Minibag] 100 ml IV DAILY 03/29/24 05:00 BMP - BASIC METABOLIC PANEL [CHEM] DAILYLAB CBC W/O DIFF (HEMOGRAM) [HEME] DAILYLAB 03/30/24 05:00 BMP - BASIC METABOLIC PANEL [CHEM] DAILYLAB CBC W/O DIFF (HEMOGRAM) [HEME] DAILYLAB Subjective - Subjective Patient Reports: Feeling Better, Resting Comfortably, No Complaints Objective Vital Signs: Vital Signs - 24 hr 03/27/24 03/27/24 03/27/24 12:45 14:00 16:00 Temperature 37.2 C Heart Rate 75 69 76 Heart Rate [ Brachial] Respiratory 20 22 20 Rate Blood Pressure 149/80 H 144/121 H 157/106 H Blood Pressure [Right Brachial artery] O2 Saturation 95 98 99 03/27/24 03/27/24 03/27/24 17:35 17:50 20:05 Temperature 36.3 C L 36.6 C 37.0 C Heart Rate 69 Heart Rate [ 75 76 Brachial] Respiratory 23 24 24 Rate Blood Pressure 166/81 H Blood Pressure 149/83 H 150/75 H [Right Brachial artery] O2 Saturation 96 96 94 03/28/24 03/28/24 03/28/24 00:54 04:55 08:10 Temperature 37.3 C 37.0 C 36.7 C Heart Rate Heart Rate [ 65 72 67 Brachial] Respiratory 20 20 16 Rate Blood Pressure Blood Pressure 156/76 H 153/78 H 155/86 H [Right Brachial artery] O2 Saturation 93 91 L 97 Oxygen O2 Source Room air I&O (Last 24 Hrs): Intake and Output Totals x24h 03/26/24 03/27/24 03/28/24 23:59 23:59 23:59 Intake Total 1550 580 Output Total 275 500 Balance 1275 80 General: Alert, Oriented x3 HEENT: Atraumatic, EOMI Neuro: Alert, CN 2-12 Grossly Intact Cardiovascular: Regular rate, Normal S1, Normal S2 Respiratory: Chest non-tender, No respiratory distress, Breath sounds nml Abdomen: Normal bowel sounds, No tenderness, No hepatospenomegaly Extremities: No clubbing, No cyanosis, No edema, Normal pulses - Results Results: Laboratory Results WBC 13.2 x10^3/uL (4.8-10.8) H 03/28/24 05:05 RBC 3.83 10^6/uL (4.70-6.10) L 03/28/24 05:05 Hgb 11.9 g/dL (14.0-18.0) L 03/28/24 05:05 Hct 36.7 % (42.0-52.0) L 03/28/24 05:05 MCV 95.8 fL (80.0-94.0) H 03/28/24 05:05 MCH 31.1 pg (27.0-31.0) H 03/28/24 05:05 MCHC 32.4 g/dL (32.0-36.0) 03/28/24 05:05 RDW 14.9 % (12.0-15.0) 03/28/24 05:05 Plt Count 144 10^3/uL (130-450) 03/28/24 05:05 MPV 10.7 fL (7.4-11.4) 03/28/24 05:05 Neut # (Auto) 21.9 10^3/uL (1.5-6.6) H 03/27/24 13:30 Lymph # (Auto) 1.0 10^3/uL (1.5-3.5) L 03/27/24 13:30 Braxton # (Auto) 1.0 10^3/uL (0.0-1.0) 03/27/24 13:30 Eos # (Auto) 0.1 10^3/uL (0.0-0.7) 03/27/24 13:30 Baso # (Auto) 0.1 10^3/uL (0.0-0.1) 03/27/24 13:30 Absolute Nucleated RBC 0.00 x10^3/uL 03/27/24 13:30 Nucleated RBC % 0.0 /100WBC 03/27/24 13:30 Manual Slide Review Indicated 03/27/24 13:30 RBC Morph Micro Appear 2+ ANISOCYTOSIS (NORMAL) 03/27/24 13:30 Sodium 137 mmol/L (135-145) 03/28/24 05:05 Potassium 4.0 mmol/L (3.5-4.5) 03/28/24 05:05 Chloride 108 mmol/L (101-111) 03/28/24 05:05 Carbon Dioxide 26 mmol/L (21-32) 03/28/24 05:05 Anion Gap 3.0 (6-13) L 03/28/24 05:05 BUN 19 mg/dL (6-20) 03/28/24 05:05 Creatinine 1.1 mg/dL (0.6-1.3) 03/28/24 05:05 Estimated GFR (MDRD) 63 (>89) L 03/28/24 05:05 Glucose 105 mg/dL (74-104) H 03/28/24 05:05 Lactic Acid 1.3 mmol/L (0.5-2.2) 03/27/24 13:30 Calcium 9.5 mg/dL (8.5-10.3) 03/28/24 05:05 Total Bilirubin 0.9 mg/dL (0.2-1.0) 03/27/24 13:30 AST 15 IU/L (10-42) 03/27/24 13:30 ALT 25 IU/L (10-60) 03/27/24 13:30 Alkaline Phosphatase 51 IU/L (42-121) 03/27/24 13:30 Troponin I High Sens 26.4 ng/L (2.3-19.7) H* 03/27/24 13:30 B-Natriuretic Peptide 330 pg/mL (5-100) H 03/27/24 13:30 Total Protein 6.3 g/dL (6.4-8.9) L 03/27/24 13:30 Albumin 3.8 g/dL (3.2-5.5) 03/27/24 13:30 Globulin 2.5 g/dL (2.1-4.2) 03/27/24 13:30 Albumin/Globulin Ratio 1.5 (1.0-2.2) 03/27/24 13:30 Lipase 39 U/L (11-82) 03/27/24 13:30 Urine Color YELLOW 03/27/24 14:00 Urine Clarity CLEAR (CLEAR) 03/27/24 14:00 Urine pH 7.5 PH (5.0-7.5) 03/27/24 14:00 Ur Specific [place] 1.015 (1.002-1.030) 03/27/24 14:00 Urine Protein NEGATIVE mg/dL (NEGATIVE) 03/27/24 14:00 Urine Glucose (UA) NEGATIVE mg/dL (NEGATIVE) 03/27/24 14:00 Urine Ketones NEGATIVE mg/dL (NEGATIVE) 03/27/24 14:00 Urine Occult Blood NEGATIVE (NEGATIVE) 03/27/24 14:00 Urine Nitrite NEGATIVE (NEGATIVE) 03/27/24 14:00 Urine Bilirubin NEGATIVE (NEGATIVE) 03/27/24 14:00 Urine Urobilinogen 0.2 (NORMAL) E.U./dL (NORMAL) 03/27/24 14:00 Ur Leukocyte Esterase NEGATIVE (NEGATIVE) 03/27/24 14:00 Ur Microscopic Review NOT INDICATED 03/27/24 14:00 Urine Culture Comments NOT INDICATED 03/27/24 14:00 Nasal Adenovirus (PCR) NOT DETECTED 03/27/24 13:25 Nasal B. parapertussis DNA (PCR) NOT DETECTED 03/27/24 13:25 Nasal Coronavir 229E PCR NOT DETECTED 03/27/24 13:25 Nasal Coronavir HKU1 PCR NOT DETECTED 03/27/24 13:25 Nasal Coronavir NL63 PCR NOT DETECTED 03/27/24 13:25 Nasal Coronavir OC43 PCR NOT DETECTED 03/27/24 13:25 Nasal Enterovir/Rhinovir PCR NOT DETECTED 03/27/24 13:25 Nasal Influenza B PCR NOT DETECTED 03/27/24 13:25 Nasal Influenza A PCR NOT DETECTED 03/27/24 13:25 Nasal Parainfluen 1 PCR NOT DETECTED 03/27/24 13:25 Nasal Parainfluen 2 PCR NOT DETECTED 03/27/24 13:25 Nasal Parainfluen 3 PCR NOT DETECTED 03/27/24 13:25 Nasal Parainfluen 4 PCR NOT DETECTED 03/27/24 13:25 Nasal RSV (PCR) NOT DETECTED 03/27/24 13:25 Nasal B.pertussis DNA PCR NOT DETECTED 03/27/24 13:25 Nasal C.pneumoniae (PCR) NOT DETECTED 03/27/24 13:25 Laura Human Metapneumo PCR NOT DETECTED 03/27/24 13:25 Nasal M.pneumoniae (PCR) NOT DETECTED 03/27/24 13:25 Nasal SARS-CoV-2 (PCR) NOT DETECTED 03/27/24 13:25 ABX Reporting Has patient been on IV antibiotics over the past 48 hours?: Yes Current Medications - Current Medications Current Medications: Active Medications Generic Name Dose Route Start Last Admin Trade Name Freq PRN Reason Stop Dose Admin Acetaminophen 650 mg 03/27/24 17:12 Acetaminophen 325 Mg Tablet PO Q4HR PRN Pain 1 to 4, or Fever Albuterol/Ipratropium 3 ml 03/27/24 17:21 Ipratropium/Albuterol 3 Ml Neb INH Q6H PRN Wheezing Apixaban 2.5 mg 03/27/24 21:00 03/28/24 08:34 Apixaban 2.5 Mg Tablet PO 2.5 mg BID ZARIA Administration Atorvastatin Calcium 40 mg 03/27/24 21:00 03/27/24 20:58 Atorvastatin 40 Mg Tablet PO 40 mg QPM ZARIA Administration Calcium Carbonate/Glycine 500 mg 03/27/24 17:21 03/27/24 21:08 Calcium Carbonate Chew 500 Mg Tablet PO 500 mg Q4H PRN Administration Heartburn Carboxymethylcellulose 1 drops 03/27/24 17:36 03/28/24 08:44 Carboxymethylcellulose Ophth Drops EACHEYE 1 drops Q4H PRN Administration EYE IRRITATION Cholecalciferol 25 mcg 03/28/24 09:00 03/28/24 08:34 Cholecalciferol 25 Mcg Tablet PO 25 mcg DAILY ZARIA Administration Clopidogrel Bisulfate 75 mg 03/28/24 09:00 03/28/24 08:34 Clopidogrel 75 Mg Tablet PO 75 mg DAILY ZARIA Administration Dorzolamide HCl 1 drops 03/27/24 21:00 03/28/24 08:34 Dorzolamide 2% Ophth Drops EACHEYE 1 drops BID ZARIA Administration Finasteride 5 mg 03/28/24 09:00 03/28/24 08:34 Finasteride 5 Mg Tablet PO 5 mg DAILY ZARIA Administration Ceftriaxone Sodium 1 gm/ 100 mls @ 200 mls/hr 03/28/24 09:00 03/28/24 08:34 Sodium Chloride IV 200 mls/hr DAILY ZARIA Administration Latanoprost 1 drops 03/27/24 21:00 03/27/24 21:02 Latanoprost 0.005% Ophth Drops EACHEYE 1 drops HS ZARIA Administration Loratadine 10 mg 03/27/24 21:00 03/27/24 20:58 Loratadine 10 Mg Tablet PO 10 mg QPM ZARIA Administration Magnesium Oxide 400 mg 03/28/24 09:00 03/28/24 08:34 Magnesium Oxide 400 Mg Tablet PO 400 mg DAILY ZARIA Administration Montelukast Sodium 10 mg 03/27/24 21:00 03/27/24 20:58 Montelukast 10 Mg Tablet PO 10 mg HS [facility] Administration Multi-Ingredient Ointment 1 applic 03/27/24 20:03 Zinc Oxide 12% Oint 57 Gm Tube TOP PRN PRN Skin Care Multivitamins 1 tab 03/28/24 09:00 03/28/24 08:34 Multivitamin Tablet PO 1 tab DAILY [facility] Administration Ondansetron HCl 4 mg 03/27/24 17:12 Ondansetron Odt 4 Mg Tablet TL Q6HR PRN Nausea / Vomiting Oxycodone HCl 10 mg 03/27/24 17:12 Oxycodone 5 Mg Tablet PO Q4HR PRN Pain 8 to 10 Sodium Chloride 10 ml 03/27/24 17:12 Sodium Chloride Flush 0.9% 10 Ml Syringe IVP PRN PRN NEEDED PER PROVIDER ORDERS Sodium Chloride 10 ml 03/28/24 01:00 03/28/24 08:34 Sodium Chloride Flush 0.9% 10 Ml Syringe IVP 10 ml 0100,0900,1700 [facility] Administration Tamsulosin HCl 0.4 mg 03/27/24 18:00 03/27/24 18:15 Tamsulosin 0.4 Mg Capsule PO 0.4 mg 1800 [facility] Administration Clopidogrel [Plavix] 75 mg PO DAILY 07/29/17 Montelukast [Singulair] 10 mg PO QPM 07/29/17 Acetaminophen [Tylenol] 650 mg PO DAILY PRN 04/13/21 Cholecalciferol [Vitamin D3] 75 mcg PO DAILY 04/13/21 Dorzolamide 2% Ophth Drops [Trusopt 2% Ophth Drops] 1 drops EACHEYE BID 04/13/21 Latanoprost/Pf [Latanoprost 0.005% Eye Drop] 1 drops EACHEYE HS 04/13/21 Magnesium Oxide [Mag Ox] 400 mg PO DAILY 04/13/21 Multivitamin 1 tab ORAL DAILY 04/13/21 Ubidecarenone [Co Q-10] 2 tab ORAL DAILY 04/13/21 Vitamin E 400 unit PO DAILY 04/13/21 Apixaban [Eliquis] 2.5 mg PO BID 11/10/22 Calcium Carbonate [Tums (Calcium Carbonate 500mg)] 500 mg PO DAILY PRN 11/02/23 Carboxymethylcellulose Sodium [Refresh Tears] 1 drops EACHEYE DAILY 11/02/23 Albuterol Sulfate [Proair Digihaler] 1 puffs INH PRN PRN 03/27/24 Atorvastatin Calcium 40 mg PO HS 03/27/24 Carboxymethylcellulose Sodium [Refresh Tears] 1 drops EACHEYE DAILY PRN 03/27/24 Dutasteride 0.5 mg PO QPM 03/27/24 Famotidine [Pepcid] 20 mg PO QDDINNER 03/27/24 Fluticasone Propion/Salmeterol [Advair 500-50 Diskus] 1 puffs INH DAILY 03/27/24 Fluticasone [Flonase] 1 spray LAURA BID 03/27/24 Ipratropium [Atrovent] 2 puffs INH QID PRN 03/27/24 Ipratropium/Albuterol [Duoneb] 3 - 6 ml INH DAILY 03/27/24 Metoprolol Succinate [Toprol Xl] 12.5 mg PO HS 03/27/24 Midodrine [ProAmatine] 5 mg PO DAILY PRN 03/27/24 Tamsulosin [Flomax] 0.8 mg PO QPM 03/27/24
[2024-03-28] MEDS: POTASSIUM CHLORIDE 20 MEQ TABLET PO SCH (11:58)
[2024-03-28] MEDS: AZITHROMYCIN INJ 500 MG in SODIUM CHLORIDE 0.9% 250 ML IV SCH (11:58)
[2024-03-28] MEDS: FUROSEMIDE 20 MG TABLET PO SCH (11:58)
[2024-03-29 05:48] LABS: HCT - HEMATOCRIT 37.1 % (42.0-52.0); HGB - HEMOGLOBIN 11.9 g/dL (14.0-18.0); MEAN CORPUSCULAR HEMOGLOBIN 30.6 pg (27.0-31.0); MEAN CORPUSCULAR HGB CONC 32.1 g/dL (32.0-36.0); MEAN CORPUSCULAR VOLUME 95.4 fL (80.0-94.0); MEAN PLATELET VOLUME 11.2 fL (7.4-11.4); RED BLOOD COUNT 3.89 10^6/uL (4.70-6.10); RED CELL DISTRIBUTION WIDTH 14.9 % (12.0-15.0); WHITE BLOOD COUNT 8.5 x10^3/uL (4.8-10.8)
[2024-03-29 06:03] LABS: CALCIUM 9.4 mg/dL (8.5-10.3); CREATININE 1.2 mg/dL (0.6-1.3); POTASSIUM 3.9 mmol/L (3.5-4.5)
--- NOTE | 2024-03-29 10:40 | Discharge Plan ---
Discharge Plan Problem Reviewed?: Yes Disposition: Home Health Service Condition: Stable Prescriptions: Azithromycin 250 mg PO DAILY 2 Days #2 tablet Cefpodoxime Proxetil [Vantin] 100 mg PO Q12H 2 Days #4 tablet Diet: Cardiac Activity Restrictions: Wt Bearing as Tolerated Shower Restrictions: Yes (Use a shower chair) Driving Restrictions: Yes (Would advise against driving until weakness resolved) Assistance Devices: Walker, Cane Weight Bearing: Full Weight Instruction Topics: Pneumonia Health Concerns: You were admitted because of significant weakness which we found to be related to pneumonia of the right lung. Fortunately, after administering IV antibiotics over the last couple of days it seems to have significantly improved. You may still find yourself weaker than normal for some time and this is normal but it should be progressing every day being better than the last. Please finish the antibiotics with your prescriptions that I sent to the pharmacy. You should start taking them on Monday because you already got your dose today in the hospital. You will only need it for 2 more days which is Monday and Monday. If you find yourself having any fever, difficulty breathing, or generally feeling worse at all, please do not hesitate to return to the emergency room for a reevaluation. Otherwise, I would suggest you follow-up with your PCP in the next week or so to update them on your recent hospitalization. No Smoking: If you smoke, Please STOP! Call for help. Follow-up with: Rinku Nguyễn MD [Provider Admit Priv/Credential] -
[2024-03-29 11:30] VITALS: O2SAT 94
[2024-03-29 13:38] VITALS: BP 161/78
--- NOTE | 2024-03-29 16:06 | DISCHARGE SUMMARY ---
Discharge Summary Admit Date: 03/27/24 Discharge Date: 03/29/24 Discharging Provider: Víctor Best MD Primary Care Provider: Rinku Nguyễn MD Condition at Discharge: Stable Discharge Disposition: 06 Home Health Service - DIAGNOSES Admission Diagnoses: Multifocal pneumonia Weakness CAD Atrial fibrillation Hyperlipidemia BPH COPD - HPI History of Present Illness: Patient is an 88-year-old man with a PMH of aortic stenosis status post open AV replacement and A-fib on Eliquis, HTN, CAD status post stent in 2014, COPD, asthma, history of multiple pleural effusions status postthoracentesis x 3,obesity who is typically able to ambulate independently at home and with a cane outside of the home who is presenting with 1 week of progressively worsening weakness and cough. His ambulatory dysfunction has progressed to the point where he has difficulty transferring from bed to chair which is not typical for him. He also states that a dry cough has progressively become more purulent over the last few weeks. He denies any fever, nausea, vomiting, chest pain, abdominal pain, diarrhea or other systemic symptoms of illness. In the ED, his evaluation was most remarkable for WBC of 27,000 and a chest x- ray as well as CT scan of the chest both showing right-sided multifocal pneumonia. - HOSPITAL COURSE Hospital Course: Patient was admitted on IV azithromycin and ceftriaxone primarily due to his significant weakness, risk factors, and his elevated WBC. Otherwise he was not hypoxic and this remains the case throughout the hospitalization. By the following day his WBC count improved from 27,000-13,000. Based on his significant weakness, it was felt that we should keep him 1 more day until his WBC normalized which it did on the Second morning and day of discharge. At this point, he was feeling much better, eager to go home, and was able to ambulate at his baseline level of care. He was discharged with 2 more days of p.o. antibiotics including azithromycin and Vantin. - ALLERGIES Allergies/Adverse Reactions: Allergies Allergy/AdvReac Type Severity Reaction Status Date / Time aspirin Allergy Respiratory Verified 03/27/24 12:50 - MEDICATIONS Home Medications: Ambulatory Orders Medication Instructions Recorded Confirmed Clopidogrel [Plavix] 75 mg PO DAILY 07/29/17 03/27/24 Montelukast [Singulair] 10 mg PO QPM 07/29/17 03/27/24 Acetaminophen [Tylenol] 650 mg PO DAILY PRN 04/13/21 03/27/24 Cholecalciferol [Vitamin D3] 75 mcg PO DAILY 04/13/21 03/27/24 Dorzolamide 2% Ophth Drops 1 drops EACHEYE BID 04/13/21 03/27/24 [Trusopt 2% Ophth Drops] Latanoprost/Pf [Latanoprost 0.005% 1 drops EACHEYE HS 04/13/21 03/27/24 Eye Drop] Magnesium Oxide [Mag Ox] 400 mg PO DAILY 04/13/21 03/27/24 Multivitamin 1 tab ORAL DAILY 04/13/21 03/27/24 Ubidecarenone [Co Q-10] 2 tab ORAL DAILY 04/13/21 03/27/24 Vitamin E 400 unit PO DAILY 04/13/21 03/27/24 Apixaban [Eliquis] 2.5 mg PO BID 11/10/22 03/27/24 Calcium Carbonate [Tums (Calcium 500 mg PO DAILY PRN 11/02/23 03/27/24 Carbonate 500mg)] Carboxymethylcellulose Sodium 1 drops EACHEYE DAILY 11/02/23 03/27/24 [Refresh Tears] Albuterol Sulfate [Proair 1 puffs INH PRN PRN 03/27/24 03/27/24 Digihaler] Atorvastatin Calcium 40 mg PO HS 03/27/24 03/27/24 Carboxymethylcellulose Sodium 1 drops EACHEYE DAILY PRN 03/27/24 03/27/24 [Refresh Tears] Dutasteride 0.5 mg PO QPM 03/27/24 03/27/24 Famotidine [Pepcid] 20 mg PO QDDINNER 03/27/24 03/27/24 Fluticasone Propion/Salmeterol 1 puffs INH DAILY 03/27/24 03/27/24 [Advair 500-50 Diskus] Fluticasone [Flonase] 1 spray LAURA BID 03/27/24 03/27/24 Ipratropium [Atrovent] 2 puffs INH QID PRN 03/27/24 03/27/24 Ipratropium/Albuterol [Duoneb] 3 - 6 ml INH DAILY 03/27/24 03/27/24 Metoprolol Succinate [Toprol Xl] 12.5 mg PO HS 03/27/24 03/27/24 Midodrine [ProAmatine] 5 mg PO DAILY PRN 03/27/24 03/27/24 Tamsulosin [Flomax] 0.8 mg PO QPM 03/27/24 03/27/24 Furosemide [Lasix] 20 mg PO UD 03/28/24 03/28/24 Potassium Chloride [Klor-Con 10] 10 meq PO UD 03/28/24 03/28/24 Apixaban [Eliquis] 2.5 mg PO BID tab 03/29/24 Atorvastatin [Lipitor] 40 mg PO QPM tab 03/29/24 Azithromycin 250 mg PO DAILY 2 Days #2 tablet 03/29/24 Cefpodoxime Proxetil [Vantin] 100 mg PO Q12H 2 Days #4 tablet 03/29/24 Finasteride [Proscar] 5 mg PO DAILY tab 03/29/24 Ipratropium/Albuterol [Duoneb] 3 ml INH Q6H PRN ml 03/29/24 Loratadine [Claritin] 10 mg PO QPM tab 03/29/24 Ondansetron Odt [Zofran Odt] 4 mg TL Q6HR PRN tab 03/29/24 Tamsulosin [Flomax] 0.4 mg PO 1800 cap 03/29/24 - PHYSICAL EXAM AT DISCHARGE General Appearance: positive: No acute distress, Alert, Mild distress Eyes Bilateral: positive: Normal inspection ENT: positive: ENT inspection nml Neck: positive: Nml inspection, No JVD Respiratory: positive: Chest non-tender, No respiratory distress, Other Cardiovascular: positive: Regular rate & rhythm, No murmur, No gallop Peripheral Pulses: positive: 2+ Abdomen: positive: Non-tender, No organomegaly, Nml bowel sounds, No distention Skin: positive: Color nml, No rash, Warm Extremities: positive: Non-tender, Full ROM, Nml appearance Neurologic/Psychiatric: positive: Oriented x3, CN's nml (2-12), Motor nml - LABS Result Diagrams: 03/29/24 05:21 03/29/24 05:21 - DIAGNOSTIC IMAGING Diagnostic Imaging Results: Final report reviewed - FOLLOW UP Follow Up: PCP in 1 week - TIME SPENT Time Spent in Discharge (Minutes): 40
== END 2024-03-29 11:52 | disposition home health service (06) | DRG 194 ==
LOC: EDUNIT# → ED 12:39 → MS2 17:12
PROVIDERS: ADMIT Family Medicine Sports Medicine; ATTEND Family Medicine Sports Medicine
DX: J18.9 Pneumonia, unspecified organism (principal); I48.19 Other persistent atrial fibrillation; R41.0 Disorientation, unspecified; R47.81 Slurred speech; J44.0 Chronic obstructive pulmonary disease with (acute) lower respiratory infection; I45.10 Unspecified right bundle-branch block; R53.1 Weakness; R79.89 Other specified abnormal findings of blood chemistry; Z20.818 Contact with and (suspected) exposure to other bacterial communicable diseases; Z20.822 Contact with and (suspected) exposure to COVID-19; Z20.828 Contact with and (suspected) exposure to other viral communicable diseases; I25.10 Atherosclerotic heart disease of native coronary artery without angina pectoris; E78.00 Pure hypercholesterolemia, unspecified; E66.9 Obesity, unspecified; D72.829 Elevated white blood cell count, unspecified; N40.1 Benign prostatic hyperplasia with lower urinary tract symptoms; N39.498 Other specified urinary incontinence; H40.9 Unspecified glaucoma; Z68.32 Body mass index [BMI] 32.0-32.9, adult; Z79.01 Long term (current) use of anticoagulants; Z79.02 Long term (current) use of antithrombotics/antiplatelets; Z79.899 Other long term (current) drug therapy; Z82.49 Family history of ischemic heart disease and other diseases of the circulatory system; Z82.5 Family history of asthma and other chronic lower respiratory diseases; Z88.8 Allergy status to other drugs, medicaments and biological substances; Z95.2 Presence of prosthetic heart valve; Z95.5 Presence of coronary angioplasty implant and graft
CPT/HCPCS: 36415; 70450; 71045; 71260; 74177; 80048; 80053; 81003; 83605; 83690; 83880; 84484; 85025; 85027; 87040; 87633; 93005; 94761; 96361; 96365; 96375; 97166; 97535; 99285; A9270; P9612; Q9967; 51701; 81001; 87086

== ENCOUNTER 2024-04-02 11:36 | Outpatient (CLI) | payer MEDICARE, OTHER ==
[2024-04-02 12:06] LABS: CALCIUM 10.1 mg/dL (8.5-10.3); CREATININE 1.5 mg/dL (0.6-1.3); POTASSIUM 4.2 mmol/L (3.5-4.5)
== END 2024-04-02 11:37 | disposition home or self-care (01) ==
LOC: LAB 11:36
PROVIDERS: ATTEND Internal Medicine Cardiovascular Disease
DX: I50.30 Unspecified diastolic (congestive) heart failure (principal); R06.02 Shortness of breath
CPT/HCPCS: 36415; 80048; 83880

== ENCOUNTER 2024-05-02 15:19 | Outpatient (CLI) | payer MEDICARE, OTHER ==
[2024-05-02 15:40] LABS: BASOPHILS # (AUTO) 0.1 10^3/uL (0.0-0.1); BASOPHILS % (AUTO) 0.7 %; EOSINOPHILS # (AUTO) 0.2 10^3/uL (0.0-0.7); EOSINOPHILS % (AUTO) 2.7 %; HCT - HEMATOCRIT 39.3 % (42.0-52.0); HGB - HEMOGLOBIN 12.7 g/dL (14.0-18.0); LYMPHOCYTES % (AUTO) 22.8 %; MEAN CORPUSCULAR HEMOGLOBIN 31.7 pg (27.0-31.0); MEAN CORPUSCULAR HGB CONC 32.3 g/dL (32.0-36.0); MEAN PLATELET VOLUME 10.9 fL (7.4-11.4); MONOCYTES # (AUTO) 0.9 10^3/uL (0.0-1.0); MONOCYTES % (AUTO) 10.8 %; NEUTROPHILS # (AUTO) 5.4 10^3/uL (1.5-6.6); NEUTROPHILS % (AUTO) 62.7 %; PLT - PLATELET COUNT 154 10^3/uL (130-450); RED BLOOD COUNT 4.01 10^6/uL (4.70-6.10); RED CELL DISTRIBUTION WIDTH 14.5 % (12.0-15.0); WHITE BLOOD COUNT 8.6 x10^3/uL (4.8-10.8)
[2024-05-02 15:55] LABS: ALBUMIN 3.8 g/dL (3.2-5.5); ALBUMIN/GLOBULIN RATIO 1.5 (1.0-2.2); ALKALINE PHOSPHATASE 50 IU/L (42-121); ALT ALANINE AMINOTRANSFERASE 15 IU/L (10-60); AST ASPARTATE AMINOTRANSFERASE 16 IU/L (10-42); BILIRUBIN,TOTAL 0.4 mg/dL (0.2-1.0); BUN - BLOOD UREA NITROGEN 21 mg/dL (6-20); CALCIUM 9.9 mg/dL (8.5-10.3); CARBON DIOXIDE - CO2 27 mmol/L (21-32); CHLORIDE 109 mmol/L (101-111); CHOL/HDL RATIO 2.4 (<5.0); CHOLESTEROL 91 mg/dL; CREATININE 1.3 mg/dL (0.6-1.3); GFR - MDRD 52 (>89); GLUCOSE 88 mg/dL (74-104); HDL CHOLESTEROL 38 mg/dL; LDL CHOLESTEROL,CALCULATED 19 mg/dL; LDL/HDL RATIO 0.5 (<3.6); POTASSIUM 4.4 mmol/L (3.5-4.5); SODIUM 141 mmol/L (135-145); TOTAL PROTEIN 6.3 g/dL (6.4-8.9); TRIGLYCERIDES 172 mg/dL; VLDL CHOLESTEROL 34 mg/dL
[2024-05-02 16:09] LABS: THYROID STIMULATING HORMONE 3.15 uIU/mL (0.34-5.60)
[2024-05-02 20:26] LABS: ESTIMATED AVERAGE GLUCOSE 123 mg/dL (70-100); HEMOGLOBIN A1c% 5.9 % (4.27-6.07)
== END 2024-05-02 15:20 | disposition home or self-care (01) ==
LOC: LAB 15:19
PROVIDERS: ATTEND Family Medicine
DX: I10 Essential (primary) hypertension (principal); I25.10 Atherosclerotic heart disease of native coronary artery without angina pectoris; R73.9 Hyperglycemia, unspecified; Z13.220 Encounter for screening for lipoid disorders; G47.10 Hypersomnia, unspecified
CPT/HCPCS: 36415; 80053; 80061; 83036; 83721; 84443; 85025

== ENCOUNTER 2024-05-27 07:11 | Day surgery (SDC) | payer MEDICARE, OTHER ==
[2024-05-27] MEDS ORDERED: ceFAZolin 2 GM VIAL ONE (07:22)
[2024-05-27] MEDS: LACTATED RINGERS 1,000 ML IV ONE ×2 (07:25→09:34)
[2024-05-27] MEDS ORDERED: PROPOFOL 200 MG/20 ML VIAL IVP ONE (08:14)
[2024-05-27] MEDS ORDERED: fentaNYL 100 MCG/2 ML VIAL ONE (08:14)
--- NOTE | 2024-05-27 08:27 | ANESTHESIA ---
Pre-Anesthesia VS, & Labs - Diagnosis bph - Procedure urolift Vital Signs: Temp Pulse Resp BP Pulse Ox O2 Flow Rate 36.0 C L 65 20 134/62 H 96 05/27/24 07:39 05/27/24 07:39 05/27/24 07:39 05/27/24 07:39 05/27/24 07:39 Height: 6 ft 1 in Weight (kg): 248 kg Body Mass Index: 72.1 BMI Classification: Morbidly Obese - NPO Last Fluid Intake: 0600 Last Food Intake: >8hr - Lab Results Lab results reviewed: Yes Home Medications and Allergies Clopidogrel [Plavix] 75 mg PO DAILY 07/29/17 Montelukast [Singulair] 10 mg PO QPM 07/29/17 Acetaminophen [Tylenol] 650 mg PO DAILY PRN 04/13/21 Cholecalciferol [Vitamin D3] 75 mcg PO DAILY 04/13/21 Dorzolamide 2% Ophth Drops [Trusopt 2% Ophth Drops] 1 drops EACHEYE BID 04/13/21 Latanoprost/Pf [Latanoprost 0.005% Eye Drop] 1 drops EACHEYE HS 04/13/21 Magnesium Oxide [Mag Ox] 400 mg PO DAILY 04/13/21 Multivitamin 1 tab ORAL DAILY 04/13/21 Ubidecarenone [Co Q-10] 2 tab ORAL DAILY 04/13/21 Vitamin E 400 unit PO DAILY 04/13/21 Calcium Carbonate [Tums (Calcium Carbonate 500mg)] 500 mg PO DAILY PRN 11/02/23 Albuterol Sulfate [Proair Digihaler] 1 puffs INH PRN PRN 03/27/24 Carboxymethylcellulose Sodium [Refresh Tears] 1 drops EACHEYE DAILY PRN 03/27/24 Dutasteride 0.5 mg PO QPM 03/27/24 Famotidine [Pepcid] 20 mg PO QDDINNER 03/27/24 Fluticasone Propion/Salmeterol [Advair 500-50 Diskus] 1 puffs INH DAILY 03/27/24 Fluticasone [Flonase] 1 spray LAURA BID 03/27/24 Ipratropium [Atrovent] 2 puffs INH QID PRN 03/27/24 Ipratropium/Albuterol [Duoneb] 3 - 6 ml INH DAILY 03/27/24 Metoprolol Succinate [Toprol Xl] 12.5 mg PO HS 03/27/24 Midodrine [ProAmatine] 5 mg PO DAILY PRN 03/27/24 Allergies/Adverse Reactions: Allergies Allergy/AdvReac Type Severity Reaction Status Date / Time aspirin Allergy Respiratory Verified 03/27/24 12:50 cantaloupe Allergy Unknown Verified 05/03/24 12:12 strawberry Allergy Unknown Verified 05/03/24 12:12 Anes History & Medical History - Anesthetic History Anesthesia Complications: reports: No previous complications (avr 2014, cad, s/p cabg 2014, recent dx of junctional rhythym, ef 55-60 took normal dose of metoprolol last night) - Medical History Cardiovascular: reports: Coronary artery disease, Atrial fibrillation Pulmonary: reports: Asthma, COPD, Pneumonia, Sleep apnea (doesn't use cpap) Gastrointestinal: reports: GERD Urinary: reports: Benign prostate hypertrophy, Incontinence Neuro: reports: Tremors, Other Musculoskeletal: reports: Osteoarthritis, Chronic back pain Endocrine/Autoimmune: reports: None Blood Disorders: reports: None Skin: reports: Other Smoking Status: Never smoker Psychosocial: reports: No issues indicated - Surgical History General: reports: Appendectomy, Colonoscopy Eyes Ears Nose Throat (EENT): reports: Tonsil/Adenoidectomy Cardiothoracic: reports: CABG, Valve replacement Orthopedic: reports: Knee replacement, Arthroscopic surgery, Other Results - EKG Results EKG Comparison: Reviewed EKG Exam General: Alert, Oriented x3 Dental: WNL Mouth Openin Fingerbreadth Neck Mobility: Normal Mallampati classification: II Respiratory: Wheezing Plan Anesthesia Type: MAC Consent for Procedure(s) Verified and Reviewed: Yes Code Status: Attempt Resuscitation ASA classification: 3-Severe systemic disease Is this case an emergency?: No
[2024-05-27] MEDS ORDERED: HYDROmorphone 0.5 MG/0.5 ML SYRINGE IVP PRN (08:28)
[2024-05-27] MEDS ORDERED: MORPHINE 2 MG/ML CARPUJECT IVP PRN (08:28)
[2024-05-27] MEDS ORDERED: METOCLOPRAMIDE 10 MG/2 ML VIAL IVP PRN (08:28)
[2024-05-27] MEDS ORDERED: fentaNYL 100 MCG/2 ML VIAL IVP PRN (08:28)
[2024-05-27] MEDS ORDERED: NALOXONE 0.4 MG/ML VIAL IVP PRN (08:28)
[2024-05-27] MEDS ORDERED: ePHEDrine 50 MG/ML VIAL IVP PRN (08:28)
[2024-05-27] MEDS ORDERED: ATROPINE ABBOJECT 1 MG/10 ML SYRINGE IVP PRN (08:28)
[2024-05-27] MEDS ORDERED: ONDANSETRON 4 MG/2 ML VIAL IVP PRN ×2 (08:28→09:46)
[2024-05-27] MEDS ORDERED: LIDOCAINE 2% URO-JET 5 ML SYRINGE UR ONE ×3 (08:29→09:24)
[2024-05-27] MEDS ORDERED: LACTATED RINGERS 1,000 ML IV SCH (09:00)
[2024-05-27] MEDS: LIDOCAINE 2% URO-JET 5 ML SYRINGE UR ONE ×2 (09:21)
[2024-05-27] MEDS ORDERED: HYDROcod/ACETAM 5/325 MG TABLET PO PRN (09:46)
--- NOTE | 2024-05-27 09:51 | Discharge Plan ---
Discharge Plan Problem Reviewed?: Yes Disposition: Home, Self Care Condition: Fair Prescriptions: Docusate Sodium 100Mg Capsule [Colace 100Mg Capsule] 100 mg PO DAILY #14 cap oxyCODONE [Roxicodone] 5 mg PO Q4H PRN #10 tablet PRN Reason: Pain Diet: Regular Activity Restrictions: Additional Comments (as instructed) Shower Restrictions: No Driving Restrictions: No Instruction Topics: Catheter Bag Urinary Empty Clean Additional Instructions or Follow Up instructions: You will be contacted for follow-up on May 29 for catheter removal No Smoking: If you smoke, Please STOP! Call for help. Follow-up with: Rinku Nguyễn MD [Primary Care Provider] - Imtiaz Akers MD [Provider Admit Priv/Credential] -
--- NOTE | 2024-05-27 09:54 | OPERATIVE REPORT ---
Operative Report - General Procedure Date: 05/27/24 Planned Procedure: cystoscopy, urolift Pre-Op Diagnosis: BPH with LUTS Procedure Performed: Cystoscopy, urethral dilation, urolift with 4 implants Post Op Diagnosis: BPH with LUTS, urethral stenosis - Procedure Note Primary Surgeon: Oswald Anesthesia Provider: KENRICK Torres Pathology: none Findings: 4 urolift implants meatal stenosis Complications: none - Other Other Information/Narrative: After informed consent was obtained the patient was brought to the OR and laid in the supine position. He was anesthetized per anesthesia protocols and prepped and draped in usual sterile fashion in the dorsolithotomy position. A formal timeout was performed reconfirmed the patient procedure. He was noted to have meatal stenosis and so his meatus was dilated up to 26 Frisian with sequential urethral sounds. A Uro-Jet was placed. The UroLift cystoscope was advanced easily into urinary bladder. He was noted to have lateral lobe hypertrophy and no median lobe. His bladder had 1+ trabeculations. For UroLift implants were placed. 1 implant was placed about half a centimeter distal to the bladder neck on either side. Another 1 implants was placed just proximal to the verumontanum on either side. We reinspected his prostate using a obturator and we could see a wide open channel. There was minimal bleeding. A 20 Frisian two-way Smith catheter was placed with 10 cc in the balloon. This concluded procedure the patient tolerated procedure well. He was brought to PACU without further incident. He will have the catheter in place for 2 days and have this removed in the office and follow-up in 6 weeks time All counts were correct
--- NOTE | 2024-05-27 10:31 | ANESTHESIA POST OP EVALUATION ---
Anesthesia Post Eval - Post Anesthesia Eval Vitals: Last Vital Signs Temp 36.0 C L 05/27/24 10:15 Pulse 64 05/27/24 10:15 Resp 18 05/27/24 10:15 BP 161/59 H 05/27/24 10:15 Pulse Ox 96 05/27/24 10:15 O2 Flow Rate CV Function Including HR & BP: Stable Pain Control: Satisfactory Nausea & Vomiting: Negative Mental Status: Baseline Respiratory Status: Airway Patent Hydration Status: Satisfactory Anesthesia Complications: None
[2024-05-27 10:34] VITALS: BP 161/59; O2SAT 96
== END 2024-05-27 07:12 | disposition home or self-care (01) ==
LOC: SDS 07:11
PROVIDERS: ATTEND Urology
DX: N40.1 Benign prostatic hyperplasia with lower urinary tract symptoms (principal); N13.8 Other obstructive and reflux uropathy; N35.811 Other urethral stricture, male, meatal; N39.498 Other specified urinary incontinence; E66.01 Morbid (severe) obesity due to excess calories; Z68.45 Body mass index [BMI] 70 or greater, adult; J44.9 Chronic obstructive pulmonary disease, unspecified; I48.91 Unspecified atrial fibrillation
CPT/HCPCS: 52441; 52442; J7120; L8699

== ENCOUNTER 2024-12-20 02:07 | Inpatient (IN) ==
--- NOTE | 2024-12-20 02:18 | ED Physician Documentation ---
PD HPI DYSPNEA Stated complaint Stated Complaint: GLF Chief complaint Chief Complaint: Trauma Hd/Nk History obtained from History obtained from: Patient, Family (spouse States the patient has had some cough wheezing and trouble breathing with general weakness for several days. History of COPD. No history of CHF. Weak and slumped to the floor today with striking elbow on nightstand. No apparent head injury. On blood thinner for irregular heartbeat.) and EMS History of Present Illness Timing - onset: How many days ago (several days of incrasing cough, congestion, dyspnea and weakness. Confusion today as well. Fell to floor this evening. Does not use home oxygen. ) Timing - details: Gradual onset and Still present Inciting event(s): URI Improved by: Inhaler/neb Worsened by: Exertion, Laying flat and Coughing Associated symptoms: Cough, Wheezing and Bilateral edema (mild chronic) Similar symptoms before: Diagnosis (COPD) Ar[place] Coma Scale Assess Eye opening: Spontaneous Verbal response: Confused Motor response: Obeys Commands Total score: 14 Meds/Allgy Home Medications Ambulatory Orders Medication Instructions Recorded Confirmed clopidogrel 75 mg tablet 75 mg PO DAILY 07/29/17 09/09/24 acetaminophen 325 mg tablet 650 mg PO DAILY PRN Pain 1-4 04/13/21 09/09/24 cholecalciferol (vitamin D3) 25 75 mcg PO DAILY 04/13/21 09/09/24 mcg (1,000 unit) tablet coenzyme Q10 100 mg capsule (Co 2 tab ORAL DAILY 04/13/21 09/09/24 Q-10) latanoprost (PF) 0.005 % eye drops 1 drp EACHEYE HS 04/13/21 09/09/24 vitamin E 268 mg (400 unit) capsule 400 unit PO DAILY 04/13/21 09/09/24 carboxymethylcellulose sodium 0.5 1 drp EACHEYE DAILY PRN Dry Eye 03/27/24 09/09/24 % eye drops (Refresh Tears) famotidine 20 mg tablet 20 mg PO QDDINNER 03/27/24 09/09/24 fluticasone propionate 50 1 spray intranasal BID 03/27/24 09/09/24 mcg/actuation nasal spray,suspension ipratropium 0.5 mg-albuterol 3 mg 3 - 6 ml inhalation DAILY 03/27/24 09/09/24 (2.5 mg base)/3 mL nebulization soln metoprolol succinate 25 mg 12.5 mg PO HS 03/27/24 09/09/24 tablet,extended release 24 hr apixaban 2.5 mg tablet (Eliquis) 2.5 mg PO BID 03/29/24 09/09/24 atorvastatin 40 mg tablet 40 mg PO QPM 03/29/24 09/09/24 tamsulosin 0.4 mg capsule 0.4 mg PO 1800 03/29/24 09/09/24 albuterol sulfate 90 mcg/actuation inhalation 08/19/24 09/09/24 aerosol inhaler dorzolamide 2 % eye drops 1 drp ophthalmic (eye) TID 08/19/24 09/09/24 fexofenadine 180 mg tablet 180 mg PO QDAY 08/19/24 09/09/24 fluticasone 500 mcg-salmeterol 50 1 inh inhalation BID #60 ea 08/19/24 09/09/24 mcg/dose blistr powdr for inhalation midodrine 5 mg tablet 5 mg PO TID 08/19/24 09/09/24 multivitamin 1 tab PO DAILY 08/19/24 09/09/24 trospium 60 mg capsule,extended See Rx Instructions .Route 09/13/24 release 24 hr .COMPLEX #30 caps dutasteride 0.5 mg capsule See Rx Instructions .Route 10/01/24 .COMPLEX #90 tabs escitalopram oxalate 5 mg tablet See Rx Instructions .Route 12/10/24 .COMPLEX #30 tabs montelukast 10 mg tablet See Rx Instructions .Route 12/12/24 .COMPLEX #90 tabs Allergies Allergies Allergy/AdvReac Type Severity Reaction Status Date / Time caffeine Allergy Intermediate Cough Verified 12/20/24 02:37 aspirin Allergy Respiratory Verified 12/20/24 02:37 cantaloupe Allergy Unknown Verified 12/20/24 02:37 strawberry Allergy Unknown Verified 12/20/24 02:37 [facility] Active Problems All Active Problems (Updated 12/20/24 @ 09:46 by Lico Sykes MD) Acute confusion due to infection (Acute) Anticoagulant long-term use (Acute) Generalized weakness (Acute) Abrasion of elbow, right (Acute) Fall (Acute) COPD with hypoxia (Acute) Acute exacerbation of chronic obstructive pulmonary disease (Acute) Pneumonia (Acute) Depression (Acute) COPD (chronic obstructive pulmonary disease) (Chronic) Ischemic heart disease (Acute) Dementia (Acute) Hyperlipidemia (Acute) BPH loc w urin obs/LUTS (Acute) Contusion of left thumb (Acute) Medical History Medical History (Updated 12/20/24 @ 09:46 by Lico Sykes MD) Acute renal failure Problem List clean-up per request of Phys. EHR Cmte TIA (transient ischemic attack) Problem List clean-up per request of Phys. EHR Cmte Atrial fibrillation Problem List clean-up per request of Phys. EHR Cmte BPH (benign prostatic hyperplasia) Glaucoma Hx of coronary artery disease Asthma Family History Family History Sister Diabetes Father COPD (chronic obstructive pulmonary disease) Mother COPD (chronic obstructive pulmonary disease) Social History Social History Smoking Status: Former smoker If you are a former smoker, when did you quit? (Date/Year): 1960s Number of Years Smoked: 6 How many cigarettes a day do you smoke? (20 cigarettes=1 Pk): 60 Second hand tobacco smoke exposure: Yes Do you dip or chew tobacco?: No Do you vape?: No Patient requests smoking cessation consult: No Initiate information on smoking cessation: No Living arrangement: At home Marital Status: Living Condition: With spouse/s.o. 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 No neck pain. Constitutional normal general appearance and average body habitus HENMT head/scalp traumatic (tenderness) (right occiput.) Eyes PERRL and EOMs intact bilaterally Neck/C-Spine cervical spine nontender, cervical full ROM noted and supple Chest palpation of chest normal Respiratory auscultation abnormal (bronchial breath sounds) (left base.), wheezing noted (expiratory wheezes) and no rales Cardiovascular normal heart rate noted Gastrointestinal abdomen soft to palpation and nontender to palpation Back/Pelvis no thoracic spine tenderness and no lumbar spine tenderness Extremities right elbow area with superficial skin peel about 2-3 cm area, no FB and no b leeding right now. Elbow with good ROM and full extension. NO effusion. Neurology GCS calculation - Eye opening: Spontaneous Verbal response: Confused Motor respo nse: Obeys Commands [place] Coma Scale total score: 14 Psychiatry mental status grossly normal, thought process abnormality noted (confused) (mildly to events and time.) and affect normal Results Vitals Vitals: Vital Signs - 24 hr 12/20/24 02:15 12/20/24 02:18 12/20/24 02:45 Temperature 36.8 C Temperature Source Oral Pulse Rate 82 85 81 Respiratory Rate 20 20 24 Blood Pressure 159/71 H O2 Saturation 87 L 93 O2 Source Room air Nasal cannula Nasal cannula If not protocol: Oxygen Flow, liters/minute 3 2 Pain Intensity 0 12/20/24 03:15 12/20/24 03:38 12/20/24 04:03 Temperature 36.9 C Temperature Source Temporal Artery Scan Pulse Rate 82 79 76 Respiratory Rate 29 H 29 H 26 H Blood Pressure 155/75 H 143/71 H 132/72 H O2 Saturation 100 100 O2 Source Nasal cannula Nasal cannula Nasal cannula If not protocol: Oxygen Flow, liters/minute 2 2 2 Pain Intensity Oxygen O2 Source Nasal cannula Labs Labs: Laboratory Tests 12/20/24 12/20/24 02:15 02:57 WBC 18.1 H RBC 4.18 L Hgb 13.1 L Hct 41.7 L MCV 99.8 H MCH 31.3 H MCHC 31.4 L RDW 13.7 Plt Count 150 MPV 11.5 H Neut # (Auto) 15.3 H Lymph # (Auto) 1.1 L [place] # (Auto) 1.4 H Eos # (Auto) 0.1 Baso # (Auto) 0.1 Absolute Nucleated RBC 0.00 Nucleated RBC % 0.0 Sodium 137 Potassium 4.3 Chloride 106 Carbon Dioxide 24 Anion Gap 7.0 BUN 21 H Creatinine 1.3 Estimated GFR (MDRD) 52 L Glucose 136 H Lactic Acid 1.2 Calcium 9.6 Magnesium 2.0 Total Bilirubin 0.8 AST 13 ALT 13 Alkaline Phosphatase 54 B-Natriuretic Peptide 362 H Total Protein 6.4 Albumin 3.7 Globulin 2.7 Albumin/Globulin Ratio 1.4 Lipase 38 Nasal Adenovirus (PCR) NOT DETECTED Nasal B. parapertussis DNA (PCR) NOT DETECTED Nasal Coronavir 229E PCR NOT DETECTED Nasal Coronavir HKU1 PCR NOT DETECTED Nasal Coronavir NL63 PCR NOT DETECTED Nasal Coronavir OC43 PCR NOT DETECTED Nasal Enterovir/Rhinovir PCR NOT DETECTED Nasal Influenza B PCR NOT DETECTED Nasal Influenza A PCR NOT DETECTED Nasal Parainfluen 1 PCR NOT DETECTED Nasal Parainfluen 2 PCR NOT DETECTED Nasal Parainfluen 3 PCR NOT DETECTED Nasal Parainfluen 4 PCR NOT DETECTED Nasal RSV (PCR) NOT DETECTED Nasal B.pertussis DNA PCR NOT DETECTED Nasal C.pneumoniae (PCR) NOT DETECTED Serjio Human Metapneumo PCR NOT DETECTED Nasal M.pneumoniae (PCR) NOT DETECTED Nasal SARS-CoV-2 (PCR) NOT DETECTED PD Medical Decision Making ED course Complexity details: reviewed results, considered differential and d/w patient ED course: Patient with dyspnea, cough and sputum, wheezing, general weakness over past few days. Tonight was weaker and fell getting up. Skin peel to right elbow. Did strike head. History of COPD. states baseline sats typically 93%. Found to be 80s% sats by EMS. Here is 88% on RA. Having some cofusion per . This improves with oxygen in ED. He has chronic edema in lower legs that is not worse recently. Resp panel negative for major viruses. CXR showing left lower field infiltrate. Has elevated WBC. Mild elevated creatinine 1.3, at about baseline, and CXR does not appear failure. Presume exac COPD with hypoxia and weakness/confusion related to pneumonia. Rocephin and zithromax in ED. on anticoagulation and head CT done due to fall. No signs of ICH. Discharge Plan Discharge Patient Disposition: 66 [facility] DC/Xfer Condition: Stable Clinical Impression: Acute exacerbation of chronic obstructive pulmonary disease, COPD with hypoxia, Generalized weakness, Anticoagulant long-term use, Acute confusion due to infection Pneumonia Qualifiers: Pneumonia type: due to unspecified organism Laterality: left Lung location: lower lobe of lung Qualified Code(s): J18.9 - Pneumonia, unspecified organism Fall Qualifiers: Encounter type: initial encounter Qualified Code(s): W19.XXXA - Unspecified fall, initial encounter Abrasion of elbow, right Qualifiers: Encounter type: initial encounter Qualified Code(s): S50.311A - Abrasion of right elbow, initial encounter Interventions: ED Admission Assessment Last Done: 12/20/24 05:39
[2024-12-20 02:32] LABS: BASOPHILS # (AUTO) 0.1 10^3/uL (0.0-0.1); BASOPHILS % (AUTO) 0.3 %; EOSINOPHILS # (AUTO) 0.1 10^3/uL (0.0-0.7); EOSINOPHILS % (AUTO) 0.4 %; HCT - HEMATOCRIT 41.7 % (42.0-52.0); HGB - HEMOGLOBIN 13.1 g/dL (14.0-18.0); LYMPHOCYTES # (AUTO) 1.1 10^3/uL (1.5-3.5); LYMPHOCYTES % (AUTO) 6.3 %; MEAN CORPUSCULAR HEMOGLOBIN 31.3 pg (27.0-31.0); MEAN CORPUSCULAR HGB CONC 31.4 g/dL (32.0-36.0); MEAN CORPUSCULAR VOLUME 99.8 fL (80.0-94.0); MEAN PLATELET VOLUME 11.5 fL (7.4-11.4); MONOCYTES # (AUTO) 1.4 10^3/uL (0.0-1.0); MONOCYTES % (AUTO) 7.9 %; NEUTROPHILS # (AUTO) 15.3 10^3/uL (1.5-6.6); NEUTROPHILS % (AUTO) 84.5 %; PLT - PLATELET COUNT 150 10^3/uL (130-450); RED BLOOD COUNT 4.18 10^6/uL (4.70-6.10); RED CELL DISTRIBUTION WIDTH 13.7 % (12.0-15.0); WHITE BLOOD COUNT 18.1 x10^3/uL (4.8-10.8)
[2024-12-20] MEDS: ALBUTEROL NEB 2.5 MG/3 ML INH STA (02:45)
[2024-12-20 02:46] LABS: ALBUMIN 3.7 g/dL (3.2-5.5); ALBUMIN/GLOBULIN RATIO 1.4 (1.0-2.2); BILIRUBIN,TOTAL 0.8 mg/dL (0.2-1.0); CALCIUM 9.6 mg/dL (8.5-10.3); CREATININE 1.3 mg/dL (0.6-1.3); POTASSIUM 4.3 mmol/L (3.5-4.5); TOTAL PROTEIN 6.4 g/dL (6.4-8.9)
[2024-12-20 03:17] LABS: B. PARAPERTUSSIS- RESP PCR PAN NOT DETECTED; B. PERTUSSIS- RESP PCR PANEL NOT DETECTED; C. PNEUMONIAE- RESP PCR PANEL NOT DETECTED; CORONAVIRUS 229E-RESP PCR NOT DETECTED; CORONAVIRUS HKU1-RESP PCR NOT DETECTED; CORONAVIRUS NL63-RESP PCR NOT DETECTED; CORONAVIRUS OC43-RESP PCR NOT DETECTED; HUMAN METAPNEUMOVIRUS NOT DETECTED; INFLUENZA A- RESP PCR PANEL NOT DETECTED; INFLUENZA B - RESP PCR PANEL NOT DETECTED; M. PNEUMONIAE- RESP PCR PANEL NOT DETECTED; PARAINFLUENZA VIRUS 1 NOT DETECTED; PARAINFLUENZA VIRUS 2 NOT DETECTED; PARAINFLUENZA VIRUS 4 NOT DETECTED; RHINOVIRUS/ENTEROVIRUS NOT DETECTED; RSV- RESP PCR PANEL NOT DETECTED; SARS-CoV-2 -RESP PCR PANEL NOT DETECTED
[2024-12-20] MEDS: cefTRIAXone 1 GM VIAL IVP STA (03:24)
[2024-12-20] MEDS: AZITHROMYCIN 250 MG TABLET PO STA (03:25)
[2024-12-20] MEDS: DEXAMETHASONE 10 MG/ML VIAL IVP STA (04:21)
[2024-12-20] MEDS: BACITRACIN ZINC OINT 1 PACKET TOP STA (04:21)
[2024-12-20] MEDS ORDERED: SODIUM CHLORIDE FLUSH 0.9% 10 ML SYRINGE IVP PRN (04:59)
[2024-12-20] MEDS ORDERED: ACETAMINOPHEN 325 MG TABLET PO PRN (04:59)
[2024-12-20] MEDS ORDERED: ONDANSETRON 4 MG/2 ML VIAL IVP PRN (04:59)
--- NOTE | 2024-12-20 05:31 | HISTORY & PHYSICAL EXAMINATION ---
Chief Complaint Chief Complaint Chief Complaint: cough, shortness of breath History of Present Illness Admitted From Admitted From:: home History Obtained From Records Reviewed: yes History obtained from: patient, , ER provider Exam Limitations: telemedicine History of Present Illness HPI Comment/Other: Mr Ag is an 89 yo M with history of CAD s/p CABG, A fib with RVR on Eliquis, HTN, HLD, COPD, hx AVR. Presents to the ER with complaints of productive cough, malaise, fatigue, and generalized weakness over the past 3-4 days. Cough has been productive of thick yellow sputum, he has been taking Mucinex. Denies fevers or chills. Shortness of breath has progressively worsened with ambulation around the home, but the past of couple of days he has been having a hard time walking due to feeling weak/tired. Today he was trying to get out of bed and ruled out and got wedged between the bed and the wall, his called EMS. He did hit his right elbow on the nightstand. He denies chest pain. Denies nausea, vomiting, prefers soft food. Denies abdominal pain. O2 sats 88% on RA, now stable on 2 L NC, does not use home O2. Does not have history of MARTÍNEZ/CPAP. Reviewed outpatient cardiology note - he has been recently taken off of Plavix, and lipitor dose reduced to 20 mg for muscle aches. Review of Systems Status of ROS: 10 or more systems reviewed and unremarkable except as noted in history and below Constitutional Reports: Fatigue, Malaise, Weakness and Poor appetite; Denies: Fever or Chills Ears, nose, mouth, and throat Denies: Neck pain Cardiovascular Reports: edema (chronic bilateral LE ) and shortness of breath with exertion; Denies: chest pain Respiratory Reports: Shortness of breath, Cough, Sputum production, Change in phlegm color and Wheezing Gastrointestinal Denies: Abdominal pain, Nausea or Vomiting Musculoskeletal Denies: Back pain, Neck pain or Extremity pain Integumentary/Breast Denies: Rash or Itching Neurological Reports: General weakness and Abnormal gait; Denies: Headache or Focal weakness Endocrine Reports: Fatigue Allergic/Immunologic Reports: Wheezing PFSH Active Problems All Active Problems Acute confusion (Acute) Acute confusion due to infection (Acute) Anticoagulant long-term use (Acute) Generalized weakness (Acute) Abrasion of elbow, right (Acute) Fall (Acute) COPD with hypoxia (Acute) Acute exacerbation of chronic obstructive pulmonary disease (Acute) Pneumonia (Acute) Depression (Acute) COPD (chronic obstructive pulmonary disease) (Chronic) Ischemic heart disease (Acute) Dementia (Acute) Hyperlipidemia (Acute) BPH loc w urin obs/LUTS (Acute) Contusion of left thumb (Acute) Medical History Medical History Acute renal failure Problem List clean-up per request of Phys. EHR Cmte TIA (transient ischemic attack) Problem List clean-up per request of Phys. EHR Cmte Atrial fibrillation Problem List clean-up per request of Phys. EHR Cmte BPH (benign prostatic hyperplasia) Glaucoma Hx of coronary artery disease Asthma Family History Family History Sister Diabetes Father COPD (chronic obstructive pulmonary disease) Mother COPD (chronic obstructive pulmonary disease) Social History Social History Smoking Status: Former smoker If you are a former smoker, when did you quit? (Date/Year): 1969 Number of Years Smoked: 10 How many cigarettes a day do you smoke? (20 cigarettes=1 Pk): 3 Second hand tobacco smoke exposure: Yes Do you dip or chew tobacco?: No Do you vape?: No Patient requests smoking cessation consult: No Initiate information on smoking cessation: No Living arrangement: At home Marital Status: Living Condition: With spouse/s.o. 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 Known occupational exposures/hazards (Current/Previous): None known Service: Yes Dates of Service: [id number] 6 months POLST Patient has POLST: No Meds/Allgy Home Medications Ambulatory Orders Medication Instructions Recorded Confirmed clopidogrel 75 mg tablet 75 mg PO DAILY 07/29/17 09/09/24 acetaminophen 325 mg tablet 650 mg PO DAILY PRN Pain 1-4 04/13/21 09/09/24 cholecalciferol (vitamin D3) 25 75 mcg PO DAILY 04/13/21 09/09/24 mcg (1,000 unit) tablet coenzyme Q10 100 mg capsule (Co 2 tab ORAL DAILY 04/13/21 09/09/24 Q-10) latanoprost (PF) 0.005 % eye drops 1 drp EACHEYE HS 04/13/21 09/09/24 vitamin E 268 mg (400 unit) capsule 400 unit PO DAILY 04/13/21 09/09/24 carboxymethylcellulose sodium 0.5 1 drp EACHEYE DAILY PRN Dry Eye 03/27/24 09/09/24 % eye drops (Refresh Tears) famotidine 20 mg tablet 20 mg PO QDDINNER 03/27/24 09/09/24 fluticasone propionate 50 1 spray intranasal BID 03/27/24 09/09/24 mcg/actuation nasal spray,suspension ipratropium 0.5 mg-albuterol 3 mg 3 - 6 ml inhalation DAILY 03/27/24 09/09/24 (2.5 mg base)/3 mL nebulization soln metoprolol succinate 25 mg 12.5 mg PO HS 03/27/24 09/09/24 tablet,extended release 24 hr apixaban 2.5 mg tablet (Eliquis) 2.5 mg PO BID 03/29/24 09/09/24 atorvastatin 40 mg tablet 40 mg PO QPM 03/29/24 09/09/24 tamsulosin 0.4 mg capsule 0.4 mg PO 1800 03/29/24 09/09/24 albuterol sulfate 90 mcg/actuation inhalation 08/19/24 09/09/24 aerosol inhaler dorzolamide 2 % eye drops 1 drp ophthalmic (eye) TID 08/19/24 09/09/24 fexofenadine 180 mg tablet 180 mg PO QDAY 08/19/24 09/09/24 fluticasone 500 mcg-salmeterol 50 1 inh inhalation BID #60 ea 08/19/24 09/09/24 mcg/dose blistr powdr for inhalation midodrine 5 mg tablet 5 mg PO TID 08/19/24 09/09/24 multivitamin 1 tab PO DAILY 08/19/24 09/09/24 trospium 60 mg capsule,extended See Rx Instructions .Route 09/13/24 release 24 hr .COMPLEX #30 caps dutasteride 0.5 mg capsule See Rx Instructions .Route 10/01/24 .COMPLEX #90 tabs escitalopram oxalate 5 mg tablet See Rx Instructions .Route 12/10/24 .COMPLEX #30 tabs montelukast 10 mg tablet See Rx Instructions .Route 12/12/24 .COMPLEX #90 tabs Allergies Allergies Allergy/AdvReac Type Severity Reaction Status Date / Time caffeine Allergy Intermediate Cough Verified 12/20/24 02:37 aspirin Allergy Respiratory Verified 12/20/24 02:37 cantaloupe Allergy Unknown Verified 12/20/24 02:37 strawberry Allergy Unknown Verified 12/20/24 02:37 Exam Constitutional normal general appearance, no apparent distress and alert HENMT normocephalic, head/scalp atraumatic and hearing grossly normal bilaterally Respiratory normal respiratory effort Cardiovascular normal heart rate noted Neurology no movement abnormality noted Psychiatry mental status grossly normal and cooperative Skin skin color normal and no rash Conclusion/Plan Lab Results Lab results reviewed: Yes 12/20/24 02:15 12/20/24 02:15 Diagnostic Imaging Results Diagnostic Imaging Results: positive Prelim report reviewed Other Other Results/Comments: Assessment/Plan: Acute hypoxic respiratory failure secondary to community acquired pneumonia -Patient presents with productive cough, dyspnea -WBC 18, CXR with retrocardiac opacity -Respiratory viral panel negative -Continue azithromycin, ceftriaxone -Trend labs -Currently on 2 L NC, room air at baseline, wean as tolerated Generalized weakness -Weakness the past few days, today slid off his bed and couldn't get up -CT head/neck unremarkable -Likely secondary to acute infection above -PT/OT consults History of COPD -Possible component of exacerbation, although no dyspnea/wheezing at time of my evaluation, however he has received IV dexamethasone in ER -Continue scheduled DuoNebs -Consider PO prednisone pending clinical course Hx A fib RVR -Continue Eliquis, metoprolol HLD, CAD, CABG -Continue home medications DNR - confirmed with patient/, this is documented in will but not in POLST, consider completing POLST form while admitted. Telemedicine Consult Details Provider Location & Consult Time Telemedicine consultation conducted via videoconferencing?: Yes List names and roles of persons who participated in consult:: patient, his , Casandra AUGUSTE, ER provider (phone) Telemedicine provider location:: [place]
[2024-12-20] MEDS ORDERED: CARBOXYMETHYLCELLULOSE OPHTH DROPS EACHEYE PRN (06:08)
[2024-12-20] MEDS: IPRATROPIUM/ALBUTEROL 3 ML NEB INH SCH (07:38)
--- NOTE | 2024-12-20 08:19 | CT Report ---
PROCEDURE: CT Cervical Spine WO INDICATIONS: fell, struck head, on DOAC TECHNIQUE: Noncontrast 3 mm thick sections acquired from the skull base to the T4 level. Sagittal and coronal r eformats were then constructed. For radiation dose reduction, the following was used: automated exp osure control, adjustment of mA and/or kV according to patient size. COMPARISON: 09/06/2024 FINDINGS: Image quality: Excellent. Bones: No fractures or dislocations. Visualized superior ribs are intact. Soft tissues: Prevertebral soft tissues are normal in thickness. No paravertebral hematomas. No ap ical pneumothoraces. IMPRESSION: No acute, displaced fracture or traumatic subluxation. Reviewed by: Tono Christopher MD on 12/20/2024 8:17 AM [facility] Approved by: Tono Christopher MD on 12/20/2024 8:17 AM [facility] Station ID: [id number]
--- NOTE | 2024-12-20 08:20 | CT Report ---
PROCEDURE: CT Head WO INDICATIONS: fall, struck head, on DOAC TECHNIQUE: Noncontrast 4.5 mm thick angled axial sections acquired from the foramen magnum to the vertex. For r adiation dose reduction, the following was used: automated exposure control, adjustment of mA and/or kV according to patient size. COMPARISON: 09/06/2024 FINDINGS: Image quality: Excellent. CSF spaces: Basal cisterns are patent. No extra-axial fluid collections. Ventricles are normal in size and shape. Brain: No midline shift. No intracranial masses or hemorrhage. Galarza-white matter interface is norm al. Leukoaraiosis, commonly caused by chronic small vessel ischemic disease. Age-related volume loss . Skull and face: Calvarium and visualized facial bones are intact, without suspicious lesions. Sinuses: Visualized sinuses and mastoids are clear. IMPRESSION: No acute intracranial pathology. Reviewed by: Tono Christopher MD on 12/20/2024 8:19 AM [facility] Approved by: Tono Christopher MD on 12/20/2024 8:19 AM PST Station ID: [id number]
--- NOTE | 2024-12-20 08:22 | XRAY Report ---
PROCEDURE: XR Chest 1V INDICATIONS: dyspnea, cough TECHNIQUE: One view of the chest was acquired. COMPARISON: None. FINDINGS: Surgical changes and devices: Sternotomy. Lungs and pleura: Retrocardiac opacity. Mediastinum: Mediastinal contours appear normal. Heart size is normal. Bones and chest wall: No suspicious bony lesions. Overlying soft tissues appear unremarkable. IMPRESSION: Retrocardiac opacity, which could represent atelectasis or infection. Findings are concordant with preliminary interpretation provided by [facility]. Reviewed by: Tono Christopher MD on 12/20/2024 8:21 AM PST Approved by: Tono Christopher MD on 12/20/2024 8:21 AM PST Station ID: [id number]
[2024-12-20] MEDS: APIXABAN 2.5 MG TABLET PO SCH (08:30)
[2024-12-20] MEDS: SODIUM CHLORIDE FLUSH 0.9% 10 ML SYRINGE IVP SCH (08:30)
--- NOTE | 2024-12-20 09:31 | PROVIDER PROGRESS NOTE ---
Progress Note Progress Note Progress Note: He was brought in by ambulance with weakness, slumping to the floor today and he hit his elbow on the nightstand. He is on Eliquis and previously on Plavix. Unknown if he had true loss of consciousness. The family/spouse stated that he had had some cough and wheezing and trouble breathing with generalized weakness for several days. He does not have any history of pulmonary disease or congestive heart failure. His vitals in the emergency room were 36.8, heart ra te 82, respirations 20, blood pressure 159/71. He was 87% on room air and required 3 L nasal cannula to bring him up to 93%. Once he was treated his oxygen requirement dropped down to 2 L. But he has significant respiratory distress in the ER with respiratory rate going up as high as 29. Chest x-ray shows a retrocardiac pneumonia. His white cell count is 18,000. Head CT was done because of his anticoagulation status and he has no acute intracranial abnormality. He was given ceftriaxone and azithromycin in the emergency room as well as dexamethasone and albuterol. He is on MedSurg and currently requiring 2 L. Blood pressure is 134/70. Respirations are 22. Past medical history reviewed and he has: 1. Hyperlipidemia 2. Coronary artery disease and has had a bypass surgery 3. Asthma with COPD 4. Tremors 5. Urinary incontinence 6. Osteoarthritis 7. He was admitted for E. coli pyelonephritis and sepsis, in October 2023. And multifocal pneumonia in March 2024. At that time it was a right-sided multifocal pneumonia. I spent some time with his . Going over with been going on. He has been struggling, with a gentle deterioration over the last few months. No specific event. Memory loss with dementia is always present and may be worse, she's not sure. Less and less ambulatory. Temperature 36.8. Heart rate 77. O2 sat 92% on room air. Lethargic, sleepy white male who opens his eyes to my voice and 's voice. Tries to speak but falls back asleep. Neck is supple. Lungs are clear with very shallow unlabored respiration. Quite a bit of gurgling in the back of his throat and I would think he be at risk for aspirating that saliva. No labored respiration. Regular rate and rhythm. I do not hear the A-fib. He does have a systolic ejection murmur. And abdomen soft and nontender. Encephalopathic but no focal deficits. Assessment/plan an 89-year-old gentleman who has a significant cardiac history with previous bypass surgery, A-fib on anticoagulation, COPD, history of aortic valve replacement that presents with pulmonary symptoms for 3 to 4 days, increasing cough, and diagnosed with a retrocardiac pneumonia. He fell at home. And he got wedged between the bed and the wall. I explained to the that we are going to do empiric antibiotics for community-acquired pneumonia. Because of his lethargy and gurgling, I will have speech therapy evaluate him. I am hoping that he can improve. To get a better idea of the density of his infiltrate, I am ordering a CT of the chest. I do suspect that this gentleman's pneumonia may or may not be aspiration.
--- NOTE | 2024-12-20 13:13 | OT Plan of Care ---
OT Plan of Care OT Plan of Care: Diagnosis Diagnosis pneumonia Diagnosis weakness Chief Complaint weakness Onset of Chief Complaint [employer] Medical History (Updated 12/20/24 @ 09:46 by Lico Sykes MD) Acute renal failure Problem List clean-up per request of Phys. EHR Cmte TIA (transient ischemic attack) Problem List clean-up per request of Phys. EHR Cmte Atrial fibrillation Problem List clean-up per request of Phys. EHR Cmte BPH (benign prostatic hyperplasia) Glaucoma Hx of coronary artery disease Asthma Assessment Assessment Pt is an 89 yo M with history of CAD s/p CABG, A fib with RVR on Eliquis, HTN, HLD, COPD, hx AVR . Per chart pt with generalized weakness 3-5 days with productive cough and SOB. Adm with acute hypoxic respiratory failure secondary to community acquired pneumonia. Sustained fall out of bed in home with + head strike to nightstand . CT head/neck unremarkable. OT evaluation per MD consult. Met supine in bed, A&O to self, place, and time with choices Decreased attention and safety awareness noted but redirectable and appropriate. VSS on 2L NC Spo2 above 90%. Performed supine to sit, sit to stand, and ambulation 10ft to bathroom using RW MIN A Cues for safety and small space negotiation. Pt quick to fatigue requiring sitting rest breaks and PLB for SOB. Pt issued IS with fair understanding of daily use. Will cont to reinforce. Currently MOD A LB, MIN A UB ADL with set up and increased time. Overall presents with decreased endurance, activity tolerance and ADL status. Will benefit from cont OT services during acute stay. Rec d/c to SNF vs Home with OT/PT services pending progress and medical stability. Goals - Activities of Daily Living Improve Upper Extremity Modified Independent Dressing to: Improve Lower Extremity Modified Independent Dressing to: Improve Grooming/Hygiene to: Modified Independent Improve Bathing to: Modified Independent Improve Toileting to: Modified Independent Plan Treatment Frequency 1x/day Duration Until discharge -Discharge Recommendations Discharge Location Intermediate Facility Support/Services Needed With assist,Home Health O.T. Recommended Equipment Raised Toilet Seat,Commode,Grab bars,Shower/bath chair,Adaptive Self Care Devices,Other Transport Needs at Discharge B.L.S Comment Vs home with services pending progress and medical stability
--- NOTE | 2024-12-20 13:44 | PHARMACY PROGRESS NOTE ---
Best Possible Medication History Admit Date and Time: 12/20/24 0459 Home Medications Medication Instructions Recorded Confirmed Type clopidogrel 75 mg tablet 75 mg PO DAILY 07/29/17 12/20/24 History acetaminophen 325 mg tablet 650 mg PO DAILY PRN Pain 1-4 04/13/21 12/20/24 History cholecalciferol (vitamin D3) 25 75 mcg PO DAILY 04/13/21 12/20/24 History mcg (1,000 unit) tablet coenzyme Q10 100 mg capsule (Co 2 tab ORAL DAILY 04/13/21 12/20/24 History Q-10) latanoprost (PF) 0.005 % eye drops 1 drp EACHEYE HS 04/13/21 12/20/24 History vitamin E 268 mg (400 unit) capsule 400 unit PO DAILY 04/13/21 12/20/24 History carboxymethylcellulose sodium 0.5 1 drp EACHEYE QAM Dry Eye 03/27/24 12/20/24 History % eye drops (Refresh Tears) famotidine 20 mg tablet 20 mg PO QACDINNER 03/27/24 12/20/24 History metoprolol succinate 25 mg 12.5 mg PO HS 03/27/24 12/20/24 History tablet,extended release 24 hr apixaban 2.5 mg tablet (Eliquis) 2.5 mg PO BID 03/29/24 12/20/24 Rx atorvastatin 40 mg tablet 40 mg PO QPM 03/29/24 12/20/24 Rx albuterol sulfate 90 mcg/actuation 2 inh inhalation QID PRN shortness 08/19/24 12/20/24 History aerosol inhaler of breath or wheezing dorzolamide 2 % eye drops 1 drp ophthalmic (eye) BID 08/19/24 12/20/24 History fexofenadine 180 mg tablet 180 mg PO QPM 08/19/24 12/20/24 History fluticasone 500 mcg-salmeterol 50 1 inh inhalation BID #60 ea 08/19/24 12/20/24 Rx mcg/dose blistr powdr for inhalation midodrine 5 mg tablet 5 mg PO TID PRN hypotension 08/19/24 12/20/24 History multivitamin 1 tab PO DAILY 08/19/24 12/20/24 History escitalopram oxalate 5 mg tablet See Rx Instructions .Route 12/10/24 12/20/24 Rx .COMPLEX #30 tabs montelukast 10 mg tablet See Rx Instructions .Route 12/12/24 12/20/24 Rx .COMPLEX #90 tabs dutasteride 0.5 mg capsule 0.5 mg PO .QHS 12/20/24 12/20/24 History ipratropium 0.5 mg-albuterol 3 mg 3 ml inhalation BID PRN shortness 12/20/24 12/20/24 History (2.5 mg base)/3 mL nebulization of breath or wheezing soln ipratropium bromide 17 2 inh inhalation QID 12/20/24 12/20/24 History mcg/actuation HFA aerosol inhaler (Atrovent HFA) tamsulosin 0.4 mg capsule 0.4 mg PO QPM 12/20/24 12/20/24 History triamcinolone acetonide 55 mcg 1 spray intranasal QPM PRN runny 12/20/24 12/20/24 History nasal spray aerosol (Nasacort) nose trospium 60 mg capsule,extended 60 mg PO QAM 12/20/24 12/20/24 History release 24 hr Processed by: Pharmacy Medications reviewed in ED?: No Medication History completed: Yes Patient Interview: Completed Secondary Source(s): Written medication list, Other family member, Caregiver and Insurance records [facility] Statement: Pt interview with spouse who provided current med list. [facility] Rx records reviewed. As the person ultimately responsible for medication therapy, providers are able to order a medication from an existing home medication list in [facility] via the "Reconcile Routine" prior to Confirmation of that medication by application support. Such practice is discouraged except when the physician, in their clinical judgment, deems that a medical need exists for a medication without regard to previous use.
[2024-12-20 16:43] LABS: BILIRUBIN,URINE NEGATIVE (NEGATIVE); GLUCOSE, URINE (UA) NEGATIVE (NEGATIVE); KETONES,URINE (UA) NEGATIVE (NEGATIVE); LEUKOCYTE ESTERASE, URINE NEGATIVE (NEGATIVE); NITRITE,URINE NEGATIVE (NEGATIVE); OCCULT BLOOD,URINE NEGATIVE (NEGATIVE); PROTEIN,URINE NEGATIVE (NEGATIVE); UROBILINOGEN,URINE 0.2 (NORMAL) E.U./dL (NORMAL)
[2024-12-20 16:44] LABS: CLARITY,URINE CLEAR (CLEAR)
--- NOTE | 2024-12-20 17:14 | CT Report ---
CT Chest WO: 12/20/2024 4:14 PM PST CLINICAL HISTORY: 89 years of age, Male, retrocardia pneumonia w res distress. COMPARISON: 03/27/2024 TECHNIQUE: A CT scan of the chest was performed. Intravenous contrast media was not administered. Im ages were recorded and evaluated at appropriate window settings. Reformats: axial MIP of the chest, c oronal and sagittal. For radiation dose reduction, the following was used: automated exposure control , adjustment of mA and/or kV according to patient size. FINDINGS: Lungs:Multiple small pulmonary nodule with associated groundglass opacity in the right upper lobe, im proved from prior exam, representing improved pneumonia. However, there is interval development of co nsolidation in the left upper and lower lobe, concerning for pneumonia. Left hemithorax volume loss, unchanged from prior exam. Pleural thickening of the posterior elbow with small left pleural effusion and associated pleural rosy cification, unchanged from prior exam. No pneumothorax. Soft tissue/mediastinum/heart: Heart is normal in size. No pericardial effusion. Moderate mitral dai lar calcification.Severe LAD and left circumflex coronary artery calcification. Status post coronary artery bypass. Moderate atherosclerotic calcification of the thoracic aorta. Status post aortic valve replacement. No thoracic aortic aneurysm. Borderline enlarged subcarinal lymphadenopathy, unchanged from prior exam. No Hilar, or axillary lymphadenopathy. Visualized portion of the upper abdomen:Small hypodense liver lesion hepatic segment 2 (4:76), unchan ged from prior exam, incompletely characterized. Colonic diverticulosis. Bones: Right shoulder arthroplasty, partially visualized. Bridging osteophyte of the thoracic spine, consistent with diffuse idiopathetic skeletal hyperostosis. IMPRESSION: 1.Improved right lung pneumonia. Interval development of left lung pneumonia. Recommend follow-up CT chest to document resolution and to exclude underlying mass. Reviewed by: Sandra Garcia MD on 12/20/2024 5:13 PM PST Approved by: Sandra Garcia MD on 12/20/2024 5:13 PM PST Station ID: [id number]
[2024-12-20] MEDS: METOPROLOL SUCCINATE 25 MG TABLET PO SCH (20:48)
[2024-12-20] MEDS: ATORVASTATIN 40 MG TABLET PO SCH (20:49)
[2024-12-21] MEDS: cefTRIAXone 1 GM in SODIUM CHLORIDE 0.9% MINIBAG 100 ML IV SCH (02:40)
[2024-12-21] MEDS: AZITHROMYCIN INJ 500 MG in SODIUM CHLORIDE 0.9% 250 ML IV SCH (03:24)
[2024-12-21 08:07] LABS: CALCIUM 9.7 mg/dL (8.5-10.3); CREATININE 1.3 mg/dL (0.6-1.3); POTASSIUM 4.7 mmol/L (3.5-4.5)
[2024-12-21 08:36] LABS: HCT - HEMATOCRIT 37.8 % (42.0-52.0); HGB - HEMOGLOBIN 12.1 g/dL (14.0-18.0); MEAN CORPUSCULAR HEMOGLOBIN 31.3 pg (27.0-31.0); MEAN CORPUSCULAR VOLUME 97.7 fL (80.0-94.0); MEAN PLATELET VOLUME 11.8 fL (7.4-11.4); RED BLOOD COUNT 3.87 10^6/uL (4.70-6.10); RED CELL DISTRIBUTION WIDTH 13.7 % (12.0-15.0); WHITE BLOOD COUNT 21.5 x10^3/uL (4.8-10.8)
--- NOTE | 2024-12-21 08:38 | ADVANCE CARE PLANNING NOTE ---
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 Has been admitted twice to our facility for infection. He has a gradually progressive dementia with decreasing mobility. states that he is almost full care. They talk about His most favorite thing in life. He left the horseback ride and fish. [place] had acreage [place] and the [place] and he loves living there. The last time he did that was about 8 years ago. The air there with the fires would be so terrible for his emphysema. So they found themselves having to give up their house in [place]. [place] moved to the [place]. His support system is his . And his children. Main reasons a stay here on the [place] is because their daughter is here. She is the primary support person of their children. Prior to admit, was independent of walker, canes. He dresses himself. Feeds himself. No significant pain. His states that he is a DO NOT RESUSCITATE. She is the DPOA. But they do not have a POLST form at home. Their overall goal is to keep him at home. She doesn't really want to move to the [facility] to access caregivers since their daughter is here. She plans on private duty hires, daughter and herself to care for him. If he absolutely needs a correction for rehab again she would consider it. Objective/Medical Story: Mr Ag is an 89 yo M with history of CAD s/p CABG, A fib with RVR on Eliquis, HTN, HLD, COPD, hx AVR. Presents to the ER with complaints of productive cough, malaise, fatigue, and generalized weakness over the past 3-4 days. Cough has been productive of thick yellow sputum, he has been taking Mucinex. Denies fevers or chills. Shortness of breath has progressively worsened with ambulation around the home, but the past of couple of days he has been having a hard time walking due to feeling weak/tired. Today he was trying to get out of bed and ruled out and got wedged between the bed and the wall, his called EMS. He did hit his right elbow on the nightstand. He denies chest pain. Denies nausea, vomiting, prefers soft food. Denies abdominal pain. O2 sats 88% on RA, now stable on 2 L NC, does not use home O2. Does not have history of MARTÍNEZ/CPAP. Reviewed outpatient cardiology note - he has been recently taken off of Plavix, and lipitor dose reduced to 20 mg for muscle aches. Goals of Care: To stay at home for as long as possible under the care of his family. Plan: POLST form filled out. Meet with social work to see if there is any opportunities for caregivers that they can avail themselves of. Code Status: Do Not Attempt Resuscitation Time spent on advance care plannin minutes
--- NOTE | 2024-12-21 09:02 | PROVIDER PROGRESS NOTE ---
Progress Note Progress Note Progress Note: Assessment/Plan: Acute hypoxic respiratory failure secondary to pneumonia: * Improving, no longer requires supplementary O2, 94% oxygen on room air * Productive cough, rhonchi, wheezing on exam * WBC increased from 18.1 to 21.5 * Vital signs WNL * Initial X-ray indicated retrocardic opacity, CT chest indicated improved right lung pneumonia. Interval development of left lung pneumonia. Pattern suggestive of aspiration pneumonia. Radiologist recommends follow up CT chest, will consider completing this tomorrow. * Switch antibiotics to Unasyn for better anaerobic coverage given aspiration pattern and increased white count. * ordered speech therapy consult to evaluate and treat for aspiration, this can also be completed outpatient. Generalized weakness * Likely secondary to pneumonia * Per PT, patient independently completes ADLs at home, IADLs completed by . Per their evaluation, he has decreased exercise tolerance, decreased endurance, decreased ability to do ADLs. Recommended SNF v. home health with PT/OT * recommend continued PT/OT History of COPD * potentially contributing to hypoxia and generalized weakness * Productive cough, wheezing on exam * at home he is on albuterol PRN, fluticasone/salmeterol inhaler BID, Atrovent HFA BID, ipratropium-albuterol PRN * continue duoneb QID, ordered one solumedrol dose and 5 day course of oral prednisone 40 mg qd Hx A fib RVR * Continue Eliquis 2.5mg po BID, metoprolol 12.5 PO qhs. Meds/Allgy Home Medications Ambulatory Orders Medication Instructions Recorded Confirmed clopidogrel 75 mg tablet 75 mg PO DAILY 07/29/17 09/09/24 acetaminophen 325 mg tablet 650 mg PO DAILY PRN Pain 1-4 04/13/21 09/09/24 cholecalciferol (vitamin D3) 25 75 mcg PO DAILY 04/13/21 09/09/24 mcg (1,000 unit) tablet coenzyme Q10 100 mg capsule (Co 2 tab ORAL DAILY 04/13/21 09/09/24 Q-10) latanoprost (PF) 0.005 % eye drops 1 drp EACHEYE HS 04/13/21 09/09/24 vitamin E 268 mg (400 unit) capsule 400 unit PO DAILY 04/13/21 09/09/24 carboxymethylcellulose sodium 0.5 1 drp EACHEYE DAILY PRN Dry Eye 03/27/24 09/09/24 % eye drops (Refresh Tears) famotidine 20 mg tablet 20 mg PO QDDINNER 03/27/24 09/09/24 fluticasone propionate 50 1 spray intranasal BID 03/27/24 09/09/24 mcg/actuation nasal spray,suspension ipratropium 0.5 mg-albuterol 3 mg 3 - 6 ml inhalation DAILY 03/27/24 09/09/24 (2.5 mg base)/3 mL nebulization soln metoprolol succinate 25 mg 12.5 mg PO HS 03/27/24 09/09/24 tablet,extended release 24 hr apixaban 2.5 mg tablet (Eliquis) 2.5 mg PO BID 03/29/24 09/09/24 atorvastatin 40 mg tablet 40 mg PO QPM 03/29/24 09/09/24 tamsulosin 0.4 mg capsule 0.4 mg PO 1800 03/29/24 09/09/24 albuterol sulfate 90 mcg/actuation inhalation 08/19/24 09/09/24 aerosol inhaler dorzolamide 2 % eye drops 1 drp ophthalmic (eye) TID 08/19/24 09/09/24 fexofenadine 180 mg tablet 180 mg PO QDAY 08/19/24 09/09/24 fluticasone 500 mcg-salmeterol 50 1 inh inhalation BID #60 ea 08/19/24 09/09/24 mcg/dose blistr powdr for inhalation midodrine 5 mg tablet 5 mg PO TID 08/19/24 09/09/24 multivitamin 1 tab PO DAILY 08/19/24 09/09/24 trospium 60 mg capsule,extended See Rx Instructions .Route 09/13/24 release 24 hr .COMPLEX #30 caps dutasteride 0.5 mg capsule See Rx Instructions .Route 10/01/24 .COMPLEX #90 tabs escitalopram oxalate 5 mg tablet See Rx Instructions .Route 12/10/24 .COMPLEX #30 tabs montelukast 10 mg tablet See Rx Instructions .Route 12/12/24 .COMPLEX #90 tabs Allergies Allergies Allergy/AdvReac Type Severity Reaction Status Date / Time caffeine Allergy Intermediate Cough Verified 12/20/24 02:37 aspirin Allergy Respiratory Verified 12/20/24 02:37 cantaloupe Allergy Unknown Verified 12/20/24 02:37 strawberry Allergy Unknown Verified 12/20/24 02:37 Subjective: * Patient resting comfortably in bed, he notes he still has productive cough and some shortness of breath at times, but he feels it has significantly improved. Notes episode of diarrhea yesterday. Patient feels that his memory and thought process is still not at baseline. Patient states he walks without walker at home. Objective: Physical exam: General: No acute distress Head: Normocephalic, atraumatic Neck: supple, trachea midline Chest: non tender Cardiovascular: Irregular rhythm on exam Respiratory: rhonchi, mild expiratory wheezes worse in upper lobes Skin: warm and dry neuro: alert and oriented x 4, mild short term memory deficit Psych: normal affect
--- NOTE | 2024-12-21 12:03 | PROVIDER PROGRESS NOTE ---
Subjective Subjective Subjective: Today, patient is feeling slightly better. He is still coughing. He is coughing up some green to yellow sputum. He denies any fevers or chills. He still feels a little weak. He has been using a walker to get up and walk around. Current Medications Current Medications Current Medications: Current Medications Generic Name Dose Route Start Last Admin Trade Name Freq PRN Reason Stop Dose Admin Acetaminophen 650 mg 12/20/24 04:59 Acetaminophen 325 Mg Tablet PO Q4HR PRN Pain 1 to 4, or Fever Albuterol/Ipratropium 3 ml 12/20/24 07:00 12/21/24 11:25 Ipratropium/Albuterol 3 Ml Neb INH 3 ml RTQID ZARIA Administration Apixaban 2.5 mg 12/20/24 09:00 12/21/24 08:38 Apixaban 2.5 Mg Tablet PO 2.5 mg BID ZARIA Administration Atorvastatin Calcium 20 mg 12/20/24 21:00 12/20/24 20:49 Atorvastatin 40 Mg Tablet PO 20 mg QPM ZARIA Administration Carboxymethylcellulose 1 drops 12/20/24 06:08 Carboxymethylcellulose Ophth Drops EACHEYE DAILY PRN Dry Eye Ampicillin Sodium/Sulbactam 100 mls @ 200 mls/hr 12/21/24 12:00 Sodium 3 gm/ Sodium Chloride IV Q6HR ZARIA Metoprolol Succinate 12.5 mg 12/20/24 21:00 12/20/24 20:48 Metoprolol Succinate 25 Mg Tablet PO 12.5 mg HS ZARIA Administration Ondansetron HCl 4 mg 12/20/24 04:59 Ondansetron 4 Mg/2 Ml Vial IVP Q6HR PRN Nausea / Vomiting Prednisone 40 mg 12/21/24 12:00 Prednisone 20 Mg Tablet PO DAILYWM ZARIA Sodium Chloride 10 ml 12/20/24 04:59 Sodium Chloride Flush 0.9% 10 Ml Syringe IVP PRN PRN NEEDED PER PROVIDER ORDERS Sodium Chloride 10 ml 12/20/24 09:00 12/21/24 08:38 Sodium Chloride Flush 0.9% 10 Ml Syringe IVP 10 ml 0100,0900,1700 ZARIA Administration Objective Vital Signs/Intake & Output Reviewed Vital Signs: Yes Vital Signs: Vital Signs x48h Temp Pulse Pulse Resp BP Pulse Ox 12/21/24 11:27 64 18 12/21/24 07:53 65 18 12/21/24 07:35 97.9 F 68 20 134/71 H 94 Intake & Output: Intake & Output 12/18/24 12/19/24 12/20/24 12/21/24 23:59 23:59 23:59 23:59 Intake Total 1525 / 1525 670 / 670 Output Total 150 / 150 Balance 1375 / 1375 670 / 670 Weight (kg) 113 kg Objective General Appearance: positive No acute distress and Alert; negative Anxious Eyes Bilateral: positive Normal inspection, PERRL and EOMI ENT: positive ENT inspection nml, Pharynx nml and No signs of dehydration Neck: positive Nml inspection, Thyroid nml and No JVD Respiratory: positive Chest non-tender, Wheezes (Bilateral expiratory wheezes noted, more prominent upper and lower lobes) and Rhonchi (Diffuse rhonchi noted, mild) Cardiovascular: positive Regular rate & rhythm and No murmur Abdomen: positive Non-tender; negative Guarding, Rebound, Hepatomegaly, Splenomegaly or Mass Back: positive Nml inspection; negative CVA tenderness (R) or CVA tenderness (L) Skin: positive Color nml, No rash, Warm and Dry Extremities: positive Non-tender, Full ROM and Nml appearance Neurologic/Psychiatric: positive Oriented x3, Motor nml and Mood/affect nml; negative Weakness, Facial droop or Slurred/abnml speech Lab Results 12/21/24 07:45 12/21/24 07:45 Other Labs: Lab Results x24hrs 12/21/24 12/20/24 Range/Units 07:45 16:38 WBC 21.5 H (4.8-10.8) x10^3/uL RBC 3.87 L (4.70-6.10) 10^6/uL Hgb 12.1 L (14.0-18.0) g/dL Hct 37.8 L (42.0-52.0) % MCV 97.7 H (80.0-94.0) fL MCH 31.3 H (27.0-31.0) pg MCHC 32.0 (32.0-36.0) g/dL RDW 13.7 (12.0-15.0) % Plt Count 150 (130-450) 10^3/uL MPV 11.8 H (7.4-11.4) fL Sodium 136 (135-145) mmol/L Potassium 4.7 H (3.5-4.5) mmol/L Chloride 106 (101-111) mmol/L Carbon Dioxide 24 (21-32) mmol/L Anion Gap 6.0 (6-13) BUN 27 H (6-20) mg/dL Creatinine 1.3 (0.6-1.3) mg/dL Estimated GFR (MDRD) 52 L (>89) Glucose 124 H (74-104) mg/dL Calcium 9.7 (8.5-10.3) mg/dL Urine Color YELLOW Urine Clarity CLEAR (CLEAR) Urine pH 6.0 (5.0-7.5) PH Ur Specific [place] 1.020 (1.002-1.030) Urine Protein NEGATIVE (NEGATIVE) mg/dL Urine Glucose (UA) NEGATIVE (NEGATIVE) mg/dL Urine Ketones NEGATIVE (NEGATIVE) mg/dL Urine Occult Blood NEGATIVE (NEGATIVE) Urine Nitrite NEGATIVE (NEGATIVE) Urine Bilirubin NEGATIVE (NEGATIVE) Urine Urobilinogen 0.2 (NORMAL) (NORMAL) E.U./dL Ur Leukocyte Esterase NEGATIVE (NEGATIVE) Ur Microscopic Review NOT INDICATED Urine Culture Comments NOT INDICATED Diagnostic Imaging Diagnostic Imaging Results: positive Final report reviewed Assessment/Plan Problem List (1) Acute hypoxic respiratory failure: Impression: Patient presented with oxygen saturation of 87% on room air. He required 2 L of oxygen, and this is slowly being weaned off. Initially was treated with 1 dose of IV Solu-Medrol, as well as Rocephin azithromycin for community-acquired pneumonia. Chest x-ray showed retrocardiac opacity. This was followed up by a chest CT, which shows right lung pneumonia, as well as interval development of left lung pneumonia. There is concern for aspiration pneumonia. Rocephin and azithromycin were switched to Unasyn. Speech therapy is consulted. Continue DuoNebs RT 4 times daily, will complete 5-day course of steroids with oral prednisone 40 mg daily at this time. Discussed possibility of SNF at discharge, patient would prefer to go home. Home Health Care ordered in preperation for discharge. (2) Pneumonia: Impression: Continue Unasyn at this time. Clinically, patient is improving. Plan for oxygen desaturation study tomorrow morning to assess for oxygen needs. Remainder of plan as above. Qualifiers: Laterality: left Lung location: lower lobe of lung Pneumonia type: due to unspecified organism Qualified Code(s): J18.9 - Pneumonia, unspecified organism (3) Hyperkalemia: Impression: Potassium slightly elevated this morning, continue to trend. No acute kidney injury noted. No medications that would cause the above. May just be hemolysis during lab draw. (4) COPD (chronic obstructive pulmonary disease): Impression: Continue DuoNebs as needed, continue 5-day course of prednisone. Qualifiers: COPD type: unspecified COPD Qualified Code(s): J44.9 - Chronic obstructive pulmonary disease, unspecified (5) Depression: Impression: Continue escitalopram. Qualifiers: Depression Type: unspecified Qualified Code(s): F32.A - Depression, unspecified (6) Hyperlipidemia: Impression: Continue statin. Qualifiers: Hyperlipidemia type: unspecified Qualified Code(s): E78.5 - Hyperlipidemia, unspecified (7) BPH loc w urin obs/LUTS: Impression: Continue Flomax. (8) Atrial fibrillation: Impression: Continue metoprolol and Eliquis. Qualifiers: Atrial fibrillation type: persistent (not longstanding) Qualified Code(s): I48.19 - Other persistent atrial fibrillation; I48.1 - Persistent atrial fibrillation (9) Hx of coronary artery disease: Impression: Continue Plavix per home medication.
[2024-12-21] MEDS: predniSONE 20 MG TABLET PO SCH (14:28)
[2024-12-21] MEDS: AMPICILLIN/SULBACTAM 3 GM in SODIUM CHLORIDE 0.9% MINIBAG 100 ML IV SCH ×2 (14:29→20:15)
[2024-12-21] MEDS: LATANOPROST 0.005% OPHTH DROPS EACHEYE SCH (20:20)
[2024-12-21] MEDS: FAMOTIDINE 20 MG TABLET PO SCH (20:21)
[2024-12-21] MEDS: TAMSULOSIN 0.4 MG CAPSULE PO SCH (20:21)
[2024-12-21] MEDS: BENZOCAINE/MENTHOL LOZENGE MM PRN (20:58)
[2024-12-21] MEDS ORDERED: LATANOPROST 0.005% OPHTH DROPS EACHEYE SCH (21:00)
[2024-12-21] MEDS ORDERED: TAMSULOSIN 0.4 MG CAPSULE PO SCH (21:00)
[2024-12-22 06:00] LABS: HCT - HEMATOCRIT 37.4 % (42.0-52.0); HGB - HEMOGLOBIN 12.2 g/dL (14.0-18.0); MEAN CORPUSCULAR HEMOGLOBIN 31.6 pg (27.0-31.0); MEAN CORPUSCULAR HGB CONC 32.6 g/dL (32.0-36.0); MEAN CORPUSCULAR VOLUME 96.9 fL (80.0-94.0); MEAN PLATELET VOLUME 11.4 fL (7.4-11.4); RED BLOOD COUNT 3.86 10^6/uL (4.70-6.10); RED CELL DISTRIBUTION WIDTH 13.7 % (12.0-15.0); WHITE BLOOD COUNT 16.5 x10^3/uL (4.8-10.8)
[2024-12-22 06:13] LABS: CALCIUM 9.3 mg/dL (8.5-10.3); CREATININE 1.3 mg/dL (0.6-1.3); MAGNESIUM 2.2 mg/dL (1.7-2.3); POTASSIUM 5.1 mmol/L (3.5-4.5)
[2024-12-22] MEDS: ESCITALOPRAM 10 MG TABLET PO SCH (08:25)
[2024-12-22] MEDS: CLOPIDOGREL 75 MG TABLET PO SCH (08:25)
--- NOTE | 2024-12-22 11:58 | PROVIDER PROGRESS NOTE ---
Progress Note Progress Note Progress Note: He looks fantastic. I saw him on admission where he was encephalopathic from infection. Yesterday, I was not on service and today I am back on service. He is cheerful, alert, normal conversation was. No distress at all. Just very tired, a little fatigued. Needs more assist than he usually does to get up out of bed. At home he is usually independent without a cane or walker. Currently needing the help of the nurse or the aide because he is unsteady. Still has cough and congestion. But better than it was the last 2 days. Eating well. Exam: Blood pressure 147/88, pulse 71, respirations 18, temperature 36.7, O2 sat is 95% on room air He is a 6 foot 1-1/2 inch elderly gentleman who looks his stated age. 113 kg. Smiling, shakes my hand and stands from chair to greet me when I walk in the room but almost loses his balance. He has a congested tone of voice, slight cough when he gets excited and brings up some yellow phlegm. Lungs have coarse upper airway rhonchi. But breath sounds are very, very diminished. He has a history of asthma but I am not hearing a prolonged I/E ratio. He does have a barrel chest. Distant cardiac tones of a regular rate and rhythm Abdomen is soft, nontender, normal bowel sounds Extremities with trace edema Neurologically this gentleman is able to sit up, stand up, needs a standby assist for balance to get into a chair. He is feeding himself, and has no focal deficits. Slightly deaf. Moderate memory loss. While he remembers an event he will think that it was 2 days ago and it may have been 20 years ago. I reviewed his labs and sodium is 138. Potassium 5.1. He is not on any medications that would cause this. Yesterday we presumed he may be having some hemolysis in the tube. BUN 28, creatinine 1.3. Fasting glucose 136. Calcium is 9.3, magnesium 2.2. White cell count has come down from yesterday. He was 16.5 today, 21.5 yesterday. Hemoglobin 12.2 and he has a chronic anemia and looking at the EMR. Slightly macrocytic at 96.9. He has been macrocytic throughout all of his lab studies dating to before 2016. Platelets are 155. No blood cultures or urine cultures done in the ER for me to review Assessment/Plan Problem List (1) Acute hypoxic respiratory failure RESOLVED Impression: Patient presented with oxygen saturation of 87% on room air. He required 2 L of oxygen. Responded to treatment and his oxygen has remained above 89% since yesterday afternoon 4 PM and has been able to stay off oxygen. Currently 95% on room air. Initially was treated with 1 dose of IV Solu-Medrol, as well as Rocephin azithromycin for community-acquired pneumonia. Chest x-ray showed retrocardiac opacity. This was followed up by a chest CT, which shows right lung pneumonia, as well as interval development of left lung pneumonia. There is concern for aspiration pneumonia. Rocephin and azithromycin were switched to Unasyn (Day #2). Solu-Medrol was changed to prednisone 40 mg daily (day #2). . Speech therapy consult ordered but he will not be here until 12/23. Plan: Continue DuoNebs RT 4 times daily, will complete 5-day course of steroids with oral prednisone 40 mg daily at this time. Discussed possibility of SNF at discharge, patient would prefer to go home. Home Health Care ordered in preperation for discharge. I am keeping here until tomorrow since WBC is not down to normal yet. He does look so much better than on admission when encephalopathy was also very evident. is okay with dc in am. She has been given a list of caregivers by social work. She plans on starting to call them in and review them and hire them for help in the home. (2) Multifocal Pneumonia: Impression: Continue Unasyn at this time. Day #2. Clinically, patient has improved to near baseline function. Still weaker than at home but able to get up and sit in chair today. Able to feed himself. Plan was for oxygen desaturation study today to assess for oxygen needs but he is on room air @95% so I do not think I need to order that. Qualifiers: Laterality: left Lung location: lower lobe of lung Pneumonia type: due to unspecified organism Qualified Code(s): J18.9 - Pneumonia, unspecified organism (3) Hyperkalemia: Impression: Potassium continues to be slightly elevated this morning and was high yesterday. No acute kidney injury noted. No medications that would cause the above. May just be hemolysis during lab draw. I will repeat today and if still elevated, I will give lokelma. (4) COPD (chronic obstructive pulmonary disease): Impression: Continue DuoNebs as needed, continue 5-day course of prednisone. Today is Day#2. Qualifiers: COPD type: unspecified COPD Qualified Code(s): J44.9 - Chronic obstructive pulmonary disease, unspecified Chronic or resolved problems (5) Depression: Impression: Continue escitalopram. Qualifiers: Depression Type: unspecified Qualified Code(s): F32.A - Depression, u nspecified (6) Hyperlipidemia: Impression: Continue statin. Qualifiers: Hyperlipidemia type: unspecified Qualified Code(s): E78.5 - Hyperlipidemia, unspecified (7) BPH loc w urin obs/LUTS: Impression: Continue Flomax. (8) Atrial fibrillation: Impression: Continue metoprolol and Eliquis. Qualifiers: Atrial fibrillation type: persistent (not longstanding) Qualified Code(s): I48.19 - Other persistent atrial fibrillation; I48.1 - Persistent atrial fibrillation (9) Hx of coronary artery disease: Impression: Continue Plavix per home medication.
[2024-12-22] MEDS: IPRATROPIUM/ALBUTEROL 3 ML NEB INH PRN (19:58)
[2024-12-22 22:59] VITALS: TEMP 97.9
--- NOTE | 2024-12-23 07:41 | Discharge Summary ---
"Discharge Summary Admit Date: 12/20/24 Discharge Date: 12/23/24 Discharging Provider: Precious Morse MD Primary Care Provider: Rinku Nguyễn MD Code Status: Do Not Attempt Resuscitation DIAGNOSES Discharge Diagnoses with Status of Each Condition: 1. Multifocal pneumonia. Right lung pneumonia was resolving, new left lung pneumonia. Possible dysphagia or aspiration. 2. Acute hypoxic respiratory failure 3. Hyperkalemia 4. COPD 5. Depression 6. Hyperlipidemia 7. BPH with LUTS 8. Chronic atrial fibrillation rate was controlled, on metoprolol and Eliquis 9. History of coronary artery disease HPI History of Present Illness: Mr Ag is an 89 yo M with history of CAD s/p CABG, A fib with RVR on Eliquis, HTN, HLD, COPD, hx AVR. Presents to the ER with complaints of productive cough, malaise, fatigue, and generalized weakness over the past 3-4 days. Cough has been productive of thick yellow sputum, he has been taking Mucinex. Denies fevers or chills. Shortness of breath has progressively worsened with ambulation around the home, but the past of couple of days he has been having a hard time walking due to feeling weak/tired. Today he was trying to get out of bed and ruled out and got wedged between the bed and the wall, his called EMS. He did hit his right elbow on the nightstand. He denies chest pain. Denies nausea, vomiting, prefers soft food. Denies abdominal pain. O2 sats 88% on RA, now stable on 2 L NC, does not use home O2. Does not have history of MARTÍNEZ/CPAP. Reviewed outpatient cardiology note - he has been recently taken off of Plavix, and lipitor dose reduced to 20 mg for muscle aches. CONSULTS | PROCEDURES Procedures: Cervical spine CT is without acute displaced fracture or traumatic subluxation. Head CT has no acute intracranial pathology Chest x-ray has a retrocardiac opacity which could represent atelectasis or infection. CT of the chest without contrast to evaluate the retrocardiac density shows improved right lung pneumonia with groundglass opacities. And an interval development of a new left lung pneumonia when looking at his CT from March 27, 2024. He has moderate mitral annular calcification. Severe LAD and left circumflex coronary artery calcification. Status post coronary artery bypass surgery. Moderate atherosclerotic calcification of the thoracic aorta. Status post aortic valve replacement. Borderline enlarged subcarinal lymphadenopathy unchanged from prior exam. HOSPITAL COURSE Hospital Course: The patient was started on empiric antibiotic therapy for pneumonia. The pneumonia appeared to be retrocardiac and in order to be able to better visualize his lungs I did a CT of the chest. The CT of the chest shows right lung pneumonia with groundglass opacities that were resolving and a new acute pneumonia on the left side. Antibiotics were changed to broaden coverage and he was changed to Zosyn for possible aspiration. His physical exam was marked by cough, chest congestion, rhonchi, and moderate to severe lethargy on admission. Steroids were also used for COPD and hypoxemia with respiratory failure. The most oxygen he needed was 2 L and he was able to come off of that by day 2. He improved gradually and by the day before discharge was markedly, markedly alert, cheerful. Able to now get up in the room and converse normally with staff. His white cell count is still elevated but he has no fever, no chills, and he is 92% on room air. He is elevated white cell count may be due to steroids considering all clinical parameters of infection are improved. Although he is able to go from supine to sitting, sitting to standing, then to walk to his bedside chair, he appears fatigued. Needs 2 standby assist. And I am ordering home health for PT, OT and speech therapy evaluation. His and DPOA spoke to us when he was first admitted and encephalopathic. At that time he was not able to participate in care planning decisions. She states that he is a DO NOT RESUSCITATE and they do have an advance directive at home but they do not have a POLST form. As such a POLST form was filled out while he was here. Her plan is to hire caregivers to help him get stronger at home. Exam at discharge was that of a 6 foot 1-1/2 inch white male at 113 kg. Very cheerful personality, jovial. Greets you by reaching out to shake your hand although he is a little off balance. He is oriented to person, and he knows he is in the hospital but not which one, not oriented to date, slightly oriented to situation. Manifesting mild to moderate dementia. Neck has shotty adenopathy. Lungs have coarse upper airway breath sounds but are otherwise clear. Nasal, and congested voice. Occasional cough. No wheezing. No respiratory distress. Abdomen is soft and nontender with normal bowel sounds. Extremities have trace edema. Greater than 30 minutes was spent coordinating discharge This document was made in part using voice recognition software. While efforts are made to proofread this document, sound alike and grammatical errors may occur. ALLERGIES Allergies Allergy/AdvReac Type Severity Reaction Status Date / Time caffeine Allergy Intermediate Cough Verified 12/20/24 02:37 aspirin Allergy Respiratory Verified 12/20/24 02:37 cantaloupe Allergy Unknown Verified 12/20/24 02:37 strawberry Allergy Unknown Verified 12/20/24 02:37 MEDICATIONS Ambulatory Orders Medication Instructions Recorded Confirmed clopidogrel 75 mg tablet 75 mg PO DAILY 07/29/17 12/20/24 acetaminophen 325 mg tablet 650 mg PO DAILY PRN Pain 1-4 04/13/21 12/20/24 cholecalciferol (vitamin D3) 25 75 mcg PO DAILY 04/13/21 12/20/24 mcg (1,000 unit) tablet coenzyme Q10 100 mg capsule (Co 2 tab ORAL DAILY 04/13/21 12/20/24 Q-10) latanoprost (PF) 0.005 % eye drops 1 drp EACHEYE HS 04/13/21 12/20/24 vitamin E 268 mg (400 unit) capsule 400 unit PO DAILY 04/13/21 12/20/24 carboxymethylcellulose sodium 0.5 1 drp EACHEYE QAM Dry Eye 03/27/24 12/20/24 % eye drops (Refresh Tears) famotidine 20 mg tablet 20 mg PO QACDINNER 03/27/24 12/20/24 metoprolol succinate 25 mg 12.5 mg PO HS 03/27/24 12/20/24 tablet,extended release 24 hr apixaban 2.5 mg tablet (Eliquis) 2.5 mg PO BID 03/29/24 12/20/24 atorvastatin 40 mg tablet 40 mg PO QPM 03/29/24 12/20/24 albuterol sulfate 90 mcg/actuation 2 inh inhalation QID PRN shortness 08/19/24 12/20/24 aerosol inhaler of breath or wheezing dorzolamide 2 % eye drops 1 drp ophthalmic (eye) BID 08/19/24 12/20/24 fexofenadine 180 mg tablet 180 mg PO QPM 08/19/24 12/20/24 fluticasone 500 mcg-salmeterol 50 1 inh inhalation BID #60 ea 08/19/24 12/20/24 mcg/dose blistr powdr for inhalation midodrine 5 mg tablet 5 mg PO TID PRN hypotension 08/19/24 12/20/24 multivitamin 1 tab PO DAILY 08/19/24 12/20/24 escitalopram oxalate 5 mg tablet See Rx Instructions .Route 12/10/24 12/20/24 .COMPLEX #30 tabs montelukast 10 mg tablet See Rx Instructions .Route 12/12/24 12/20/24 .COMPLEX #90 tabs dutasteride 0.5 mg capsule 0.5 mg PO .QHS 12/20/24 12/20/24 ipratropium 0.5 mg-albuterol 3 mg 3 ml inhalation BID PRN shortness 12/20/24 12/20/24 (2.5 mg base)/3 mL nebulization of breath or wheezing soln ipratropium bromide 17 2 inh inhalation QID 12/20/24 12/20/24 mcg/actuation HFA aerosol inhaler (Atrovent HFA) tamsulosin 0.4 mg capsule 0.4 mg PO QPM 12/20/24 12/20/24 triamcinolone acetonide 55 mcg 1 spray intranasal QPM PRN runny 12/20/24 12/20/24 nasal spray aerosol (Nasacort) nose trospium 60 mg capsule,extended 60 mg PO QAM 12/20/24 12/20/24 release 24 hr Saccharomyces boulardii 250 mg 250 mg PO BID #14 caps 12/23/24 capsule (Florastor) amoxicillin 500 mg-potassium 1 tab PO TID #12 tabs 12/23/24 clavulanate 125 mg tablet (Augmentin) LABS 12/22/24 05:45 12/22/24 14:08 Discharge Plan Discharge Patient Disposition: 01 Home, Self Care Condition: Stable Medically Cleared Date:: 12/23/24 Prescriptions: New amoxicillin-pot clavulanate [Augmentin] 500-125 mg tablet 1 tab PO TID Qty: 12 0RF Saccharomyces boulardii [Florastor] 250 mg capsule 250 mg PO BID Qty: 14 0RF Continued fluticasone propion-salmeterol 500-50 mcg/dose blister with device 1 inh inhalation BID Qty: 60 4RF escitalopram oxalate 5 mg tablet See Rx Instructions .ROUTE .COMPLEX Qty: 30 5RF Dose Instruction: TAKE ONE (1) TABLET BY MOUTH EVERY DAY Rx Instructions: TAKE ONE (1) TABLET BY MOUTH EVERY DAY montelukast 10 mg tablet See Rx Instructions .ROUTE .COMPLEX Qty: 90 3RF Dose Instruction: TAKE ONE (1) TABLET BY MOUTH ONCE A DAY Rx Instructions: TAKE ONE (1) TABLET BY MOUTH ONCE A DAY clopidogrel 75 MG tablet 75 mg PO DAILY latanoprost (PF) 7.5 ML drops 1 drp EACHEYE HS acetaminophen 325 MG tablet 650 mg PO DAILY PRN (Reason: Pain 1-4) vitamin E 400 UNIT capsule 400 unit PO DAILY coenzyme Q10 [Co Q-10] 100 MG capsule 2 tab ORAL DAILY cholecalciferol (vitamin D3) 25 MCG tablet 75 mcg PO DAILY multivitamin Tablet 1 tab PO DAILY carboxymethylcellulose sodium [Refresh Tears] 15 ML drops 1 drp EACHEYE QAM Rx Instructions: before dorzolamide and then prn famotidine 20 MG tablet 20 mg PO QACDINNER metoprolol succinate 25 MG tablet extended release 24 hr 12.5 mg PO HS atorvastatin 40 MG tablet 40 mg PO QPM 0RF Eliquis 2.5 MG tablet 2.5 mg PO BID 0RF tamsulosin 0.4 MG capsule 0.4 mg PO QPM dutasteride 0.5 mg capsule 0.5 mg PO .QHS Rx Instructions: TAKE 1 CAPSULE BY MOUTH ONCE A DAY trospium 60 mg capsule,extended release 24hr 60 mg PO QAM Atrovent HFA 17 mcg/actuation HFA aerosol inhaler 2 inh inhalation QID triamcinolone acetonide [Nasacort] 55 mcg aerosol,spray 1 spray intranasal QPM PRN (Reason: runny nose) Rx Instructions: administer into each nostril ipratropium-albuterol 0.5 mg-3 mg(2.5 mg base)/3 mL solution for nebulization 3 ml inhalation BID PRN (Reason: shortness of breath or wheezing) midodrine 5 mg tablet 5 mg PO TID PRN (Reason: hypotension) Rx Instructions: PRN FOR SBP <110 do not give last dose of day after 6PM or within 4 hrs of bedtime fexofenadine 180 mg tablet 180 mg PO QPM albuterol sulfate 90 mcg/actuation HFA aerosol inhaler 2 inh inhalation QID PRN (Reason: shortness of breath or wheezing) dorzolamide 2 % drops 1 drp ophthalmic (eye) BID Activity Restrictions: Activity as Tolerated Diet: Regular Health Concerns: You have a long history of emphysema and have been previously hospitalized with pneumonia. You presented to the hospital with weakness and fatigue that resulted in your falling between your bed and bedroom wall. Your could not get you up. Prior to you falling, you had coughing, congestion for a few days. In the emergency room, we found you to have pneumonia. Some of it may be due to the fact that you are swallowing incorrectly. Pneumonia appears to be in both sides of your chest. The right side looks like it was old and improving. The left side looks like it was new. You responded very nicely to our antibiotics for the infection. Your wheezing and shortness of breath were treated with steroids. You improved for that. Antibiotics usually need to be given for 7 days. Steroids are given for 5 days. The last 2 days you have markedly improved. You are alert, cheerful. When you came in you were so sleepy and sick that you could barely respond to us. We feel that you are now stable for home. You are weak, and could do with some physical rehab but your has opted to take you home. As such we are ordering home health. Instructions for discharge: 1. Please see your primary care provider, Dr. Mckeon, and follow-up in the next 1 to 2 weeks 2. Please finish taking your antibiotics. This will be Augmentin twice a day for the next 4 days. You do not need to take any more steroids. 3. Augmentin sometimes gives you diarrhea so we recommend that you take an iggx-toe-cnuwzog probiotic twice a day. I have prescribed Florastor but if you want to use a different probiotic that is fine. 4. I am referring home health to see you. I would like a nurse, PT, and OT to see you in your home to help you with rehab. I would also like speech therapy to see you as well to help you with correct swallowing techniques. Print Language: Moroccan Patient Instructions: Pneumonia"
[2024-12-23 08:31] VITALS: BP 154/80; O2SAT 93
== END 2024-12-23 09:50 | disposition home or self-care (01) | DRG 190 ==
LOC: ED 02:07 → MS2 04:59
PROVIDERS: ADMIT Student in an Organized Health Care Education/Training Program; ATTEND Student in an Organized Health Care Education/Training Program
DX: I25.10 Atherosclerotic heart disease of native coronary artery without angina pectoris; N40.1 Benign prostatic hyperplasia with lower urinary tract symptoms; R26.2 Difficulty in walking, not elsewhere classified; R60.0 Localized edema; Z79.01 Long term (current) use of anticoagulants; R53.1 Weakness; G93.40 Encephalopathy, unspecified; J44.1 Chronic obstructive pulmonary disease with (acute) exacerbation; F32.A Depression, unspecified; J96.01 Acute respiratory failure with hypoxia; E78.5 Hyperlipidemia, unspecified; Z79.899 Other long term (current) drug therapy; I10 Essential (primary) hypertension; Z66 Do not resuscitate; J18.9 Pneumonia, unspecified organism; W06.XXXA Fall from bed, initial encounter; Z20.818 Contact with and (suspected) exposure to other bacterial communicable diseases; S50.311A Abrasion of right elbow, initial encounter; Z87.891 Personal history of nicotine dependence; Z20.822 Contact with and (suspected) exposure to COVID-19; Z20.828 Contact with and (suspected) exposure to other viral communicable diseases; E87.5 Hyperkalemia; I45.10 Unspecified right bundle-branch block; J44.0 Chronic obstructive pulmonary disease with (acute) lower respiratory infection; W19.XXXA Unspecified fall, initial encounter; Z95.1 Presence of aortocoronary bypass graft; Z95.2 Presence of prosthetic heart valve; N13.8 Other obstructive and reflux uropathy; I48.20 Chronic atrial fibrillation, unspecified; R59.0 Localized enlarged lymph nodes

== ENCOUNTER 2025-09-01 16:57 | Inpatient (IN) ==
--- OUTSIDE RECORDS SUMMARY | 2025-09-01 17:21 | EXTERNAL MEDICAL SUMMARY RPT | Continuity of Care Document ---
Author Organization [facility] Address [address] [address] Phone Care Team Providers Care Ampoule Inspector Name Role Phone Rinku Nguyễn Unavailable Unavailable Allergies and Intolerances date description facility reaction severity 2025-06-03 15:06:02 [facility] (no reactio n) Moderate 2025-07-30 13:44:22 [facility] (no reactio n) Moderate Medications date description facility 2025-06-03 00:00 Doxycycline Hyclate [facility] 2025-06-03 00:00 Tozwepguigz-Ufjoqbdqq-Zlkupscr [facility] 2025-06-03 00:00 Vibegron [facility] 2025-06-03 00:00 Azithromycin [facility] 2025-07-30 00:00 Azithromycin [facility] 2025-06-03 00:00 Prednisone [facility] 2025-07-30 00:00 [facility] Problems date description facility 2025-06-03 00:00 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 [facility] 2025-06-03 13:05 Pneumonia, unspecified organism [facility] 2025-06-03 14:22 Pneumonia, unspecified organism [facility] 2025-06-04 10:31 Pneumonia, unspecified organism [facility] 2025-06-10 00:01 Persistent atrial fibrillation [facility] 2025-06-10 00:01 Other persistent atrial fibrill ation [facility] 2025-06-10 00:01 Chronic obstructive pulmonary d isease, unspecified [facility] 2025-06-10 00:01 Dorsalgia, unspecified [facility] 2025-06-10 00:01 Other muscle spasm [facility] 2025-06-10 00:01 Benign prostatic hyp erplasia without lower urinary tract symptoms [facility] 2025-06-13 10:56 Pneumonia, unspecified organism [facility] 2025-06-13 15:24 Dorsalgia, unspecified [facility] 2025-06-13 15:24 Other muscle spasm [facility] 2025-06-13 15:26 Dorsalgia, unspecified [facility] 2025-06-13 15:26 Other muscle spasm [facility] 2025-06-14 00:02 Dorsalgia, unspecified [facility] 2025-06-14 00:02 Other muscle spasm [facility] 2025-06-17 13:31 Low back pain, unspecified [facility] 2025-06-17 13:31 Other muscle spasm [facility] 2025-07-10 14:18 [facility] 2025-07-16 08:58 Encounter for examin ation and observation following other accident [facility] 2025-07-30 13:33 Disorientation, unspecified [facility] 2025-07-31 12:34 Encounter for observ ation for other suspected diseases and conditions ruled out [employer] [facility] Procedures date description facility 2025-06-03 00:00 X-ray of chest, two views [facility] Results/Labs test date facility value unit notes Result panel 1 Specimen collection (procedure) (no date) [facility] (missing) (missing) (missing) Result panel 2 Specimen collection (procedure) (no date) [facility] (missing) (missing) (missing) Result panel 3 Specimen collection (procedure) (no date) [facility] (missing) (missing) (missing) Result panel 4 Specimen collection (procedure) (no date) [facility] (missing) (missing) (missing) Result panel 5 Specimen collection (procedure) (no date) [facility] (missing) (missing) (missing) Result panel 6 Specimen collection (procedure) (no date) [facility] (missing) (missing) (missing) Result panel 7 Specimen collection (procedure) (no date) [facility] (missing) (missing) (missing) Result panel 8 Specimen collection (procedure) (no date) [facility] (missing) (missing) (missing) Result panel 9 NUCLEATED RED BLOOD CELLS AUTO 2025-09-01 05:20 [facility] 0.0 /100wbc (missing) NRBC ABSOLUTE COUNT (AUTO) 2025-09-01 05:20 [facility] 0.00 x10 3/ul (missing) BASOPHILS # (AUTO) 2025-09-01 05:20 [facility] 0.1 10 3/ul (missing) EOSINOPHILS # (AUTO) 2025-09-01 05:20 [facility] 0.2 10 3/ul (missing) BILIRUBIN,TOTAL 2025-09-01 05:20 [facility] 0.7 mg/dl As of April 2023 testing method has changed, this may include reference ranges. LYMPHOCYTES # (AUTO) 2025-09-01 05:20 [facility] 1.0 10 3/ul (missing) MONOCYTES # (AUTO) 2025-09-01 05:20 [facility] 1.3 10 3/ul (missing) CREATININE 2025-09-01 05:20 [facility] 1.4 mg/dl As of April 2023 testing method has changed, this may include reference ranges. ALBUMIN/GLOBULIN RATIO 2025-09-01 05:20 [facility] 1.7 (missing) (missing) CHLORIDE 2025-09-01 05:20 [facility] 105 mmol/l As of April 2023 testing method has changed, this may include reference ranges. MEAN PLATELET VOLUME 2025-09-01 05:20 [facility] 11.2 fl (missing) GLUCOSE 2025-09-01 05:20 [facility] 120 mg/dl As of April 2023 testing method has changed, this may include reference ranges. RED CELL DISTRIBUTION WIDTH 2025-09-01 05:20 [facility] 13.2 % (missing) SODIUM 2025-09-01 05:20 [facility] 137 mmol/l (missing) HGB - HEMOGLOBIN 2025-09-01 05:20 [facility] 14.0 g/dl (missing) NEUTROPHILS # (AUTO) 2025-09-01 05:20 [facility] 14.9 10 3/ul (missing) PLT - PLATELET COUNT 2025-09-01 05:20 [facility] 148 10 3/ul (missing) AST ASPARTATE AMINOTRANSFERASE 2025-09-01 05:20 [facility] 17 iu/l As of April 2023 testing method has changed, this may include reference ranges. ALT ALANINE AMINOTRANSFERASE 2025-09-01 05:20 [facility] 17 iu/l As of April 2023 testing method has changed, this may include reference ranges. WHITE BLOOD COUNT 2025-09-01 05:20 [facility] 17.4 x10 3/ul (missing) GLOBULIN 2025-09-01 05:20 [facility] 2.4 g/dl (missing) BUN - BLOOD UREA NITROGEN 2025-09-01 05:20 [facility] 23 mg/dl As of April 2023 testing method has changed, this may include reference ranges. CARBON DIOXIDE - CO2 2025-09-01 05:20 [facility] 27 mmol/l As of April 2023 testing method has changed, this may include reference ranges. MEAN CORPUSCULAR HEMOGLOBIN 2025-09-01 05:20 [facility] 31.1 pg (missing) MEAN CORPUSCULAR HGB CONC 2025-09-01 05:20 [facility] 31.7 g/dl (missing) LIPASE 2025-09-01 05:20 [facility] 36 u/l As of April 2023 testing method has changed, this may include reference ranges. ALBUMIN 2025-09-01 05:20 [facility] 4.0 g/dl As of April 2023 testing method has changed, this may include reference ranges. RED BLOOD COUNT 2025-09-01 05:20 [facility] 4.50 10 6/ul (missing) POTASSIUM 2025-09-01 05:20 [facility] 4.7 mmol/l As of April 2023 testing method has changed, this may include reference ranges. HCT - HEMATOCRIT 2025-09-01 05:20 [facility] 44.2 % (missing) GFR - MDRD 2025-09-01 05:20 [facility] 48 (missing) The IDMS-traceable MDRD Study Equation has been validated extensively in and populations between the ages of 18 and 70 with impaired kidney function (eGFR < 60 mL/min/1.73m2) and has shown good performance for patients with all common causes of kidney disease. Although this equation has not been validated for patients older than 70, an MDRD-derived eGFR may still be a useful tool for providers caring for patients older than 70. References: http://www.nkdep. nih.gov/lab-evalu ation/gfr/creatin ine-stand ardization, last updated December 2011. ANION GAP 2025-09-01 05:20 [facility] 5.0 (missing) (missing) ALKALINE PHOSPHATASE 2025-09-01 05:20 [facility] 59 iu/l As of April 2023 testing method has changed, this may include reference ranges. TOTAL PROTEIN 2025-09-01 05:20 [facility] 6.4 g/dl As of April 2023 testing method has changed, this may include reference ranges. CALCIUM 2025-09-01 05:20 [facility] 9.6 mg/dl As of April 2023 testing method has changed, this may include reference ranges. MEAN CORPUSCULAR VOLUME 2025-09-01 05:20 [facility] 98.2 fl (missing) Result panel 10 UROBILINOGEN,URINE 2025-09-01 06:36 [facility] 0.2 (NORMAL) e.u./dl (missing) SPECIFIC GRAVITY,URINE 2025-09-01 06:36 [facility] 1.020 (missing) (missing) PH,URINE 2025-09-01 06:36 [facility] 6.0 ph (missing) CLARITY,URINE 2025-09-01 06:36 [facility] CLEAR (missing) (missing) LEUKOCYTE ESTERASE, URINE 2025-09-01 06:36 [facility] NEGATIVE (missing) (missing) NITRITE,URINE 2025-09-01 06:36 [facility] NEGATIVE (missing) (missing) OCCULT BLOOD,URINE 2025-09-01 06:36 [facility] NEGATIVE (missing) (missing) GLUCOSE, URINE (UA) 2025-09-01 06:36 [facility] NEGATIVE mg/dl (missing) KETONES,URINE (UA) 2025-09-01 06:36 [facility] NEGATIVE mg/dl (missing) PROTEIN,URINE 2025-09-01 06:36 [facility] NEGATIVE mg/dl (missing) UR CULTURE IF IND 2025-09-01 06:36 [facility] NOT INDICATED (missing) (missing) URINE MICROSCOPIC INDICATED? 2025-09-01 06:36 [facility] NOT INDICATED (missing) (missing) BILIRUBIN,URINE 2025-09-01 06:36 [facility] SMALL (missing) Bilirubin can be influenced by color interference. Please correlate positive results with clinical presentation COLOR,URINE 2025-09-01 06:36 [facility] YELLOW (missing) URINE CLEAN CATCH Social History date description facility 2025-06-03 00:00 Ex-smoker (finding) [facility] 2025-07-30 00:00 Ex-smoker (finding) [facility] Vital Signs date measurement value units 2025-06-03 00:00 BMI 32.3 kg/m2 2025-06-03 00:00 BP_diastolic 68 mmHg 2025-06-03 00:00 BP_systolic 132 mmHg 2025-06-03 00:00 heart_rate 58 /min 2025-06-03 00:00 height_metric 186.69 cm 2025-06-03 00:00 o2_saturation 94 % 2025-06-03 00:00 temperature_standard 97.5 F 2025-06-03 00:00 weight_metric 112.49 kg 2025-07-30 00:00 BMI 32.3 kg/m2 2025-07-30 00:00 heart_rate 66 /min 2025-07-30 00:00 height_metric 186.69 cm 2025-07-30 00:00 o2_saturation 94 % 2025-07-30 00:00 weight_metric 112.49 kg
[2025-09-01 17:34] LABS: HCT - HEMATOCRIT 41.4 % (42.0-52.0); HGB - HEMOGLOBIN 13.2 g/dL (14.0-18.0); MEAN PLATELET VOLUME 10.4 fL (7.4-11.4); NRBC ABSOLUTE COUNT (AUTO) 0.00 x10^3/uL; NUCLEATED RED BLOOD CELLS AUTO 0.0 /100WBC; PLT - PLATELET COUNT 145 10^3/uL (130-450); RED CELL DISTRIBUTION WIDTH 13.3 % (12.0-15.0)
[2025-09-01 17:45] LABS: ALT ALANINE AMINOTRANSFERASE 14.0 IU/L (10-60); AST ASPARTATE AMINOTRANSFERASE 13.0 IU/L (10-42); BUN - BLOOD UREA NITROGEN 23.0 mg/dL (6-20); CARBON DIOXIDE - CO2 29.0 mmol/L (21-32); CREATININE 1.4 mg/dL (0.6-1.3); GFR - MDRD 48.0 (>89)
--- NOTE | 2025-09-01 17:54 | ED Physician Documentation ---
History of Present Illness Stated complaint Stated Complaint: WEAKNESS/SOA Chief complaint Chief Complaint: Neuro History obtained from History obtained from: Patient, Family and EMS Additonal information Additional information: The patient returns to the emergency department via EMS for chief complaint of shortness of breath and weakness. He has a history of COPD but has been coughing more than usual and feels short of breath. He was seen earlier this morning and worked up for generalized weakness including UA and labs. Urinalysis was negative but CBC showed an elevated white blood cell count at 17.4. He was also sent for head CT due to some confusion and this showed possible hemorrhage versus artifact. At the direction of neurosurgery, a repeat CT was done a few hours later and showed no change and was felt by the radiologist at that time to represent artifact. had requested to talk to social work as she was feeling that they needed more than there once a week home health visits and after discussing the possibility of SNF versus increased home health intervention, the wanted to take the patient home. However, she told the medics that the patient is just laid on the couch all day and she is rethinking the idea of SNF. The patient states his main complaint is the breathing. No other complaints at this time. Medics do report that he was displaying oxygen saturation of 95% on 2 L per nasal cannula. He does not use oxygen at home normally. Meds/Allgy Home Medications Ambulatory Orders Medication Instructions Recorded Confirmed cholecalciferol (vitamin D3) 25 75 mcg PO DAILY 09/01/25 mcg (1,000 unit) tablet coenzyme Q10 100 mg capsule (Co 2 tab ORAL DAILY 04/1309/01/25 Q-10) latanoprost (PF) 0.005 % eye drops 1 drlinden STEVENSON HS 09/02/25 vitamin E 268 mg (400 unit) capsule 400 unit PO DAILY 04/13/21 09/02/25 carboxymethylcellulose sodium 0.5 1 lawrence barrett Eye 03/27/24 09/02/25 % eye drops (Refresh Tears) famotidine 20 mg tablet 20 mg PO QACDINNER 03/27/24 09/02/25 metoprolol succinate 25 mg 12.5 mg PO HS 03/27/2408/16 tablet,extended release 24 hr apixaban 2.5 mg tablet (Eliquis) 2.5 mg PO BID 4 09/02/25 atorvastatin 40 mg tablet 40 mg PO QPM 03/29/24 albuterol sulfate 90 mcg/actuation 2 inh inhalation QI D PRN shortness 08/19/24 09/02/25 aerosol inhaler of breath or wheezing dorzolamide 2 % eye drops 1 drp ophthalmic (eye) BID 1 10/19/23 09/02/25 multivitamin 1 tab PO DAILY 08/19/2408/16 montelukast 10 mg tablet See Rx Instructions .Route 0 12/12/24 09/02/25 .COMPLEX #90 tabs dutasteride 0.5 mg capsule 0.5 mg PO .QHS 12/20/24 tamsulosin 0.4 mg capsule 0.4 mg PO QPM 12/20/2409/02 triamcinolone acetonide 55 mcg 1 spray intranasal WALTER Y PRN runny 12/20/24 09/02/25 nasal spray aerosol (Nasacort) nose ipratropium 0.5 mg-albuterol 3 mg 3 ml inhalation BID PRN shortness 01/16/25 09/02/25 (2.5 mg base)/3 mL nebulization of breath or wheezing #180 mL soln calcium carbonate (Antacid 200 mg PO TID PRN heartburn 02/09/25 09/01/25 (calcium carbonate)) midodrine 5 mg tablet 5 mg PO DAILY hypotension 09/02/25 prednisone 10 mg tablet See Rx Instructions PO .COMP ADAM 05/22/25 09/02/25 copd exacerbation #30 tabs fluticasone fur. 200 mcg-umeclid 1 inh inhalation WALTER Y 06/09/25 09/02/25 62.5 mcg-vilant 25 mcg inhalat.powder (Trelegy Ellipta) escitalopram oxalate 5 mg tablet 5 mg PO DAILY 5 09/02/25 fexofenadine 180 mg tablet 180 mg PO QPM 09/02/2508/16 (Aller-Ease) vibegron 75 mg tablet (Gemtesa) 75 mg PO DAILY 5 09/02/25 Allergies Allergies Allergy/AdvReac Type Severity Reaction Status Date / Time caffeine Allergy Intermediate Cough Verified 09/01/25 04:11 aspirin Allergy Respiratory Verified 09/01/25 17:18 cantaloupe Allergy Unknown Verified 09/01/25 04:11 strawberry Allergy Unknown Verified 09/01/25 04:11 PFSH Active Problems All Active Problems (Updated 09/03/25 @ 16:52 by Evgeny Suarez) Blurred vision (Acute) Sepsis (Acute) Pneumonia (Acute) Abnormal head CT (Acute) Fall (Acute) High eosinophil count (Acute) COPD (chronic obstructive pulmonary disease) (Chronic) Muscle spasm (Acute) Back pain (Acute) BMI 32.0-32.9,adult (Acute) Acute exacerbation of chronic obstructive pulmonary disease (Acute) Frequent urination (Acute) Urinary obstruction (Acute) Recurrent aspiration pneumonia (Acute) Community acquired pneumonia (Acute) Cellulitis of arm, left (Acute) Swallowing impaired (Acute) Syncope and collapse (Acute) Atrial fibrillation (Acute) BPH (benign prostatic hyperplasia) (Acute) GERD with stricture without esophagitis (Acute) Medical History Medical History (Updated 09/03/25 @ 16:52 by Evgeny Suarez) HTN (hypertension) Asthma COPD with hypoxia History of fall ORIF R ankle 11/2022 Osteoarthritis shoulders and knees Orthostatic hypotension with October 2023 admission, treated with midodrine. Off midodrine by December 2023. History of pleural effusion left pleural effusion with thoracentesis x 2 in December 2014 MARTÍNEZ (obstructive sleep apnea) Hyperlipidemia Problem List clean-up per request of Phys. EHR Cmte Contusion of left thumb Dementia Problem List clean-up per request of Phys. EHR Cmte Depression Chronic diastolic heart failure see Ciro AUGUSTE @ [facility] CAD (coronary artery disease) TREVIZO to the LAD at the time of the AVR in October 2014. Echo February 2018 has EF of 55 to 60%. April 2022 nuclear medicine perfusion study. Negative for recurrent ischemia. Holter March 2022 with pacemaker considered. Echo April 2024 with EF 55 to 60%. Normal RV function, mild to moderate MR, well-seated bioprosthetic aortic valve however morphologically restricted bioprosthetic aortic valve cusp with cusp separation 1.1 cm. Cusps are thickened. Peak velocity 2.1 m. Mean gradient 11 mmHg. October 2024 nuclear medicine stress test with normal myocardial perfusion, stress LV ejection fraction 62%. Low risk study Aortic stenosis status post bioprosthetic AVR in October 2014 Anticoagulant long-term use Pneumonia 09/2023 TIA (transient ischemic attack) Embolic TIA 03/2021 Glaucoma Surgical History Surgical History (Updated 09/03/25 @ 05:00 by Eri Virgen RN) History of tonsillectomy History of sinus surgery History of arthroplasty of right knee History of hernia repair History of cataract surgery History of appendectomy H/O aortic valve replacement S/P CABG x 1 at time of AoVR H/O shoulder replacement right H/O arthroplasty L knee Family History Family History Sister Diabetes Father COPD (chronic obstructive pulmonary disease) Mother COPD (chronic obstructive pulmonary disease) Social History Social History (Updated 09/04/25 @ 13:14 by Ryanne Coulter MS.[facility]) Smoking Status: Unknown if ever smoked If you are a former smoker, when did you quit? (Date/Year): Number of Years Smoked: 6 How many cigarettes a day do you smoke? (20 cigarettes=1 Pk): 60 Second hand tobacco smoke exposure: No Do you dip or chew tobacco?: No Do you vape?: No Patient requests smoking cessation consult: No Initiate information on smoking cessation: No Living arrangement: At home Marital Status: Living Condition: With spouse/s.o. 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 HENMT normocephalic, head/scalp atraumatic, external nose normal and oral mucous membranes normal Eyes EOMs intact bilaterally Neck/C-Spine visual inspection normal and supple Respiratory breath sounds equal bilaterally Rales left lower lobe, no wheezes. Mild to moderate laboring of respirations Cardiovascular normal heart rate noted, regular rhythm noted and no edema Gastrointestinal abdomen normal to inspection, abdomen soft to palpation, nontender to palpation and nondistended Genitourinary no CVA tenderness Extremities Edema bilateral lower extremities. Neurology Alert, grossly intact Psychiatry mental status grossly normal Skin skin color normal Results Vitals Vitals: Oxygen O2 Source Room air Labs Labs: Laboratory Tests 09/01/25 09/02/25 17:28 05:29 WBC 18.7 H 16.5 H RBC 4.22 L 4.18 L Hgb 13.2 L 13.2 L Hct 41.4 L 40.3 L MCV 98.1 H 96.4 H MCH 31.3 H 31.6 H MCHC 31.9 L 32.8 RDW 13.3 13.0 Plt Count 145 135 MPV 10.4 11.7 H Neut # (Auto) 15.7 H 15.5 H Lymph # (Auto) 1.3 L 0.8 L Davis # (Auto) 1.5 H 0.2 Eos # (Auto) 0.1 0.0 Baso # (Auto) 0.1 0.0 Absolute Nucleated RBC 0.00 0.00 Nucleated RBC % 0.0 0.0 Sodium 136 136 Potassium 4.5 4.5 Chloride 103 107 Carbon Dioxide 29 24 Anion Gap 4.0 L 5.0 L BUN 23 H 19 Creatinine 1.4 H 1.1 Estimated GFR (MDRD) 48 L 63 L Glucose 114 H 172 H Calcium 9.8 9.5 Total Bilirubin 0.8 AST 13 ALT 14 Alkaline Phosphatase 55 Total Protein 6.5 Albumin 3.9 Globulin 2.6 Albumin/Globulin Ratio 1.5 Lipase 58 PD Medical Decision Making ED course Complexity details: reviewed old records, reviewed results, re-evaluated patient, considered differential, d/w patient, d/w family and d/w customs consultant ED course: PT was worked up with labs and CXR, and found to have a LLL pneumonia and a WBC count that was up to 18.7 from 17.4 this morning. The pt had been placed on supplemental O2 upon pick-up by EMS, and had continued to have a sense of dyspnea, despite sats now being in the mid-90's with O2. He was very weak and his white count was significantly elevated and had gone up over the course of the day, and I was concerned about developing sepsis, and felt the pt should be admitted to the hospital. I discussed the case with the hospitalist team, and admission was arranged. Pt and agreeable to the plan. Discharge Plan Discharge Patient Disposition: [facility] DC/Xfer Condition: Serious Clinical Impression: Pneumonia COPD (chronic obstructive pulmonary disease) Qualifiers: COPD type: unspecified COPD Qualified Code(s): J44.9 - Chronic obstructive pulmonary disease, unspecified Interventions: ED Admission Assessment Last Done: 09/01/25 19:51 Vitals documented within 30 minutes of discharge?: Yes
--- NOTE | 2025-09-01 18:16 | XRAY Report ---
PROCEDURE: XR Chest 1V INDICATIONS: COUGH/SOB TECHNIQUE: One view of the chest was acquired. COMPARISON: 05/22/2025 FINDINGS AND IMPRESSION: Left lower lung consolidation suspicious for infection. Surveillance imaging recommended to ensure resolution. Possible small left pleural effusion. Borderline cardiomegaly. Sternotomy wires. Unchanged mediastinal contours. Degenerative osseous changes. Partially seen right shoulder arthroplasty Reviewed by: Aristides Light MD on 09/01/2025 6:13 PM PST Approved by: Aristides Light MD on 09/01/2025 6:13 PM PST Station ID: [id number]
[2025-09-01] MEDS: AZITHROMYCIN INJ 500 MG in SODIUM CHLORIDE 0.9% 250 ML IV STA (18:28)
[2025-09-01] MEDS: cefTRIAXone 2 GM in SODIUM CHLORIDE 0.9% MINIBAG 100 ML IV STA (18:28)
--- NOTE | 2025-09-01 19:41 | HISTORY & PHYSICAL EXAMINATION ---
Chief Complaint Chief Complaint Chief Complaint: weak History of Present Illness Admitted From Admitted From:: home History Obtained From Records Reviewed: ED notes earlier today, PCP note 06/09/25, History of Present Illness HPI Comment/Other: 89M with PMHx COPD, not on home O2, afib on eliquis, back pain, BPH, s/p TAVR 10/2014, HFpEF, CAD s/p CABG 2014, presents to the ED for the second time today. During the night, he got up and fell in the kitchen despite using his walker, called paramedics for lift assist and he was brought to the ED, had a long stay in the ED with repeat head CT due to fall on Eliquis. Went home mid morning. Did miss some of his home meds today due to his time in the ED. After arrival home, continued to be weak. was not able to get him from sofa to recliner, once again, called lift assist and once again, paramedics recommended ED visit due to labored breathing. ED provider reports hypoxia on room air. I do not see this here in the ED. He complains of being cold, cough and fatigue. he is also confused. He knows that he is in the hospital, but not oriented to time. He has had increasing cough at home. no fever, no chest pain. He does feel that it is difficult to breath, and that he gets out of breath with any exertion. he has not had any PND or ankle swelling, POLST on file, is his surrogate decision maker. Meds/Allgy Home Medications Ambulatory Orders Medication Instructions Recorded Confirmed cholecalciferol (vitamin D3) 25 75 mcg PO DAILY 09/01/25 mcg (1,000 unit) tablet coenzyme Q10 100 mg capsule (Co 2 tab ORAL DAILY 04/1309/01/25 Q-10) latanoprost (PF) 0.005 % eye drops 1 drp GRAHAM HS 06/09/25 vitamin E 268 mg (400 unit) capsule 400 unit PO DAILY 04/13/21 06/09/25 carboxymethylcellulose sodium 0.5 1 drp GRAHAM barrett Eye 03/27/24 09/01/25 % eye drops (Refresh Tears) famotidine 20 mg tablet 20 mg PO QACDINNER 03/27/24 06/09/25 metoprolol succinate 25 mg 12.5 mg PO HS 03/27/2405/17 tablet,extended release 24 hr apixaban 2.5 mg tablet (Eliquis) 2.5 mg PO BID 4 09/01/25 atorvastatin 40 mg tablet 40 mg PO QPM 03/29/24 albuterol sulfate 90 mcg/actuation 2 inh inhalation QI D PRN shortness 08/19/24 09/01/25 aerosol inhaler of breath or wheezing dorzolamide 2 % eye drops 1 drp ophthalmic (eye) BID 1 10/19/23 09/01/25 multivitamin 1 tab PO DAILY 08/19/2405/17 escitalopram oxalate 5 mg tablet See Rx Instructions . Route 12/10/24 09/01/25 .COMPLEX #30 tabs montelukast 10 mg tablet See Rx Instructions .Route 0 12/12/24 06/09/25 .COMPLEX #90 tabs dutasteride 0.5 mg capsule 0.5 mg PO .QHS 12/20/24 tamsulosin 0.4 mg capsule 0.4 mg PO QPM 12/20/2406/09 triamcinolone acetonide 55 mcg 1 spray intranasal QPM PRN runny 12/20/24 06/09/25 nasal spray aerosol (Nasacort) nose ipratropium 0.5 mg-albuterol 3 mg 3 ml inhalation BID PRN shortness 01/16/25 06/09/25 (2.5 mg base)/3 mL nebulization of breath or wheezing #180 mL soln calcium carbonate (Antacid 200 mg PO TID PRN heartburn 02/09/25 09/01/25 (calcium carbonate)) vibegron 75 mg tablet (Gemtesa) 75 mg PO QDAY #90 tabs 05/15/25 06/09/25 midodrine 5 mg tablet 5 mg PO BID hypotension 05/0906/09/25 prednisone 10 mg tablet See Rx Instructions PO .COMP ADAM 05/22/25 06/09/25 copd exacerbation #30 tabs triamcinolone acetonide 55 mcg 2 spray intranasal QDAY PRN 05/22/25 06/09/25 nasal spray aerosol (Nasacort) fluticasone fur. 200 mcg-umeclid 1 inh inhalation QDAY 06/09/25 09/01/25 62.5 mcg-vilant 25 mcg inhalat.powder (Trelegy Ellipta) Allergies Allergies Allergy/AdvReac Type Severity Reaction Status Date / Time caffeine Allergy Intermediate Cough Verified 09/01/25 04:11 aspirin Allergy Respiratory Verified 09/01/25 17:18 cantaloupe Allergy Unknown Verified 09/01/25 04:11 strawberry Allergy Unknown Verified 09/01/25 04:11 PFSH Active Problems All Active Problems (Updated 09/01/25 @ 19:07 by LENY Zapata) Sepsis (Acute) Pneumonia (Acute) Abnormal head CT (Acute) Fall (Acute) High eosinophil count (Acute) COPD (chronic obstructive pulmonary disease) (Chronic) Muscle spasm (Acute) Back pain (Acute) BMI 32.0-32.9,adult (Acute) Acute exacerbation of chronic obstructive pulmonary disease (Acute) Frequent urination (Acute) Urinary obstruction (Acute) Recurrent aspiration pneumonia (Acute) Community acquired pneumonia (Acute) Cellulitis of arm, left (Acute) Swallowing impaired (Acute) Syncope and collapse (Acute) Atrial fibrillation (Acute) BPH (benign prostatic hyperplasia) (Acute) GERD with stricture without esophagitis (Acute) Medical History Medical History (Updated 09/01/25 @ 19:07 by LENY Zapata) COPD with hypoxia History of fall ORIF R ankle 11/2022 Osteoarthritis shoulders and knees Orthostatic hypotension with October 2023 admission, treated with midodrine. Off midodrine by December 2023. History of pleural effusion left pleural effusion with thoracentesis x 2 in December 2014 MARTÍNEZ (obstructive sleep apnea) Hyperlipidemia Problem List clean-up per request of Phys. EHR Cmte Contusion of left thumb Dementia Problem List clean-up per request of Phys. EHR Cmte Depression Chronic diastolic heart failure see Ciro AUGUSTE @ [facility] CAD (coronary artery disease) TREVIZO to the LAD at the time of the AVR in October 2014. Echo February 2018 has EF of 55 to 60%. April 2022 nuclear medicine perfusion study. Negative for recurrent ischemia. Holter March 2022 with pacemaker considered. Echo April 2024 with EF 55 to 60%. Normal RV function, mild to moderate MR, well-seated bioprosthetic aortic valve however morphologically restricted bioprosthetic aortic valve cusp with cusp separation 1.1 cm. Cusps are thickened. Peak velocity 2.1 m. Mean gradient 11 mmHg. October 2024 nuclear medicine stress test with normal myocardial perfusion, stress LV ejection fraction 62%. Low risk study Aortic stenosis status post bioprosthetic AVR in October 2014 Anticoagulant long-term use Pneumonia 09/2023 TIA (transient ischemic attack) Embolic TIA 03/2021 Glaucoma Surgical History Surgical History H/O aortic valve replacement S/P CABG x 1 at time of AoVR H/O shoulder replacement right H/O arthroplasty L knee Family History Family History Sister Diabetes Father COPD (chronic obstructive pulmonary disease) Mother COPD (chronic obstructive pulmonary disease) Social History Social History (Updated 05/22/25 @ 12:46 by Belkis Chung MA) If you are a former smoker, when did you quit? (Date/Year): Number of Years Smoked: 6 How many cigarettes a day do you smoke? (20 cigarettes=1 Pk): 60 Second hand tobacco smoke exposure: Yes Do you dip or chew tobacco?: No Do you vape?: No Patient requests smoking cessation consult: No Initiate information on smoking cessation: No Living arrangement: At home Marital Status: Living Condition: With spouse/s.o. 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 Known occupational exposures/hazards (Current/Previous): None known Service: Yes Dates of Service: [id number] 6 months POLST Patient has POLST: Yes POLST CPR Status: Do Not Attempt Resuscitation (DNAR) / Allow Natural Prior Level of Functionality: dementia, lives with , walks with a walker Exam Exam Vital Signs: Vital Signs x48h Temp Pulse Resp BP Pulse Ox O2 Flow Rate 09/01/25 19:18 71 134/87 H 94 1 09/01/25 18:38 64 20 162/89 H 98 2 09/01/25 17:10 36.7 C 68 18 193/89 H 96 Constitutional no apparent distress HENMT normocephalic, head/scalp atraumatic, hearing grossly normal bilaterally, external ears normal, oral mucous membranes normal and dentition normal Eyes PERRL and conjunctivae normal Neck/C-Spine visual inspection normal and no carotid bruits Lymph no lymphedema noted Respiratory breath sounds equal bilaterally bilateral rhonchi Cardiovascular normal heart rate noted, no additional abnormal heart sounds and no edema irregularly irregular Gastrointestinal abdomen normal to inspection and abdomen soft to palpation Extremities normal to inspection Neurology speech normal oriented to person and place, not time. Psychiatry cooperative and affect normal Skin skin color normal and no rash Conclusion/Plan Problem List (1) Sepsis: Plan: This patient has altered mental status, leukocytosis and LLE consolidation on CXR. he is coughing more frequently. He is not hypoxic at the time of my evaluation. he dips to 88% once very briefly during my assessment. He is, however, demonstrating signs of sepsis with mental status that is below baseline, leukocytosis, with a CXR that shows consolidation. I am starting him on Rocephin and azithromycin to treat his CAP. I will montor his WBC count. CBC ordered for AM. I will continue to monitor him for development of hypoxia. Discssed with Dr De La Rosa in the ED, and initally thought to admit him for acute hypoxia. Does not have this but does have meet sepsis criteria and is having a COPD exac. (2) Pneumonia: Plan: cXR LLE consolidation with increasing cough. no fever. poor appetite. treated with rocephin and azithromycin. (3) Acute exacerbation of chronic obstructive pulmonary disease: Plan: He missed some home meds today due to being in the ED. his has had MAR, and some tachypnea, per his . he denies PND or lower ext swelling. I will place him on a 5 d course of decadron. I am treating him with bronchodilators and inhaled steroids. Will consider mucolytics. (4) Atrial fibrillation: Plan: chronic and stable, no RVR. I am continuing his metoprolol 12.5mg BID and eliquis 2.5mg BID. Qualifiers: Atrial fibrillation type: persistent (not longstanding) Qualified Code(s): I48.19 - Other persistent atrial fibrillation; I48.1 - Persistent atrial fibrillation (5) BPH (benign prostatic hyperplasia): Plan: hx of acute urinary retention at last hospitalization. I have ordered bladder management protocol and am continuing home flomax. Qualifiers: Lower urinary tract symptom presence: unspecified whether lower urinary tract symptoms present Qualified Code(s): N40.0 - Benign prostatic hyperplasia without lower urinary tract symptoms Plan I have spent 88 minutes in the care of this patient today. This includes time [id number], review and ordering of diagnostic imaging and laboratory studies and consultation with other providers. Monitoring the patient's signs symptoms, evaluation of medication effectiveness and patient's response to treatment. Lab Results Lab results reviewed: Yes 09/01/25 17:28 09/01/25 17:28 Diagnostic Imaging Results Diagnostic Imaging Results Comments: CXR:left lower lobe consolidation
[2025-09-01] MEDS ORDERED: ONDANSETRON 4 MG/2 ML VIAL IVP PRN (20:11)
[2025-09-01] MEDS ORDERED: CHERRY SYRUP 10 ML UDC PO ONE (20:11)
[2025-09-01] MEDS ORDERED: SODIUM CHLORIDE FLUSH 0.9% 10 ML SYRINGE IVP PRN (20:11)
[2025-09-01] MEDS ORDERED: ACETAMINOPHEN 325 MG TABLET PO PRN (20:11)
[2025-09-01] MEDS: APIXABAN 2.5 MG TABLET PO SCH (21:07)
[2025-09-01] MEDS: METOPROLOL SUCCINATE 25 MG TABLET PO SCH (21:07)
[2025-09-01] MEDS: DEXAMETHASONE 10 MG/ML VIAL IVP ONE (21:07)
[2025-09-01] MEDS: TAMSULOSIN 0.4 MG CAPSULE PO SCH (21:07)
[2025-09-01] MEDS: ATORVASTATIN 40 MG TABLET PO SCH (21:07)
[2025-09-02] MEDS: SODIUM CHLORIDE FLUSH 0.9% 10 ML SYRINGE IVP SCH (00:58)
[2025-09-02 05:54] LABS: HCT - HEMATOCRIT 40.3 % (42.0-52.0); HGB - HEMOGLOBIN 13.2 g/dL (14.0-18.0); MEAN PLATELET VOLUME 11.7 fL (7.4-11.4); NRBC ABSOLUTE COUNT (AUTO) 0.00 x10^3/uL; NUCLEATED RED BLOOD CELLS AUTO 0.0 /100WBC; PLT - PLATELET COUNT 135 10^3/uL (130-450); RED CELL DISTRIBUTION WIDTH 13.0 % (12.0-15.0)
[2025-09-02 06:13] LABS: BUN - BLOOD UREA NITROGEN 19.0 mg/dL (6-20); CARBON DIOXIDE - CO2 24.0 mmol/L (21-32); CREATININE 1.1 mg/dL (0.6-1.3); GFR - MDRD 63.0 (>89)
[2025-09-02] MEDS: IPRATROPIUM/ALBUTEROL 3 ML NEB INH PRN (08:27)
[2025-09-02] MEDS: BUDESONIDE 0.5 MG/2 ML NEB INH SCH (08:27)
[2025-09-02] MEDS: AZITHROMYCIN INJ 500 MG in SODIUM CHLORIDE 0.9% 250 ML IV SCH (09:21)
[2025-09-02] MEDS: cefTRIAXone 1 GM VIAL IVP SCH (09:22)
[2025-09-02] MEDS: MONTELUKAST 10 MG TABLET PO SCH (09:34)
[2025-09-02] MEDS: CHOLECALCIFEROL 25 MCG TABLET PO SCH (09:34)
[2025-09-02] MEDS: DEXAMETHASONE 10 MG/ML VIAL PO SCH (09:36)
--- NOTE | 2025-09-02 11:28 | PROVIDER PROGRESS NOTE ---
Subjective Prog Note Date Prog Note Date: 09/02/25 Prog Note Time: 11:22 Subjective Pt reports feeling: Improved Subjective: Pt reports feeling improved, with cough less severe and feeling less confused. Pt relates he is still producing sputum, and improved shortness of breath from the evening prior. Pt does endorse difficulty with swallowing, and general weakness is unchanged from the day prior. Pt still feels unable to move independently to walker and relates he has had orthostatic-pattern weakness. also relates steady cognitive decline noticeable by family with the pt and expresses concern about this decline, in conjunction with his mobility, in regards to her ability to care for him sufficiently. Per the , pt also has a home healthcare provider that comes in and manages some small tasks with patient, but more resources required at this time to manage patient's ADLs. Pt notes that he had had some transient non-focal vision changes, and pt's relates he has a hx of glaucoma, managed with Latanoprost and Dorzolamide, but pt's could not say whether he had gotten his drops in the last day. Pt denies vomiting or nausea, any CP, syncope or near syncope, diarrhea, dysuria. Current Medications Current Medications Current Medications: Current Medications Generic Name Dose Route Start Last Admin Trade Name Freq PRN Reason Stop Dose Admin Acetaminophen 650 mg 09/01/25 20:11 Acetaminophen 325 Mg Tablet PO Q4HR PRN Pain 1 to 4, or Fever Albuterol/Ipratropium 3 ml 09/01/25 20:11 09/02/25 08:27 Ipratropium/Albuterol 3 Ml Neb INH 3 ml Q4HR PRN Administration Wheezing Apixaban 2.5 mg 09/01/25 21:00 09/02/25 09:34 Apixaban 2.5 Mg Tablet PO 2.5 mg BID ZARIA Administration Atorvastatin Calcium 40 mg 09/01/25 21:00 09/01/25 21:07 Atorvastatin 40 Mg Tablet PO 40 mg QPM ZARIA Administration Budesonide 0.5 mg 09/01/25 21:00 09/02/25 08:27 Budesonide 0.5 Mg/2 Ml Neb INH 0.5 mg BID ZARIA Administration Ceftriaxone Sodium 1 gm 09/02/25 09:00 09/02/25 09:22 Ceftriaxone 1 Gm Vial IVP 09/05/25 09:01 1 gm DAILY ZARIA Administration Cholecalciferol 75 mcg 09/02/25 09:00 09/02/25 09:34 Cholecalciferol 25 Mcg Tablet PO 75 mcg DAILY ZARIA Administration Dexamethasone Sodium Phosphate 6 mg 09/02/25 09:00 09/02/25 09:36 Dexamethasone 10 Mg/Ml Vial PO 09/05/25 09:01 6 mg DAILY ZARIA Administration Azithromycin 500 mg/ Sodium 250 mls @ 250 mls/hr 09/02/25 09:00 09/02/25 10:25 Chloride IV 09/04/25 08:59 Infused DAILY ZARIA Infusion Metoprolol Succinate 12.5 mg 09/01/25 21:00 09/01/25 21:07 Metoprolol Succinate 25 Mg Tablet PO 12.5 mg HS ZARIA Administration Montelukast Sodium 10 mg 09/02/25 09:00 09/02/25 09:34 Montelukast 10 Mg Tablet PO 10 mg DAILY ZARIA Administration Ondansetron HCl 4 mg 09/01/25 20:11 Ondansetron 4 Mg/2 Ml Vial IVP Q6HR PRN Nausea / Vomiting Sodium Chloride 10 ml 09/01/25 20:11 Sodium Chloride Flush 0.9% 10 Ml Syringe IVP PRN PRN NEEDED PER PROVIDER ORDERS Sodium Chloride 10 ml 09/02/25 01:00 09/02/25 09:35 Sodium Chloride Flush 0.9% 10 Ml Syringe IVP 10 ml 0100,0900,1700 ZARIA Administration Tamsulosin HCl 0.4 mg 09/01/25 21:00 09/01/25 21:07 Tamsulosin 0.4 Mg Capsule PO 0.4 mg QPM ZARIA Administration Objective Vital Signs/Intake & Output Vital Signs: Vital Signs x48h Temp Pulse Pulse Resp BP BP Pulse Ox 09/02/25 08:29 76 22 09/02/25 08:00 36.5 C 64 16 158/86 H 92 09/02/25 05:30 36.5 C 65 20 155/74 H 93 Intake & Output: Intake & Output 08/30/25 08/31/25 09/01/25 09/02/25 23:59 23:59 23:59 23:59 Intake Total 350 / 350 540 / 540 Balance 350 / 350 540 / 540 Weight (kg) 111.5 kg Objective General Appearance: positive Alert Eyes Bilateral: positive PERRL Neck: positive Nml inspection and No JVD Respiratory: positive Rales and Rhonchi Cardiovascular: positive No murmur Abdomen: positive Non-tender and Nml bowel sounds Skin: positive Color nml Extremities: positive Nml appearance and Calf tenderness (Pt relates RLE on palp; no cords noted; no pitting edema, edema, or calf size inequality noted. ); negative Fabi's sign/cords Neurologic/Psychiatric: positive Oriented x3 Lab Results 09/02/25 05:29 09/02/25 05:29 Other Labs: Lab Results x24hrs 09/02/25 09/01/25 Range/Units 05:29 17:28 WBC 16.5 H 18.7 H (4.8-10.8) x10^3/uL RBC 4.18 L 4.22 L (4.70-6.10) 10^6/uL Hgb 13.2 L 13.2 L (14.0-18.0) g/dL Hct 40.3 L 41.4 L (42.0-52.0) % MCV 96.4 H 98.1 H (80.0-94.0) fL MCH 31.6 H 31.3 H (27.0-31.0) pg MCHC 32.8 31.9 L (32.0-36.0) g/dL RDW 13.0 13.3 (12.0-15.0) % Plt Count 135 145 (130-450) 10^3/uL MPV 11.7 H 10.4 (7.4-11.4) fL Neut # (Auto) 15.5 H 15.7 H (1.5-6.6) 10^3/uL Lymph # (Auto) 0.8 L 1.3 L (1.5-3.5) 10^3/uL [place] # (Auto) 0.2 1.5 H (0.0-1.0) 10^3/uL Eos # (Auto) 0.0 0.1 (0.0-0.7) 10^3/uL Baso # (Auto) 0.0 0.1 (0.0-0.1) 10^3/uL Absolute Nucleated RBC 0.00 0.00 x10^3/uL Nucleated RBC % 0.0 0.0 /100WBC Sodium 136 136 (135-145) mmol/L Potassium 4.5 4.5 (3.5-4.5) mmol/L Chloride 107 103 (101-111) mmol/L Carbon Dioxide 24 29 (21-32) mmol/L Anion Gap 5.0 L 4.0 L (6-13) BUN 19 23 H (6-20) mg/dL Creatinine 1.1 1.4 H (0.6-1.3) mg/dL Estimated GFR (MDRD) 63 L 48 L (>89) Glucose 172 H 114 H (74-104) mg/dL Calcium 9.5 9.8 (8.5-10.3) mg/dL Total Bilirubin 0.8 (0.2-1.0) mg/dL AST 13 (10-42) IU/L ALT 14 (10-60) IU/L Alkaline Phosphatase 55 (42-121) IU/L Total Protein 6.5 (6.4-8.9) g/dL Albumin 3.9 (3.2-5.5) g/dL Globulin 2.6 (2.1-4.2) g/dL Albumin/Globulin Ratio 1.5 (1.0-2.2) Lipase 58 (11-82) U/L Assessment/Plan Problem List (1) Sepsis: Impression: This patient has altered mental status, leukocytosis and LLE consolidation on CXR. he is coughing more frequently. He is not hypoxic at the time of my evaluation. he dips to 88% once very briefly during my assessment. He is, however, demonstrating signs of sepsis with mental status that is below baseline, leukocytosis, with a CXR that shows consolidation. I am starting him on Rocephin and azithromycin to treat his CAP. I will monitor his WBC count. CBC ordered for AM. I will continue to monitor him for development of hypoxia. Monitoring for improvement: Pt is demonstrating improved cognition since my assessment yesterday. Pt work of breathing has improved and severity of cough have also likewise improved. Evaluation: Pt is on day 2/5 Rocephin and day 2/3 Azithromycin therapy, with improvement in WBC (18.7-16.5) Assessment/addendum: continue to assess WBC response to ABX therapy, monitor CMP and CBC for any changes in blood chemistry/electrolyte balance/organ dysfunction. (2) Pneumonia: Impression: cXR LLE consolidation with increasing cough. no fever. poor appetite. treated with rocephin and azithromycin. Monitor: Pt shows improved WOB, and pt relates coughing has decreased in severity. Will continue to monitor respiratory function for changes. Evaluate: Room air sats are consistent in the low 90's, with improve WOB. Assess/add/trat: Pt has responded well to Decadron 6mg PO x1 daily, Budesonide 0.5mg BID, Monteleukast 10mg 1x daily, Duoneb 3ml Q4hr/PRN, and will order 400mg guaifenesin liquid formulation Q4hrs. (3) Acute exacerbation of chronic obstructive pulmonary disease: Impression: He missed some home meds today due to being in the ED. his has had MAR, and some tachypnea, per his . he denies PND or lower ext swelling. I will place him on a 5 d course of decadron. I am treating him with bronchodilators and inhaled steroids. Will consider mucolytics. Monitor: Pt shows improved WOB, and pt relates coughing has decreased in severity. Will continue to monitor respiratory function for changes. Evaluate: Room air sats are consistent in the low 90's, with improve WOB. Assess/add/trat: Pt has responded well to Decadron 6mg PO x1 daily, Budesonide 0.5mg BID, Monteleukast 10mg 1x daily, Duoneb 3ml Q4hr/PRN, and will order 400mg guaifenesin liquid formulation Q4hrs. (4) Atrial fibrillation: Impression: chronic and stable, no RVR. I am continuing his metoprolol 12.5mg BID and eliquis 2.5mg BID. Monitor: Monitoring for any palpitations, fluttering, chest sensation changes, syncope, near syncope, or arrythmias. Evaluate: Will consider telemetry if indicated. Assess/add/treat: Pt stable on continued metoprolol 12.5mg BID and eliquis 2.5mg BID Qualifiers: Atrial fibrillation type: persistent (not longstanding) Qualified Code(s): I48.19 - Other persistent atrial fibrillation; I48.1 - Persistent atrial fibrillation (5) BPH (benign prostatic hyperplasia): Impression: hx of acute urinary retention at last hospitalization. I have ordered bladder management protocol and am continuing home flomax. Monitor: Monitor for any changes in urination. Evaluate: No current test results pending for BPH, pt stable on current dosage of Flomax 0.4mgQPM. Qualifiers: Lower urinary tract symptom presence: unspecified whether lower urinary tract symptoms present Qualified Code(s): N40.0 - Benign prostatic hyperplasia without lower urinary tract symptoms
--- NOTE | 2025-09-02 13:00 | PROVIDER PROGRESS NOTE ---
Subjective Prog Note Date Prog Note Date: 09/02/25 Subjective Subjective: He is oriented to place and situation, but not time. He is feeling fine, does not have complaints today. Daughter and at bedside today. Current Medications Current Medications Current Medications: Current Medications Generic Name Dose Route Start Last Admin Trade Name Freq PRN Reason Stop Dose Admin Acetaminophen 650 mg 09/01/25 20:11 Acetaminophen 325 Mg Tablet PO Q4HR PRN Pain 1 to 4, or Fever Albuterol/Ipratropium 3 ml 09/01/25 20:11 09/02/25 08:27 Ipratropium/Albuterol 3 Ml Neb INH 3 ml Q4HR PRN Administration Wheezing Apixaban 2.5 mg 09/01/25 21:00 09/02/25 09:34 Apixaban 2.5 Mg Tablet PO 2.5 mg BID ZARIA Administration Atorvastatin Calcium 40 mg 09/01/25 21:00 09/01/25 21:07 Atorvastatin 40 Mg Tablet PO 40 mg QPM ZARIA Administration Budesonide 0.5 mg 09/01/25 21:00 09/02/25 08:27 Budesonide 0.5 Mg/2 Ml Neb INH 0.5 mg BID ZARIA Administration Ceftriaxone Sodium 1 gm 09/02/25 09:00 09/02/25 09:22 Ceftriaxone 1 Gm Vial IVP 09/05/25 09:01 1 gm DAILY ZARIA Administration Cholecalciferol 75 mcg 09/02/25 09:00 09/02/25 09:34 Cholecalciferol 25 Mcg Tablet PO 75 mcg DAILY ZARIA Administration Dexamethasone Sodium Phosphate 6 mg 09/02/25 09:00 09/02/25 09:36 Dexamethasone 10 Mg/Ml Vial PO 09/05/25 09:01 6 mg DAILY ZARAI Administration Azithromycin 500 mg/ Sodium 250 mls @ 250 mls/hr 09/02/25 09:00 09/02/25 10:25 Chloride IV 09/04/25 08:59 Infused DAILY ZARIA Infusion Metoprolol Succinate 12.5 mg 09/01/25 21:00 09/01/25 21:07 Metoprolol Succinate 25 Mg Tablet PO 12.5 mg HS ZARIA Administration Montelukast Sodium 10 mg 09/02/25 09:00 09/02/25 09:34 Montelukast 10 Mg Tablet PO 10 mg DAILY ZARIA Administration Ondansetron HCl 4 mg 09/01/25 20:11 Ondansetron 4 Mg/2 Ml Vial IVP Q6HR PRN Nausea / Vomiting Sodium Chloride 10 ml 09/01/25 20:11 Sodium Chloride Flush 0.9% 10 Ml Syringe IVP PRN PRN NEEDED PER PROVIDER ORDERS Sodium Chloride 10 ml 09/02/25 01:00 09/02/25 09:35 Sodium Chloride Flush 0.9% 10 Ml Syringe IVP 10 ml 0100,0900,1700 ZARIA Administration Tamsulosin HCl 0.4 mg 09/01/25 21:00 09/01/25 21:07 Tamsulosin 0.4 Mg Capsule PO 0.4 mg QPM ZARIA Administration Objective Vital Signs/Intake & Output Vital Signs: Vital Signs x48h Temp Pulse Pulse Resp BP BP Pulse Ox 09/02/25 12:00 36.6 C 63 24 155/80 H 94 09/02/25 08:29 76 22 09/02/25 08:00 36.5 C 64 16 158/86 H 92 09/02/25 05:30 36.5 C 65 20 155/74 H 93 Intake & Output: Intake & Output 08/30/25 08/31/25 09/01/25 09/02/25 23:59 23:59 23:59 23:59 Intake Total 350 / 350 540 / 540 Balance 350 / 350 540 / 540 Weight (kg) 111.5 kg Lab Results 09/02/25 05:29 09/02/25 05:29 Other Labs: Lab Results x24hrs 09/02/25 09/01/25 Range/Units 05:29 17:28 WBC 16.5 H 18.7 H (4.8-10.8) x10^3/uL RBC 4.18 L 4.22 L (4.70-6.10) 10^6/uL Hgb 13.2 L 13.2 L (14.0-18.0) g/dL Hct 40.3 L 41.4 L (42.0-52.0) % MCV 96.4 H 98.1 H (80.0-94.0) fL MCH 31.6 H 31.3 H (27.0-31.0) pg MCHC 32.8 31.9 L (32.0-36.0) g/dL RDW 13.0 13.3 (12.0-15.0) % Plt Count 135 145 (130-450) 10^3/uL MPV 11.7 H 10.4 (7.4-11.4) fL Neut # (Auto) 15.5 H 15.7 H (1.5-6.6) 10^3/uL Lymph # (Auto) 0.8 L 1.3 L (1.5-3.5) 10^3/uL [place] # (Auto) 0.2 1.5 H (0.0-1.0) 10^3/uL Eos # (Auto) 0.0 0.1 (0.0-0.7) 10^3/uL Baso # (Auto) 0.0 0.1 (0.0-0.1) 10^3/uL Absolute Nucleated RBC 0.00 0.00 x10^3/uL Nucleated RBC % 0.0 0.0 /100WBC Sodium 136 136 (135-145) mmol/L Potassium 4.5 4.5 (3.5-4.5) mmol/L Chloride 107 103 (101-111) mmol/L Carbon Dioxide 24 29 (21-32) mmol/L Anion Gap 5.0 L 4.0 L (6-13) BUN 19 23 H (6-20) mg/dL Creatinine 1.1 1.4 H (0.6-1.3) mg/dL Estimated GFR (MDRD) 63 L 48 L (>89) Glucose 172 H 114 H (74-104) mg/dL Calcium 9.5 9.8 (8.5-10.3) mg/dL Total Bilirubin 0.8 (0.2-1.0) mg/dL AST 13 (10-42) IU/L ALT 14 (10-60) IU/L Alkaline Phosphatase 55 (42-121) IU/L Total Protein 6.5 (6.4-8.9) g/dL Albumin 3.9 (3.2-5.5) g/dL Globulin 2.6 (2.1-4.2) g/dL Albumin/Globulin Ratio 1.5 (1.0-2.2) Lipase 58 (11-82) U/L Assessment/Plan Problem List (1) Sepsis: (2) Pneumonia: (3) Acute exacerbation of chronic obstructive pulmonary disease: (4) Atrial fibrillation: Qualifiers: Atrial fibrillation type: persistent (not longstanding) Qualified Code(s): I48.19 - Other persistent atrial fibrillation; I48.1 - Persistent atrial fibrillation (5) BPH (benign prostatic hyperplasia): Qualifiers: Lower urinary tract symptom presence: unspecified whether lower urinary tract symptoms present Qualified Code(s): N40.0 - Benign prostatic hyperplasia without lower urinary tract symptoms
[2025-09-02] MEDS: DORZOLAMIDE 2% OPHTH DROPS EACHEYE SCH (13:15)
--- NOTE | 2025-09-02 15:36 | PHARMACY PROGRESS NOTE ---
Best Possible Medication History Admit Date and Time: 09/02/25 1253 Home Medications Medication Instructions Recorded Confirmed Type cholecalciferol (vitamin D3) 25 75 mcg PO DAILY 09/01/25 History mcg (1,000 unit) tablet coenzyme Q10 100 mg capsule (Co 2 tab ORAL DAILY 04/1309/01/25 History Q-10) latanoprost (PF) 0.005 % eye drops 1 drp EACHEYE HS 09/02/25 History vitamin E 268 mg (400 unit) capsule 400 unit PO DAILY 04/13/21 09/02/25 History carboxymethylcellulose sodium 0.[address] y Eye 03/27/24 09/02/25 History % eye drops (Refresh Tears) famotidine 20 mg tablet 20 mg PO QACDINNER 03/27/24 09/02/25 History metoprolol succinate 25 mg 12.5 mg PO HS 03/27/2408/16 History tablet,extended release 24 hr apixaban 2.5 mg tablet (Eliquis) 2.5 mg PO BID 4 09/02/25 Rx atorvastatin 40 mg tablet 40 mg PO QPM 03/29/24 Rx albuterol sulfate 90 mcg/actuation 2 inh inhalation QI D PRN shortness 08/19/24 09/02/25 History aerosol inhaler of breath or wheezing dorzolamide 2 % eye drops 1 drp ophthalmic (eye) BID 1 10/19/23 09/02/25 History multivitamin 1 tab PO DAILY 08/19/2408/16 History montelukast 10 mg tablet See Rx Instructions .Route 0 12/12/24 09/02/25 Rx .COMPLEX #90 tabs dutasteride 0.5 mg capsule 0.5 mg PO .QHS 12/20/24 History tamsulosin 0.4 mg capsule 0.4 mg PO QPM 12/20/2409/02 History triamcinolone acetonide 55 mcg 1 spray intranasal WALTER Y PRN runny 12/20/24 09/02/25 History nasal spray aerosol (Nasacort) nose ipratropium 0.5 mg-albuterol 3 mg 3 ml inhalation BID PRN shortness 01/16/25 09/02/25 Rx (2.5 mg base)/3 mL nebulization of breath or wheezing #180 mL soln calcium carbonate (Antacid 200 mg PO TID PRN heartburn 02/09/25 09/01/25 History (calcium carbonate)) midodrine 5 mg tablet 5 mg PO DAILY hypotension 09/02/25 History prednisone 10 mg tablet See Rx Instructions PO .COMP ADAM 05/22/25 09/02/25 Rx copd exacerbation #30 tabs fluticasone fur. 200 mcg-umeclid 1 inh inhalation WALTER Y 06/09/25 09/02/25 History 62.5 mcg-vilant 25 mcg inhalat.powder (Trelegy Ellipta) escitalopram oxalate 5 mg tablet 5 mg PO DAILY 09/02/25 History fexofenadine 180 mg tablet 180 mg PO QPM 09/02/2508/16 History (Aller-Ease) vibegron 75 mg tablet (Gemtesa) 75 mg PO DAILY 09/02/25 History Processed by: Pharmacy Medications reviewed in ED?: Yes Medication History completed: Yes Patient Interview: Completed Secondary Source(s): Written medication list and Spouse/Significant other [facility] Statement: As the person ultimately responsible for medication therapy, providers are able to order a medication from an existing home medication list in [facility] via the "Reconcile Routine" prior to Confirmation of that medication by direct support professional. Such practice is discouraged except when the physician, in their clinical judgment, deems that a medical need exists for a medication without regard to previous use.
--- NOTE | 2025-09-02 15:55 | Speech Therapy Plan of Care ---
DIAGNOSIS Date of Service Date of Service: 09/02/25 Diagnosis: SEPSIS MEDICAL/SURGICAL PAST HISTORY Past History Medical History (Updated 09/01/25 @ 19:07 by LENY Zapata) COPD with hypoxia History of fall ORIF R ankle 11/2022 Osteoarthritis shoulders and knees Orthostatic hypotension with October 2023 admission, treated with midodrine. Off midodrine by December 2023. History of pleural effusion left pleural effusion with thoracentesis x 2 in December 2014 MARTÍNEZ (obstructive sleep apnea) Hyperlipidemia Problem List clean-up per request of Phys. EHR Cmte Contusion of left thumb Dementia Problem List clean-up per request of Phys. EHR Cmte Depression Chronic diastolic heart failure see [facility] CAD (coronary artery disease) TREVIZO to the LAD at the time of the AVR in October 2014. Echo February 2018 has EF of 55 to 60%. April 2022 nuclear medicine perfusion study. Negative for recurrent ischemia. Holter March 2022 with pacemaker considered. Echo April 2024 with EF 55 to 60%. Normal RV function, mild to moderate MR, well-seated bioprosthetic aortic valve however morphologically restricted bioprosthetic aortic valve cusp with cusp separation 1.1 cm. Cusps are thickened. Peak velocity 2.1 m. Mean gradient 11 mmHg. October 2024 nuclear medicine stress test with normal myocardial perfusion, stress LV ejection fraction 62%. Low risk study Aortic stenosis status post bioprosthetic AVR in October 2014 Anticoagulant long-term use Pneumonia 09/2023 TIA (transient ischemic attack) Embolic TIA 03/2021 Glaucoma Surgical History H/O aortic valve replacement S/P CABG x 1 at time of AoVR H/O shoulder replacement right H/O arthroplasty L knee SPEECH ASSESSMENT Assessment: Mr. Ag is an 89-year-old male with PMH of asthma, HTN, CAD, Afib on Eliquis, chronic diastolic HF, COPD, recurrent L pleural effusion, pneumonia, chronic dyspnea, and prior TIA (03/2021), now presenting with worsening falls and cognitive decline. MANAGER DEVELOPMENTAL consulted for swallow evaluation in the setting of LLL pneumonia, COPD, recurrent pneumonias, and functional/cogni tive decline. He was evaluated in the ED twice this morning due to fall with walker. Second ED return was prompted by labored breathing and difficulty with transfers. Spouse reports new early-morning waking and wandering behaviors. Imaging: CT head: Prior R frontal hyperdensity no longer presentlikely artifact rather than SAH. CXR: LLL consolidation concerning for infection; possible small L pleural effusion; borderline cardiomegaly; sternotomy wires; stable mediastinal contours; degenerative osseous changes; partially visualized R shoulder arthroplasty. Clinical Encounter Pt seen at lunch with spouse and daughter present. Oriented to self, place, and situation. Behavior occasionally disinhibited, with interruptive and mildly inappropriate (but benign) comments directed toward staff. [facility] PO Trials (current diet: regular solids with thin liquids) Trials included: IDDSI 7 Regular solids: [place] sandwich (bread removed per pt preference) IDDSI 4 Puree: Applesauce, ice cream IDDSI 0 Thin liquids: Via straw IDDSI 3 Moderately thick texture (natural): Split pea soup Oral phase: Mild L-sided labial leakage with liquids; otherwise adequate bolus formation and clearance. Pharyngeal phase: One cough episode and one instance of wet/gurgly vocal quality after the swallow. Silent aspiration cannot be ruled out at bedside. Impression Mild oropharyngeal dysphagia observed, evidenced by occasional cough and wet vocal quality; contribution of COPD-related cough cannot be excluded. Cognitive decline and behavioral disinhibition further increase aspiration risk. Repeat modified barium swallow study (MBSS) is warranted to fully evaluate airway safety. Plan Recommend repeat MBSS given LLL pneumonia, COPD, prior recurrent pneumonias, and bedside signs of possible aspiration. Diet: Initiate IDDSI Level 6 (Soft & Bite-Sized) with IDDSI Level 0 thin liquids to support safer and more efficient oral intake given suspected reduced airway protection, current pulmonary findings, cognitive decline, and to increase ease of eating. Strategies: Upright positioning, small bites/sips, slow rate, alternating solids/liquids, close supervision, and aggressive oral care. MANAGER DEVELOPMENTAL to follow for swallow management pending MBSS results. SPEECH PLAN OF CARE Treatment Frequency: 2-5xweek prn
[2025-09-02] MEDS: guaiFENesin 100 MG/5 ML UDC PO SCH (20:32)
[2025-09-02] MEDS: LATANOPROST 0.005% OPHTH DROPS EACHEYE SCH (20:40)
[2025-09-03 06:28] LABS: HCT - HEMATOCRIT 39.7 % (42.0-52.0); HGB - HEMOGLOBIN 12.9 g/dL (14.0-18.0); MEAN PLATELET VOLUME 11.9 fL (7.4-11.4); NRBC ABSOLUTE COUNT (AUTO) 0.00 x10^3/uL; NUCLEATED RED BLOOD CELLS AUTO 0.0 /100WBC; PLT - PLATELET COUNT 143 10^3/uL (130-450); RED CELL DISTRIBUTION WIDTH 13.2 % (12.0-15.0)
[2025-09-03 06:35] LABS: BUN - BLOOD UREA NITROGEN 29.0 mg/dL (6-20); CARBON DIOXIDE - CO2 26.0 mmol/L (21-32); CREATININE 1.3 mg/dL (0.6-1.3); GFR - MDRD 52.0 (>89)
[2025-09-03 07:16] LABS: SLIDE REVIEW? Indicated
[2025-09-03 07:20] LABS: RBC MORPHOLOGY (MULTIPLE) NORMAL APPEARANCE (NORMAL)
[2025-09-03 07:21] LABS: PLATELET ESTIMATE, MANUAL NORMAL (130-450,000) (NORMAL); PLATELET MORPHOLOGY NORMAL APPEARANCE (NORMAL); WBC MORPHOLOGY (MULTIPLE) NORMAL APPEARANCE (NORMAL)
[2025-09-03] MEDS: DEXAMETHASONE 20 MG/5 ML VIAL IVP ONE (07:32)
--- NOTE | 2025-09-03 12:26 | PROVIDER PROGRESS NOTE ---
Subjective Prog Note Date Prog Note Date: 09/03/25 Prog Note Time: 12:22 Subjective Pt reports feeling: Improved Subjective: Hospital Day 2. Pt continuing to improve mentation from the level of delirium noted upon presentation. Pt reports feeling less sick overall, but relates he is experiencing ptussis and producing sputum. He reports that he has been able to transfer to bedside commode with a high level of assistance, and reports that his orthostatic hypotension seems to contribute to his continued weakness. Per pt and pt's , he has only had 1 small bowel movement during his admission. Pt continues to be poor self-historian and verbalized desire to speak with the social work team before she left for a PT appointment at 1340 today. Current Medications Current Medications Current Medications: Current Medications Generic Name Dose Route Start Last Admin Trade Name Freq PRN Reason Stop Dose Admin Acetaminophen 650 mg 09/01/25 20:11 Acetaminophen 325 Mg Tablet PO Q4HR PRN Pain 1 to 4, or Fever Albuterol/Ipratropium 3 ml 09/01/25 20:11 09/02/25 19:51 Ipratropium/Albuterol 3 Ml Neb INH 3 ml Q4HR PRN Administration Wheezing Apixaban 2.5 mg 09/01/25 21:00 09/03/25 09:22 Apixaban 2.5 Mg Tablet PO 2.5 mg BID ZARIA Administration Atorvastatin Calcium 40 mg 09/01/25 21:00 09/02/25 20:33 Atorvastatin 40 Mg Tablet PO 40 mg QPM ZARIA Administration Budesonide 0.5 mg 09/01/25 21:00 09/03/25 09:28 Budesonide 0.5 Mg/2 Ml Neb INH Not Given BID ZARIA Ceftriaxone Sodium 1 gm 09/02/25 09:00 09/03/25 09:20 Ceftriaxone 1 Gm Vial IVP 09/05/25 09:01 1 gm DAILY ZARIA Administration Cholecalciferol 75 mcg 09/02/25 09:00 09/03/25 09:20 Cholecalciferol 25 Mcg Tablet PO 75 mcg DAILY ZARIA Administration Dexamethasone Sodium Phosphate 6 mg 09/02/25 09:00 09/03/25 09:22 Dexamethasone 10 Mg/Ml Vial PO 09/05/25 09:01 6 mg DAILY ZARIA Administration Dorzolamide HCl 1 drops 09/02/25 14:00 09/03/25 09:20 Dorzolamide 2% Ophth Drops EACHEYE 1 drops BID ZARIA Administration Guaifenesin 200 mg 09/02/25 20:00 09/03/25 09:20 Guaifenesin 100 Mg/5 Ml Udc PO 200 mg Q6H ZARIA Administration Latanoprost 1 drops 09/02/25 21:00 09/02/25 20:40 Latanoprost 0.005% Ophth Drops EACHEYE 1 drops QPM ZARIA Administration Metoprolol Succinate 12.5 mg 09/01/25 21:00 09/02/25 20:33 Metoprolol Succinate 25 Mg Tablet PO 12.5 mg HS ZARIA Administration Montelukast Sodium 10 mg 09/02/25 09:00 09/03/25 09:22 Montelukast 10 Mg Tablet PO 10 mg DAILY ZARIA Administration Ondansetron HCl 4 mg 09/01/25 20:11 Ondansetron 4 Mg/2 Ml Vial IVP Q6HR PRN Nausea / Vomiting Sodium Chloride 10 ml 09/01/25 20:11 Sodium Chloride Flush 0.9% 10 Ml Syringe IVP PRN PRN NEEDED PER PROVIDER ORDERS Sodium Chloride 10 ml 09/02/25 01:00 09/03/25 09:22 Sodium Chloride Flush 0.9% 10 Ml Syringe IVP 10 ml 0100,0900,1700 ZARIA Administration Tamsulosin HCl 0.4 mg 09/01/25 21:00 09/02/25 20:33 Tamsulosin 0.4 Mg Capsule PO 0.4 mg QPM ZARIA Administration Objective Vital Signs/Intake & Output Reviewed Vital Signs: Yes Vital Signs: 167/74 94% RA 22 RR 69 HR 36.7 C Intake & Output: Intake & Output 08/31/25 09/01/25 09/02/25 09/03/25 23:59 23:59 23:59 23:59 Intake Total 350 / 350 900 / 900 490 / 490 Balance 350 / 350 900 / 900 490 / 490 Weight (kg) 111.5 kg Objective General Appearance: positive No acute distress Eyes Bilateral: positive PERRL Neck: positive Nml inspection Respiratory: positive Chest non-tender and Other (Breath sounds remain slightly diminished in LLL ) Cardiovascular: positive Regular rate & rhythm and No murmur Abdomen: positive Non-tender; negative No distention (Bowels feel mildly distended) Skin: positive Color nml Extremities: positive Non-tender, No pedal edema and Other (2-3 cm skin tear noted along anterior tibial surface or RLE. ) Neurologic/Psychiatric: positive Disoriented to place and Disoriented to time Lab Results 09/04/25 05:42 09/04/25 05:42 Other Labs: Lab Results x24hrs 09/03/25 Range/Units 06:06 WBC 22.5 H (4.8-10.8) x10^3/uL RBC 4.12 L (4.70-6.10) 10^6/uL Hgb 12.9 L (14.0-18.0) g/dL Hct 39.7 L (42.0-52.0) % MCV 96.4 H (80.0-94.0) fL MCH 31.3 H (27.0-31.0) pg MCHC 32.5 (32.0-36.0) g/dL RDW 13.2 (12.0-15.0) % Plt Count 143 (130-450) 10^3/uL MPV 11.9 H (7.4-11.4) fL Neut # (Auto) 20.0 H (1.5-6.6) 10^3/uL Lymph # (Auto) 1.0 L (1.5-3.5) 10^3/uL [place] # (Auto) 1.2 H (0.0-1.0) 10^3/uL Eos # (Auto) 0.0 (0.0-0.7) 10^3/uL Baso # (Auto) 0.0 (0.0-0.1) 10^3/uL Absolute Nucleated RBC 0.00 x10^3/uL Nucleated RBC % 0.0 /100WBC Manual Slide Review Indicated WBC Morphology NORMAL APPEARANCE (NORMAL) Platelet Estimate NORMAL (130-450,000) (NORMAL) Platelet Morphology NORMAL APPEARANCE (NORMAL) RBC Morph Micro Appear NORMAL APPEARANCE (NORMAL) Sodium 138 (135-145) mmol/L Potassium 4.7 H (3.5-4.5) mmol/L Chloride 107 (101-111) mmol/L Carbon Dioxide 26 (21-32) mmol/L Anion Gap 5.0 L (6-13) BUN 29 H (6-20) mg/dL Creatinine 1.3 (0.6-1.3) mg/dL Estimated GFR (MDRD) 52 L (>89) Glucose 151 H (74-104) mg/dL Calcium 10.2 (8.5-10.3) mg/dL ABX Reporting Has patient been on IV antibiotics over the past 48 hours?: Yes Sepsis Event Note (H) Evaluation Current Stage of Sepsis: Sepsis Possible source of Sepsis: positive Pulmonary Sepsis Criteria Sepsis Criteria: Recorded Respiratory Rate greater than 20, WBC count greater than 10% bands and WBC count greater than 12,000 or less than 4000 Assessment/Plan Problem List (1) Sepsis: Impression: Monitoring for improvement: Pt is demonstrating improved cognition since my assessment yesterday. Pt work of breathing has improved and severity of cough have also likewise improved. Pt PWD, afebrile, no tachycardia. Evaluation: Pt is on day 3/5 Rocephin and day 3/3 Azithromycin therapy, with new refractory leukocytosis since yesterday (16.5-22.5). Will continue to assess for leukocytosis and determine if findings consistent with abx resistance or steroid usage. Assessment/addendum: continue to assess WBC response to ABX therapy, monitor CMP and CBC for any changes in blood chemistry/electrolyte balance/organ dysfunction. (2) Pneumonia: Impression: Monitor: Pt shows improved WOB, has stable room air saturations, is not on any supplemental oxygen, and pt relates coughing has decreased in severity. Will continue to monitor respiratory function for changes. Evaluate: Room air sats are consistent in the mid 90's, with improve WOB. Assess/add/trat: Pt has responded well clinically to the abx course, but given the refractory leukocytosis, abx agent may be revisited if clinical picture deteriorates. (3) Acute exacerbation of chronic obstructive pulmonary disease: Impression: Monitor: Pt shows improved WOB, has stable room air saturations, is not on any supplemental oxygen, and pt relates coughing has decreased in severity. Will continue to monitor respiratory function for changes. Evaluate: Room air sats are consistent in the mid 90's, with improve WOB. Assess/add/trat: Pt has responded well to Decadron 6mg PO x1 daily, Budesonide 0.5mg BID, Monteleukast 10mg 1x daily, Duoneb 3ml Q4hr/PRN, and 400mg guaifenesin liquid formulation Q4hrs. (4) Atrial fibrillation: Impression: chronic and stable, no RVR. Continuing his metoprolol 12.5mg BID and eliquis 2.5mg BID. Monitor: Monitoring for any palpitations, fluttering, chest sensation changes, syncope, near syncope, or arrythmias. Evaluate: Will consider telemetry if indicated. Assess/add/treat: Pt stable on continued metoprolol 12.5mg BID and eliquis 2.5mg BID Qualifiers: Atrial fibrillation type: persistent (not longstanding) Qualified Code(s): I48.19 - Other persistent atrial fibrillation; I48.1 - Persistent atrial fibrillation (5) BPH (benign prostatic hyperplasia): Impression: hx of acute urinary retention at last hospitalization. I have ordered bladder management protocol and am continuing home flomax. Monitor: Monitor for any changes in urination. Evaluate: No current test results pending for BPH, pt stable on current dosage of Flomax 0.4mg QPM. Qualifiers: Lower urinary tract symptom presence: unspecified whether lower urinary tract symptoms present Qualified Code(s): N40.0 - Benign prostatic hyperplasia without lower urinary tract symptoms (6) HTN (hypertension): Impression: Monitoring: sequential BP measurements between 130-193 systolic over the last two days of admission. Monitoring for any end-organ symptoms, remaining cognizant of possible effects of working to lower BP in conjunction with orthostatic hypotension episodes. Evaluate: Continue to weigh benefits of inhibiting orthostatic responses and fall risk with prolonged HTN. (7) Orthostatic hypotension: Impression: Pt and previous pt charts, as well as current continued regimen of midodrine contribute to concern for orthostatic hypotension, which was ordered and initial was negative today. Orthostatics ordered Qshift as well as road testing to make sure patient can tolerate standing from seated position and walking with assistance from walker. (8) Blurred vision: Impression: Pt reported continued blurred vision, monitoring for changes and want to determine if history of glaucoma or HTN hx is more contributory.
[2025-09-03] MEDS: BARIUM SULFATE 148 GM POWDER PO ONE (15:58)
[2025-09-03] MEDS: BARIUM SULFATE 240 ML ORAL.SUSP PO ONE (15:58)
--- NOTE | 2025-09-03 16:46 | XRAY Report ---
PROCEDURE: FL Modified Barium Swal W/SP INDICATIONS: H/O VICAL CORD PARESIS NOW WITH PNA CONTRAST: Barium FLUOROSCOPY TIME: 2.5 MIN TECHNIQUE: Examination was conducted in conjunction with speech pathology, with video filming of the pharynx, hypopharynx, and cervical esophagus in the lateral projection. COMPARISON: None FINDINGS/IMPRESSION: Laryngotracheal penetration and aspiration is seen. Please refer to dedicated speech therapy report for further evaluation. Reviewed by: Malik Powers MD on 09/03/2025 4:43 PM PST Approved by: Malik Powers MD on 09/03/2025 4:43 PM PST Station ID: [id number]
[2025-09-04] MEDS: MELATONIN 3 MG TABLET PO SCH (00:10)
[2025-09-04 06:32] LABS: HCT - HEMATOCRIT 39.7 % (42.0-52.0); HGB - HEMOGLOBIN 13.0 g/dL (14.0-18.0); MEAN PLATELET VOLUME 12.1 fL (7.4-11.4); NRBC ABSOLUTE COUNT (AUTO) 0.00 x10^3/uL; NUCLEATED RED BLOOD CELLS AUTO 0.0 /100WBC; PLT - PLATELET COUNT 144 10^3/uL (130-450); RED CELL DISTRIBUTION WIDTH 13.3 % (12.0-15.0)
[2025-09-04 06:54] LABS: BUN - BLOOD UREA NITROGEN 31.0 mg/dL (6-20); CARBON DIOXIDE - CO2 25.0 mmol/L (21-32); CREATININE 1.3 mg/dL (0.6-1.3); GFR - MDRD 52.0 (>89)
--- NOTE | 2025-09-04 13:10 | PT Plan of Care ---
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 Off midodrine by December 2023. History of pleural effusion left pleural effusion with thoracentesis x 2 in December 2014 MARTÍNEZ (obstructive sleep apnea) Hyperlipidemia Problem List clean-up per request of Phys. EHR Cmte Contusion of left thumb Dementia Problem List clean-up per request of Phys. EHR Cmte Depression Chronic diastolic heart failure see Ciro AUGUSTE @ [facility] CAD (coronary artery disease) TREVIZO to the LAD at the time of the AVR in October 2014. Echo February 2018 has EF of 55 to 60%. April 2022 nuclear medicine perfusion study. Negative for recurrent ischemia. Holter March 2022 with pacemaker considered. Echo April 2024 with EF 55 to 60%. Normal RV function, mild to moderate MR, well-seated bioprosthetic aortic valve however morphologically restricted bioprosthetic aortic valve cusp with cusp separation 1.1 cm. Cusps are thickened. Peak velocity 2.1 m. Mean gradient 11 mmHg. October 2024 nuclear medicine stress test with normal myocardial perfusion, stress LV ejection fraction 62%. Low risk study Aortic stenosis status post bioprosthetic AVR in October 2014 Anticoagulant long-term use Pneumonia 09/2023 TIA (transient ischemic attack) Embolic TIA 03/2021 Glaucoma Surgical History (Updated 09/03/25 @ 05:00 by Eri Virgen RN) History of tonsillectomy History of sinus surgery History of arthroplasty of right knee History of hernia repair History of cataract surgery History of appendectomy H/O aortic valve replacement S/P CABG x 1 at time of AoVR H/O shoulder replacement right H/O arthroplasty L knee Balance/ Functional Results Sitting Balance Good Standing Balance Poor Tinetti Assessment Moderate Fall Risk Interpretation Assessment Assessment Pt is an 89yo M referred for PT eval d/t recurrent falls and limited mobility. Admitted with sepsis and pneumonia (determined to by aspiration pna per MBS). PMH includes CAD s/p CABG, Afib c RVR on Eliquis, HTN, HLD, COPD. Sx h/o LTKA and R shoulder arthroplasty. Of note, pt has been admitted to this facility in December and January of this year for similar complications including AMS and was dcd home with HH services. 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 Cleared for eval by hospitalist. Upon PT eval, pt sitting in b/s chair, at bedside. Pt agrees to participate, A&Ox2, oriented to date with mod cueing, disoriented to situation. Strength in all 4 limbs grossly 3/5 with limited end range motion. Completes STS with FWW and minAx1. Attempts to march in place with FWW, requires modA and rapidly demonstrates moderate retropulsion and inability to continue d/t LOB requiring PT assist. Pt not distressed by LOB, limited awareness of event. Overall presentation of deconditioning, balance deficits and limited insight. Pt will benefit from continued PT in acute setting to progress upright tolerance and gait training. When medically clear, PT rec dc to SNF as pt is a high fall risk, has at least 3 hospitalizations for similar in last 8 months and is unable to safely mobilize in home setting . Goals Improve bed mobility to: Modified Independent Improve supine to sit to: Contact Guard Improve sit to stand to: Minimal Assist Improve pivot transfer ability Minimal Assist to: Improve sit to supine to: Contact Guard Improve gait ability to: Min A Assistive Device Used: Front Wheeled Walker Improve Standing Balance to: Fair PT Plan of Care Frequency 1-2x/day Duration Until discharge Discharge Recommendations Discharge Location Residential Facility Other TBD Transport Needs at Discharge wc van vs BLS
[2025-09-04] MEDS: COD LIVER OIL/ZINC OXIDE 113 GM TUBE TOP PRN (14:03)
--- NOTE | 2025-09-04 16:41 | PROVIDER PROGRESS NOTE ---
<Statement entered by Alejandro Choi DNP - 09/08/25 13:48> Duplicate note Subjective Prog Note Date Prog Note Date: 09/04/25 Prog Note Time: 16:38 Subjective Pt reports feeling: Improved Current Medications Current Medications Current Medications: Current Medications Generic Name Dose Route Start Last Admin Trade Name Freq PRN Reason Stop Dose Admin Acetaminophen 650 mg 09/01/25 20:11 Acetaminophen 325 Mg Tablet PO Q4HR PRN Pain 1 to 4, or Fever Albuterol/Ipratropium 3 ml 09/01/25 20:11 09/04/25 08:27 Ipratropium/Albuterol 3 Ml Neb INH 3 ml Q4HR PRN Administration Wheezing Apixaban 2.5 mg 09/01/25 21:00 09/04/25 09:17 Apixaban 2.5 Mg Tablet PO 2.5 mg BID ZARIA Administration Atorvastatin Calcium 40 mg 09/01/25 21:00 09/03/25 22:00 Atorvastatin 40 Mg Tablet PO 40 mg QPM ZARIA Administration Budesonide 0.5 mg 09/01/25 21:00 09/04/25 08:27 Budesonide 0.5 Mg/2 Ml Neb INH 0.5 mg BID ZARIA Administration Ceftriaxone Sodium 1 gm 09/02/25 09:00 09/04/25 09:17 Ceftriaxone 1 Gm Vial IVP 09/05/25 09:01 1 gm DAILY ZARIA Administration Cholecalciferol 75 mcg 09/02/25 09:00 09/04/25 09:17 Cholecalciferol 25 Mcg Tablet PO 75 mcg DAILY ZARIA Administration Dexamethasone Sodium Phosphate 6 mg 09/02/25 09:00 09/04/25 09:17 Dexamethasone 10 Mg/Ml Vial PO 09/05/25 09:01 6 mg DAILY ZARIA Administration Dorzolamide HCl 1 drops 09/02/25 14:00 09/04/25 09:18 Dorzolamide 2% Ophth Drops EACHEYE 1 drops BID ZARIA Administration Guaifenesin 200 mg 09/02/25 20:00 09/04/25 14:03 Guaifenesin 100 Mg/5 Ml Udc PO 200 mg Q6H ZARIA Administration Latanoprost 1 drops 09/02/25 21:00 09/03/25 22:06 Latanoprost 0.005% Ophth Drops EACHEYE 1 drops QPM ZARIA Administration Melatonin 3 mg 09/04/25 21:00 09/04/25 00:10 Melatonin 3 Mg Tablet PO 3 mg QPM ZARIA Administration Metoprolol Succinate 12.5 mg 09/01/25 21:00 09/03/25 21:59 Metoprolol Succinate 25 Mg Tablet PO 12.5 mg HS ZARIA Administration Montelukast Sodium 10 mg 09/02/25 09:00 09/04/25 09:17 Montelukast 10 Mg Tablet PO 10 mg DAILY ZARIA Administration Ondansetron HCl 4 mg 09/01/25 20:11 Ondansetron 4 Mg/2 Ml Vial IVP Q6HR PRN Nausea / Vomiting Sodium Chloride 10 ml 09/01/25 20:11 Sodium Chloride Flush 0.9% 10 Ml Syringe IVP PRN PRN NEEDED PER PROVIDER ORDERS Sodium Chloride 10 ml 09/02/25 01:00 09/04/25 15:57 Sodium Chloride Flush 0.9% 10 Ml Syringe IVP 10 ml 0100,0900,1700 ZARIA Administration Tamsulosin HCl 0.4 mg 09/01/25 21:00 09/03/25 22:00 Tamsulosin 0.4 Mg Capsule PO 0.4 mg QPM ZARIA Administration Zinc Oxide 113 gm 09/04/25 10:14 09/04/25 14:03 Cod Liver Oil/Zinc Oxide 113 Gm Tube TOP 1 applic PRN PRN Administration Skin Care Objective Vital Signs/Intake & Output Intake & Output: Intake & Output 09/01/25 09/02/25 09/03/25 09/04/25 23:59 23:59 23:59 23:59 Intake Total 350 / 350 900 / 900 850 / 850 1440 / 1440 Output Total 550 / 550 Balance 350 / 350 900 / 900 850 / 850 890 / 890 Weight (kg) 111.5 kg Lab Results 09/04/25 05:42 09/04/25 05:42 Other Labs: Lab Results x24hrs 09/04/25 Range/Units 05:42 WBC 19.3 H (4.8-10.8) x10^3/uL RBC 4.04 L (4.70-6.10) 10^6/uL Hgb 13.0 L (14.0-18.0) g/dL Hct 39.7 L (42.0-52.0) % MCV 98.3 H (80.0-94.0) fL MCH 32.2 H (27.0-31.0) pg MCHC 32.7 (32.0-36.0) g/dL RDW 13.3 (12.0-15.0) % Plt Count 144 (130-450) 10^3/uL MPV 12.1 H (7.4-11.4) fL Neut # (Auto) 16.9 H (1.5-6.6) 10^3/uL Lymph # (Auto) 1.1 L (1.5-3.5) 10^3/uL [place] # (Auto) 1.1 H (0.0-1.0) 10^3/uL Eos # (Auto) 0.0 (0.0-0.7) 10^3/uL Baso # (Auto) 0.0 (0.0-0.1) 10^3/uL Absolute Nucleated RBC 0.00 x10^3/uL Nucleated RBC % 0.0 /100WBC Sodium 136 (135-145) mmol/L Potassium 4.4 (3.5-4.5) mmol/L Chloride 105 (101-111) mmol/L Carbon Dioxide 25 (21-32) mmol/L Anion Gap 6.0 (6-13) BUN 31 H (6-20) mg/dL Creatinine 1.3 (0.6-1.3) mg/dL Estimated GFR (MDRD) 52 L (>89) Glucose 121 H (74-104) mg/dL Calcium 10.2 (8.5-10.3) mg/dL Sepsis Event Note (H) Evaluation Current Stage of Sepsis: Sepsis Possible source of Sepsis: positive Pulmonary Sepsis Criteria Sepsis Criteria: Recorded Respiratory Rate greater than 20, WBC count greater than 10% bands and WBC count greater than 12,000 or less than 4000 Assessment/Plan Problem List (1) Sepsis: (2) Pneumonia: (3) Acute exacerbation of chronic obstructive pulmonary disease: (4) Atrial fibrillation: Qualifiers: Atrial fibrillation type: persistent (not longstanding) Qualified Code(s): I48.19 - Other persistent atrial fibrillation; I48.1 - Persistent atrial fibrillation (5) BPH (benign prostatic hyperplasia): Qualifiers: Lower urinary tract symptom presence: unspecified whether lower urinary tract symptoms present Qualified Code(s): N40.0 - Benign prostatic hyperplasia without lower urinary tract symptoms (6) HTN (hypertension): (7) Orthostatic hypotension: (8) Blurred vision:
[2025-09-04 17:41] VITALS: TEMP 97.7
--- NOTE | 2025-09-04 17:47 | PROVIDER PROGRESS NOTE ---
Subjective Prog Note Date Prog Note Date: 09/04/25 Subjective Pt reports feeling: No change Current Medications Current Medications Current Medications: Current Medications Generic Name Dose Route Start Last Admin Trade Name Kristina PRN Reason Stop Dose Admin Acetaminophen 650 mg 09/01/25 20:11 Acetaminophen 325 Mg Tablet PO Q4HR PRN Pain 1 to 4, or Fever Albuterol/Ipratropium 3 ml 09/01/25 20:11 09/04/25 08:27 Ipratropium/Albuterol 3 Ml Neb INH 3 ml Q4HR PRN Administration Wheezing Apixaban 2.5 mg 09/01/25 21:00 09/04/25 09:17 Apixaban 2.5 Mg Tablet PO 2.5 mg BID ZARIA Administration Atorvastatin Calcium 40 mg 09/01/25 21:00 09/03/25 22:00 Atorvastatin 40 Mg Tablet PO 40 mg QPM ZARIA Administration Budesonide 0.5 mg 09/01/25 21:00 09/04/25 08:27 Budesonide 0.5 Mg/2 Ml Neb INH 0.5 mg BID ZARIA Administration Ceftriaxone Sodium 1 gm 09/02/25 09:00 09/04/25 09:17 Ceftriaxone 1 Gm Vial IVP 09/05/25 09:01 1 gm DAILY ZARIA Administration Cholecalciferol 75 mcg 09/02/25 09:00 09/04/25 09:17 Cholecalciferol 25 Mcg Tablet PO 75 mcg DAILY ZARIA Administration Dexamethasone Sodium Phosphate 6 mg 09/02/25 09:00 09/04/25 09:17 Dexamethasone 10 Mg/Ml Vial PO 09/05/25 09:01 6 mg DAILY ZARIA Administration Dorzolamide HCl 1 drops 09/02/25 14:00 09/04/25 09:18 Dorzolamide 2% Ophth Drops EACHEYE 1 drops BID ZARIA Administration Guaifenesin 200 mg 09/02/25 20:00 09/04/25 14:03 Guaifenesin 100 Mg/5 Ml Udc PO 200 mg Q6H ZARIA Administration Latanoprost 1 drops 09/02/25 21:00 09/03/25 22:06 Latanoprost 0.005% Ophth Drops EACHEYE 1 drops QPM ZARIA Administration Melatonin 3 mg 09/04/25 21:00 09/04/25 00:10 Melatonin 3 Mg Tablet PO 3 mg QPM ZARIA Administration Metoprolol Succinate 12.5 mg 09/01/25 21:00 09/03/25 21:59 Metoprolol Succinate 25 Mg Tablet PO 12.5 mg HS ZARIA Administration Montelukast Sodium 10 mg 09/02/25 09:00 09/04/25 09:17 Montelukast 10 Mg Tablet PO 10 mg DAILY ZARIA Administration Ondansetron HCl 4 mg 09/01/25 20:11 Ondansetron 4 Mg/2 Ml Vial IVP Q6HR PRN Nausea / Vomiting Sodium Chloride 10 ml 09/01/25 20:11 Sodium Chloride Flush 0.9% 10 Ml Syringe IVP PRN PRN NEEDED PER PROVIDER ORDERS Sodium Chloride 10 ml 09/02/25 01:00 09/04/25 15:57 Sodium Chloride Flush 0.9% 10 Ml Syringe IVP 10 ml 0100,0900,1700 ZARIA Administration Tamsulosin HCl 0.4 mg 09/01/25 21:00 09/03/25 22:00 Tamsulosin 0.4 Mg Capsule PO 0.4 mg QPM ZARIA Administration Zinc Oxide 113 gm 09/04/25 10:14 09/04/25 14:03 Cod Liver Oil/Zinc Oxide 113 Gm Tube TOP 1 applic PRN PRN Administration Skin Care Objective Vital Signs/Intake & Output Reviewed Vital Signs: Yes Vital Signs: Vital Signs x48h Temp Pulse Resp BP Pulse Ox 09/04/25 17:00 97.7 F 63 24 187/94 H 96 Intake & Output: Intake & Output 09/01/25 09/02/25 09/03/25 09/04/25 23:59 23:59 23:59 23:59 Intake Total 350 / 350 900 / 900 850 / 850 1440 / 1440 Output Total 550 / 550 Balance 350 / 350 900 / 900 850 / 850 890 / 890 Weight (kg) 111.5 kg Objective General Appearance: positive No acute distress Eyes Bilateral: positive PERRL Neck: positive Nml inspection Respiratory: positive Chest non-tender and Other (BS diminished left lower lobe) Cardiovascular: positive Regular rate & rhythm and No murmur Abdomen: positive Non-tender Skin: positive Color nml Extremities: positive Non-tender, No pedal edema and Other (2-3 cm skin tear noted along anterior tibial surface or RLE. ) Neurologic/Psychiatric: positive Disoriented to place and Disoriented to time Lab Results 09/04/25 05:42 09/04/25 05:42 Other Labs: Lab Results x24hrs 09/04/25 Range/Units 05:42 WBC 19.3 H (4.8-10.8) x10^3/uL RBC 4.04 L (4.70-6.10) 10^6/uL Hgb 13.0 L (14.0-18.0) g/dL Hct 39.7 L (42.0-52.0) % MCV 98.3 H (80.0-94.0) fL MCH 32.2 H (27.0-31.0) pg MCHC 32.7 (32.0-36.0) g/dL RDW 13.3 (12.0-15.0) % Plt Count 144 (130-450) 10^3/uL MPV 12.1 H (7.4-11.4) fL Neut # (Auto) 16.9 H (1.5-6.6) 10^3/uL Lymph # (Auto) 1.1 L (1.5-3.5) 10^3/uL Dodge # (Auto) 1.1 H (0.0-1.0) 10^3/uL Eos # (Auto) 0.0 (0.0-0.7) 10^3/uL Baso # (Auto) 0.0 (0.0-0.1) 10^3/uL Absolute Nucleated RBC 0.00 x10^3/uL Nucleated RBC % 0.0 /100WBC Sodium 136 (135-145) mmol/L Potassium 4.4 (3.5-4.5) mmol/L Chloride 105 (101-111) mmol/L Carbon Dioxide 25 (21-32) mmol/L Anion Gap 6.0 (6-13) BUN 31 H (6-20) mg/dL Creatinine 1.3 (0.6-1.3) mg/dL Estimated GFR (MDRD) 52 L (>89) Glucose 121 H (74-104) mg/dL Calcium 10.2 (8.5-10.3) mg/dL Sepsis Event Note (H) Evaluation Current Stage of Sepsis: Sepsis Possible source of Sepsis: positive Pulmonary Sepsis Criteria Sepsis Criteria: Recorded Respiratory Rate greater than 20, WBC count greater than 10% bands and WBC count greater than 12,000 or less than 4000 Assessment/Plan Problem List (1) Pneumonia: Impression: Monitor: Pt shows improved WOB, has stable room air saturations, is not on any supplemental oxygen, and pt relates coughing has decreased in severity. Will continue to monitor respiratory function for changes. Evaluate: Room air sats are consistent in the mid 90's, with improve WOB. Assess/add/trat: Pt has responded well clinically to the abx course, but given the refractory leukocytosis, abx agent may be revisited if clinical picture deteriorates. 09/04: Remains on room air. Mentation much improved. Leukocytosis likely due to steroid given overall clinical improvement. Today is day 4/5 Rocephin. Patient has completed his course of azithromycin. At this point, he is medically clear for discharge to SNF (2) Sepsis: Impression: Monitoring for improvement: Pt is demonstrating improved cognition since my assessment yesterday. Pt work of breathing has improved and severity of cough have also likewise improved. Pt PWD, afebrile, no tachycardia. Evaluation: Pt is on day 3/5 Rocephin and day 3/3 Azithromycin therapy, with new refractory leukocytosis since yesterday (16.5-22.5). Will continue to assess for leukocytosis and determine if findings consistent with abx resistance or steroid usage. Assessment/addendum: continue to assess WBC response to ABX therapy, monitor CMP and CBC for any changes in blood chemistry/electrolyte balance/organ dysfunction. 09/04: Patient remains afebrile. WBC elevation likely due to steroid (3) Acute exacerbation of chronic obstructive pulmonary disease: Impression: Monitor: Pt shows improved WOB, has stable room air saturations, is not on any supplemental oxygen, and pt relates coughing has decreased in severity. Will continue to monitor respiratory function for changes. Evaluate: Room air sats are consistent in the mid 90's, with improve WOB. Assess/add/trat: Pt has responded well to Decadron 6mg PO x1 daily, Budesonide 0.5mg BID, Monteleukast 10mg 1x daily, Duoneb 3ml Q4hr/PRN, and 400mg guaifenesin liquid formulation Q4hrs. (4) Atrial fibrillation: Impression: chronic and stable, no RVR. Continuing his metoprolol 12.5mg BID and eliquis 2.5mg BID. Monitor: Monitoring for any palpitations, fluttering, chest sensation changes, syncope, near syncope, or arrythmias. Evaluate: Will consider telemetry if indicated. Assess/add/treat: Pt stable on continued metoprolol 12.5mg BID and eliquis 2.5mg BID 09/04: Continue treatment Qualifiers: Atrial fibrillation type: persistent (not longstanding) Qualified Code(s): I48.19 - Other persistent atrial fibrillation; I48.1 - Persistent atrial fibrillation (5) BPH (benign prostatic hyperplasia): Impression: hx of acute urinary retention at last hospitalization. I have ordered bladder management protocol and am continuing home flomax. Monitor: Monitor for any changes in urination. Evaluate: No current test results pending for BPH, pt stable on current dosage of Flomax 0.4mg QPM. Qualifiers: Lower urinary tract symptom presence: unspecified whether lower urinary tract symptoms present Qualified Code(s): N40.0 - Benign prostatic hyperplasia without lower urinary tract symptoms (6) HTN (hypertension): Impression: Monitoring: sequential BP measurements between 130-193 systolic over the last two days of admission. Monitoring for any end-organ symptoms, remaining cognizant of possible effects of working to lower BP in conjunction with orthostatic hypotension episodes. Evaluate: Continue to weigh benefits of inhibiting orthostatic responses and fall risk with prolonged HTN. 09/04: Patient has reported history of orthostatic hypotension, for which she is on midodrine in the outpatient setting. Being conservative with management of his hypertension, will hold off on medical management for now (7) Orthostatic hypotension: Impression: Pt and previous pt charts, as well as current continued regimen of midodrine contribute to concern for orthostatic hypotension, which was ordered and initial was negative today. Orthostatics ordered Qshift as well as road testing to make sure patient can tolerate standing from seated position and walking with assistance from walker. 09/04: This afternoon, he was noted to have a drop in his blood pressure between sitting and standing. Sitting was 190/102, standing was 143/83. He was not tachycardic during this episode, and was not symptomatic at all (8) Blurred vision: Impression: Pt reported continued blurred vision, monitoring for changes and want to determine if history of glaucoma or HTN hx is more contributory.
[2025-09-05 05:46] LABS: HCT - HEMATOCRIT 37.2 % (42.0-52.0); HGB - HEMOGLOBIN 12.2 g/dL (14.0-18.0); MEAN PLATELET VOLUME 11.7 fL (7.4-11.4); NRBC ABSOLUTE COUNT (AUTO) 0.00 x10^3/uL; NUCLEATED RED BLOOD CELLS AUTO 0.0 /100WBC; PLT - PLATELET COUNT 148 10^3/uL (130-450); RED CELL DISTRIBUTION WIDTH 13.2 % (12.0-15.0)
[2025-09-05 06:05] LABS: BUN - BLOOD UREA NITROGEN 26.0 mg/dL (6-20); CARBON DIOXIDE - CO2 25.0 mmol/L (21-32); CREATININE 1.1 mg/dL (0.6-1.3); GFR - MDRD 63.0 (>89)
[2025-09-05 08:38] VITALS: BP 160/84; O2SAT 94
--- NOTE | 2025-09-05 13:22 | Discharge Summary ---
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 During the night, he got up and fell in the kitchen despite using his walker, called paramedics for lift assist and he was brought to the ED, had a long stay in the ED with repeat head CT due to fall on Eliquis. Went home mid morning. Did miss some of his home meds today due to his time in the ED. After arrival home, continued to be weak. was not able to get him from sofa to recliner, once again, called lift assist and once again, paramedics recommended ED visit due to labored breathing. ED provider reports hypoxia on room air. I do not see this here in the ED. He complains of being cold, cough and fatigue. he is also confused. He knows that he is in the hospital, but not oriented to time. He has had increasing cough at home. no fever, no chest pain. He does feel that it is difficult to breath, and that he gets out of breath with any exertion. he has not had any PND or ankle swelling, HOSPITAL COURSE Hospital Course: Patient was admitted in the hospital and started on oral Decadron as well as IV Rocephin and azithromycin. His mentation improved greatly, and his oxygen was stable on room air. He had a leukocytosis which is likely from steroid use, as clinically he is much improved. He was evaluated by speech therapy, who performed MBSS which showed some flash penetration. He was evaluated by physical therapy, who recommended SNF placement. Today, he is being discharged to SNF and he has been instructed to follow-up with PCP. He will undergo evaluation and treatment by PT, OT, speech therapy ALLERGIES Allergies Allergy/AdvReac Type Severity Reaction Status Date / Time caffeine Allergy Intermediate Cough Verified 09/01/25 04:11 aspirin Allergy Respiratory Verified 09/01/25 17:18 cantaloupe Allergy Unknown Verified 09/01/25 04:11 strawberry Allergy Unknown Verified 09/01/25 04:11 MEDICATIONS Ambulatory Orders Medication Instructions Recorded Confirmed cholecalciferol (vitamin D3) 25 75 mcg PO DAILY 09/01/25 mcg (1,000 unit) tablet coenzyme Q10 100 mg capsule (Co 2 tab ORAL DAILY 04/1309/01/25 Q-10) latanoprost (PF) 0.005 % eye drops 1 drp EACHEYE HS 09/02/25 vitamin E 268 mg (400 unit) capsule 400 unit PO DAILY 04/13/21 09/02/25 carboxymethylcellulose sodium 0.[address] y Eye 03/27/24 09/02/25 % eye drops (Refresh Tears) famotidine 20 mg tablet 20 mg PO QACDINNER 03/27/24 09/02/25 metoprolol succinate 25 mg 12.5 mg PO HS 03/27/2408/16 tablet,extended release 24 hr apixaban 2.5 mg tablet (Eliquis) 2.5 mg PO BID 4 09/02/25 atorvastatin 40 mg tablet 40 mg PO QPM 03/29/24 albuterol sulfate 90 mcg/actuation 2 inh inhalation QI D PRN shortness 08/19/24 09/02/25 aerosol inhaler of breath or wheezing dorzolamide 2 % eye drops 1 drp ophthalmic (eye) BID 1 10/19/23 09/02/25 multivitamin 1 tab PO DAILY 08/19/2408/16 montelukast 10 mg tablet See Rx Instructions .Route 0 12/12/24 09/02/25 .COMPLEX #90 tabs dutasteride 0.5 mg capsule 0.5 mg PO .QHS 12/20/24 tamsulosin 0.4 mg capsule 0.4 mg PO QPM 12/20/2409/02 triamcinolone acetonide 55 mcg 1 spray intranasal WALTER Y PRN runny 12/20/24 09/02/25 nasal spray aerosol (Nasacort) nose ipratropium 0.5 mg-albuterol 3 mg 3 ml inhalation BID PRN shortness 01/16/25 09/02/25 (2.5 mg base)/3 mL nebulization of breath or wheezing #180 mL soln calcium carbonate (Antacid 200 mg PO TID PRN heartburn 02/09/25 09/01/25 (calcium carbonate)) midodrine 5 mg tablet 5 mg PO DAILY hypotension 09/02/25 Held on 09/05/25. Instructions: Hold unless he becomes symptomatic with orthostatic hypotension prednisone 10 mg tablet See Rx Instructions PO .COMP ADAM 05/22/25 09/02/25 copd exacerbation #30 tabs fluticasone fur. 200 mcg-umeclid 1 inh inhalation WALTER Y 06/09/25 09/02/25 62.5 mcg-vilant 25 mcg inhalat.powder (Trelegy Ellipta) escitalopram oxalate 5 mg tablet 5 mg PO DAILY 5 09/02/25 fexofenadine 180 mg tablet 180 mg PO QPM 09/02/2508/16 (Aller-Ease) vibegron 75 mg tablet (Gemtesa) 75 mg PO DAILY 5 09/02/25 PHYSICAL EXAM AT DISCHARGE Vital Signs: Vital Signs x48h Temp Pulse Pulse Resp BP Pulse Ox 09/05/25 08:36 68 16 09/05/25 08:25 97.7 F 63 20 160/84 H 94 Physical Exam Other/Comments: General Appearance: positive No acute distress Eyes Bilateral: positive PERRL Neck: positive Nml inspection Respiratory: positive Chest non-tender and Other (BS diminished left lower lobe) Cardiovascular: positive Regular rate & rhythm and No murmur Abdomen: positive Non-tender Skin: positive Color nml Extremities: positive Non-tender, No pedal edema and Other (2-3 cm skin tear noted along anterior tibial surface or RLE. ) Neurologic/Psychiatric: positive Disoriented to place and Disoriented to time LABS 09/05/25 05:33 09/05/25 05:33 SEPSIS Current Stage of Sepsis: Resolved Possible source of Sepsis: Pulmonary Sepsis Criteria: Recorded Respiratory Rate greater than 20, WBC count greater than 10% bands and WBC count greater than 12,000 or less than 4000 FOLLOW UP Follow Up: With PCP TIME SPENT Time Spent in Discharge (Minutes): 38 Discharge Plan Discharge Patient Disposition: 03 DC/Xfer Condition: Serious Prescriptions: Continued montelukast 10 mg tablet See Rx Instructions .ROUTE .COMPLEX Qty: 90 3RF Dose Instruction: TAKE ONE (1) TABLET BY MOUTH ONCE A DAY Rx Instructions: TAKE ONE (1) TABLET BY MOUTH ONCE A DAY ipratropium-albuterol 0.5 mg-3 mg(2.5 mg base)/3 mL solution for nebulization 3 ml inhalation BID PRN (Reason: shortness of breath or wheezing) Qty: 180 3RF latanoprost (PF) 7.5 ML drops 1 drp EACHEYE HS vitamin E 400 UNIT capsule 400 unit PO DAILY coenzyme Q10 [Co Q-10] 100 MG capsule 2 tab ORAL DAILY cholecalciferol (vitamin D3) 25 MCG tablet 75 mcg PO DAILY multivitamin Tablet 1 tab PO DAILY carboxymethylcellulose sodium [Refresh Tears] 15 ML drops 1 drp EACHEYE QAM famotidine 20 MG tablet 20 mg PO QACDINNER metoprolol succinate 25 MG tablet extended release 24 hr 12.5 mg PO HS atorvastatin 40 MG tablet 40 mg PO QPM 0RF Eliquis 2.5 MG tablet 2.5 mg PO BID 0RF tamsulosin 0.4 MG capsule 0.4 mg PO QPM dutasteride 0.5 mg capsule 0.5 mg PO .QHS Rx Instructions: TAKE 1 CAPSULE BY MOUTH ONCE A DAY triamcinolone acetonide [Nasacort] 55 mcg aerosol,spray 1 spray intranasal DAILY PRN (Reason: runny nose) Rx Instructions: administer into each nostril calcium carbonate [Antacid (calcium carbonate)] 200 mg calcium (500 mg) tablet,chewable 200 mg PO TID PRN (Reason: heartburn) fexofenadine [Aller-Ease] 180 mg tablet 180 mg PO QPM escitalopram oxalate 5 mg tablet 5 mg PO DAILY Gemtesa 75 mg tablet 75 mg PO DAILY prednisone 10 mg tablet See Rx Instructions PO .COMPLEX Qty: 30 0RF Rx Instructions: 40mg per day for 3 days, 30mg per day for 3 days, 20mg per day for 3 days, 10mg per day for 3 days orally; see taper instructions Trelegy Ellipta 200-62.5-25 mcg blister with device 1 inh inhalation DAILY albuterol sulfate 90 mcg/actuation HFA aerosol inhaler 2 inh inhalation QID PRN (Reason: shortness of breath or wheezing) dorzolamide 2 % drops 1 drp ophthalmic (eye) BID Held midodrine 5 mg tablet 5 mg PO DAILY Hold Instructions: Hold unless he becomes symptomatic with orthostatic hypotension Patient Comments: PRN IN THE EVENING IF BP<110) Rx Instructions: do not give last dose of day after 6PM or within 4 hrs of bedtime Activity Restrictions: No Restrictions Diet: Regular Health Concerns: Diagnosis and Hospital Course: Patient admitted for pneumonia and acute exacerbation of COPD. Completed recommended courses of intravenous ceftriaxone and azithromycin for pneumonia, and dexamethasone for COPD exacerbation. Clinical status improved; ready for discharge to SNF. Medications: * Antibiotics and steroids:Completed inpatient courses; no further doses required unless new symptoms develop. * Maintenance COPD therapy:Continue long-acting bronchodilators and inhaled corticosteroids as previously prescribed. Ensure access to rescue inhaler (short-acting beta-agonist). * Other medications:Continue home medications as appropriate. Inhaler Technique: * Reassess and reinforce correct inhaler technique with SNF staff and patient. Supervise first dose if possible. Pulmonary Rehabilitation: * Early enrollment in pulmonary rehabilitation is recommended within 3 weeks post-discharge, as feasible, to improve functional status and reduce readmissions. Monitoring and Follow-up: * Schedule follow-up with primary care within 1-4 weeks to review symptoms, medication regimen, inhaler technique, and oxygen needs. * Monitor for signs of recurrent infection or COPD exacerbation: increased dyspnea, cough, sputum volume or purulence, fever, or hypoxemia. Notify provider promptly if these occur. Vaccinations: * Ensure up-to-date pneumococcal and influenza vaccinations to reduce risk of future pneumonia. You were admitted into the hospital for pneumonia because it also caused an acute delirium. Your mentation has greatly improved, and clinically your pneumonia is also much improved. You completed a course of azithromycin, ceftriaxone, and Decadron. You were noted to be hypertensive at several points during your stay. You have history of orthostatic hypotension, and are on drugs at home to keep your blood pressure up. Given the acute nature of your illness, and your orthostatic hypotension, I have elected to not add any medications for blood pressure reduction. I believe that there is greater harm in dropping your blood pressure too low and risking falls than there is in having some high blood pressure. I will defer further management to your PCP Print Language: Portuguese Patient Instructions: ED Pneumonia (Adult) Stand Alone Forms: SNF Discharge, PCP List Follow-up Care: Rinku Nguyễn MD [Primary Care Provider, [facility]] Report called to and time (if no answer, doc. time of each call attempted): Vero simpson at [facility] @1430 Vitals documented within 30 minutes of discharge?: Yes
== END 2025-09-05 14:45 | DRG 871 ==
LOC: EDBD → ED 16:57 → MS3 16:57
PROVIDERS: ADMIT Physician Assistant Medical; ATTEND Physician Assistant Medical
DX: I11.0 Hypertensive heart disease with heart failure; H53.8 Other visual disturbances; A41.9 Sepsis, unspecified organism; Z95.2 Presence of prosthetic heart valve; Z87.891 Personal history of nicotine dependence; J44.0 Chronic obstructive pulmonary disease with (acute) lower respiratory infection; J44.89 Other specified chronic obstructive pulmonary disease; I25.10 Atherosclerotic heart disease of native coronary artery without angina pectoris; I95.1 Orthostatic hypotension; J18.9 Pneumonia, unspecified organism; N40.0 Benign prostatic hyperplasia without lower urinary tract symptoms; I48.19 Other persistent atrial fibrillation; K21.9 Gastro-esophageal reflux disease without esophagitis; Z79.01 Long term (current) use of anticoagulants; Z95.1 Presence of aortocoronary bypass graft; E78.5 Hyperlipidemia, unspecified; I50.32 Chronic diastolic (congestive) heart failure; J44.1 Chronic obstructive pulmonary disease with (acute) exacerbation; Z91.85 Personal history of military service; Z79.899 Other long term (current) drug therapy